=== PATIENT | female | born 1950 | race Caucasian/White ===

== ENCOUNTER → 2019-09-05 15:35 | Outpatient (CLI) | payer MEDICARE, OTHER, SELFPAY ==
--- NOTE | ~2019-09-05 | MM_ITS ---
EXAMINATION: MM screening [facility] BI w lo HISTORY: Screening mammogram, history of left breast cancer TECHNIQUE: Craniocaudal and mediolateral oblique 3-D tomosynthesis images were obtained and synthetic 2-D images were generated. CAD analysis was submitted and interpreted. COMPARISON: 07/04/2018, 01/03/2018, 06/12/2017 BREAST PARENCHYMAL COMPOSITION: There are scattered areas of fibroglandular density. FINDINGS: There are stable lumpectomy changes in the upper outer quadrant of the left breast. There i s no evidence of suspicious mass, calcification, or architectural distortion to suggest malignancy in either breast. There has been no suspicious interval change. IMPRESSION: 1. No mammographic evidence of malignancy. 2. Recommend routine screening mammography in one year. BI-RADS Category 2: Benign finding(s). Reviewed, dictated and finalized at location A. [employer]
== END ==
PROVIDERS: PCP Family Medicine Adolescent Medicine; Visit Provider Obstetrics & Gynecology
DX: Z12.31 Encounter for screening mammogram for malignant neoplasm of breast (principal)
CPT/HCPCS: 77063; 77067

== ENCOUNTER 2019-12-20 12:07 | Outpatient (CLI) | payer MEDICARE, OTHER, SELFPAY ==
--- NOTE | ~2019-12-20 | CT_ITS ---
EXAMINATION: CT abdomen pelvis w con DATE: 12/20/2019 13:16 INDICATION: Left lower quadrant abdominal pain. Nausea, constipation, diarrhea. History of diverticul itis. TECHNIQUE: Computed tomography (CT) of the abdomen and pelvis was performed with 100 cc Omnipaque 350 intravenous contrast. Automated exposure control and iterative reconstruction technique were employe d. Exam dose: 1158.92 mGy-cm total exam DLP. COMPARISON: 07/29/2018 CT abdomen pelvis FINDINGS: The lung bases are clear of infiltrate or consolidation. Normal heart size. No pericardial or pleural effusion. Status post cholecystectomy. No bile duct or pancreatic duct dilatation. No hepatic, splenic, pancreatic, adrenal space-occupying mass lesion. There are at least 4 left renal cysts, measuring up to 1.6 cm. There are approximately 3 right renal cysts measuring up to approximately 9 mm maximal dimension. No urinary tract calculus or hydronephrosis. There is atherosclerotic calcification of the thoracic and abdominal aorta; no evidence of abdominal aortic aneurysm. No intraperitoneal or retroperitoneal or pelvic mass lesion or adenopathy or ascites . The uterus, adnexal areas and urinary bladder are unremarkable. There is liquid stool throughout the colon and some enhancement of the colon wall, suggesting colitis . No bowel obstruction, pneumatosis or intraperitoneal free air is evident. Normal appendix. T11 vertebral body hemangioma. Diffuse idiopathic skeletal hyperostosis of the thoracolumbar spine. Prominent degenerative changes of the apophyseal joints in the lower lumbar and lumbosacral area with associated grade 1 anterolisthesis at L4-5. IMPRESSION: The colon is distended with liquid stool, with mild mucosal enhancement, suggesting diff use colitis Normal appendix Bilateral renal cysts Reviewed, dictated and finalized at Location A. Reviewed, dictated and finalized at location A. IMPRESSION: The colon is distended with liquid stool, with mild mucosal enhanc ement, suggesting diffuse colitis Normal appendix Bilateral renal cysts
[2019-12-20 13:00] LABS: Estimated Glomerular Filt Rate > 60
== END 2019-12-20 12:08 | disposition home or self-care (01) ==
PROVIDERS: PCP Family Medicine Adolescent Medicine; Visit Provider Family Medicine Adolescent Medicine
DX: R10.32 Left lower quadrant pain (principal); N28.1 Cyst of kidney, acquired
CPT/HCPCS: 36415; 74177; Q9967

== ENCOUNTER 2020-03-02 09:34 | Inpatient (IN) | payer MEDICARE, OTHER, SELFPAY ==
--- NOTE | ~2020-03-02 | XR_ITS ---
EXAMINATION: XR abdomen/kub 1V DATE: 03/04/2020 06:15 INDICATION: Bowel obstruction. TECHNIQUE: A supine view of the abdomen on 2 radiographs was obtained. COMPARISON: CT abdomen and pelvis 03/02/2020, abdomen radiograph 03/03/2020 FINDINGS: There is gaseous distention of the colon. The small bowel is normal in caliber. The nasogas tric tube tip is in the stomach. Surgical clips in the right upper quadrant are likely from cholecyst ectomy. IMPRESSION: 1. Distended colon, consistent with distal obstruction. Reviewed, dictated and finalized at location A.
--- NOTE | ~2020-03-02 | CT_ITS ---
EXAMINATION: CT abdomen pelvis w con EXAM DATE: 03/02/2020 11:10 INDICATION: Abdominal pain since Monday. History diverticulitis and bowel resection. TECHNIQUE: Spiral CT of the abdomen and pelvis was performed following intravenous injection of 100 m L Omnipaque 350. Axial, coronal and sagittal images were reviewed. The dose-length product (DLP) fo r this examination was 1248.03 mGy-cm. The exposure was tailored according to patient size (auto mA exposure control), and iterative reconstruction (ASIR) was used as additional dose reduction techniqu e. Comparison is made to prior examination from 12/20/2019. FINDINGS: The liver, spleen, adrenal glands and pancreas are unremarkable. There are cholecystectomy clips. Portal and splenic veins are patent. Kidneys enhance symmetrically. There is no hydronephr osis. The uterus is unremarkable. The bladder is unremarkable. There is mild scattered arteriosc lerotic disease. The appendix is normal. The stomach and small bowel are unremarkable. The colon is distended and fl uid-filled. There is a transition point in the sigmoid colon where there is probably wall thickening for about 6 cm segment. This could be adenocarcinoma of the colon. More cephalad to this there is a r ound lymph node measuring 1 cm in diameter, could be metastatic. Several other smaller but round lymp h nodes identified. There is mild colonic diverticulosis without acute diverticulitis suspected. No f ree intraperitoneal gas. The heart is normal in size. There are no pericardial or pleural effusion s. The lung bases are unremarkable. There are no osteoblastic or osteolytic lesions identified. Dias bacute right lower lateral rib fracture. IMPRESSION: 1. Findings suspicious for sigmoid colonic adenocarcinoma causing partial colonic obstruction. Signi ficantly distended and fluid-filled colon proximally. Consider consult. 2. Several adjacent round lymph nodes that could be metastatic. 3. Subacute right lower lateral rib fracture. Reviewed, dictated and finalized at location B. IMPRESSION: 1. Findings suspicious for sigmoid colonic adenocarcinoma causing partial colo jessica obstruction. Significantly distended and fluid-filled colon proximally. Con verifying machine operator consult. 2. Several adjacent round lymph nodes that could be metastatic. 3. Subacute right lower lateral rib fracture.
--- NOTE | ~2020-03-02 | XR_ITS ---
EXAMINATION: XR abdomen/kub 1V DATE: 03/03/2020 06:13 INDICATION: Colonic obstruction. TECHNIQUE: A supine view of the abdomen on 2 radiographs was obtained. COMPARISON: CT abdomen and pelvis 01/01/2020, enema 03/02/20 FINDINGS: There are no dilated loops of small bowel. The colon is distended. The nasogastric tube tip is in the stomach. Surgical clips in the right upper quadrant are likely from cholecystectomy. IMPRESSION: 1. Stable distended colon, consistent with distal obstruction. Reviewed, dictated and finalized at location A.
--- NOTE | ~2020-03-02 | XR_ITS ---
EXAMINATION: XR abdomen NG/feed tube insert INDICATION: Bowel obstruction, nasogastric tube insertion TECHNIQUE: Portable AP KUB-NG at 1252 hours COMPARISON: CT from today FINDINGS: A nasogastric tube is in the stomach. No definitely dilated loops of bowel are identified a lthough the dilated large bowel is fluid-filled on the comparison CT, lowering sensitivity of radiogr aphs. The visualized lung bases are clear. IMPRESSION: 1. Nasogastric tube in the stomach. Reviewed, dictated and finalized at location A.
--- NOTE | ~2020-03-02 | XR_ITS ---
EXAMINATION: XR abdomen NG/feed tube insert DATE: 03/02/2020 17:18 INDICATION: Nasogastric tube placement TECHNIQUE: A supine view of the abdomen and lower chest was obtained for evaluation of feeding tube placement. COMPARISON: 03/02/2020 FINDINGS: Nasogastric tube remains in place with both distal tip in proximal side port within the body of the s tomach. Gas-filled but not frankly dilated loops of bowel in the abdomen and a nonspecific bowel gas pattern. Calcified nodule in the right lower lobe consistent with old granulomatous disease. Heart si ze and mediastinal silhouette are normal. There are bridging osteophytes at multiple levels in the sp ine, consistent with diffuse idiopathic skeletal hyperostosis (DISH). IMPRESSION: 1. Nasogastric tube in the stomach. 2. Nonspecific bowel gas pattern. Reviewed, dictated and finalized at location A.
--- NOTE | ~2020-03-02 | XR_ITS ---
EXAMINATION: XR enema water soluble DATE: 03/02/2020 15:00 INDICATION: Bowel obstruction, possible mass on CT TECHNIQUE: A historic interpreter radiograph was obtained. A catheter was inserted into the patient's rectum. Contra st was infused by gravity. Fluoroscopic spot images and conventional radiographs were obtained. Fluor oscopy exposure time was 1.8 minutes. The DAP for this procedure was 63.4 Gycm2. 12 images were obtai sangeeta. COMPARISON: CT from today FINDINGS: Weaving Loom Operator image demonstrates partial opacification of the urinary tract by contrast from [facility] r CT examination. Patient voided prior to enema tube insertion. Contrast proceeded in a retrograde fa shion to the an area of stricturing in the sigmoid colon corresponding to the suspected sigmoid mass on CT. Contrast did not readily pass proximal to this area of stricturing with multiple attempts at c hanging patient position. Conventional radiographs were then performed which demonstrate some passage of contrast material proximal to the strictured segment into the upstream sigmoid colon which is dil ated. IMPRESSION: 1. Short area of stricturing in the mid sigmoid colon with dilated proximal sigmoid colon suspicious for sigmoid mass. Direct visualization is recommended. Reviewed, dictated and finalized at location A. IMPRESSION: 1. Short area of stricturing in the mid sigmoid colon with dilated proximal sig moid colon suspicious for sigmoid mass. Direct visualization is recommended.
[2020-03-02 09:37] VITALS: BP 176/73; PULSE 100; RESP 17; TEMP 36.6; O2SAT 100
[2020-03-02 10:11] LABS: Basophils Absolute Auto 0.1 K/mm3 (0.0-0.1); Basophils Percent Auto 0.3 % (0.2-1.2); Eosinophils Absolute Auto 0.1 K/mm3 (0-0.3); Eosinophils Percent Auto 0.4 % (0-4.4); Hematocrit 39.5 % (37.0-47.0); Hemoglobin 13.6 g/dL (12.0-15.0); Immature Granulocyte Absolute 0.14 K/mm3 (0.00-0.031); Immature Granulocyte Percent A 0.7 % (0-0.5); Lymphocytes Percent Auto 14.5 % (18.3-44.2); Mean Corpuscular HGB Conc 34.4 g/dl (32-36); Mean Corpuscular Hemoglobin 30.1 pg (26-34); Mean Corpuscular Volume 87.4 fl (80-100); Mean Platelet Volume 10.2 fl (7.4-10.4); Monocytes Absolute Auto 1.3 K/mm3 (0.1-0.6); Monocytes Percent Auto 6.2 % (2.6-8.5); Neutrophils Absolute Auto 16.2 K/mm3 (1.3-6.7); Neutrophils Percent Auto 77.9 % (45.5-73.1); Platelet Count Result 537 k/mm3 (150-375); Red Blood Count 4.52 M/mm3 (4.2-5.4); Red Cell Distribution Width 13.1 % (11.5-14.5); White Blood Count 20.7 K/mm3 (4.5-10.0)
--- NOTE | 2020-03-02 10:14 | ED.ABDPAIN ---
HPI - Abdominal Pain General Chief Complaint: Abdominal Pain Stated Complaint: abd pain Time Seen by Provider: 03/02/20 10:09 Source: patient Limitations: no limitations History of Present Illness HPI narrative: Patient presents to the ED with 3 days of severe abdominal pain. She is scheduled with Dr. Macedo to have a bowel resection due to her diverticulitis and recurrent obstructions. She has not had a bowel movement for 3 days. She has nausea and has chosen not to eat or drink. She feels a lot of pressure like she needs to throw up. She has not had any fever chills or sweats. She has not been sick otherwise. There is a surgical history of cholecystectomy. She does smoke cigarettes, she does drink a small amount of alcohol, she does not do marijuana. MD elicited complaint: abdominal pain Pertinent past history: diverticulitis Onset (ago): day(s) Pain Consistency: constant Location: diffuse Severity: severe Quality: fullness Radiation: none Migration to: no migration Exacerbating factors: nothing Relieving factors: nothing Context: confirms history of similar episodes Associated symptoms: nausea and constipation Related Data Home Medications Medication Instructions Recorded Confirmed cholestyramine (with sugar) 4 gram 9 gm PO BID gm 02/21/20 02/25/20 oral powder atorvastatin 40 mg tablet 40 mg PO DAILY 02/24/20 02/25/20 canagliflozin 100 mg tablet 100 mg PO DAILY 02/24/20 02/25/20 dextroamphetamine-amphetamine 30 30 mg PO DAILY 02/24/20 02/25/20 mg tablet diazepam 2 mg tablet 2 mg PO BID PRN 02/24/20 02/25/20 enalapril maleate 20 mg tablet 20 mg PO DAILY 02/24/20 02/25/20 insulin glargine 100 unit/mL 70 unit SUB-Q QPM ml 02/24/20 02/25/20 subcutaneous solution magnesium 250 mg tablet 250 mg PO DAILY 02/24/20 02/25/20 metformin 500 mg tablet 500 mg PO BID 02/24/20 02/25/20 ondansetron HCl 8 mg tablet 8 mg PO Q12H PRN 02/24/20 02/25/20 quetiapine 25 mg tablet 25 mg PO BID 02/24/20 02/25/20 riboflavin (vitamin B2) 25 mg 25 mg PO DAILY 02/24/20 02/25/20 tablet venlafaxine 150 mg tablet,extended 150 mg PO DAILY 02/24/20 02/25/20 release 24 hr cefuroxime axetil 250 mg PO BID 03/02/20 Allergies Allergy/AdvReac Type Severity Reaction Status Date / Time No Known Allergies Allergy Verified 02/24/20 13:17 Review of Systems Review of Systems: Narrative: CONSTITUTIONAL: Denies fever, chills, or sweats. EYES: Denies visual changes, redness, or discharge. ENT: Denies rhinorrhea, congestion, sore throat, or otalgia. CARDIOVASCULAR: Denies chest pain, palpitations, or edema. RESPIRATORY: Denies cough or dyspnea. GASTROINTESTINAL: She has severe abdominal pain, and nausea, but not vomiting, or diarrhea. GENITOURINARY: Denies dysuria or hematuria. SKIN: Denies rash or itching. MUSCULOSKELETAL: Denies back pain, joint pain, or myalgia. NEUROLOGIC: Denies headache, numbness, or weakness. All systems reviewed & are unremarkable except as noted in HPI and below PMFSH Past Medical History Medical History Diabetes High cholesterol History of breast cancer Surgical History Surgical History H/O dilation and curettage x3 H/O foot surgery Hx of cholecystectomy Hx of tonsillectomy Social History Social History (Updated 03/02/20 @ 10:17 by Nely Cano MD) Smoking status: Current every day smoker Alcohol intake: current Alcohol use details: rare Substance use: unknown Gender identity (if verbalized by the patient): Female Exam Narrative: Exam Narrative: GENERAL: Well-appearing, well-nourished, and in no acute distress. HEAD: Normocephalic, atraumatic. EYES: PERRLA and EOMI. ENT: Nares clear, no rhinorrhea or epistaxis. Mucous membranes moist. NECK: Supple. CHEST: Clear to auscultation. No respiratory distress. HEART: Regular rate and rhythm. No murmur heard. Normal peripheral pulse
[2020-03-02] MEDS: SODIUM CHLORIDE 0.9% IV 1,000 ML 500 ML IV CONT (10:23)
[2020-03-02] MEDS: MORPHINE SULFATE 4 MG/ML INJ IV PUSH ×2 (10:23→19:59)
[2020-03-02 10:28] LABS: Add Urine Microscopic? YES; Appearance Urine Cloudy (Clear); Bacteria Urine Trace /hpf; Bilirubin Urine Negative (Negative); Blood Urine 1+ (Negative); Color Urine Yellow (Yellow); Glucose Urine UA 3+ mg/dL (Negative); Ketones Urine 1+ mg/dL (Negative); Leukocyte Esterase Ur 3+ LEU/UL (Negative); Mucus Urine Few /lpf; Nitrate Urine Negative (Negative); Protein Urine 1+ mg/dL (Negative); Specific Grav Ur 1.029 (1.001-1.035); Squamous Epithelial Cell Urine Many /hpf (Few); Transitional Epi Cells Urine Rare /hpf (None Seen); Urobilinogen Urine Negative mg/dL (<2.0); WBC Clumps Urine Present /HPF; WBC Urine >75 /hpf
[2020-03-02 10:30] LABS: Alanine Aminotransferase 17 U/L (4-35); Alkaline Phosphatase 124 U/L (38-126); Anion Gap 13 mmol/L (8-16); Aspartate Amino Transferase 22 U/L (14-36); Bilirubin,Total 0.8 mg/dL (0.2-1.3); Blood Urea Nitrogen 15 mg/dL (7-17); Budding Yeast Urine Present /hpf; Calcium 8.5 mg/dL (8.4-10.2); Carbon Dioxide 21 mmol/L (22-30); Chloride 101 mmol/L (98-107); Estimated CRCL calculation 69 ml/min; Estimated Glomerular Filt Rate > 60; Glucose 224 mg/dL (65-105); Lipase 13 U/L (23-300); Potassium 2.8 mmol/L (3.4-5.0); Sodium 135 mmol/L (137-145)
[2020-03-02 10:48] LABS: Prothrombin Time 13.3 Seconds (11.1-14.7)
[2020-03-02] MEDS: KCL 20 MEQ/SW 100 ML 100 ML 50 MEQ IVPB (11:11)
[2020-03-02 11:27] VITALS: BP 150/71; PULSE 99; RESP 18; O2SAT 96
[2020-03-02] MEDS: BENZOCAINE/TETRACAINE SPRAY (*SP) 56 ML AEROSOL 1 SPRAY (12:37)
[2020-03-02 12:39] VITALS: BP 132/66; PULSE 95; RESP 18; O2SAT 100
[2020-03-02 13:13] VITALS: BP 165/67; PULSE 100; RESP 20; TEMP 36.6; O2SAT 98; BMI 33.0
--- NOTE | 2020-03-02 13:13 | ADMGEN ---
This patient, Aurea De La Rosa, was admitted to 2 Medical Room 241-01. Patient/family oriented to hospital policies and general routines including ID bracelet, bed and alarms, visiting hours, pain management, procedures, bathroom and other care routines, personal items, smoking policy, room service/diet, and visiting hours. Valuables list has been completed. Information on how to activate the Rapid Response Team has been discussed. Patient/Family are encouraged to report perceived risks to care and to ask questions if they do not understand what they are told or what they should do.
[2020-03-02 13:33] VITALS: BMI 33.0
[2020-03-02] MEDS: DEXTROSE 5%/0.9% SOD CHL 1,000 ML 100 ML IV CONT (13:56)
--- NOTE | 2020-03-02 13:59 | PC.NURSE ---
To radiology via wheelchair with transporters.
[2020-03-02] MEDS: ONDANSETRON INJ 4 MG/2 ML VIAL IV PUSH ×2 (15:14→20:01)
--- NOTE | 2020-03-02 19:58 | PM.IMHP ---
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 She has recently had a colonoscopy done at [facility] on February 21. A diverticular stricture was traversed with a gastroscope and the colonoscopy was able to be completed. No sign of malignancy was noted. I saw the patient in the office. On February 23. With her chronic stricture she had symptoms of partial colonic obstruction and was scheduled to have hand access laparoscopic sigmoidectomy. Unfortunately, she had more left lower quadrant pain last week and then on Monday started noticing more severe pain abdominal distension and nausea. She has not had a bowel movement in 3 days. She in 1 a bother anyone on the weekend so she came into the emergency room today. She was noted to be distended with a tender abdomen. [place] [id number] scan showed sigmoid stricture with partial colonic obstruction. The stricture is suspicious for malignancy although with her history and her recent colonoscopy, I feel this is much more likely a benign diverticular stricture. She had a high peak enema as well. This also showed the stricture and some contrast passed retrograde. She does feel somewhat better this evening after having NG suction for a few hours now. Her abdominal pain is not as severe. She is admitted now with sigmoid colon stricture and partial colonic obstruction. She is an insulin-dependent diabetic and has other medical problems as well. Review of Systems Review of Systems: All systems reviewed & are unremarkable except as noted in HPI and below Constitutional: Constitutional: Denies chills and Denies fever(s) Cardiovascular: Cardiovascular: Denies chest pain, Denies diaphoresis, Denies dyspnea and Denies paroxysmal nocturnal dyspnea Respiratory: Respiratory: Denies chest congestion, Denies cough and Denies dyspnea Gastrointestinal: Gastrointestinal: Reports abdominal pain, Reports bloating, Reports constipation, Reports GI cramping, Reports nausea and Reports vomiting Integumentary/Breasts: Skin/Breast: Denies lesions and Denies rash [facility] Past Medical History Medical History Diabetes High cholesterol History of breast cancer Surgical History Surgical History H/O dilation and curettage x3 H/O foot surgery Hx of cholecystectomy Hx of tonsillectomy Family History Family History Father Family history of malignant neoplasm Diabetes mellitus Sibling Family history of type 1 diabetes mellitus Mother Family history of Alzheimer's disease Hypertension Social History Social History Years smoked: 15 Smoking status: Former smoker Tobacco type: cigarettes Alcohol intake: current Alcohol use details: rare Substance use: never Substance use type: does not use Gender identity (if verbalized by the patient): Female Spiritual care concerns: No Meds Home Medications and Allergies Home Medications Medication Instructions Recorded Confirmed Type cholestyramine (with sugar) 4 gram 4 gm PO HS gm 02/21/20 03/02/20 History oral powder atorvastatin 40 mg tablet 40 mg PO HS 02/24/20 03/02/20 History canagliflozin 100 mg tablet 100 mg PO DAILY 02/24/20 03/02/20 History dextroamphetamine-amphetamine 30 60 mg PO DAILY 02/24/20 03/02/20 History mg tablet diazepam 2 mg tablet 2 mg PO PRN PRN 02/24/20 03/02/20 History enalapril maleate 20 mg tablet 20 mg PO DAILY 02/24/20 03/02/20 History insulin glargine 100 unit/mL 70 unit SUB-Q QPM ml 02/24/20 03/02/20 History subcutaneous solution magnesium 250 mg t
[2020-03-02] MEDS: FAMOTIDINE 20 MG/2 ML VIAL IV PUSH (21:21)
[2020-03-02] MEDS: KCL 40 MEQ/0.9% SOD CHL 1,000 ML 125 ML IV CONT (21:21)
[2020-03-02 22:00] VITALS: BP 161/58; PULSE 96; RESP 18; TEMP 36.7; O2SAT 96
[2020-03-03 00:01] LABS: Glucose Point of Care 73 (65-105)
[2020-03-03] MEDS: IBUPROFEN IV 800 MG/200 ML 800 MG/200 ML BAG 400 MG IVPB ×3 (01:40→21:43)
[2020-03-03] MEDS: ONDANSETRON INJ 4 MG/2 ML VIAL IV PUSH ×2 (01:57→22:26)
[2020-03-03] MEDS: DEXTROSE 50% 25 GM/50 ML SYRINGE IV PUSH (01:58)
[2020-03-03 02:00] VITALS: BP 116/42; PULSE 88; RESP 18; TEMP 36.2; O2SAT 96
[2020-03-03] MEDS: DEXTROSE 5%/0.9% SOD CHL 1,000 ML 100 ML IV CONT ×2 (02:16→14:25)
[2020-03-03 02:40] LABS: Anion Gap 4 mmol/L (8-16); Blood Urea Nitrogen 10 mg/dL (7-17); Calcium 7.8 mg/dL (8.4-10.2); Carbon Dioxide 22 mmol/L (22-30); Chloride 111 mmol/L (98-107); Estimated CRCL calculation 93 ml/min; Estimated Glomerular Filt Rate > 60; Glucose 139 mg/dL (65-105); Potassium 2.9 mmol/L (3.4-5.0); Sodium 137 mmol/L (137-145)
[2020-03-03 03:59] LABS: Glucose Point of Care 58 (65-105)
[2020-03-03 03:59] LABS: Glucose Point of Care 111 (65-105)
[2020-03-03 05:42] LABS: Glucose Point of Care 143 (65-105)
[2020-03-03 05:53] LABS: Basophils Percent Auto 0.3 % (0.2-1.2); Eosinophils Absolute Auto 0.2 K/mm3 (0-0.3); Eosinophils Percent Auto 1.3 % (0-4.4); Hematocrit 31.8 % (37.0-47.0); Immature Granulocyte Absolute 0.05 K/mm3 (0.00-0.031); Immature Granulocyte Percent A 0.4 % (0-0.5); Lymphocytes Absolute Auto 3.06 K/mm3 (0.9-3.2); Lymphocytes Percent Auto 22.5 % (18.3-44.2); Mean Corpuscular HGB Conc 34.6 g/dl (32-36); Mean Corpuscular Hemoglobin 30.3 pg (26-34); Mean Corpuscular Volume 87.6 fl (80-100); Mean Platelet Volume 10.3 fl (7.4-10.4); Monocytes Percent Auto 7.1 % (2.6-8.5); Neutrophils Absolute Auto 9.3 K/mm3 (1.3-6.7); Neutrophils Percent Auto 68.4 % (45.5-73.1); Platelet Count Result 402 k/mm3 (150-375); Red Blood Count 3.63 M/mm3 (4.2-5.4); Red Cell Distribution Width 13.2 % (11.5-14.5); White Blood Count 13.6 K/mm3 (4.5-10.0)
[2020-03-03 06:00] VITALS: BP 119/51; PULSE 85; RESP 18; TEMP 36.2; O2SAT 96
[2020-03-03 06:09] LABS: Anion Gap 4 mmol/L (8-16); Blood Urea Nitrogen 10 mg/dL (7-17); Calcium 7.8 mg/dL (8.4-10.2); Carbon Dioxide 21 mmol/L (22-30); Chloride 112 mmol/L (98-107); Estimated CRCL calculation 93 ml/min; Estimated Glomerular Filt Rate > 60; Glucose 135 mg/dL (65-105); Potassium 2.9 mmol/L (3.4-5.0); Sodium 137 mmol/L (137-145)
[2020-03-03] MEDS: VENLAFAXINE HCL XR 75 MG CAP.ER.24H 150 MG PO (08:42)
[2020-03-03] MEDS: FAMOTIDINE 20 MG/2 ML VIAL IV PUSH ×2 (08:42→21:44)
[2020-03-03 09:25] VITALS: BP 129/60; PULSE 84; RESP 20; TEMP 36.3; O2SAT 97
[2020-03-03 12:29] LABS: Glucose Point of Care 120 (65-105)
[2020-03-03 14:00] VITALS: BP 150/53; PULSE 90; RESP 20; TEMP 35.9; O2SAT 97
--- NOTE | 2020-03-03 15:48 | PM.IMCN ---
Assessment and Plan Assessment and plan (1) Partial obstruction of colon: Code(s): K56.600 - Partial intestinal obstruction, unspecified as to cause Status: Acute Assessment and Plan: Patient with partial obstruction of the colon related to sigmoid stricture. It is felt the stricture was related to scarring from previous infections. She was not felt to have diverticulitis or colitis at this time. NG tube secured. Continue to monitor for return of bowel function. Increase activity (2) Hypokalemia: Code(s): E87.6 - Hypokalemia Status: Acute Assessment and Plan: Potassium 2.8 on admission and remains low despite replacement. Will repeat potassium later today and will also check magnesium level. Continue to replace. (3) Leukocytosis: Code(s): D72.829 - Elevated white blood cell count, unspecified Status: Acute Assessment and Plan: White count 21,000 on admission. She is not on antibiotics. No evidence of diverticulitis. White count trending downward. Elevated white count probably stress response. Will continue to follow. (4) Sigmoid stricture: Code(s): K56.699 - Other intestinal obstruction unspecified as to partial versus complete obstruction Status: Acute Assessment and Plan: CT scan concerning for colon cancer although patient has had a recent colonoscopy a year ago and findings were more consistent with stricture related to frequent infections. Most likely will need surgical resection for definitive care. Will need to determine if the lupus anticoagulant will be an issue. (5) Anxiety: Code(s): F41.9 - Anxiety disorder, unspecified Status: Acute Assessment and Plan: Patient on venlafaxine and Seroquel for her anxiety. Venlafaxine has been resumed. Mood stable at this time. Resume other medications when able. (6) IBS (irritable bowel syndrome): Code(s): K58.9 - Irritable bowel syndrome without diarrhea Status: Acute Assessment and Plan: Patient with chronic diarrhea related IBS. This is been treated with cholestyramine With benefit. She follows with Dr. Mcmullen. Resume cholestyramine when able. (7) HTN (hypertension): Qualifiers: Hypertension type: essential hypertension Qualified Code(s): I10 - Essential (primary) hypertension Code(s): I10 - Essential (primary) hypertension Status: Acute Assessment and Plan: Patient's blood pressure was reviewed on 03/03/20 Blood pressure well controlled at times. Will have hydralazine available as needed. (8) Diabetes: Code(s): E11.9 - Type 2 diabetes mellitus without complications Status: Acute Assessment and Plan: The patient's blood glucose was reviewed on 03/03/20. Glucose remains well controlled. Continue AccuCheks covering with sliding scale. Hypoglycemia protocol available as needed. Hime medications on hold. (9) Lupus anticoagulant positive: Code(s): R76.0 - Raised antibody titer Status: Acute Assessment and Plan: PT and INR normal. no old records to review. Will check WILLIS, lupus anticoagulant and cardiolipin antibodies. Will add PTT. (10) DVT prophylaxis: Code(s): Z29.9 - Encounter for prophylactic measures, unspecified Status: Acute Assessment and Plan: SCDs for now as we determine the etiology of her potential bleeding disorder. thank you so much for allowing me to be part of this patient's care. HPI Data of Consult Consult date: 03/04/20 Requesting Physician: Daniel Macedo MD Primary Care Provider: Wilfredo Pinto MD Consult Narrative Narrative: Aurea De La Rosa is a 69 year old female with hx of diverticlulitis and known colon stricture here for abdominal pain and bloating. She had her last bout of diverticulitis in July 2018. She sees Dr Mcmullen but he had trouble performing colonoscopy
--- NOTE | 2020-03-03 16:07 | PM.PNGS ---
Progress Note: A&P Assessment and Plan (1) Partial obstruction of colon: Code(s): K56.600 - Partial intestinal obstruction, unspecified as to cause Status: Acute Assessment and Plan: Not complete obstruction. Patient having less crampy pain. Hopefully will resolve with NG suction and we can avoid a colostomy. Will try another 24-48 hours of NG suction and, unless patient worsens, if no improvement she will need to proceed with surgery that will likely entail a colostomy. 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 Colonoscopy earlier this month negative for malignancy. (3) Hypokalemia: Code(s): E87.6 - Hypokalemia Status: Acute Assessment and Plan: Being supplemented by hospitalist. (4) HTN (hypertension): Qualifiers: Hypertension type: essential hypertension Qualified Code(s): I10 - Essential (primary) hypertension Code(s): I10 - Essential (primary) hypertension Status: Acute (5) Meniere disease: Qualifiers: Laterality: bilateral Qualified Code(s): H81.03 - Meniere's disease, bilateral Code(s): H81.09 - Meniere's disease, unspecified ear Status: Acute Subjective Subjective Date/Time Seen: 03/03/20 07:07 Patient reports: feels better, pain is less, no flatus and no bowel movement Interval history: Patient took IV ibuprofen last night for crampy abdominal pain. Since that time, she has had no further abdominal pain. This morning she felt much better. She is still not had any bowel movements or passed any gas from her rectum. Review of Systems Review of Systems: All systems reviewed & are unremarkable except as noted in HPI and below Constitutional: Constitutional: Denies body ache(s), Denies chills, Denies fatigue, Denies fever(s) and Reports poor appetite Cardiovascular: Cardiovascular: Denies chest pain and Denies dyspnea Respiratory: Respiratory: Denies cough and Denies dyspnea Gastrointestinal: Gastrointestinal: Reports as per HPI, Denies abdominal pain, Reports constipation, Denies GI cramping and Denies nausea Neurologic: Denies confusion and Denies headache(s) Exam Const: General: comfortable and no acute distress; No confusion Orientation/consciousness: patient oriented x3 and No confusion GI: Inspection: distended GI Palp: Yes Soft to palpation, No Tenderness to palpation present (GI), No Guarding due to palpation present (GI) and No Rebound tenderness present Auscultation: Hypoactive bowel sounds present Neuro: General: patient oriented x3, no focal motor deficits and No confusion Extrem: General: no calf tenderness and no edema Psych: Affect: normal affect Insight: Good insight present (Psych) Judgement: Good judgement present (Psych) Objective Data Vital Signs Vital Signs: Vital Signs - 24 hr 03/02/20 22:00 03/03/20 02:00 03/03/20 06:00 Temperature 36.7 C 36.2 C L 36.2 C L Pulse Rate 96 88 85 Respiratory Rate 18 18 18 Blood Pressure 161/58 H 116/42 L 119/51 L Pulse Oximetry 96 96 96 03/03/20 09:25 03/03/20 14:00 Temperature 36.3 C L 35.9 C L Pulse Rate 84 90 Respiratory Rate 20 20 Blood Pressure 129/60 150/53 H Pulse Oximetry 97 97 Intake/Output Intake/Output: Intake & Output 02/29/20 03/01/20 03/02/20 03/03/20 23:59 23:59 23:59 23:59 Intake Total 1100 1900 Output Total 450 503 Balance 650 1397 Meds/Results Medications: Active Medications Generic Name Dose Route Start Last Admin Trade Name Freq PRN Reason Stop Do
[2020-03-03 17:16] LABS: Magnesium 1.5 mg/dL (1.6-2.3); Potassium 2.9 mmol/L (3.4-5.0)
[2020-03-03] MEDS: KCL 40 MEQ/D5/0.9% SOD CHL 1,000 ML 100 ML IV CONT (17:20)
[2020-03-03] MEDS: MAGNESIUM SULF 2 GM/WATER 50ML 2 GM/50 ML BAG IVPB (17:35)
[2020-03-03 17:55] VITALS: BP 141/68; PULSE 95; RESP 20; TEMP 36.1; O2SAT 99
[2020-03-03 18:27] LABS: Glucose Point of Care 99 (65-105)
[2020-03-03 22:00] VITALS: BP 123/53; PULSE 99; RESP 20; TEMP 36.3; O2SAT 98
--- NOTE | 2020-03-04 | ECHO_ITS ---
Patient Info Name: Aurea De La Rosa Age: 69 years : 1950 Gender: Female Ht: 64 in Wt: 192 lbs BSA: 2.02 m2 HR: 90 bpm BP: 134 / 60 mmHg Heart Rhythm: Sinus Rhythm Technical Quality: Good Exam Date: 03/04/2020 9:33 AM Exam Location: [facility] Patient Status: Inpatient Admit Date: 03/02/2020 Staff Ordering Physician: Bharath Mejia MD Head Of Biology: Charles Berg RDCS Attending Provider: Daniel Macedo MD Exam Type: CA echo doppler color flow Study Info Indications R01.1 - Cardiac murmur, unspecified Complete two-dimensional, color flow and Doppler transthoracic echocardiogram is performed. History/Risk Factors Murmur; HTN, DM2. Summary 1. Left ventricular systolic function is normal, estimated at 65-70%. 2. There is no increased left ventricular wall thickness. 3. The left ventricular diastolic function is grade I diastolic dysfunction. 4. There is mild aortic valve stenosis with a peak velocity of 256 cm/s, mean gradient of 14 mmHg, and aortic valve area of 1.6 cm2. 5. The mitral valve annulus is severely calcified. 6. There is trace mitral valve regurgitation. 7. Unable to estimate PA systolic pressure due to poor spectral resolution of tricuspid regurgitant jet velocity. Left Ventricle Left ventricular chamber dimension is normal. Left ventricular systolic function is normal, estimated at 65-70%. There is no increased left ventricular wall thickness. The left ventricular diastolic function is grade I diastolic dysfunction. Right Ventricle Right ventricular chamber dimension is normal. Right ventricular systolic function is normal. Left Atria Left atrial chamber dimension is normal. Right Atria Right atrial chamber dimension is normal. Aortic Valve The aortic valve is not well visualized. There is mild aortic valve stenosis with a peak velocity of 256 cm/s, mean gradient of 14 mmHg, and aortic valve area of 1.6 cm2. There is no aortic valve regurgitation. There is mild aortic valve calcification. Pulmonic Valve The pulmonic valve is not well visualized. Mitral Valve The mitral valve has thickened leaflets. There is trace mitral valve regurgitation. The mitral valve annulus is severely calcified. Tricuspid Valve The tricuspid valve leaflets are not well visualized. Unable to estimate PA systolic pressure due to poor spectral resolution of tricuspid regurgitant jet velocity. Pericardium/Pleural The pericardium appears not well visualized. Inferior Vena Cava Normal inferior vena cava with >50% collapse upon inspiration consistent with normal right atrial pressure, 5 mmHg. Aorta The aortic root size at the sinus of Valsalva is normal. Left Ventricular Outflow Tract Name Value Normal LVOT 2D LVOT Diameter 2.1 cm LVOT Doppler LVOT Peak Gradient 5 mmHg LVOT Mean Gradient 3 mmHg LVOT VTI 24 cm LVOT VTI/AV VTI Ratio 0.5 LVOT Stroke Volume 81 ml LVOT CO 7.1 l/min
[2020-03-04 00:13] LABS: Glucose Point of Care 127 (65-105)
[2020-03-04 01:51] VITALS: BP 134/50; PULSE 88; RESP 20; TEMP 37.2; O2SAT 98
[2020-03-04 06:00] VITALS: BP 146/65; PULSE 88; RESP 21; TEMP 36.6; O2SAT 100
[2020-03-04 06:28] LABS: Hematocrit 31.8 % (37.0-47.0); Hemoglobin 11.1 g/dL (12.0-15.0); Mean Corpuscular HGB Conc 34.9 g/dl (32-36); Mean Corpuscular Hemoglobin 30.2 pg (26-34); Mean Corpuscular Volume 86.6 fl (80-100); Platelet Count Result 430 k/mm3 (150-375); Red Blood Count 3.67 M/mm3 (4.2-5.4); Red Cell Distribution Width 13.2 % (11.5-14.5); White Blood Count 13.1 K/mm3 (4.5-10.0)
[2020-03-04 06:38] LABS: Glucose Point of Care 121 (65-105)
[2020-03-04 06:41] LABS: Partial Thromboplastin Time 40.9 SECONDS (22.3-36.8)
[2020-03-04 06:45] LABS: Anion Gap 5 mmol/L (8-16); Blood Urea Nitrogen 5 mg/dL (7-17); Calcium 7.9 mg/dL (8.4-10.2); Carbon Dioxide 22 mmol/L (22-30); Chloride 112 mmol/L (98-107); Estimated CRCL calculation 93 ml/min; Estimated Glomerular Filt Rate > 60; Glucose 130 mg/dL (65-105); Magnesium 1.9 mg/dL (1.6-2.3); Potassium 3.6 mmol/L (3.4-5.0); Sodium 139 mmol/L (137-145)
--- NOTE | 2020-03-04 08:00 | PM.PNGS ---
Progress Note: A&P Assessment and Plan (1) Partial obstruction of colon: Code(s): K56.600 - Partial intestinal obstruction, unspecified as to cause Status: Acute Assessment and Plan: Really not improving and in fact seems more distended today. She had colonoscopy by Dr. Joseph on 02/22/2020. Will call [facility] and see if patient can transfer therefore colonic stenting in hopes of avoiding colostomy. Discussed with patient who is agreeable. (2) Diverticulitis large intestine: Qualifiers: Diverticulitis bleeding: without bleeding Diverticulitis complication: without perforation or abscess Qualified Code(s): K57.32 - Diverticulitis of large intestine without perforation or abscess without bleeding Code(s): K57.32 - Diverticulitis of large intestine without perforation or abscess without bleeding Status: Acute (3) Diabetes: Code(s): E11.9 - Type 2 diabetes mellitus without complications Status: Acute Subjective Subjective Date/Time Seen: 03/04/20 08:00 Patient reports: still having pain (Still having abdominal pain, gave her trouble sleeping last night), bowel movement and afebrile Review of Systems Review of Systems: All systems reviewed & are unremarkable except as noted in HPI and below Constitutional: Constitutional: Denies chills, Denies fever(s) and Reports poor appetite Cardiovascular: Cardiovascular: Denies chest pain and Denies dyspnea Respiratory: Respiratory: Denies cough and Denies dyspnea Gastrointestinal: Gastrointestinal: Reports as per HPI and Reports abdominal pain Neurologic: Denies confusion and Denies headache(s) Exam Const: General: comfortable and no acute distress; No confusion Orientation/consciousness: patient oriented x3 and No confusion GI: Inspection: distended and other ( more distended this morning) GI Palp: Yes Firmness to palpation present (GI), No Tenderness to palpation present (GI), No Guarding due to palpation present (GI) and No Rebound tenderness present Auscultation: High-pitched bowel sounds present Neuro: General: patient oriented x3, no focal motor deficits and No confusion Extrem: General: no calf tenderness and no edema Psych: Affect: normal affect Insight: Good insight present (Psych) Judgement: Good judgement present (Psych) Objective Data Vital Signs Vital Signs: Vital Signs - 24 hr 03/03/20 09:25 03/03/20 14:00 03/03/20 17:55 Temperature 36.3 C L 35.9 C L 36.1 C L Pulse Rate 84 90 95 Respiratory Rate 20 20 20 Blood Pressure 129/60 150/53 H 141/68 H Pulse Oximetry 97 97 99 03/03/20 22:00 03/04/20 01:51 03/04/20 06:00 Temperature 36.3 C L 37.2 C 36.6 C Pulse Rate 99 88 88 Respiratory Rate 20 20 21 H Blood Pressure 123/53 L 134/50 L 146/65 H Pulse Oximetry 98 98 100 Intake/Output Intake/Output: Intake & Output 03/01/20 03/02/20 03/03/20 03/04/20 23:59 23:59 23:59 23:59 Intake Total 1100 2930 Output Total 450 1403 1000 Balance 650 1527 -1000 Meds/Results Medications: Active Medications Generic Name Dose Route Start Last Admin Trade Name Freq PRN Reason Stop Dose Admin Dextrose 12.5 gm 03/02/20 22:28 03/03/20 01:58 Dextrose 50% Syringe IV PUSH 12.5 gm PRN PRN Administration Hypoglycemia Protocol Enoxaparin Sodium 40 mg 03/03/20 09:00 03/03/20 12:18 Lovenox SUB-Q Not Given DAILY MAXI Famotidine 20 mg 03/02/20 21:00 03/03/20 21:44 Pepcid Iv IV PUSH 20 mg Q12HR MAXI Administration Glucagon 1 mg 03/02/20 22:28 Glucagon For Inj IM PRN PRN Hypoglycemia Protocol Glucose 15 gm 03/02/20 22:28 Glutose 15 PO PRN PRN Hypoglycemia Protocol Hydralazine HCl 10 mg 03/03/20 16:29 Apresoline Hcl Inj IV PUSH Q8H PRN Blood Pressure - High Ibuprofen 400 mg/ Sodium 104 mls @ 200 mls/hr 03/02/20 20:13 Chloride IVPB Q6H PRN Pain Rated 1-3 Ibuprofen 800 mg in 2
[2020-03-04] MEDS: VENLAFAXINE HCL XR 75 MG CAP.ER.24H 150 MG PO (08:30)
[2020-03-04] MEDS: FAMOTIDINE 20 MG/2 ML VIAL IV PUSH (08:30)
[2020-03-04] MEDS: KCL 40 MEQ/D5/0.9% SOD CHL 1,000 ML 100 ML IV CONT (08:32)
[2020-03-04 09:59] VITALS: BP 135/68; PULSE 93; RESP 14; TEMP 36.4; O2SAT 97
--- NOTE | 2020-03-04 10:09 | PM.IMPN ---
Progress Note: A&P Assessment and Plan (1) Partial obstruction of colon: Code(s): K56.600 - Partial intestinal obstruction, unspecified as to cause Status: Acute Assessment and Plan: Patient with partial obstruction of the colon related to sigmoid stricture. It is felt the stricture was related to scarring from previous infections. She was not felt to have diverticulitis or colitis at this time. (+)BMs yesterday. NG tube secured. Continue to monitor for return of bowel function. Possible transfer today. (2) Hypokalemia: Code(s): E87.6 - Hypokalemia Status: Acute Assessment and Plan: Potassium 2.8 on admission. Has received multiple replacement doses. Repeat potassium normal now. Continue to monitor. (3) Leukocytosis: Code(s): D72.829 - Elevated white blood cell count, unspecified Status: Acute Assessment and Plan: White count 21,000 on admission. She is not on antibiotics. No evidence of diverticulitis. White count continuing to trend downward. Elevated white count probably stress response. Will continue to follow. (4) Sigmoid stricture: Code(s): K56.699 - Other intestinal obstruction unspecified as to partial versus complete obstruction Status: Acute Assessment and Plan: CT scan concerning for colon cancer although patient has had a recent colonoscopy a year ago and findings were more consistent with stricture related to frequent infections. Plan for transfer for possible colonic stenting. Most likely will need surgical resection for definitive care at some point. Will need to determine if the lupus anticoagulant will be an issue. (5) Anxiety: Code(s): F41.9 - Anxiety disorder, unspecified Status: Acute Assessment and Plan: Patient on venlafaxine and Seroquel for her anxiety. Venlafaxine has been resumed. Mood stable at this time. Resume other medications when able. (6) IBS (irritable bowel syndrome): Code(s): K58.9 - Irritable bowel syndrome without diarrhea Status: Acute Assessment and Plan: Patient with chronic diarrhea related IBS. This is been treated with cholestyramine with benefit. She follows with Dr. Mcmullen. Resume cholestyramine when able. (7) HTN (hypertension): Qualifiers: Hypertension type: essential hypertension Qualified Code(s): I10 - Essential (primary) hypertension Code(s): I10 - Essential (primary) hypertension Status: Acute Assessment and Plan: Patient's blood pressure was reviewed on 03/04 Blood pressure well controlled at times. Hydralazine available as needed. (8) Diabetes: Code(s): E11.9 - Type 2 diabetes mellitus without complications Status: Acute Assessment and Plan: The patient's blood glucose was reviewed on 03/04/20. Glucose remains well controlled. Continue AccuCheks covering with sliding scale. Hypoglycemia protocol available as needed. (9) Lupus anticoagulant positive: Code(s): R76.0 - Raised antibody titer Status: Acute Assessment and Plan: PT and INR normal. no old records to review. PTT mildly elevated. WILLIS, lupus anticoagulant and cardiolipin antibodies levels pending. (10) DVT prophylaxis: Code(s): Z29.9 - Encounter for prophylactic measures, unspecified Status: Acute Assessment and Plan: SCDs for now as we determine the etiology of her potential bleeding disorder. Subjective Date/time seen: 03/04/20 10:09 Interval history: Date of service 03/04/20 69yo female with diabetes and hypertension here for colonic obstruction from sigmoid stricture. Two small bowel movements yesterday but not today. No flatus today. No chest pain or shortness of breath. Exam Narrative: Exam Narrative: AF 135/68 93 14 97% ra Gen - NARD HEENT - NCAT. NG tube secured Chest - CTA bilat, nml RR CV - RRR. S1-S2. 08/22 systo
[2020-03-04] MEDS: ONDANSETRON INJ 4 MG/2 ML VIAL IV PUSH (11:39)
[2020-03-04] MEDS: IBUPROFEN IV 800 MG/200 ML 800 MG/200 ML BAG 400 MG IVPB (11:39)
[2020-03-04 11:58] LABS: Glucose Point of Care 129 (65-105)
--- NOTE | 2020-03-04 13:26 | PC.NURSE ---
Report called for patient transfer to [facility] at [facility]. All questions and concerns answered at this time.
[2020-03-04 14:00] VITALS: BP 122/61; PULSE 94; RESP 15; TEMP 36.2; O2SAT 99
--- NOTE | 2020-03-04 15:14 | PC.NURSE ---
Patient transferred to [facility] per Dr. Macedo's orders via stretcher by [facility]. NG tube to left nare with continuous low suction and IV fluids [id number]@100ml's/hour infusing to right antecubital.
--- NOTE | 2020-03-05 15:10 | PM.DS ---
DS: Admitting Diagnosis Admitting Diagnosis Admitting Diagnosis: distal colonic obstruction DS: Discharge Diagnosis Discharge Diagnosis (1) Partial obstruction of colon: Code(s): K56.600 - Partial intestinal obstruction, unspecified as to cause Status: Acute Assessment and Plan: Patient transferred to [facility] under the care of Dr. Oscar Gunn, colorectal surgeon, with plans for GI to see her and hopefully place a sigmoid colon stent to relieve this obstruction. (2) Sigmoid stricture: Code(s): K56.699 - Other intestinal obstruction unspecified as to partial versus complete obstruction Status: Chronic Assessment and Plan: If stenting successful, patient will then have elective sigmoidectomy with anastomosis after bowel preparation. (3) Hypokalemia: Code(s): E87.6 - Hypokalemia Status: Acute Assessment and Plan: Replenished during this hospitalization. Potassium 3.6 on day of discharge (4) Diverticulitis large intestine: Qualifiers: Diverticulitis bleeding: without bleeding Diverticulitis complication: without perforation or abscess Qualified Code(s): K57.32 - Diverticulitis of large intestine without perforation or abscess without bleeding Code(s): K57.32 - Diverticulitis of large intestine without perforation or abscess without bleeding Status: Chronic Assessment and Plan: seen for many years by Dr. Socrates Mcmullen, trust manager assistant. She has had multiple cases of diverticulitis and developed a diverticular stricture although during this admission she did not have any infection from diverticulitis. (5) Diabetes: Code(s): E11.9 - Type 2 diabetes mellitus without complications Status: Chronic Assessment and Plan: Medical conditions managed by hospitalist during admission. (6) Meniere disease: Qualifiers: Laterality: bilateral Qualified Code(s): H81.03 - Meniere's disease, bilateral Code(s): H81.09 - Meniere's disease, unspecified ear Status: Chronic (7) JESUS on CPAP: Code(s): G47.33 - Obstructive sleep apnea (adult) (pediatric); Z99.89 - Dependence on other enabling machines and devices Status: Chronic (8) HTN (hypertension): Qualifiers: Hypertension type: essential hypertension Qualified Code(s): I10 - Essential (primary) hypertension Code(s): I10 - Essential (primary) hypertension Status: Chronic (9) Lupus anticoagulant positive: Code(s): R76.0 - Raised antibody titer Status: Chronic DS: Summary Time Spent with Patient Time attestation: Total time spent providing and/or coordinating discharge services: Patient is a 69-year-old woman with known history of sigmoid colon stricture an many episodes of chronic diverticulitis. She had a colonoscopy 1 year ago with the gastroscope which did not show any sign of malignancy. The stricture is felt to be due to diverticulitis. I had seen her in the office on February 23 and scheduled her for hand access laparoscopic sigmoidectomy. Unfortunately, the patient presented to the emergency room on March 02 with a 3 day history of increasing abdominal pain, abdominal distention and nausea. She had not had a bowel movement for 3 days. She was noted to be distended with a tender abdomen. [place] [address] scan showed the sigmoid stricture with partial colonic obstruction. She was admitted. The hospitalist was consulted to manage her medical problems including diabetes, lupus anticoagulant, obstructive sleep apnea, hypertension. The patient had a Hypaque enema the day of admission. This showed the stricture and very little contrast passed beyond the stricture. This did not alleviate the obstruction. She was admitted and a nasogastric tube was placed. She initially improved but on the day of transfer, she was still having crampy pain and seemed to be more distended. She is tr
[2020-03-06 20:37] LABS: Anti Cardio Antibody IgM <12 MPL (<=12); Anti Cardiolipin Antibody IgA <11 APL (<=11); Anti Cardiolipin Antibody IgG <14 GPL (<=14)
[2020-03-07 18:38] LABS: Hexagonal Phase Confirm Negative (Negative); Lupus dRVVT 1:1 Mix Interpreta Not Indicated; Lupus dRVVT Screen 29 sec (<=45); PTT-LA Screen 44 sec (<=40)
--- NOTE | 2020-03-11 07:35 | PC.NURSE ---
WILLIS results are positve. Josh Mejia aware. Results faxed to Dr. Pinto. Echo report showed to Dr. Mejia and faxed to Dr. Pinto.
== END 2020-03-04 15:14 | disposition short-term general hospital (02) | DRG 390 ==
LOC: ANHED 12:28 → ANH2MED 15:27
PROVIDERS: Family Medicine; Internal Medicine; Admitting Provider Surgery; Emergency Provider Emergency Medicine; PCP Family Medicine Adolescent Medicine; Visit Provider Surgery
DX: K56.690 Other partial intestinal obstruction (principal); E87.6 Hypokalemia; K57.30 Diverticulosis of large intestine without perforation or abscess without bleeding; E10.9 Type 1 diabetes mellitus without complications; G47.33 Obstructive sleep apnea (adult) (pediatric); I10 Essential (primary) hypertension; H81.03 Meniere's disease, bilateral; R76.0 Raised antibody titer; D47.3 Essential (hemorrhagic) thrombocythemia; K58.0 Irritable bowel syndrome with diarrhea; D72.829 Elevated white blood cell count, unspecified; Z90.49 Acquired absence of other specified parts of digestive tract; Z85.3 Personal history of malignant neoplasm of breast; Z87.891 Personal history of nicotine dependence
CPT/HCPCS: 36415; 74018; 74177; 74270; 80048; 80053; 81001; 83690; 83735; 84132; 85025; 85027; 85598; 85610; 85613; 85730; 86038; 86039; 86147; 87086; 87088; 93306; 96361; 96365; 96375; 99285; A9270; J1741; J2270; J2405; J3475; J3480; J7030; J7042; Q9967

== ENCOUNTER 2020-05-23 10:58 | Emergency (ER) | payer MEDICARE, OTHER, SELFPAY ==
--- NOTE | ~2020-05-23 | CT_ITS ---
EXAMINATION: CT facial & cervical spine wo DATE: 05/23/2020 11:50 INDICATION: Facial and neck pain after fall TECHNIQUE: Computed tomography (CT) of the maxillofacial region and cervical spine was performed with out intravenous contrast. The dose-length product (DLP) was 434.15 mGy-cm. Automated exposure control and iterative reconstruction technique were employed. COMPARISON: None FINDINGS: MAXILLOFACIAL CT: No facial bone fracture is identified. There is chronic right maxillary sinusitis. Mild right periorb ital soft tissue swelling is noted. Changes in the globes are likely from ocular lens surgery. CERVICAL SPINE CT: There is no fracture, dislocation, or subluxation. The vertebral body heights and alignment are armani l. There is moderate loss of intervertebral disc space height at C5-6 and C6-7. Mild loss of interver tebral disc space height is seen throughout the remainder of the cervical spine. The odontoid is inta ct. There is moderate to severe facet and uncovertebral joint osteoarthritis. Multinodular goiter is again noted. IMPRESSION: 1. No facial fracture identified. 2. Moderate cervical spondylosis without acute findings or significant interval change. Reviewed, dictated and finalized at location A. 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
--- NOTE | ~2020-05-23 | XR_ITS ---
EXAMINATION: XR lumbar spine 2-3V DATE: 05/23/2020 12:07 INDICATION: Low back pain TECHNIQUE: Anteroposterior and lateral views of the lumbar spine, and cone-down lateral view of the l umbosacral junction were obtained. COMPARISON: CT, 03/02/2020 FINDINGS: There are 3 mm of unchanged anterolisthesis of L4 on L5. The vertebral body heights are kamran ntained. There is mild loss of intervertebral disc space height throughout the lumbar spine. Severe f acet osteoarthritis is seen in the lower lumbar spine. Small degenerative osteophytes project from th e anterior endplates of multiple vertebral bodies. There is calcified atherosclerosis. IMPRESSION: 1. Mild lumbar spondylosis without acute findings or significant interval change. Reviewed, dictated and finalized at location A. WATER HEATER INSTALLER IMPRESSION: 1. Mild lumbar spondylosis without acute findings or significant interval hines joao
--- NOTE | ~2020-05-23 | CT_ITS ---
EXAMINATION: CT brain wo con INDICATION: Head injury COMPARISON: None TECHNIQUE: Standard unenhanced head CT. The dose-length product (DLP) was 605.33 mGy-cm. The mA was a djusted according to patient size. Iterative reconstruction technique was employed. FINDINGS: There is no acute intraparenchymal hemorrhage. No evidence of mass lesion. No evidence of a cute infarction. There is an old lacunar infarct of the right basal ganglia. There is mild periventri cular and subcortical hypodensity probably related to small vessel ischemic disease. There is mild pr ominence of the sulci and ventricles related to cerebral atrophy. Intracranial calcified cerebral ath erosclerosis is noted. There are no extra-axial collections. There is no mass effect or midline shift . Small anterior scalp hematomas are noted. Changes in the globes are likely from ocular lens surgery . Changes of chronic right sinusitis are noted. IMPRESSION: 1. No acute intracranial abnormality. 2. Age related findings. Reviewed, dictated and finalized at location A. O HANDLER
[2020-05-23 11:07] VITALS: BP 147/68; PULSE 55; RESP 17; TEMP 36.8; O2SAT 98
[2020-05-23] MEDS: HYDROcodone/acetaminophen (*CRX) 5-325 MG TABLET 1 TAB PO (12:05)
--- NOTE | 2020-05-23 12:35 | ED.FALL ---
HPI - Fall General Chief Complaint: Fall Stated Complaint: fell down stairs on Monday, Urgent Care on Time Seen by Provider: 05/23/20 11:25 History of Present Illness HPI Narrative: Patient is a 69-year-old female who presents ER status post fall down stairs. Fell on 05/19/2020. She fell down 13 stairs initially landing on her buttock and then rolling forwards. She did not lose consciousness. She is not on any blood thinners. Her buttock hurt pretty much immediately. She then developed pain to her neck over the last couple of days. She has limited range of motion due to pain and stiffness. She also has developed black eyes bilaterally. No change in vision. Related Data Home Medications Medication Instructions Recorded Confirmed cholestyramine (with sugar) 4 gram 4 gm PO HS gm 02/21/20 03/02/20 oral powder atorvastatin 40 mg tablet 40 mg PO HS 02/24/20 03/02/20 canagliflozin 100 mg tablet 100 mg PO DAILY 02/24/20 03/02/20 dextroamphetamine-amphetamine 30 60 mg PO DAILY 02/24/20 03/02/20 mg tablet diazepam 2 mg tablet 2 mg PO PRN PRN 02/24/20 03/02/20 enalapril maleate 20 mg tablet 20 mg PO DAILY 02/24/20 03/02/20 insulin glargine 100 unit/mL 70 unit SUB-Q QPM ml 02/24/20 03/02/20 subcutaneous solution magnesium 250 mg tablet 250 mg PO HS 02/24/20 03/02/20 metformin 500 mg tablet 500 mg PO BID 02/24/20 03/02/20 ondansetron HCl 8 mg tablet 8 mg PO Q12H PRN 02/24/20 03/02/20 quetiapine 25 mg tablet 25 mg PO HS 02/24/20 03/02/20 venlafaxine 150 mg tablet,extended 150 mg PO DAILY 02/24/20 03/02/20 release 24 hr cefuroxime axetil 250 mg PO BID 03/02/20 03/02/20 riboflavin (vitamin B2) 400 mg PO HS 03/02/20 03/02/20 Allergies Allergy/AdvReac Type Severity Reaction Status Date / Time morphine AdvReac Nausea and Verified 05/23/20 11:11 Vomiting Review of Systems Review of Systems: All systems reviewed & are unremarkable except as noted in HPI and below Constitutional: Constitutional: Denies chills and Denies fever(s) Eyes: Eyes: Denies change in vision and Denies photophobia Comments: Black eyes bilaterally ENT: Comments: Tenderness over the nasal bridge Cardiovascular: Cardiovascular: Denies chest pain and Denies radiating jaw, neck or arm pain Respiratory: Respiratory: Denies cough, Denies dyspnea and Denies wheezing Gastrointestinal: Gastrointestinal: Denies abdominal pain, Denies nausea and Denies vomiting Musculoskeletal: Comments: Neck pain, sacral pain. Neurologic: Denies headache(s), Denies focal weakness and Denies numbness PMFSH Past Medical History Medical History (Updated 05/23/20 @ 13:35 by Gurvinder John MD) ADH disorder Anxiety BPPV (benign paroxysmal positional vertigo) left hearing loos and chronic tinnitus Diabetes Ductal carcinoma in situ (DCIS) of left breast Surgery and XRT but no Chemo or Tamoxifen. High cholesterol HTN (hypertension) IBS (irritable bowel syndrome) Surgical History Surgical History H/O dilation and curettage x3 H/O foot surgery Hx of cataract extraction Hx of cholecystectomy Hx of partial mastectomy Jul 2016 Hx of tonsillectomy Family History Family History Father Family history of malignant neoplasm Diabetes mellitus Sibling Family history of type 1 diabetes mellitus Mother Family history of Alzheimer's disease Hypertension Social History Social History (Updated 03/03/20 @ 16:10 by Bharath Mejia MD) Social History: She lives at home with her . She quit tobacco 6 months ago after smoking a quarter of a pack a day for 15 years. She began when she was 54 years old. She drinks 1 alcoholic drink a month. No drug use. She is a full code. She nominates her to be the individual would make medical decisions for her if she is not able. Years smoked: 15 Smoking status: Former smoker
[2020-05-23 13:45] VITALS: BP 142/74; PULSE 82; RESP 16; O2SAT 98
== END 2020-05-23 13:45 | disposition home or self-care (01) ==
PROVIDERS: Emergency Provider Emergency Medicine; PCP Family Medicine Adolescent Medicine
DX: S00.12XA Contusion of left eyelid and periocular area, initial encounter (principal); S00.11XA Contusion of right eyelid and periocular area, initial encounter; E11.9 Type 2 diabetes mellitus without complications; I10 Essential (primary) hypertension; K58.9 Irritable bowel syndrome, unspecified; Z85.3 Personal history of malignant neoplasm of breast; Z90.12 Acquired absence of left breast and nipple; E78.00 Pure hypercholesterolemia, unspecified; Z87.891 Personal history of nicotine dependence; Z98.49 Cataract extraction status, unspecified eye; M47.812 Spondylosis without myelopathy or radiculopathy, cervical region; M47.816 Spondylosis without myelopathy or radiculopathy, lumbar region; W10.9XXA Fall (on) (from) unspecified stairs and steps, initial encounter
CPT/HCPCS: 70450; 70486; 72100; 72125; 99284; A9270

== ENCOUNTER 2020-07-03 13:51 | Outpatient (CLI) | payer MEDICARE, OTHER, SELFPAY ==
--- NOTE | ~2020-07-03 | CT_ITS ---
EXAMINATION: CT abdomen pelvis wo con DATE: 07/03/2020 14:22 INDICATION: Parastomal hernia TECHNIQUE: Computed tomography (CT) of the abdomen and pelvis was performed without intravenous contr ast. Automated exposure control and iterative reconstruction technique were employed. Exam dose: 905 .71 mGy-cm total exam DLP. COMPARISON: 03/02/2020 CT abdomen pelvis 07/29/2018 CT abdomen pelvis with IV contrast material FINDINGS: The lung bases are clear of infiltrate or consolidation. Normal heart size. No pericardial or pleural effusion. Status post cholecystectomy. No hepatic, splenic, pancreatic, adrenal or renal space occupying mass lesion is detected on this limited noncontrast examination, with the exception of probable renal cyst s including 1.5 cm and 1.3 cm lower pole left renal cysts. No bile duct or pancreatic duct dilatation. There is a transverse colostomy. There is a parastomal herniated loop of small bowel without strangu lation or obstruction. There is diverticulosis of the right and left colon; no CT evidence of diverticulitis. No bowel obstr uction, bowel wall thickening, pneumatosis or intraperitoneal free air. The urinary bladder, uterus and adnexal areas are unremarkable. There is soft tissue thickening along the mid and left anterior abdominal wall in a wide area around the colostomy and midline surgical incision site, suggesting cellulitis. No drainable abscess is identified. Diffuse idiopathic skeletal hyperostosis of the thoracolumbar spine. Left-sided T11 vertebral body hemangioma. Diffuse osteopenia. There is prominent degenerative change at the apophyseal joints of the lumbar and lumbosacral spine w ith associated grade 1 anterolisthesis at L4-5. IMPRESSION: Status post transverse colostomy Parastomal small bowel hernia without strangulate or obstruction Cellulitis around the colostomy and midline surgical incision site; no drainable abscess identified Status post cholecystectomy Diverticulosis of the colon Reviewed, dictated and finalized at Location A. Reviewed, dictated and finalized at location B. PLANNER IMPRESSION: Status post transverse colostomy Parastomal small bowel hernia without strangulate or obstruction Cellulitis around the colostomy and midline surgical incision site; no drainabl e abscess identified Status post cholecystectomy Diverticulosis of the colon
== END 2020-07-03 13:52 | disposition home or self-care (01) ==
PROVIDERS: PCP Family Medicine Adolescent Medicine; Visit Provider Surgery
DX: K43.5 Parastomal hernia without obstruction or gangrene (principal); K57.30 Diverticulosis of large intestine without perforation or abscess without bleeding; Z90.49 Acquired absence of other specified parts of digestive tract
CPT/HCPCS: 74176

== ENCOUNTER 2020-08-06 11:26 | Inpatient (IN) | payer MEDICARE, OTHER, SELFPAY ==
--- NOTE | ~2020-08-06 | XR_ITS ---
EXAMINATION: XR foot LT min 3V DATE: 08/06/2020 13:14 INDICATION: Left foot cellulitis with open wound. TECHNIQUE: Dorsoplantar, two oblique and lateral views of the left foot were obtained. COMPARISON: None. FINDINGS: Postoperative change of prior realignment osteotomy with screw fixation at the proximal aspect of the left first proximal phalanx. Second and third proximal interphalangeal arthrodeses with metal implan ts. There is increased lucency at the base of both the second and third proximal phalanges. There francesca ears to be cortical erosion along the lateral aspect of the proximal diaphysis of the second proximal phalanx and at the medial side of the proximal metaphysis of the third proximal phalanx, both region s suspicious for osteomyelitis. There is a linear lucency at the lateral base of the second proximal phalanx and could not exclude a secondary nondisplaced pathologic fracture. There is also mild dorsal subluxation of the second proximal phalanx relative to the head of the second metatarsal. Prominent soft tissue swelling about the base of the second and third toes. Mild osteoarthritis at the first me tatarsophalangeal joint and additional minimal to mild osteoarthritis at a few tarsal metatarsal and interphalangeal joints. Moderate-sized Achilles and plantar calcaneal spurs. IMPRESSION: 1. Increased lucency and suggestion of cortical osteolysis at the base of the second and third proxim al phalanges suspicious for osteomyelitis. 2. Subtle linear lucency at the lateral base of the second proximal phalanx also suspicious for assoc iated nondisplaced pathologic fracture. Reviewed, dictated and finalized at location A. NEERING DRAWINGS CHECKER IMPRESSION: 1. Increased lucency and suggestion of cortical osteolysis at the base of the s econd and third proximal phalanges suspicious for osteomyelitis. 2. Subtle linear lucency at the lateral base of the second proximal phalanx als o suspicious for associated nondisplaced pathologic fracture.
--- NOTE | ~2020-08-06 | XR_ITS ---
EXAMINATION: XR chest 2V DATE: 08/06/2020 13:13 INDICATION: Cough TECHNIQUE: frontal and lateral views of the chest were obtained. COMPARISON: Chest radiograph dated 12/29/2016 FINDINGS: Unchanged small calcified nodule in the lateral right midlung zone consistent with old granulomatous disease. The lungs remain otherwise clear with no focal airspace opacities, pulmonary edema, pleural effusion or pneumothorax. The cardiomediastinal silhouette is normal. There are bridging osteophytes at multiple levels in the spine, consistent with diffuse idiopathic skeletal hyperostosis (DISH). IMPRESSION: 1. No acute cardiopulmonary disease. Reviewed, dictated and finalized at location A. TOR SERVICE ASSISTANT
--- NOTE | ~2020-08-06 | XR_ITS ---
EXAMINATION: XR surgery orthopedic DATE: 08/12/2020 11:46 INDICATION: Left foot and fixation TECHNIQUE: 2 fluoroscopic images of the left forefoot were obtained during procedure performed by Dr. Hein. Radiologist was not present for the imaging or procedure. The amount of fluoroscopy time us ed during this procedure was 0.6 minutes. COMPARISON: Radiograph dated 08/06/2020 and MRI dated 08/07/2020 FINDINGS: Interval osteotomies involving the heads of the second and third metatarsals. There is also been rese ction of the majority of the previously fused second proximal and distal phalanges with small amount of residual bone at the head of the distal phalanx. The prior fixation implant for the arthroplasty h as also been removed. The implant such with the arthroplasty at the third proximal interphalangeal priyank int remains in place with resection of a portion of the base of the proximal phalanx. Actually direct ed percutaneous fixation pins extending from the tuft of the second and third distal phalanges into t he diaphyses of the second and third metatarsals respectively. There are a pair of screws at the base of the first proximal phalanx likely for fixation of a prior realignment osteotomy. IMPRESSION: 1. Resection of the heads of the left second and third metatarsals, the majority of the fused second proximal and middle phalanges and portions of the base of the third proximal phalanx. See procedure n ote for further detail. Reviewed, dictated and finalized at location B. UNTING CLERKS SUPERVISOR IMPRESSION: 1. Resection of the heads of the left second and third metatarsals, the majorit y of the fused second proximal and middle phalanges and portions of the base of the third proximal phalanx. See procedure note for further detail.
--- NOTE | ~2020-08-06 | MR_ITS ---
EXAMINATION: MR foot LT wo/w con DATE: 08/07/2020 14:08 INDICATION: Left foot second metatarsal osteomyelitis. TECHNIQUE: Magnetic resonance imaging (MRI) of the affected fore/mid foot was performed without and w ith 16 mL Multihance intravenous contrast. Sequences included axial, sagittal and coronal T1-weighted FSE and fluid sensitive FSE STIR, axial T2-weighted FS FSE and postcontrast axial and coronal T2-radha ghted FS FSE. COMPARISON: Radiograph dated 08/06/2020 FINDINGS: There is metal magnetic field artifact at the base of the first proximal phalanx corresponding to a c ouple fixation screws. Additional less severe field artifact associated with metallic fixation device s spanning the second and third proximal interphalangeal joints. There is marrow edema, enhancement a nd geographic loss of T1 fat signal at the base of the second and third proximal phalanges consistent with osteomyelitis. Unable to assess the marrow signal intensity in the more distal aspect of both b ones as well as the second and third middle phalanges due to the artifact from the fixation devices. There is diffuse soft tissue edema and nonmasslike enhancement throughout the forefoot centered in th e region of the base of the second and third toes. There is an approximately 1.8 x 1.7 x 1.8 cm nonen hancing region of the soft tissues at the webspace between the second and third proximal phalanges be ginning dorsally near the skin where there appears be a draining sinus tract and extending into the s oft tissues plantar to the proximal phalanges. This could represent either an abscess or less organiz ed phlegmonous change with tissue necrosis. There is an irregularity along the skin surface plantar t o this region which could represent either an additional draining sinus tract or site of a penetratin g wound. No evident foreign body identified. There is subcortical marrow edema and enhancement about the heads of the second and third metatarsals but without corresponding geographic loss of T1 fat sig nal to more specifically suggest osteomyelitis in this remains equivocal for early osteomyelitis vers us reactive change. As noted on the prior radiograph there is some dorsal subluxation of the second p roximal phalanx relative to the head of the second metatarsal. IMPRESSION: 1. Change of prior instrumented second and third proximal interphalangeal joint arthrodeses with oste omyelitis involving at least the bases of the segment third proximal phalanges and intervening absces s versus soft tissue necrosis in the tissues between the second and third proximal phalanges, both do rsal and plantar. 2. Limited subcortical marrow signal changes and enhancement without loss of T1 fat signal at the hea ds of the second and third metatarsals which could represent either reactive change versus early oste omyelitis. Reviewed, dictated and finalized at location A. RY COOK IMPRESSION: 1. Change of prior instrumented second and third proximal interphalangeal joint arthrodeses with osteomyelitis involving at least the bases of the segment thi rd proximal phalanges and intervening abscess versus soft tissue necrosis in th e tissues between the second and third proximal phalanges, both dorsal and plan tar. 2. Limited subcortical marrow signal changes and enhancement without loss of T1 fat signal at the heads of the second and third metatarsals which could repres ent either reactive change versus early osteomyelitis.
[2020-08-06 12:09] VITALS: BP 108/55; PULSE 109; RESP 18; TEMP 36.3; O2SAT 97
--- NOTE | 2020-08-06 13:03 | ED.GENADULT ---
HPI - General Adult General Chief complaint: Extremity Injury, Lower Stated complaint: Infection In Foot Time Seen by Provider: 08/06/20 12:21 History of Present Illness HPI narrative: Patient is 69-year-old female who presents the emergency department with chief complaint of the left foot redness and swelling. Patient has history of diabetes and also is followed by podiatry. The patient has noticed over the last several days she has had an ulceration that is opened up on her left foot and now has redness and has had drainage out of the foot. Patient went and saw her lasting machine operator hand method today who sent her to the emergency department for admission for IV antibiotics. The patient reports has had no fevers no chills. Related Data Home Medications Medication Instructions Recorded Confirmed cholestyramine (with sugar) 4 gram 4 gm PO HS gm 02/21/20 07/20/20 oral powder atorvastatin 40 mg tablet 40 mg PO HS 02/24/20 07/20/20 canagliflozin 100 mg tablet 100 mg PO DAILY 02/24/20 07/20/20 dextroamphetamine-amphetamine 30 60 mg PO DAILY 02/24/20 07/20/20 mg tablet diazepam 2 mg tablet 2 mg PO PRN PRN 02/24/20 07/20/20 enalapril maleate 20 mg tablet 20 mg PO DAILY 02/24/20 07/20/20 insulin glargine 100 unit/mL 70 unit SUB-Q QPM ml 02/24/20 07/20/20 subcutaneous solution magnesium 250 mg tablet 250 mg PO HS 02/24/20 07/20/20 metformin 500 mg tablet 500 mg PO BID 02/24/20 07/20/20 ondansetron HCl 8 mg tablet 8 mg PO Q12H PRN 02/24/20 07/20/20 quetiapine 25 mg tablet 25 mg PO HS 02/24/20 07/20/20 venlafaxine 150 mg tablet,extended 150 mg PO DAILY 02/24/20 07/20/20 release 24 hr riboflavin (vitamin B2) 400 mg PO HS 03/02/20 07/20/20 Allergies Allergy/AdvReac Type Severity Reaction Status Date / Time morphine AdvReac Nausea and Verified 08/06/20 13:04 Vomiting Review of Systems Review of Systems: Narrative: A 10 system review of systems was completed on the patient and is negative except for what is stated in the HPI. Nursing and ancillary documentation was reviewed. PMFSH Past Medical History Medical History ADH disorder Anxiety BPPV (benign paroxysmal positional vertigo) left hearing loos and chronic tinnitus Diabetes Ductal carcinoma in situ (DCIS) of left breast Surgery and XRT but no Chemo or Tamoxifen. High cholesterol History of adenomatous polyp of colon HTN (hypertension) IBS (irritable bowel syndrome) Surgical History Surgical History H/O dilation and curettage x3 H/O foot surgery Hx of cataract extraction Hx of cholecystectomy Hx of partial mastectomy Jul 2016 Hx of tonsillectomy Family History Family History Father Family history of malignant neoplasm Diabetes mellitus Sibling Family history of type 1 diabetes mellitus Mother Family history of Alzheimer's disease Hypertension Social History Social History Social History: She lives at home with her . She quit tobacco 6 months ago after smoking a quarter of a pack a day for 15 years. She began when she was 54 years old. She drinks 1 alcoholic drink a month. No drug use. She is a full code. She nominates her to be the individual would make medical decisions for her if she is not able. Years smoked: 15 Smoking status: Former smoker Tobacco type: cigarettes Alcohol intake: current Substance use: never Substance use type: does not use Gender identity (if verbalized by the patient): Female Spiritual care concerns: No Exam Narrative: Exam Narrative: GENERAL: Well-appearing, well-nourished, and in no acute distress. HEAD: Normocephalic, atraumatic. EYES: PERRLA and EOMI. ENT: Nares clear, no rhinorrhea or epistaxis. Mucous membranes moist. NECK: Supple
[2020-08-06 13:08] LABS: Basophils Absolute Auto 0.1 K/mm3 (0.0-0.1); Basophils Percent Auto 0.4 % (0.2-1.2); Eosinophils Absolute Auto 0.3 K/mm3 (0-0.3); Eosinophils Percent Auto 2.3 % (0-4.4); Hematocrit 34.5 % (37.0-47.0); Hemoglobin 11.7 g/dL (12.0-15.0); Immature Granulocyte Absolute 0.09 K/mm3 (0.00-0.031); Immature Granulocyte Percent A 0.6 % (0-0.5); Lymphocytes Absolute Auto 3.15 K/mm3 (0.9-3.2); Lymphocytes Percent Auto 22.7 % (18.3-44.2); Mean Corpuscular HGB Conc 33.9 g/dl (32-36); Mean Corpuscular Volume 85.6 fl (80-100); Mean Platelet Volume 9.1 fl (7.4-10.4); Monocytes Absolute Auto 0.8 K/mm3 (0.1-0.6); Neutrophils Absolute Auto 9.5 K/mm3 (1.3-6.7); Platelet Count Result 465 k/mm3 (150-375); Red Blood Count 4.03 M/mm3 (4.2-5.4); Red Cell Distribution Width 12.7 % (11.5-14.5); White Blood Count 13.9 K/mm3 (4.5-10.0)
[2020-08-06 13:17] LABS: Prothrombin Time 13.6 Seconds (11.1-14.7)
[2020-08-06 13:19] LABS: Partial Thromboplastin Time 42.4 SECONDS (22.3-36.8)
[2020-08-06 13:21] LABS: Lactic Acid Reflex 1.6 mmol/L (0.7-2.1)
[2020-08-06 13:28] LABS: Alanine Aminotransferase 21 U/L (4-35); Albumin Level 3.6 g/dL (3.5-5.1); Alkaline Phosphatase 133 U/L (38-126); Anion Gap 7 mmol/L (8-16); Aspartate Amino Transferase 28 U/L (14-36); Bilirubin,Total 0.4 mg/dL (0.2-1.3); Blood Urea Nitrogen 21 mg/dL (7-17); CRP 7.7 mg/dL (<1.0); Calcium 9.1 mg/dL (8.4-10.2); Carbon Dioxide 24 mmol/L (22-30); Chloride 108 mmol/L (98-107); Estimated CRCL calculation 67 ml/min; Estimated Glomerular Filt Rate > 60; Glucose 118 mg/dL (65-105); Potassium 4.3 mmol/L (3.4-5.0); Sodium 139 mmol/L (137-145)
[2020-08-06] MEDS: SODIUM CHLORIDE 0.9% IV 1,000 ML 999 ML IV CONT (13:32)
[2020-08-06 13:49] LABS: Erythrocyte Sedimentation Rate > 140 mm/hr (0-20)
[2020-08-06 16:01] VITALS: BP 146/73; PULSE 94; RESP 16; O2SAT 97
--- NOTE | 2020-08-06 16:45 | PM.IMHP ---
H&P: HPI History of Present Illness Date/Time: 08/06/20 16:45 Chief Complaint: Left diabetic foot infection. Narrative: This is a 69-year-old female with insulin-dependent diabetes, hypertension, hyperlipidemia, and sleep apnea who presented to the emergency department earlier today for evaluation of a worsening left diabetic foot infection. Over the last several days a small area of ulceration has opened and is now draining with surrounding erythema. She has a chronic callus on the plantar aspect of her left midfoot for which she sees a local windsurfing instructor. Unfortunately several weeks ago she used a foot exfoliating peel and within a week or so she noticed ?cracked skin? just above the callus which she peeled off. Perhaps a week ago she developed erythema and edema around the site with some drainage and was prescribed 2 antibiotics. She felt unwell over this past weekend with fever up to 101.8? but felt much better on Monday and she finished both antibiotics sometime yesterday. She saw her windsurfing instructor in follow-up today and was directed to the emergency department given no significant improvement, at least on exam. Imaging today showed findings of possible osteomyelitis however the patient tells me that she had an MRI of that left foot just last week which was unremarkable. She has been afebrile since the weekend. Her appetite has been a bit diminished but she denies nausea and vomiting. No history of MRSA or osteomyelitis. Review of Systems Review of Systems: Narrative: Twelve systems were reviewed with pertinent positives and negatives as per HPI. She gets dizzy quite frequently, which she attributes to Meniere's disease and BPPV. No exertional chest pain or shortness of breath. No cold or flu symptoms. She denies exposure to those positive for COVID-19. No chest pain or shortness of breath. She denies nausea, vomiting, and diarrhea. No dysuria. No blurry vision, polydipsia, or polyuria. She believes her diabetes is fairly well controlled with a recent hemoglobin A1c of about 7%. She has mild neuropathy symptoms in her feet. Except as documented, all other systems were reviewed and are negative. [facility] Past Medical History Medical History (Updated 08/06/20 @ 22:30 by Asuncion Graves PA-C) Anxiety Attention deficit hyperactivity disorder Diverticulosis 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 ER/AR and HER2 Mary Grace negative. History of adenomatous polyp of colon Hyperlipidemia Hypertension Insulin dependent type 2 diabetes mellitus Irritable bowel syndrome with diarrhea Menieres disease With chronic tinnitus and left-sided hearing loss. Obstructive sleep apnea Stricture of sigmoid colon (~02/2020) Secondary to diverticulitis, status post loop sigmoid colostomy. Thyroid nodule Bilateral benign follicular nodules on FNA in June 2018. Surgical History Surgical History (Updated 08/06/20 @ 16:01 by Asuncion Graves PA-C) History of cataract extraction History of cholecystectomy History of dilation and curettage x3. History of foot surgery Left foot surgery with hardware. History of left breast biopsy (~12/2017) With benign histology. History of partial mastectomy of left breast (~07/2016) For treatment of high-grade DCIS with sentinel lymph node sampling and bilateral reduction mammoplasty. History of tonsillectomy History of wisdom tooth extraction Family History Family History Father Family history of malignant neoplasm Diabetes mellitus Sibling Family history of type 1 diabetes mellitus Mother Family history of Alzheimer's disease Hypertension Social History Social History (Updated 08/06/20 @ 22:27 by Asuncion Graves PA-C) Social History: The patient lives in [place] with her . 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 Smoked 0.25 packs of cigarettes a day for about 15 years and quit about a year a
--- NOTE | 2020-08-06 17:00 | ADMGEN ---
This patient, Aurea De La Rosa, was admitted to 2 Medical Room 240-01. Patient/family oriented to hospital policies and general routines including ID bracelet, bed and alarms, visiting hours, pain management, procedures, bathroom and other care routines, personal items, smoking policy, room service/diet, and visiting hours. Information on how to activate the Rapid Response Team has been discussed. Patient/Family are encouraged to report perceived risks to care and to ask questions if they do not understand what they are told or what they should do.
[2020-08-06 17:10] VITALS: PULSE 92
[2020-08-06] MEDS: SODIUM CHLORIDE 0.9% IV 1,000 ML 125 ML IV CONT (17:10)
[2020-08-06 17:33] VITALS: BMI 31.8
[2020-08-06 17:59] LABS: Glucose Point of Care 99 (65-105)
[2020-08-06 18:47] VITALS: BP 123/56; PULSE 88; TEMP 36.1; O2SAT 98; BMI 31.8
--- NOTE | 2020-08-06 18:50 | PC.NURSE ---
DR PERES NOTIFIED OF NEW CONSULT. REFUSED TO TAKE CONSULT AND STATED THAT SHE NEEDED A VASCULAR SURGEON AND IT WAS OUT OF HIS SCOPE OF PRACTICE.
--- NOTE | 2020-08-06 19:45 | PHAR ---
Addendum entered by Kimberly Lindsey [facility] 08/06/20 19:49: LABELED BETAHISTINE 8MG CAPSULES Original Note: BETAHISTINE IS UNABLE TO BE IDENTIFIED NO MARKINGS ON CAPSULE RX #[id number] FROM [facility] CONTAINING UNMARKED WHITE POWDER IN CLEAR CAPSULES WITH DIRECTIONS TAKE ONE CAPSULE BE MOUTH THREE TIMES A DAY.
[2020-08-06 21:26] VITALS: BP 118/60; PULSE 87; RESP 16; TEMP 36.7; O2SAT 98
[2020-08-06 21:37] LABS: Glucose Point of Care 145 (65-105)
[2020-08-06] MEDS: QUEtiapine FUMARATE 25 MG TABLET PO (23:15)
[2020-08-06] MEDS: ATORVASTATIN 40 MG TABLET PO (23:20)
[2020-08-06] MEDS: MAGNESIUM OXIDE 200 MG TABLET PO (23:21)
[2020-08-07] VITALS (8 sets, daily range): BP systolic 120–147; BP diastolic 56–63; PULSE 80–91; RESP 15–20; TEMP 36.3–36.8; O2SAT 95–100
[2020-08-07] MEDS: SODIUM CHLORIDE 0.9% IV 1,000 ML 125 ML IV CONT ×3 (02:04→20:25)
[2020-08-07 03:45] LABS: Hemoglobin A1C 8.7 % (<5.7)
[2020-08-07] MEDS: VENLAFAXINE HCL XR 75 MG CAP.ER.24H 150 MG PO (09:08)
[2020-08-07] MEDS: ENALAPRIL MALEATE 10 MG TABLET 20 MG PO (09:08)
--- NOTE | 2020-08-07 09:53 | PM.IMPN ---
Progress Note: A&P Assessment and Plan (1) Acute osteomyelitis of left foot: Code(s): M86.172 - Other acute osteomyelitis, left ankle and foot Status: Acute Assessment and Plan: X-ray consistent with osteomyelitis -continue vancomycin and Zosyn -patient sees artistic associate Dr. Johansen which I was told may have privileges here so I will consult him -I have also talked to Ortho who will see the patient if there is a problem with the artistic associate seeing her -patient has a leukocytosis but no fevers at this time -would benefit from debridement, defer decision to surgery -will order Lovenox once this decision has been made (2) Cellulitis of foot, left: Code(s): L03.116 - Cellulitis of left lower limb Status: Acute Assessment and Plan: As above (3) Insulin dependent type 2 diabetes mellitus: Code(s): E11.9 - Type 2 diabetes mellitus without complications; Z79.4 - penitentiary (current) use of insulin Status: Inactive Assessment and Plan: Last glucose 145 -A1c 8.7 -Continue invokana and lantus -Continue SSI (4) Hypertension: Code(s): I10 - Essential (primary) hypertension Status: Inactive Assessment and Plan: Last bp 120/58 -Continue vasotec (5) Hyperlipidemia: Code(s): E78.5 - Hyperlipidemia, unspecified Status: Inactive Assessment and Plan: Chronic -Continue lipitor (6) Obstructive sleep apnea: Code(s): G47.33 - Obstructive sleep apnea (adult) (pediatric) Status: Inactive Assessment and Plan: Continue Cpap (7) Anxiety: Code(s): F41.9 - Anxiety disorder, unspecified Status: Acute Assessment and Plan: Chronic and stable -Continue effexor XR (8) Cardiac murmur: Code(s): R01.1 - Cardiac murmur, unspecified Status: Acute Assessment and Plan: Pt states this was first noticed last Feb 2020 and she underwent echo and w/u with Dr. Joy -No change in status/dizziness/leg swelling since this echo -No need for new echo at this time -Await records for echo Time Spent With Patient Time with patient: 25 - 35 minutes Subjective Date/time seen: 08/07/20 09:53 Interval history: Pt is a 69-year-old female here for osteomyelitis. Patient was seen today and thinks the erythema in her foot is much better. She really does not have much pain to the area. She said her oral antibiotic she had prior to admission made her nauseated so she has been eating as much but today she is feeling better and has ordered breakfast. She states that she 1st was told she had a murmur back in February and underwent an echo and everything was fine. She has not had any increase in dizziness or status change since her last echo according to her. She denies chest pain, fevers, chills, vomiting or fevers. Review of Systems Review of Systems: All systems reviewed & are unremarkable except as noted in HPI and below Exam Narrative: Exam Narrative: General: Well developed well nourished patient in NAD HEENT: normocephalic Neck: supple Neuro: Alert and oriented x4 CV:RRR with slight systolic murmur Resp:CTA Abd: Soft, non distended. No pain to palpation. Positive bowel sounds. Ostomy bag in place with formed stool Extremities: Left foot wound with erythema and purulent discharge to the 2nd toes and the ball of the foot Objective Data Vital Signs Vital Signs: Vital Signs - 24 hr 08/06/20 12:09 08/06/20 16:01 08/06/20 17:10 Temperature 97.4 F L Pulse Rate 109 H 94 92 Respiratory Rate 18 16 Blood Pressure 108/55 L 146/73 H Pulse Oximetry 97 97 08/06/20 18:47 08/06/20 21:26 08/07/20 01:52 Temperature 96.9 F L 98.1 F Pulse Rate 88 87 Respiratory Rate 16 Blood Pressure 123/56 L 118/60 Pulse Oximetry 98 98 95 08/07/20 01:53 08/07/20 03:41 08/07/20 05:18 Temperature 98.3 F Pulse Rate 84 80 84 Respiratory Rate 15 16 16 Blood Pressure
[2020-08-07 10:24] LABS: Glucose Point of Care 154 (65-105)
[2020-08-07] MEDS: CANAGLIFLOZIN 100 MG TABLET PO (11:05)
[2020-08-07 14:17] LABS: Glucose Point of Care 133 (65-105)
--- NOTE | 2020-08-07 15:20 | PM.CNOR ---
Assessment and Plan Assessment and plan (1) Diabetes: Qualifiers: Diabetes mellitus type: type 2 Diabetes mellitus alf insulin use: without alf use Diabetes mellitus complication status: with neurologic complications Diabetes mellitus complication detail: with autonomic neuropathy Qualified Code(s): E11.43 - Type 2 diabetes mellitus with diabetic autonomic (poly)neuropathy Code(s): E11.9 - Type 2 diabetes mellitus without complications Status: Chronic (2) Diabetic ulcer of left foot: Qualifiers: Diabetic foot ulcer location: other Diabetes mellitus type: type 2 Non-pressure ulcer stage: with necrosis of muscle Qualified Code(s): E11.621 - Type 2 diabetes mellitus with foot ulcer; L97.523 - Non-pressure chronic ulcer of other part of left foot with necrosis of muscle Code(s): E11.621 - Type 2 diabetes mellitus with foot ulcer; L97.529 - Non-pressure chronic ulcer of other part of left foot with unspecified severity Status: Acute (3) Peripheral neuropathy: Qualifiers: Peripheral neuropathy type: polyneuropathy associated with underlying disease Qualified Code(s): G63 - Polyneuropathy in diseases classified elsewhere Code(s): G62.9 - Polyneuropathy, unspecified Status: Acute (4) Abscess of left foot including toes: Code(s): L02.612 - Cutaneous abscess of left foot Status: Acute Assessment and Plan: New patient evaluation for chief Complaint left diabetic foot ulcer with infection. History, physical exam and radiographs reviewed with the patient. approximately 2 week history of worsening left foot pain and swelling with opening and drainage of the foot starting 2 days ago. Patient admitted and started on intravenous antibiotics. Discussed the condition, nature, etiology and course of natural history with the patient. Treatment options including surgical and nonoperative treatment were reviewed. Risks and benefits of each as well as alternatives reviewed. Awaiting MRI results of the left foot to determine definitive treatment but most likely will require debridement and possible amputation. Discussed with patient. The patient's questions were answered. Wound care at bedside for evaluation. Start local wound care per protocol. Left foot elevation. History of Present Illness HPI Consult date: 08/07/20 Requesting physician: Connie Asif PA-C Chief complaint: left foot cellulitis/ostemylitis Narrative: patient is 69-year-old woman with diabetes and peripheral neuropathy with intermittent foot problems including callus formation, previous skin problems. Left foot with a history of hammertoe deformity of the 2nd and 3rd toes and hallux valgus treated surgically 15 years ago at outside facility. More recently developed callus and ulcer on the plantar aspect of the left foot. She has been seen recently by Dr. Johansen, Podiatry. By her report she had an MRI of the foot which did not show osteomyelitis about 10 days ago. She was started on oral antibiotics. She tried in at home pedicure or remedy for debridement of the skin. Noted increased swelling redness and drainage of the left foot subsequent to that 3 days ago. She was seen by her finance specialist and referred to the emergency room here. Building Contractor stated that he was unable to treat her. Patient admitted and started on intravenous antibiotics. He I have been asked to see her for infection of the left foot. She has partial sensation but mainly insensate from the forefoot distal. Denies fever chills, nausea, vomiting or systemic complaints. Review of Systems Constitutional: Constitutional: Denies fever(s) Eyes: Eyes: Denies blurry vision ENT: Reports Normal hearing present Cardiovascular: Cardiovascular: Denies chest pain and Denies dyspnea Respiratory: Respiratory: Denies dyspnea and Denies wheezing Gastrointestinal: Gastrointestinal: Denies abdominal pain Genitourin
[2020-08-07 15:59] LABS: Glucose Point of Care 162 (65-105)
[2020-08-07] MEDS: INSULIN GLARGINE (*BKC) 100 UNITS/ML 30 UNITS SUB-Q (17:44)
--- NOTE | 2020-08-07 18:07 | PM.PNORT ---
Progress Note: A&P Assessment and Plan (1) Abscess of left foot including toes: Code(s): L02.612 - Cutaneous abscess of left foot Status: Acute Assessment and Plan: MRI reviewed with the patient which shows 2nd webspace abscess as well as changes consistent with osteomyelitis base of the 3rd toe. Possible changes involving the 2nd toe. Operative and non operative treatment options reviewed with the patient. Surgically we have discussed transmetatarsal amputation, amputation of the 2nd and 3rd toes versus just debridement and possible salvage of the toes. Risks, benefits and alternatives of each were discussed in detail. She has declined amputation at this time. She has consented to debridement with attempted salvage of the toes. Patient last had oral intake at approximately 1600 hours today. Will need to wait until tomorrow to proceed with surgical treatment. Plan for debridement of left foot and excision of osteomyelitis with salvage of the toes. Patient understands the need for future surgery and the possible failure of this treatment plan with need for possible amputation in the future. Discussed nonoperative and operative treatment options with the patient. Risks and benefits of each as well as alternatives were reviewed. All of the patient's questions were answered. The risks of surgery reviewed including but not limited to: Neurovascular damage, wound complication, infection, blood clot, pulmonary embolus, stroke, myocardial infarction, and anesthetic risks up to and including . Continued pain and possible dysfunction were explained. Specific risks of the procedure including later recurrence of deformity. No guarantees were offered. If complications occur, the patient understands the need for further treatment, possible further surgery. Patient verbalizes understanding and wishes to proceed. PLAN: Debridement left diabetic foot ulcer, excision osteomyelitis. Subjective Subjective Date/Time Seen: 08/07/20 18:07 Patient seen and examined. States that she feels about the same. MRI performed in the interim. Exam Const: General: No confusion Orientation/consciousness: No confusion HENMT: Head: normal to inspection, normocephalic and atraumatic Eyes: Conjunctivae: conjunctivae normal Sclera: sclerae normal Neck: Neck: supple and nontender Chest: Chest palpation & inspection: normal inspection of the chest Resp: Effort & Inspection: normal respiratory effort and no audible wheezes Cardio: Rate: regular rate Rhythm: regular rhythm : General: Yes deferred Skin: General skin exam: no rashes or lesions noted Neuro: General: No confusion Extrem: General: capillary refill normal Right upper extremity: normal to inspection Left upper extremity: normal to inspection Right lower extremity: normal to inspection, hip/thigh Details: normal to inspection and foot Details: vascular exam Details: dorsalis pedis pulse present and normal capillary refill and motor-sensory exam Details: two point discrimination abnormal Location: in all toes and light-touch abnormal Location: in all toes; no tenderness Left lower extremity: hip/thigh Details: normal to inspection, knee Details: abnormal ROM ( range of motion deferred secondary to fracture), ankle (no calf tenderness) Details: normal to inspection, normal ROM, ecchymosis, crepitus, achilles tendon exam abnormal and other ( good capillary refill in toes, 2+ DP pulse, light touch sensation intact); no tenderness ( lateral malleolus, anterior ankle and medial ankle) and no swelling ( moderate anterior ankle, moderate lateral ankle) and foot Details: normal capillary refill, tenderness Location: of the dorsal foot and of another digit Location: the 2nd digit, the 3rd digit, the 4th digit and other (metatarsals), abnormal ROM of toe (decreased movement 4th/ 5th toes) Details: pain with active ROM, ecchymosis ( Mild base of the small toe metatarsal), vascular exam Deta
[2020-08-07] MEDS: MAGNESIUM OXIDE 200 MG TABLET PO (20:20)
[2020-08-07] MEDS: ATORVASTATIN 40 MG TABLET PO (20:20)
[2020-08-07] MEDS: QUEtiapine FUMARATE 25 MG TABLET PO (20:21)
[2020-08-07 23:53] LABS: Glucose Point of Care 281 (65-105)
[2020-08-08] VITALS (14 sets, daily range): BP systolic 86–130; BP diastolic 39–58; PULSE 72–93; RESP 10–19; TEMP 36–37.2; O2SAT 94–99
[2020-08-08] MEDS: SODIUM CHLORIDE 0.9% IV 1,000 ML 125 ML IV CONT (02:19)
[2020-08-08 05:53] LABS: Glucose Point of Care 154 (65-105)
[2020-08-08 06:08] LABS: Basophils Absolute Auto 0.1 K/mm3 (0.0-0.1); Basophils Percent Auto 0.5 % (0.2-1.2); Eosinophils Absolute Auto 0.4 K/mm3 (0-0.3); Eosinophils Percent Auto 3.2 % (0-4.4); Hematocrit 31.5 % (37.0-47.0); Hemoglobin 10.7 g/dL (12.0-15.0); Immature Granulocyte Absolute 0.05 K/mm3 (0.00-0.031); Immature Granulocyte Percent A 0.5 % (0-0.5); Lymphocytes Absolute Auto 3.26 K/mm3 (0.9-3.2); Lymphocytes Percent Auto 29.3 % (18.3-44.2); Mean Corpuscular Hemoglobin 29.1 pg (26-34); Mean Corpuscular Volume 85.6 fl (80-100); Mean Platelet Volume 9.3 fl (7.4-10.4); Monocytes Absolute Auto 0.7 K/mm3 (0.1-0.6); Monocytes Percent Auto 6.7 % (2.6-8.5); Neutrophils Absolute Auto 6.7 K/mm3 (1.3-6.7); Neutrophils Percent Auto 59.8 % (45.5-73.1); Platelet Count Result 409 k/mm3 (150-375); Red Blood Count 3.68 M/mm3 (4.2-5.4); Red Cell Distribution Width 12.7 % (11.5-14.5); White Blood Count 11.1 K/mm3 (4.5-10.0)
[2020-08-08 06:28] LABS: Anion Gap 4 mmol/L (8-16); Blood Urea Nitrogen 13 mg/dL (7-17); CRP 3.9 mg/dL (<1.0); Calcium 8.6 mg/dL (8.4-10.2); Carbon Dioxide 26 mmol/L (22-30); Chloride 110 mmol/L (98-107); Estimated CRCL calculation 78 ml/min; Estimated Glomerular Filt Rate > 60; Glucose 164 mg/dL (65-105); Potassium 4.3 mmol/L (3.4-5.0); Sodium 140 mmol/L (137-145)
--- NOTE | 2020-08-08 07:33 | PC.NURSE ---
pt to surgery via bed
--- NOTE | 2020-08-08 07:36 | WPDANESEPPF ---
Anes - Initial Pre Proc Eval Procedure: Operation Date: 08/08/20 07:30 Proposed Procedures p I&D Debride Lower Extremity Foot(Left) - Cassius Hein MD Date/Time: 08/08/20 07:36 Surgeon: Yudi Chavez MD Pre Op Diagnosis: left foot cellulitis/ostemylitis Patient Data Age: 69 Gender: F Height: 5 ft 4 in Weight: 84.3 kg Last Vital Signs Temp 36.4 C L 08/08/20 06:00 Pulse 80 08/08/20 06:00 Resp 16 08/08/20 06:00 BP 130/57 L 08/08/20 06:00 Pulse Ox 97 08/08/20 06:00 Allergies Allergy/AdvReac Type Severity Reaction Status Date / Time morphine AdvReac Nausea and Verified 08/06/20 17:33 Vomiting Home Medications Medication Instructions Recorded Confirmed Type atorvastatin 40 mg tablet 40 mg PO HS 02/24/20 08/06/20 History canagliflozin 100 mg tablet 100 mg PO DAILY 02/24/20 08/06/20 History dextroamphetamine-amphetamine 30 60 mg PO DAILY 02/24/20 08/06/20 History mg tablet diazepam 2 mg tablet 2 mg PO PRN PRN 02/24/20 08/06/20 History enalapril maleate 20 mg tablet 20 mg PO DAILY 02/24/20 08/06/20 History insulin glargine 100 unit/mL 40 unit SUB-Q QPM ml 02/24/20 08/06/20 History subcutaneous solution magnesium 250 mg tablet 250 mg PO HS 02/24/20 08/06/20 History ondansetron HCl 8 mg tablet 8 mg PO Q12H PRN 02/24/20 08/06/20 History quetiapine 25 mg tablet 25 mg PO HS 02/24/20 08/06/20 History venlafaxine 150 mg tablet,extended 150 mg PO DAILY 02/24/20 08/06/20 History release 24 hr riboflavin (vitamin B2) 400 mg PO HS 03/02/20 08/06/20 History Antihistimine 8 mg PO TID 08/06/20 08/06/20 History metformin 500 mg PO QAM AND QHS 08/06/20 08/06/20 History Laboratory Tests 08/06/20 08/07/20 08/07/20 13:34 10:21 14:15 WBC RBC Hgb Hct MCV MCH MCHC RDW Plt Count MPV Immature Gran % (Auto) Neut % (Auto) Lymph % (Auto) [place] % (Auto) Eos % (Auto) Baso % (Auto) Lymph # (Auto) [place] # (Auto) Eos # (Auto) Baso # (Auto) Abs Immat Gran (auto) Absolute Neuts (auto) Absolute Nucleated RBC Nucleated RBC % Sodium Potassium Chloride Carbon Dioxide Anion Gap BUN Creatinine Estim Creat Clear Calc Estimated GFR Glucose POC Capillary Glucose 154 mg/dl H mg/dl 133 mg/dl H mg/dl (65-105) (65-105) Calcium C-Reactive Protein Urine Color Cancelled Urine Appearance Cancelled Urine pH Cancelled Ur Specific [place] Cancelled Urine Protein Cancelled Urine Glucose (UA) Cancelled Urine Ketones Cancelled Ur Blood (Man) Cancelled Urine Nitrate Cancelled Urine Bilirubin Cancelled Urine Urobilinogen Cancelled Leukocyte Esterase Rfl Cancelled Urine RBC Cancelled Urine WBC Cancelled Urine WBC Clumps Cancelled Ur Squamous Epith Cells Cancelled Ur Transition Epith Cell Cancelled Ur Renal Epithelial Cell Cancelled [place] Biurate Crystals Cancelled Calcium Carbonate Cryst Cancelled Calcium Phosphate Cryst Cancelled Calcium Oxalate Crystal Cancelled Leucine Crystals Cancelled Cystine Crystals Cancelled Uric Acid Crystals Cancelled Triple Phos Crystals Cancelled Sulfonamide Crystals Cancelled Cholesterol Crystals Cancelled [place] Crystals Cancelled Tyrosine Crystals Cancelled Hippuric Acid Crystals Cancel
--- NOTE | 2020-08-08 07:40 | WPDHPUPDATE1 ---
History and Physical Update Update Date/Time: 08/08/20 07:40 History and Physical has been reviewed, including an updated exam of the patient. There are NO changes in the patient's condition. Risks, benefits, and alternatives have been discussed and questions answered. Patient agrees to proceed with procedure.
[2020-08-08] MEDS: BUPIVACAINE HCL 0.5% PF 30 ML VIAL INFILTRATE (08:08)
[2020-08-08] MEDS: LACTATED RINGERS 1,000 ML 30 ML IV CONT (08:52)
[2020-08-08 08:57] LABS: Glucose Point of Care 161 (65-105)
--- NOTE | 2020-08-08 09:22 | PM.PROC ---
Procedure Note - Detailed Date of procedure: 08/08/20 Pre-op diagnosis: left foot cellulitis/ostemylitis Post-op diagnosis: same Procedure performed: Left foot debridement diabetic ulcer, excision osteomyelitis Description of procedure: Indications: Patient is a 69-year-old woman with diabetes and peripheral neuropathy. Chronic ulceration left plantar foot, now with abscess and evidence of osteomyelitis. Presents for debridement. Patient has declined amputation at this time. What was done: Patient identified in the preoperative holding. Informed consent given. Operative extremity marked. Patient received intravenous antibiotics. Patient brought to the operating room where underwent general anesthetic by anesthesia team. Positioned supine on operating room table. Time-out performed confirming the patient, site of the surgery and the plan. Left foot prepped draped usual sterile surgical fashion using a Betadine prep solution. Foot was elevated and the thigh tourniquet was inflated to 250 mmHg. Infection with purulent drainage noted in the 2nd webspace. Plantar diabetic foot ulcer under the 2nd metatarsal head. Ulcer was addressed 1st. Fifteen blade knife used to excise the skin, subcutaneous tissue, muscle from the plantar left foot diabetic ulcer. All infected, devitalized, nonviable tissue sharply excised and passed off. Wound thoroughly irrigated antibiotic solution. Skin closed with 2 0 Prolene interrupted suture. The 2nd web space abscess with ulceration was extended proximally along the 2nd metatarsal with a 15 blade knife. Hemostasis controlled electrocautery. Abscess was debrided with the 15 blade knife and rongeur. Dissection carried down to the 2nd metatarsophalangeal joint. Evidence of infection involving the base of the proximal phalanx. Rongeur used to remove the infected bone. Bone cutter used to transect the 2nd metatarsal just proximal to the head and the metatarsal head removed. Remaining bone smoothed with rongeur. Dissection then carried to the 3rd metatarsophalangeal joint and rongeur used to remove the infected material from the base of the proximal phalanx. Bone cutter used to transect the 3rd metatarsal neck. Metatarsal head removed and the remaining bone smoothed with rongeur. Wound thoroughly irrigated antibiotic solution. Tourniquet released and hemostasis controlled with electrocautery. Incision and closed with 0 Prolene interrupted suture. The ulceration in the web space packed open with sterile gauze. Sterile dressing applied. The patient was then woken from anesthesia, extubated and taken to the recovery room in stable condition. All sponge, needle, instrument counts were correct at the end of the case. Implants: None Anesthesia: GLMA Surgeon: Cassius Hein MD Product Merchandiser: 1st clinical project assistant Estimated blood loss (mL): 10 Tourniquet time (min): 20 Drains: No Packing: Yes Pathology: none sent Complications: None Condition: stable Disposition: PACU Findings: Osteomyelitis involving base of the 2nd and 3rd proximal phalanx, abscess 2nd webspace. No extension proximal to the metatarsal heads. Debridement of foot with excision of 2nd and 3rd metatarsal head and base of 2nd and 3rd proximal phalanx
--- NOTE | 2020-08-08 09:48 | PM.IMPN ---
Progress Note: A&P Assessment and Plan (1) Acute osteomyelitis of left foot: Code(s): M86.172 - Other acute osteomyelitis, left ankle and foot Status: Acute Assessment and Plan: MRI and wound consistent with osteomyelitis -Pt underwent left foot debridement with osteomyelitis excision 08/08/20 -continue vancomycin and Zosyn -Continue Ortho recommendations. Will ask when we are able to start prophylaxis lovenox -patient sees sausage smoker Dr. Johansen outpt -patient has a leukocytosis but no fevers at this time -Blood cultures no growth to date (2) Cellulitis of foot, left: Code(s): L03.116 - Cellulitis of left lower limb Status: Acute Assessment and Plan: As above (3) Insulin dependent type 2 diabetes mellitus: Code(s): E11.9 - Type 2 diabetes mellitus without complications; Z79.4 - [facility]P (current) use of insulin Status: Inactive Assessment and Plan: Last glucose 161 -A1c 8.7 -Continue invokana and lantus -Continue SSI (4) Hypertension: Code(s): I10 - Essential (primary) hypertension Status: Inactive Assessment and Plan: Last bp 97/52 post op -hold vasotec for now (5) Hyperlipidemia: Code(s): E78.5 - Hyperlipidemia, unspecified Status: Inactive Assessment and Plan: Chronic -Continue lipitor (6) Obstructive sleep apnea: Code(s): G47.33 - Obstructive sleep apnea (adult) (pediatric) Status: Inactive Assessment and Plan: Continue Cpap (7) Anxiety: Code(s): F41.9 - Anxiety disorder, unspecified Status: Acute Assessment and Plan: Chronic and stable -Continue effexor XR (8) Cardiac murmur: Code(s): R01.1 - Cardiac murmur, unspecified Status: Acute Assessment and Plan: Pt states this was first noticed last Feb 2020 and she underwent echo and w/u with Dr. Joy -No change in status/dizziness/leg swelling since this echo -No need for new echo at this time -Echo from 2019 shows EF 65-70%, grade 1 diastolic dysfunction, mild aortic stenosis and trace mitral valve regurg Subjective Date/time seen: 08/08/20 09:48 Interval history: Pt is a 69-year-old female here for osteomyelitis. Patient was seen today after surgery and is in good spirits. She is not any pain and has no complaints today. She specifically denies chest pain, shortness of breath, fevers, chills, nausea, vomiting, constipation and diarrhea. She has no significant pain in her right foot at this time. Exam Narrative: Exam Narrative: General: Well developed well nourished patient in NAD HEENT: normocephalic Neck: supple Neuro: Alert and oriented x4 CV:RRR with slight systolic murmur Resp:CTA Abd: Soft, non distended. No pain to palpation. Positive bowel sounds. Ostomy bag in place with formed stool Extremities: Left foot wound just wrapped from sx. I did not undress this due to hemostatis concerns. Objective Data Vital Signs Vital Signs: Vital Signs - 24 hr 08/07/20 10:48 08/07/20 14:00 08/07/20 22:00 Temperature 97.5 F L 97.4 F L Pulse Rate 81 86 Respiratory Rate 20 16 Blood Pressure 143/63 H 147/56 H Pulse Oximetry 98 100 100 08/07/20 22:25 08/08/20 03:03 08/08/20 06:00 Temperature 97.5 F L Pulse Rate 91 72 80 Respiratory Rate 13 16 Blood Pressure 130/57 L Pulse Oximetry 97 94 97 08/08/20 08:42 08/08/20 08:57 08/08/20 09:11 Temperature 97.1 F L Pulse Rate 76 82 76 Respiratory Rate 10 L 13 12 Blood Pressure 86/44 L 99/39 L 105/49 L Pulse Oximetry 95 99 96 08/08/20 09:25 08/08/20 09:40 Temperature Pulse Rate 76 74 Respiratory Rate 12 12 Blood Pressure 109/56 L 97/52 L Pulse Oximetry 97 95 Intake/Output Intake/Output: Intake & Output 08/05/20 08/06/20 08/07/20 08/08/20 23:59 23:59 23:59 23:59 Intake Total 1450 5070 1400 Output Total 900 Balance 1450 4170 1400 Meds/Results Medicati
--- NOTE | 2020-08-08 10:05 | PC.NURSE ---
pt returned from surgery, doing well, no c/o at this time
[2020-08-08] MEDS: CANAGLIFLOZIN 100 MG TABLET PO (11:56)
[2020-08-08] MEDS: VENLAFAXINE HCL XR 75 MG CAP.ER.24H 150 MG PO (11:56)
[2020-08-08 16:32] LABS: Glucose Point of Care 119 (65-105)
[2020-08-08] MEDS: ACETAMINOPHEN 325 MG TABLET 650 MG PO (18:42)
[2020-08-08] MEDS: INSULIN GLARGINE (*BKC) 100 UNITS/ML 30 UNITS SUB-Q (18:43)
[2020-08-08] MEDS: HYDROcodone/acetaminophen (*CRX) 5-325 MG TABLET 1 TAB PO (19:44)
[2020-08-08] MEDS: ATORVASTATIN 40 MG TABLET PO (19:45)
[2020-08-08] MEDS: MAGNESIUM OXIDE 200 MG TABLET PO (19:46)
[2020-08-08] MEDS: QUEtiapine FUMARATE 25 MG TABLET PO (19:46)
[2020-08-08 20:23] LABS: Vancomycin Trough 8.4 ug/mL (10.0-20.0)
[2020-08-08 20:44] LABS: Glucose Point of Care 148 (65-105)
[2020-08-09 02:56] VITALS: PULSE 79; RESP 14; O2SAT 96
[2020-08-09 05:57] VITALS: BP 123/47; PULSE 85; RESP 16; TEMP 36.1; O2SAT 95
[2020-08-09 05:57] LABS: Basophils Percent Auto 0.4 % (0.2-1.2); Eosinophils Absolute Auto 0.2 K/mm3 (0-0.3); Eosinophils Percent Auto 2.2 % (0-4.4); Hematocrit 30.9 % (37.0-47.0); Hemoglobin 10.2 g/dL (12.0-15.0); Immature Granulocyte Absolute 0.07 K/mm3 (0.00-0.031); Immature Granulocyte Percent A 0.6 % (0-0.5); Lymphocytes Absolute Auto 2.41 K/mm3 (0.9-3.2); Lymphocytes Percent Auto 21.9 % (18.3-44.2); Mean Corpuscular Hemoglobin 28.7 pg (26-34); Mean Corpuscular Volume 86.8 fl (80-100); Mean Platelet Volume 10.4 fl (7.4-10.4); Monocytes Absolute Auto 0.8 K/mm3 (0.1-0.6); Monocytes Percent Auto 7.1 % (2.6-8.5); Neutrophils Absolute Auto 7.5 K/mm3 (1.3-6.7); Neutrophils Percent Auto 67.8 % (45.5-73.1); Platelet Count Result 375 k/mm3 (150-375); Red Blood Count 3.56 M/mm3 (4.2-5.4); Red Cell Distribution Width 12.8 % (11.5-14.5)
[2020-08-09 06:09] LABS: Anion Gap 5 mmol/L (8-16); Blood Urea Nitrogen 11 mg/dL (7-17); Calcium 8.2 mg/dL (8.4-10.2); Carbon Dioxide 26 mmol/L (22-30); Chloride 107 mmol/L (98-107); Estimated CRCL calculation 78 ml/min; Estimated Glomerular Filt Rate > 60; Glucose 106 mg/dL (65-105); Potassium 4.2 mmol/L (3.4-5.0); Sodium 138 mmol/L (137-145)
[2020-08-09 07:33] VITALS: BP 134/51; PULSE 87; RESP 18; TEMP 36.8; O2SAT 96
[2020-08-09 07:35] LABS: Glucose Point of Care 119 (65-105)
[2020-08-09] MEDS: VENLAFAXINE HCL XR 75 MG CAP.ER.24H 150 MG PO (08:27)
[2020-08-09] MEDS: CANAGLIFLOZIN 100 MG TABLET PO (08:27)
--- NOTE | 2020-08-09 08:54 | PM.IMPN ---
Progress Note: A&P Assessment and Plan (1) Acute osteomyelitis of left foot: Code(s): M86.172 - Other acute osteomyelitis, left ankle and foot Status: Acute Assessment and Plan: MRI and wound consistent with osteomyelitis -Pt underwent left foot debridement with osteomyelitis excision 08/08/20 -continue vancomycin and imipenem -Continue Ortho recommendations. Will ask when we are able to start prophylaxis lovenox -patient sees count team member Dr. Johansen outpt -patient has a leukocytosis but no fevers at this time -Blood cultures no growth to date (2) Cellulitis of foot, left: Code(s): L03.116 - Cellulitis of left lower limb Status: Acute Assessment and Plan: As above (3) Insulin dependent type 2 diabetes mellitus: Code(s): E11.9 - Type 2 diabetes mellitus without complications; Z79.4 - nursing home (current) use of insulin Status: Inactive Assessment and Plan: Last glucose 119 -A1c 8.7 -Continue invokana and lantus -Continue SSI (4) Hypertension: Code(s): I10 - Essential (primary) hypertension Status: Inactive Assessment and Plan: Last bp 134/51 -will continue enalapril (5) Hyperlipidemia: Code(s): E78.5 - Hyperlipidemia, unspecified Status: Inactive Assessment and Plan: Chronic -Continue lipitor (6) Obstructive sleep apnea: Code(s): G47.33 - Obstructive sleep apnea (adult) (pediatric) Status: Inactive Assessment and Plan: Continue Cpap (7) Anxiety: Code(s): F41.9 - Anxiety disorder, unspecified Status: Acute Assessment and Plan: Chronic and stable -Continue effexor XR (8) Cardiac murmur: Code(s): R01.1 - Cardiac murmur, unspecified Status: Acute Assessment and Plan: Pt states this was first noticed last Feb 2020 and she underwent echo and w/u with Dr. Joy -No change in status/dizziness/leg swelling since this echo -No need for new echo at this time -Echo from 2019 shows EF 65-70%, grade 1 diastolic dysfunction, mild aortic stenosis and trace mitral valve regurg Subjective Date/time seen: 08/09/20 08:54 Interval history: Pt is a 69-year-old female here for osteomyelitis. Patient was seen today and is in good spirits. She had no complaints whatsoever and is in no pain. She has ostomy bag which is producing stool without issue. She is eating and drinking okay and denies chest pain, shortness of breath, fevers, chills, nausea, and vomiting. Exam Narrative: Exam Narrative: General: Well developed well nourished patient in NAD HEENT: normocephalic Neck: supple Neuro: Alert and oriented x4 CV:RRR with slight systolic murmur Resp:CTA Abd: Soft, non distended. No pain to palpation. Positive bowel sounds. Ostomy bag in place with formed stool Extremities: Left foot wound just wrapped and will defer to surgery since they plan to evaluated today. I did not undress this due to hemostatis concerns. Objective Data Vital Signs Vital Signs: Vital Signs - 24 hr 08/08/20 08:57 08/08/20 09:11 08/08/20 09:25 Temperature Pulse Rate 82 76 76 Respiratory Rate 13 12 12 Blood Pressure 99/39 L 105/49 L 109/56 L Pulse Oximetry 99 96 97 08/08/20 09:40 08/08/20 10:03 08/08/20 10:33 Temperature 96.8 F L 97.3 F L Pulse Rate 74 78 78 Respiratory Rate 12 18 18 Blood Pressure 97/52 L 117/47 L 110/45 L Pulse Oximetry 95 98 98 08/08/20 11:33 08/08/20 15:29 08/08/20 19:33 Temperature 98.7 F 98.9 F Pulse Rate 77 93 Respiratory Rate 16 16 Blood Pressure 107/51 L 130/51 L Pulse Oximetry 98 95 99 08/08/20 20:21 08/08/20 23:33 08/09/20 02:56 Temperature 96.8 F L Pulse Rate 91 82 79 Respiratory Rate 19 16 14 Blood Pressure 130/58 L Pulse Oximetry 95 97 96 08/09/20 05:57 08/09/20 07:33 Temperature 97.0 F L 98.3 F Pulse Rate 85 87 Respiratory Rate 16 18 Blood Pressure 123/47 L 134/51 L Puls
--- NOTE | 2020-08-09 09:37 | PM.PNORT ---
Progress Note: A&P Assessment and Plan (1) Osteomyelitis of ankle or foot, right, acute: Code(s): M86.171 - Other acute osteomyelitis, right ankle and foot Status: Acute Assessment and Plan: Postoperative day 1. Excision of osteomyelitis left foot. Dressing changes morning. Toes viable at this time but concern for decreased vascularity status post debridement. Intravenous antibiotics. Dressing change in a.m.. Will need wound culture at that time. Long-term plan based on viability of toes. Will at some point need further debridement and possible closure versus amputation. Pain control. May be up with negative pressure shoe weight-bearing as tolerated or postop shoe with heel weight-bearing. May shower with shower covering to keep dressing dry. Subjective Subjective Date/Time Seen: 08/09/20 09:37 Patient awake and alert. Minimal left foot pain. Exam Const: General: No confusion Orientation/consciousness: No confusion HENMT: Head: normal to inspection, normocephalic and atraumatic Eyes: Conjunctivae: conjunctivae normal Sclera: sclerae normal Neck: Neck: supple and nontender Chest: Chest palpation & inspection: normal inspection of the chest Resp: Effort & Inspection: normal respiratory effort and no audible wheezes Cardio: Rate: regular rate Rhythm: regular rhythm : General: Yes deferred Skin: General skin exam: no rashes or lesions noted Neuro: General: No confusion Extrem: General: capillary refill normal Right upper extremity: normal to inspection Left upper extremity: normal to inspection Right lower extremity: normal to inspection, hip/thigh Details: normal to inspection and foot Details: vascular exam Details: dorsalis pedis pulse present and normal capillary refill and motor-sensory exam Details: two point discrimination abnormal Location: in all toes and light-touch abnormal Location: in all toes; no tenderness Left lower extremity: hip/thigh Details: normal to inspection, knee Details: abnormal ROM ( range of motion deferred secondary to fracture), ankle (no calf tenderness) Details: normal to inspection, normal ROM, ecchymosis, crepitus, achilles tendon exam abnormal and other ( good capillary refill in toes, 2+ DP pulse, light touch sensation intact); no tenderness ( lateral malleolus, anterior ankle and medial ankle) and no swelling ( moderate anterior ankle, moderate lateral ankle) and foot Details: normal capillary refill, tenderness Location: of the dorsal foot and of another digit Location: the 2nd digit, the 3rd digit, the 4th digit and other (metatarsals), abnormal ROM of toe (decreased movement 4th/ 5th toes) Details: pain with active ROM, ecchymosis ( Mild base of the small toe metatarsal), vascular exam Details: dorsalis pedis pulse present and normal capillary refill, tendon exam active flexion normal and active extension normal and motor-sensory exam two point discrimination abnormal in all toes and light-touch abnormal in all toes Other: Left foot dressing changed. Incision clean and dry. Webspace wound clean and dry. Good capillary refill in the 2nd and 3rd toes. Patient able to move toes. Decreased sensation with neuropathy. Psych: Affect: normal affect Objective Data Vital Signs Vital Signs: Vital Signs - 24 hr 08/08/20 09:40 08/08/20 10:03 08/08/20 10:33 Temperature 96.8 F L 97.3 F L Pulse Rate 74 78 78 Respiratory Rate 12 18 18 Blood Pressure 97/52 L 117/47 L 110/45 L Pulse Oximetry 95 98 98 08/08/20 11:33 08/08/20 15:29 08/08/20 19:33 Temperature 98.7 F 98.9 F Pulse Rate 77 93 Respiratory Rate 16 16 Blood Pressure 107/51 L 130/51 L Pulse Oximetry 98 95 99 08/08/20 20:21 08/08/20 23:33 08/09/20 02:56 Temperature 96.8 F L Pulse Rate 91 82 79 Respiratory Rate 19 16 14 Blood Pressure 130/58 L Pulse Oximetry 95 97 96 08/09/20 05:57 08/09/20 07:33 Temperature 97.0 F L 98.3 F Pulse Rate 85 87 Respiratory Rate 16 18 Blood Pres
[2020-08-09 11:24] LABS: Glucose Point of Care 127 (65-105)
[2020-08-09 11:33] VITALS: BP 121/53; PULSE 75; RESP 18; TEMP 36.4; O2SAT 96
[2020-08-09 16:42] LABS: Glucose Point of Care 149 (65-105)
[2020-08-09] MEDS: INSULIN GLARGINE (*BKC) 100 UNITS/ML 30 UNITS SUB-Q (18:03)
[2020-08-09] MEDS: QUEtiapine FUMARATE 25 MG TABLET PO (20:04)
[2020-08-09] MEDS: ATORVASTATIN 40 MG TABLET PO (20:04)
[2020-08-09] MEDS: MAGNESIUM OXIDE 200 MG TABLET PO (21:02)
[2020-08-09 21:18] VITALS: BP 162/66; PULSE 92; RESP 16; TEMP 36.3; O2SAT 97
[2020-08-09 21:46] LABS: Glucose Point of Care 269 (65-105)
[2020-08-09 23:08] VITALS: PULSE 77; RESP 24; O2SAT 96
[2020-08-10 02:00] VITALS: BP 122/51; PULSE 84; RESP 16; TEMP 36.4; O2SAT 97
[2020-08-10 02:02] VITALS: PULSE 71; RESP 15; O2SAT 95
[2020-08-10 05:48] VITALS: BP 148/61; PULSE 84; RESP 16; TEMP 36.7; O2SAT 96
[2020-08-10 07:11] LABS: Hematocrit 28.5 % (37.0-47.0); Mean Corpuscular HGB Conc 35.1 g/dl (32-36); Mean Corpuscular Hemoglobin 29.5 pg (26-34); Mean Corpuscular Volume 84.1 fl (80-100); Mean Platelet Volume 9.1 fl (7.4-10.4); Platelet Count Result 450 k/mm3 (150-375); Red Blood Count 3.39 M/mm3 (4.2-5.4); Red Cell Distribution Width 12.6 % (11.5-14.5); White Blood Count 11.5 K/mm3 (4.5-10.0)
[2020-08-10 07:17] LABS: Sodium 140 mmol/L (137-145)
[2020-08-10 07:24] LABS: Anion Gap 4 mmol/L (8-16); Blood Urea Nitrogen 12 mg/dL (7-17); CRP 7.5 mg/dL (<1.0); Calcium 8.7 mg/dL (8.4-10.2); Carbon Dioxide 28 mmol/L (22-30); Chloride 108 mmol/L (98-107); Estimated CRCL calculation 92 ml/min; Estimated Glomerular Filt Rate > 60; Glucose 132 mg/dL (65-105); Potassium 3.5 mmol/L (3.4-5.0)
[2020-08-10 07:50] LABS: Vancomycin Trough 12.8 ug/mL (10.0-20.0)
[2020-08-10 08:32] LABS: Glucose Point of Care 124 (65-105)
[2020-08-10] MEDS: VENLAFAXINE HCL XR 75 MG CAP.ER.24H 150 MG PO (08:51)
[2020-08-10] MEDS: ENALAPRIL MALEATE 10 MG TABLET 20 MG PO (08:52)
[2020-08-10] MEDS: CANAGLIFLOZIN 100 MG TABLET PO (08:52)
--- NOTE | 2020-08-10 10:32 | PM.IMPN ---
Progress Note: A&P Assessment and Plan (1) Acute osteomyelitis of left foot: Code(s): M86.172 - Other acute osteomyelitis, left ankle and foot Status: Acute Assessment and Plan: MRI and wound consistent with osteomyelitis -Pt underwent left foot debridement with osteomyelitis excision 08/08/20 -continue vancomycin and imipenem -Continue Ortho recommendations. -Ortho states no indication for medical prophylaxis from ortho standpoint. Pt is low risk since she is up and moving but would still recommend a small dose of 40mg daily if ortho sees no concerns. I have reached out to Dr Bonds to see his thoughts. -patient sees lead software engineer Dr. Johansen outpt -patient has a leukocytosis but no fevers at this time -Blood cultures no growth to date (2) Cellulitis of foot, left: Code(s): L03.116 - Cellulitis of left lower limb Status: Acute Assessment and Plan: As above (3) Insulin dependent type 2 diabetes mellitus: Code(s): E11.9 - Type 2 diabetes mellitus without complications; Z79.4 - [facility]ite treat[facility] (current) use of insulin Status: Inactive Assessment and Plan: Last glucose 124 -A1c 8.7 -Continue invokana and lantus -Continue SSI (4) Hypertension: Code(s): I10 - Essential (primary) hypertension Status: Inactive Assessment and Plan: Last bp 148/61 before her home meds this morning -will continue enalapril (5) Hyperlipidemia: Code(s): E78.5 - Hyperlipidemia, unspecified Status: Inactive Assessment and Plan: Chronic -Continue lipitor (6) Obstructive sleep apnea: Code(s): G47.33 - Obstructive sleep apnea (adult) (pediatric) Status: Inactive Assessment and Plan: Continue Cpap -She has been wearing it and it is at bedside (7) Anxiety: Code(s): F41.9 - Anxiety disorder, unspecified Status: Acute Assessment and Plan: Chronic and stable -Continue effexor XR (8) Cardiac murmur: Code(s): R01.1 - Cardiac murmur, unspecified Status: Acute Assessment and Plan: Pt states this was first noticed last Feb 2020 and she underwent echo and w/u with Dr. Joy -No change in status/dizziness/leg swelling since this echo -No need for new echo at this time -Echo from 2019 shows EF 65-70%, grade 1 diastolic dysfunction, mild aortic stenosis and trace mitral valve regurg Subjective Date/time seen: 08/10/20 10:32 Interval history: Pt is a 69-year-old female here for osteomyelitis. Patient was seen today and has no complaints and no pain. She has been up and walking without trouble. She has ostomy bag which is producing stool without issue. She is eating and drinking okay and denies chest pain, shortness of breath, fevers, chills, nausea, and vomiting. Exam Narrative: Exam Narrative: General: Well developed well nourished patient in NAD HEENT: normocephalic Neck: supple Neuro: Alert and oriented x4 CV:RRR with slight systolic murmur Resp:CTA Abd: Soft, non distended. No pain to palpation. Positive bowel sounds. Ostomy bag in place with formed stool Extremities: Left foot wound just wrapped and will defer to surgery just saw the pt. Please see their note for description Objective Data Vital Signs Vital Signs: Vital Signs - 24 hr 08/09/20 11:33 08/09/20 21:18 08/09/20 23:08 Temperature 97.5 F L 97.4 F L Pulse Rate 75 92 77 Respiratory Rate 18 16 24 H Blood Pressure 121/53 L 162/66 H Pulse Oximetry 96 97 96 08/10/20 02:00 08/10/20 02:02 08/10/20 05:48 Temperature 97.6 F 98.1 F Pulse Rate 84 71 84 Respiratory Rate 16 15 16 Blood Pressure 122/51 L 148/61 H Pulse Oximetry 97 95 96 Intake/Output Intake/Output: Intake & Output 08/07/20 08/08/20 08/09/20 08/10/20 23:59 23:59 23:59 23:59 Intake Total 5070 3850 3960 640 Output Total 900 Balance 4170 3850 3960 640 Meds/Results Medications: Active Medications
--- NOTE | 2020-08-10 10:58 | PM.PNORT ---
Progress Note: A&P Assessment and Plan (1) Osteomyelitis of ankle or foot, right, acute: Code(s): M86.171 - Other acute osteomyelitis, right ankle and foot Status: Acute Assessment and Plan: Postoperative day 2. Excision of osteomyelitis left foot. Dressing changed this morning. Toes viable at this time but concern for decreased vascularity status post debridement. Continue Intravenous antibiotics. Wound culture and G stain done this am. Long-term plan based on viability of toes. Will at some point need further debridement and possible closure versus amputation. Pain control. May be up with negative pressure shoe weight-bearing as tolerated or postop shoe with heel weight-bearing. May shower with shower covering to keep dressing dry. Subjective Subjective Date/Time Seen: 08/10/20 10:58 Patient reports no new complaints. Awake and alert. She would like to shower. Exam Const: General: No confusion Orientation/consciousness: No confusion HENMT: Head: normal to inspection, normocephalic and atraumatic Eyes: Conjunctivae: conjunctivae normal Sclera: sclerae normal Neck: Neck: supple and nontender Chest: Chest palpation & inspection: normal inspection of the chest Resp: Effort & Inspection: normal respiratory effort and no audible wheezes Cardio: Rate: regular rate Rhythm: regular rhythm : General: Yes deferred Skin: General skin exam: no rashes or lesions noted Neuro: General: No confusion Extrem: General: capillary refill normal Right upper extremity: normal to inspection Left upper extremity: normal to inspection Right lower extremity: normal to inspection, hip/thigh Details: normal to inspection and foot Details: vascular exam Details: dorsalis pedis pulse present and normal capillary refill and motor-sensory exam Details: two point discrimination abnormal Location: in all toes and light-touch abnormal Location: in all toes; no tenderness Left lower extremity: hip/thigh Details: normal to inspection, knee Details: abnormal ROM ( range of motion deferred secondary to fracture), ankle (no calf tenderness) Details: normal to inspection, normal ROM, ecchymosis, crepitus, achilles tendon exam abnormal and other ( good capillary refill in toes, 2+ DP pulse, light touch sensation intact); no tenderness ( lateral malleolus, anterior ankle and medial ankle) and no swelling ( moderate anterior ankle, moderate lateral ankle) and foot Details: normal capillary refill, tenderness Location: of the dorsal foot and of another digit Location: the 2nd digit, the 3rd digit, the 4th digit and other (metatarsals), abnormal ROM of toe (decreased movement 4th/ 5th toes) Details: pain with active ROM, ecchymosis ( Mild base of the small toe metatarsal), vascular exam Details: dorsalis pedis pulse present and normal capillary refill, tendon exam active flexion normal and active extension normal and motor-sensory exam two point discrimination abnormal in all toes and light-touch abnormal in all toes Other: Left foot dressing changed. Incision clean and dry. Webspace wound Mild purulence. Good capillary refill in the 2nd and 3rd toes. viability of the 2nd toe mildly improved. Patient able to move toes. Decreased sensation with neuropathy. Psych: Affect: normal affect Objective Data Vital Signs Vital Signs: Vital Signs - 24 hr 08/09/20 11:33 08/09/20 21:18 08/09/20 23:08 Temperature 97.5 F L 97.4 F L Pulse Rate 75 92 77 Respiratory Rate 18 16 24 H Blood Pressure 121/53 L 162/66 H Pulse Oximetry 96 97 96 08/10/20 02:00 08/10/20 02:02 08/10/20 05:48 Temperature 97.6 F 98.1 F Pulse Rate 84 71 84 Respiratory Rate 16 15 16 Blood Pressure 122/51 L 148/61 H Pulse Oximetry 97 95 96 Intake/Output Intake/Output: Intake & Output 08/07/20 08/08/20 08/09/20 08/10/20 23:59 23:59 23:59 23:59 Intake Total 5070 3850 3960 640 Output Total 900 Balance 4170 3850 3960 640 Meds/Results Medication
[2020-08-10 11:27] LABS: Glucose Point of Care 212 (65-105)
[2020-08-10] MEDS: INSULIN ASPART (*BKC) 100 UNITS/ML SUB-Q (12:16)
[2020-08-10 14:00] VITALS: BP 136/68; PULSE 87; RESP 20; TEMP 36.1; O2SAT 99
[2020-08-10 16:24] LABS: Glucose Point of Care 166 (65-105)
[2020-08-10] MEDS: INSULIN GLARGINE (*BKC) 100 UNITS/ML 30 UNITS SUB-Q (18:31)
[2020-08-10 20:00] VITALS: BP 132/60; PULSE 90; RESP 20; TEMP 36.8; O2SAT 98
[2020-08-10] MEDS: MAGNESIUM OXIDE 200 MG TABLET PO (20:56)
[2020-08-10] MEDS: ATORVASTATIN 40 MG TABLET PO (20:56)
[2020-08-10] MEDS: QUEtiapine FUMARATE 25 MG TABLET PO (20:56)
[2020-08-10 21:35] LABS: Glucose Point of Care 288 (65-105)
[2020-08-10 23:14] VITALS: PULSE 87; RESP 19; O2SAT 97
[2020-08-11 04:00] VITALS: BP 131/52; PULSE 82; RESP 18; TEMP 36.6; O2SAT 97
[2020-08-11 05:30] LABS: Basophils Percent Auto 0.4 % (0.2-1.2); Eosinophils Absolute Auto 0.3 K/mm3 (0-0.3); Eosinophils Percent Auto 2.7 % (0-4.4); Hematocrit 28.2 % (37.0-47.0); Hemoglobin 9.6 g/dL (12.0-15.0); Immature Granulocyte Absolute 0.07 K/mm3 (0.00-0.031); Immature Granulocyte Percent A 0.7 % (0-0.5); Lymphocytes Absolute Auto 2.97 K/mm3 (0.9-3.2); Lymphocytes Percent Auto 27.8 % (18.3-44.2); Mean Corpuscular Hemoglobin 29.4 pg (26-34); Mean Corpuscular Volume 86.2 fl (80-100); Mean Platelet Volume 9.2 fl (7.4-10.4); Monocytes Absolute Auto 0.7 K/mm3 (0.1-0.6); Monocytes Percent Auto 6.6 % (2.6-8.5); Neutrophils Absolute Auto 6.6 K/mm3 (1.3-6.7); Neutrophils Percent Auto 61.8 % (45.5-73.1); Platelet Count Result 456 k/mm3 (150-375); Red Blood Count 3.27 M/mm3 (4.2-5.4); Red Cell Distribution Width 12.8 % (11.5-14.5); White Blood Count 10.7 K/mm3 (4.5-10.0)
[2020-08-11 05:44] LABS: Alanine Aminotransferase 11 U/L (4-35); Albumin Level 3.2 g/dL (3.5-5.1); Alkaline Phosphatase 93 U/L (38-126); Anion Gap 7 mmol/L (8-16); Aspartate Amino Transferase 22 U/L (14-36); Bilirubin,Total 0.3 mg/dL (0.2-1.3); Blood Urea Nitrogen 13 mg/dL (7-17); CRP 4.9 mg/dL (<1.0); Calcium 8.6 mg/dL (8.4-10.2); Carbon Dioxide 27 mmol/L (22-30); Chloride 108 mmol/L (98-107); Estimated CRCL calculation 78 ml/min; Estimated Glomerular Filt Rate > 60; Glucose 132 mg/dL (65-105); Potassium 3.7 mmol/L (3.4-5.0); Sodium 142 mmol/L (137-145)
[2020-08-11 07:37] LABS: Glucose Point of Care 120 (65-105)
[2020-08-11] MEDS: ENALAPRIL MALEATE 10 MG TABLET 20 MG PO (07:58)
[2020-08-11] MEDS: VENLAFAXINE HCL XR 75 MG CAP.ER.24H 150 MG PO (07:58)
[2020-08-11] MEDS: CANAGLIFLOZIN 100 MG TABLET PO (07:58)
--- NOTE | 2020-08-11 08:39 | PM.PNORT ---
Progress Note: A&P Assessment and Plan (1) Acute osteomyelitis of left foot: Code(s): M86.172 - Other acute osteomyelitis, left ankle and foot Status: Acute Assessment and Plan: POD #2: Excision of osteomyelitis left foot. Dressing change performed. Toes remain viable at this time but concern for decreased vascularity status post debridement, 2nd ray with mild erythema. Continue IV antibiotics. Continue pain control. WBAT with reverse post op shoe. May shower with foot dressing covered. Elevate LLE on pillows. Long-term plan based on viability of toes. Plan for possible further debridement tomorrow with possible closure of wound vs. amputation and graft application. Discussed nonoperative and operative treatment options with the patient. The patients questions were answered. The patient desires operative treatment. Discussed debridement left foot ulcer with possible closure of the wound, graft application, pin fixation vs. amputation Risks of surgery including but not limited to neurovascular damage, wound complications, blood clot, pulmonary embolus, stroke, myocardial infarction, anesthetic risks up to and including were reviewed. Continued pain and possible dysfunction were explained. No guarantees were offered. The patient understands and wishes to proceed. NPO at midnight. (2) Cellulitis of foot, left: Code(s): L03.116 - Cellulitis of left lower limb Status: Acute Assessment and Plan: Continue IV antibiotics. (3) Diabetic ulcer of left foot: Qualifiers: Diabetes mellitus type: type 2 Diabetic foot ulcer location: other Non-pressure ulcer stage: with necrosis of muscle Qualified Code(s): E11.621 - Type 2 diabetes mellitus with foot ulcer; L97.523 - Non-pressure chronic ulcer of other part of left foot with necrosis of muscle Code(s): E11.621 - Type 2 diabetes mellitus with foot ulcer; L97.529 - Non-pressure chronic ulcer of other part of left foot with unspecified severity Status: Acute Assessment and Plan: Continue local wound care pending surgical intervention. (4) Peripheral neuropathy: Qualifiers: Peripheral neuropathy type: polyneuropathy associated with underlying disease Qualified Code(s): G63 - Polyneuropathy in diseases classified elsewhere Code(s): G62.9 - Polyneuropathy, unspecified Status: Acute (5) Meniere disease: Qualifiers: Laterality: bilateral Qualified Code(s): H81.03 - Meniere's disease, bilateral Code(s): H81.09 - Meniere's disease, unspecified ear Status: Chronic Assessment and Plan: Defer treatment to medicine service. Subjective Subjective Date/Time Seen: 08/11/20 08:39 Patient complains of dizziness today. History of vertigo. Review of Systems Constitutional: Constitutional: Denies fever(s) Comments: dizziness Eyes: Eyes: Denies blurry vision ENT: Reports Normal hearing present Cardiovascular: Cardiovascular: Denies chest pain and Denies dyspnea Respiratory: Respiratory: Denies dyspnea and Denies wheezing Gastrointestinal: Gastrointestinal: Denies abdominal pain Genitourinary: Genitourinary: Denies urinary urgency Musculoskeletal: Musculoskeletal: Reports as per HPI and Reports numbness ( Both feet) Integumentary/Breasts: Skin/Breast: Reports skin ulcer ( left plantar foot) and Reports sores Neurologic: Reports Normal hearing present, Denies behavioral changes, Denies confusion, Reports numbness (feet) and Denies convulsions Psychiatric: Psychiatric: Denies behavioral changes, Denies confusion and Denies hallucinations Endocrine: Endocrine: Denies heat intolerance Hematologic/Lymphatic: Hematologic/Lymphatic: Denies easy bleeding Allergic/Immunologic: Allergic/Immunologic: Denies wheezing Exam Const: General: No confusion Orientation/consciousness: No confusion HENMT: Head: normal to inspection, normocephalic and at
[2020-08-11] MEDS: ENOXAPARIN 40 MG/0.4 ML SYRINGE SUB-Q (09:19)
--- NOTE | 2020-08-11 11:19 | PM.IMPN ---
Progress Note: A&P Assessment and Plan (1) Acute osteomyelitis of left foot: Code(s): M86.172 - Other acute osteomyelitis, left ankle and foot Status: Acute Assessment and Plan: MRI consistent with acute osteomyelitis left foot. She is POD#3 s/p excisional debridement by Dr Hein 08/08/20. She remains on IV vancomycin and imipenem (day 6). Mild leukocytosis is improving. Blood cultures no growth to date. Management per orthopedic surgery - appreciate recommendations. Noted plan to possibly go back to OR tomorrow for possible further debridement with possible closure vs. amputation, for which she will be NPO at midnight. Will hold Lovenox AM dose. (2) Cellulitis of foot, left: Code(s): L03.116 - Cellulitis of left lower limb Status: Acute Assessment and Plan: As above. (3) Insulin dependent type 2 diabetes mellitus: Code(s): E11.9 - Type 2 diabetes mellitus without complications; Z79.4 - [facility] (current) use of insulin Status: Chronic Assessment and Plan: Hgb A1c is 8.7%. Glucose last 151 this afternoon. Continue her home Invokana and Lantus. Monitor with accu-cheks and cover with SSI. Tight glycemic control to optimize wound healing. (4) Hypertension: Qualifiers: Hypertension type: essential hypertension Qualified Code(s): I10 - Essential (primary) hypertension Code(s): I10 - Essential (primary) hypertension Status: Chronic Assessment and Plan: BP stable maintained on her home enalapril. Monitor BP and adjust treatment as needed. (5) Hyperlipidemia: Qualifiers: Hyperlipidemia type: unspecified Qualified Code(s): E78.5 - Hyperlipidemia, unspecified Code(s): E78.5 - Hyperlipidemia, unspecified Status: Chronic Assessment and Plan: Maintained on home statin therapy. (6) Obstructive sleep apnea: Code(s): G47.33 - Obstructive sleep apnea (adult) (pediatric) Status: Inactive Assessment and Plan: CPAP. (7) Anxiety: Code(s): F41.9 - Anxiety disorder, unspecified Status: Acute Assessment and Plan: Stable, maintained on home Effexor XR (8) Cardiac murmur: Code(s): R01.1 - Cardiac murmur, unspecified Status: Acute Assessment and Plan: Patient states this was first noticed last Feb 2020 and she underwent echo and w/u with Dr. Joy Echo from 2019 shows EF 65-70%, grade 1 diastolic dysfunction, mild aortic stenosis and trace mitral valve regurg Additional Plan Will resume her home betahistine she takes for Meniere's disease. Subjective Date/time seen: 08/11/20 1000 Interval history: Ms. De La Rosa is a 69yo F admitted for osteomyelitis left foot. Patient notes she is irritable this morning due to lack of sleep last night and IV pump beeping but she is pleasant and otherwise has no complaints. Denies pain to left foot. Denies chest pain, shortness of breath. Had some mild nausea with vertigo this morning which she sometimes gets due to her Meniere's disease, but this has improved now and is resolved at this time. No vomiting. Ate breakfast this morning. Review of Systems Review of Systems: All systems reviewed & are unremarkable except as noted in HPI and below Exam Narrative: Exam Narrative: General: Female resting comfortably supine in bed in no acute distress. HEENT: Normocephalic, EOMI, oral mucosa moist. Cardiovascular: Rate and rhythm are regular. Soft systolic murmur over left sternal border. Respiratory: Lungs clear to auscultation bilaterally. Respirations even and non-labored. Tolerating room
[2020-08-11 11:27] VITALS: BP 139/59; PULSE 82; RESP 15; TEMP 36; O2SAT 100
[2020-08-11 11:56] LABS: Glucose Point of Care 151 (65-105)
[2020-08-11 14:30] VITALS: BP 159/62; PULSE 90; RESP 18; TEMP 36.8; O2SAT 99
--- NOTE | 2020-08-11 15:29 | PC.NURSE ---
On 08/11/20, the student, [Chely Crawford ], provided care and completed [facility] documentation on this patient. I have reviewed the student's documentation and agree with the findings.
[2020-08-11] MEDS: INSULIN GLARGINE (*BKC) 100 UNITS/ML 30 UNITS SUB-Q (17:29)
[2020-08-11 17:55] LABS: Glucose Point of Care 172 (65-105)
[2020-08-11] MEDS: ATORVASTATIN 40 MG TABLET PO (21:11)
[2020-08-11] MEDS: QUEtiapine FUMARATE 25 MG TABLET PO (21:11)
[2020-08-11] MEDS: MAGNESIUM OXIDE 200 MG TABLET PO (21:11)
[2020-08-11 22:18] VITALS: BP 145/63; PULSE 90; RESP 16; TEMP 36.7; O2SAT 99
[2020-08-11 23:42] LABS: Glucose Point of Care 302 (65-105)
[2020-08-12] VITALS (16 sets, daily range): BP systolic 121–154; BP diastolic 50–75; PULSE 72–98; RESP 12–20; TEMP 36.2–37.7; O2SAT 94–100
[2020-08-12 05:43] LABS: Basophils Absolute Auto 0.1 K/mm3 (0.0-0.1); Basophils Percent Auto 0.5 % (0.2-1.2); Eosinophils Absolute Auto 0.3 K/mm3 (0-0.3); Eosinophils Percent Auto 3.2 % (0-4.4); Hematocrit 29.7 % (37.0-47.0); Hemoglobin 9.8 g/dL (12.0-15.0); Immature Granulocyte Percent A 0.9 % (0-0.5); Lymphocytes Absolute Auto 3.04 K/mm3 (0.9-3.2); Lymphocytes Percent Auto 28.9 % (18.3-44.2); Mean Corpuscular Hemoglobin 28.3 pg (26-34); Mean Corpuscular Volume 85.8 fl (80-100); Mean Platelet Volume 10.6 fl (7.4-10.4); Monocytes Absolute Auto 0.6 K/mm3 (0.1-0.6); Neutrophils Absolute Auto 6.4 K/mm3 (1.3-6.7); Neutrophils Percent Auto 60.5 % (45.5-73.1); Platelet Count Result 462 k/mm3 (150-375); Red Blood Count 3.46 M/mm3 (4.2-5.4); White Blood Count 10.5 K/mm3 (4.5-10.0)
[2020-08-12 06:08] LABS: Anion Gap 6 mmol/L (8-16); Blood Urea Nitrogen 14 mg/dL (7-17); Calcium 8.3 mg/dL (8.4-10.2); Carbon Dioxide 24 mmol/L (22-30); Chloride 110 mmol/L (98-107); Estimated CRCL calculation 92 ml/min; Estimated Glomerular Filt Rate > 60; Glucose 121 mg/dL (65-105); Magnesium 1.8 mg/dL (1.6-2.3); Potassium 4.2 mmol/L (3.4-5.0); Sodium 140 mmol/L (137-145)
[2020-08-12 07:59] LABS: Glucose Point of Care 134 (65-105)
--- NOTE | 2020-08-12 09:15 | WPDANESEPPF ---
Anes - Initial Pre Proc Eval Procedure: Operation Date: 08/08/20 07:30 Proposed Procedures p I&D Debride Lower Extremity Foot(Left) - Cassius Hein MD Operation Date: 08/12/20 10:30 Proposed Procedures p Left Foot Debridement,Possible Closure,Possible Wound Graft, Possible Pin Fixation - Cassius Hein MD Date/Time: 08/12/20 09:15 Surgeon: KELLY Hylton Pre Op Diagnosis: left foot cellulitis/ostemylitis Patient Data Age: 69 Gender: F Height: 1.63 m Weight: 84.3 kg Last Vital Signs Temp 36.3 C L 08/12/20 06:15 Pulse 81 08/12/20 06:15 Resp 16 08/12/20 06:15 BP 140/61 08/12/20 06:15 Pulse Ox 98 08/12/20 06:15 Allergies Allergy/AdvReac Type Severity Reaction Status Date / Time morphine AdvReac Nausea and Verified 08/06/20 17:33 Vomiting Home Medications Medication Instructions Recorded Confirmed Type atorvastatin 40 mg tablet 40 mg PO HS 02/24/20 08/06/20 History canagliflozin 100 mg tablet 100 mg PO DAILY 02/24/20 08/06/20 History dextroamphetamine-amphetamine 30 60 mg PO DAILY 02/24/20 08/06/20 History mg tablet diazepam 2 mg tablet 2 mg PO PRN PRN 02/24/20 08/06/20 History enalapril maleate 20 mg tablet 20 mg PO DAILY 02/24/20 08/06/20 History insulin glargine 100 unit/mL 40 unit SUB-Q QPM ml 02/24/20 08/06/20 History subcutaneous solution magnesium 250 mg tablet 250 mg PO HS 02/24/20 08/06/20 History ondansetron HCl 8 mg tablet 8 mg PO Q12H PRN 02/24/20 08/06/20 History quetiapine 25 mg tablet 25 mg PO HS 02/24/20 08/06/20 History venlafaxine 150 mg tablet,extended 150 mg PO DAILY 02/24/20 08/06/20 History release 24 hr riboflavin (vitamin B2) 400 mg PO HS 03/02/20 08/06/20 History Antihistimine 8 mg PO TID 08/06/20 08/06/20 History metformin 500 mg PO QAM AND QHS 08/06/20 08/06/20 History Laboratory Tests 08/11/20 08/11/20 08/11/20 11:52 17:23 21:21 WBC RBC Hgb Hct MCV MCH MCHC RDW Plt Count MPV Immature Gran % (Auto) Neut % (Auto) Lymph % (Auto) [place] % (Auto) Eos % (Auto) Baso % (Auto) Lymph # (Auto) [place] # (Auto) Eos # (Auto) Baso # (Auto) Abs Immat Gran (auto) Absolute Neuts (auto) Absolute Nucleated RBC Nucleated RBC % Sodium Potassium Chloride Carbon Dioxide Anion Gap BUN Creatinine Estim Creat Clear Calc Estimated GFR Glucose POC Capillary Glucose 151 mg/dl H mg/dl 172 mg/dl H mg/dl 302 mg/dl H mg/dl (65-105) (65-105) (65-105) Calcium Magnesium 08/12/20 08/12/20 08/12/20 04:52 04:52 07:56 WBC 10.5 K/mm3 H K/mm3 (4.5-10.0) RBC 3.46 M/mm3 L M/mm3 (4.2-5.4) Hgb 9.8 g/dL L g/dL (12.0-15.0) Hct 29.7 % L % (37.0-47.0) MCV 85.8 fl fl (80-100) MCH 28.3 pg pg (26-34) MCHC 33.0 g/dl g/dl (32-36) RDW 13.0 % % (11.5-14.5) Plt Count 462 k/mm3 H k/mm3 (150-375) MPV 10.6 fl H fl (7.4-10.4) Immature Gran % (Auto) 0.9 % H % (0-0.5) Neut % (Auto) 60.5 % % (45.5-73.1) Lymph % (Auto) 28.9 % % (18.3-44.2) [place] % (Auto) 6.0 % % (2.6-8.5) Eos % (Auto) 3.2 % % (0-4.4) Baso % (Auto) 0.5 % % (0.2-1.2) Lymph # (Auto) 3.04 K/mm3 K/mm3 (0.9-3.2) [place] # (Auto) 0.6 K/mm3 K/mm3 (0.1-0.6) Eos # (Auto) 0.3 K/mm3 K/mm3 (0-0.3) Baso # (Auto) 0.1 K/mm3 K/mm3 (0.0-0.1) Abs Immat Gran (auto) 0.10 K/mm3 H K/mm3 (0.00-0.031) Absolute Neuts (auto) 6.4 K/mm3 K/mm3 (
--- NOTE | 2020-08-12 09:34 | PM.IMPN ---
Progress Note: A&P Assessment and Plan (1) Acute osteomyelitis of left foot: Code(s): M86.172 - Other acute osteomyelitis, left ankle and foot Status: Acute Assessment and Plan: MRI consistent with acute osteomyelitis left foot. She is POD#4 s/p excisional debridement by Dr Hein 08/08/20 and is headed to OR this morning for further debridement with possible closure of wound vs. amputation. She remains on IV vancomycin and imipenem (day 7). Mild leukocytosis is improving. Blood cultures no growth to date. Management per orthopedic surgery - appreciate recommendations. (2) Cellulitis of foot, left: Code(s): L03.116 - Cellulitis of left lower limb Status: Acute Assessment and Plan: As above. (3) Insulin dependent type 2 diabetes mellitus: Code(s): E11.9 - Type 2 diabetes mellitus without complications; Z79.4 - M[facility] (current) use of insulin Status: Chronic Assessment and Plan: Hgb A1c is 8.7%. Glucose last 134 this afternoon. Continue her home Invokana and Lantus. Monitor with accu-cheks and cover with SSI. Tight glycemic control to optimize wound healing. (4) Hypertension: Qualifiers: Hypertension type: essential hypertension Qualified Code(s): I10 - Essential (primary) hypertension Code(s): I10 - Essential (primary) hypertension Status: Chronic Assessment and Plan: BP stable, on lower end maintained on her home enalapril. Monitor BP and adjust treatment as needed. (5) Hyperlipidemia: Qualifiers: Hyperlipidemia type: unspecified Qualified Code(s): E78.5 - Hyperlipidemia, unspecified Code(s): E78.5 - Hyperlipidemia, unspecified Status: Chronic Assessment and Plan: Maintained on home statin therapy. (6) Obstructive sleep apnea: Code(s): G47.33 - Obstructive sleep apnea (adult) (pediatric) Status: Inactive Assessment and Plan: CPAP. (7) Anxiety: Code(s): F41.9 - Anxiety disorder, unspecified Status: Acute Assessment and Plan: Stable, maintained on home Effexor XR, Seroquel. (8) Cardiac murmur: Code(s): R01.1 - Cardiac murmur, unspecified Status: Acute Assessment and Plan: Patient states this was first noticed last Feb 2020 and she underwent echo and w/u with Dr. Joy Echo from 2019 shows EF 65-70%, grade 1 diastolic dysfunction, mild aortic stenosis and trace mitral valve regurg. Subjective Date/time seen: 08/12/20 0850 Interval history: Ms. De La Rosa is a 69yo F admitted for osteomyelitis left foot. She again didn't sleep very well last night, says she normally sleeps with a fan so we can try to get her one for her room. She reports she is not really having any pain to left foot at this time, ready to get surgery over with and eat some lunch after. No nausea or vertigo this morning. Denies chest pain, shortness of breath, or cough. Review of Systems Review of Systems: All systems reviewed & are unremarkable except as noted in HPI and below Exam Narrative: Exam Narrative: General: Female resting comfortably supine in bed in no acute distress. HEENT: Normocephalic, EOMI, oral mucosa moist. Cardiovascular: Rate and rhythm are regular. Soft systolic murmur over left sternal border. Respiratory: Lungs clear to auscultation bilaterally. Respirations even and non-labored. Tolerating room air. Abdomen: Soft, non-tender, non-distended, bowel sounds present. Ostomy bag intact left abdomen with moderate soft brown stool. Extremities: Dressing to left foot is clean/dry/intact just before heading
[2020-08-12] MEDS: LACTATED RINGERS 1,000 ML 30 ML IV CONT (10:00)
--- NOTE | 2020-08-12 10:28 | WPDHPUPDATE1 ---
History and Physical Update Update Date/Time: 08/12/20 10:28 History and Physical has been reviewed, including an updated exam of the patient. There are NO changes in the patient's condition. Risks, benefits, and alternatives have been discussed and questions answered. Patient agrees to proceed with procedure.
[2020-08-12] MEDS: BUPIVACAINE HCL 0.5% PF 30 ML VIAL INFILTRATE (11:24)
[2020-08-12 11:53] LABS: Glucose Point of Care 104 (65-105)
--- NOTE | 2020-08-12 12:08 | PM.PROC ---
Procedure Note - Detailed Date of procedure: 08/12/20 Pre-op diagnosis: left foot cellulitis/ostemylitis Post-op diagnosis: same Procedure performed: Left foot excisional debridement, closure, application wound graft Description of procedure: Indications: Patient is a 6-year-old woman with diabetes and peripheral neuropathy who had left foot osteomyelitis. She is status post excision of osteomyelitis and debridement of for diabetic foot ulcer. She was left with an open wound. She presents now for planned return to the operating room for debridement of left foot and closure with stabilization of the 2nd and 3rd toe. What was done: Patient identified in the preoperative holding. Informed consent given. Operative extremity marked. Patient received intravenous antibiotics. Patient brought to the operating room where underwent general anesthetic by anesthesia team. Positioned supine on operating room table. Time-out performed confirming the patient, site of the surgery and the plan. Left foot prepped draped usual sterile surgical fashion using a Betadine prep solution. Calf tourniquet inflated to 225 mmHg. The previous retention sutures from the left forefoot were removed allowing visualization of the 2nd web space. There was mild purulent material noted at the distal aspect where the original ulcer was present. Fifteen blade knife used to sharply debride skin, subcutaneous tissue and muscle which was excised and passed off. Any purulent material was debrided. Any nonviable tissue was removed. Rongeur used to remove devitalized bone from the proximal phalanx of the 2nd toe and the ends of the metatarsals. No other areas of infection noted. There was tunneling noted beneath the 4th toe on the plantar aspect but no purulent material. Thorough irrigation with antibiotic solution. The 2nd and 3rd toes were then fixed into position with retrograde pinning using 0.062 in K-wire. Image intensification confirmed placement and alignment. The dorsal wound was then closed with 0 Prolene interrupted suture. The original webspace ulcer was closed with the 2.5 cm by 2.5 cm allograft which was sutured into place with 3 0 Monocryl suture. Sterile dressing applied. The patient was then woken from anesthesia, extubated and taken to the recovery room in stable condition. All sponge, needle, instrument counts were correct at the end of the case. 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
[2020-08-12] MEDS: ENALAPRIL MALEATE 10 MG TABLET 20 MG PO (13:26)
[2020-08-12] MEDS: CANAGLIFLOZIN 100 MG TABLET PO (13:27)
[2020-08-12] MEDS: VENLAFAXINE HCL XR 75 MG CAP.ER.24H 150 MG PO (13:27)
[2020-08-12 13:37] LABS: Glucose Point of Care 112 (65-105)
--- NOTE | 2020-08-12 14:28 | PC.NURSE ---
On 08/12/20, the student, [ Krissy Bird], provided care and completed [facility] documentation on this patient. I have reviewed the student's documentation and agree with the findings.
[2020-08-12] MEDS: ACETAMINOPHEN 325 MG TABLET 650 MG PO ×2 (15:01→23:44)
[2020-08-12] MEDS: MAGNESIUM OXIDE 400 MG TABLET PO (16:46)
[2020-08-12 18:02] LABS: Glucose Point of Care 201 (65-105)
[2020-08-12] MEDS: INSULIN ASPART (*BKC) 100 UNITS/ML SUB-Q (18:14)
[2020-08-12] MEDS: INSULIN GLARGINE (*BKC) 100 UNITS/ML 30 UNITS SUB-Q (18:20)
[2020-08-12] MEDS: ATORVASTATIN 40 MG TABLET PO (21:12)
[2020-08-12] MEDS: QUEtiapine FUMARATE 25 MG TABLET PO (21:12)
[2020-08-12] MEDS: MAGNESIUM OXIDE 200 MG TABLET PO (21:12)
[2020-08-12 22:01] LABS: Glucose Point of Care 169 (65-105)
[2020-08-13] VITALS (7 sets, daily range): BP systolic 131–176; BP diastolic 54–68; PULSE 77–91; RESP 15–18; TEMP 36–36.6; O2SAT 96–100
[2020-08-13 05:46] LABS: Basophils Absolute Auto 0.1 K/mm3 (0.0-0.1); Basophils Percent Auto 0.6 % (0.2-1.2); Eosinophils Absolute Auto 0.3 K/mm3 (0-0.3); Hemoglobin 10.8 g/dL (12.0-15.0); Immature Granulocyte Absolute 0.06 K/mm3 (0.00-0.031); Immature Granulocyte Percent A 0.5 % (0-0.5); Lymphocytes Absolute Auto 3.06 K/mm3 (0.9-3.2); Lymphocytes Percent Auto 27.4 % (18.3-44.2); Mean Corpuscular HGB Conc 33.8 g/dl (32-36); Monocytes Absolute Auto 0.7 K/mm3 (0.1-0.6); Monocytes Percent Auto 5.8 % (2.6-8.5); Neutrophils Percent Auto 62.7 % (45.5-73.1); Platelet Count Result 464 k/mm3 (150-375); Red Blood Count 3.72 M/mm3 (4.2-5.4); Red Cell Distribution Width 13.2 % (11.5-14.5); White Blood Count 11.2 K/mm3 (4.5-10.0)
[2020-08-13 05:51] LABS: Anion Gap 6 mmol/L (8-16); Blood Urea Nitrogen 13 mg/dL (7-17); Calcium 8.6 mg/dL (8.4-10.2); Carbon Dioxide 24 mmol/L (22-30); Chloride 111 mmol/L (98-107); Estimated CRCL calculation 78 ml/min; Estimated Glomerular Filt Rate > 60; Glucose 131 mg/dL (65-105); Magnesium 1.8 mg/dL (1.6-2.3); Potassium 3.7 mmol/L (3.4-5.0); Sodium 141 mmol/L (137-145)
[2020-08-13 07:25] LABS: Glucose Point of Care 129 (65-105)
--- NOTE | 2020-08-13 07:57 | WPDANESPN ---
Anes - Prog Note Post-Op Date/Time: 08/13/20 07:57 Cardiovascular status: normal Respiratory status: normal Airway patency: baseline Mental status: baseline Post-Op hydration status: normal Vital Signs: Last Vital Signs Temp 36.6 C 08/13/20 06:00 Pulse 77 08/13/20 06:00 Resp 16 08/13/20 06:00 BP 132/62 08/13/20 06:00 Pulse Ox 99 08/13/20 06:00 Pain Score (VAS): 0 I/O: Intake & Output 08/12/20 08/12/20 08/13/20 15:59 23:59 07:59 Intake Total 450 1690 400 Output Total 3000 Balance 450 -1310 400 Laboratory Tests 08/13/20 04:55 08/13/20 04:55 08/12/20 08/12/20 08/12/20 07:56 11:52 13:32 WBC RBC Hgb Hct MCV MCH MCHC RDW Plt Count MPV Immature Gran % (Auto) Neut % (Auto) Lymph % (Auto) [place] % (Auto) Eos % (Auto) Baso % (Auto) Lymph # (Auto) [place] # (Auto) Eos # (Auto) Baso # (Auto) Abs Immat Gran (auto) Absolute Neuts (auto) Absolute Nucleated RBC Nucleated RBC % Sodium Potassium Chloride Carbon Dioxide Anion Gap BUN Creatinine Estim Creat Clear Calc Estimated GFR Glucose POC Capillary Glucose 134 H 104 112 H Calcium Magnesium 08/12/20 08/12/20 08/13/20 17:59 21:17 04:55 WBC 11.2 H RBC 3.72 L Hgb 10.8 L Hct 32.0 L MCV 86.0 MCH 29.0 MCHC 33.8 RDW 13.2 Plt Count 464 H MPV 10.0 Immature Gran % (Auto) 0.5 Neut % (Auto) 62.7 Lymph % (Auto) 27.4 [place] % (Auto) 5.8 Eos % (Auto) 3.0 Baso % (Auto) 0.6 Lymph # (Auto) 3.06 [place] # (Auto) 0.7 H Eos # (Auto) 0.3 Baso # (Auto) 0.1 Abs Immat Gran (auto) 0.06 H Absolute Neuts (auto) 7.0 H Absolute Nucleated RBC 0.0 Nucleated RBC % 0.0 Sodium Potassium Chloride Carbon Dioxide Anion Gap BUN Creatinine Estim Creat Clear Calc Estimated GFR Glucose POC Capillary Glucose 201 H 169 H Calcium Magnesium 08/13/20 08/13/20 04:55 07:11 WBC RBC Hgb Hct MCV MCH MCHC RDW Plt Count MPV Immature Gran % (Auto) Neut % (Auto) Lymph % (Auto) [place] % (Auto) Eos % (Auto) Baso % (Auto) Lymph # (Auto) [place] # (Auto) Eos # (Auto) Baso # (Auto) Abs Immat Gran (auto) Absolute Neuts (auto) Absolute Nucleated RBC Nucleated RBC % Sodium 141 Potassium 3.7 Chloride 111 H Carbon Dioxide 24 Anion Gap 6 L BUN 13 Creatinine 0.60 L Estim Creat Clear Calc 78 Estimated GFR > 60 Glucose 131 H POC Capillary Glucose 129 H Calcium 8.6 Magnesium 1.8 Microbiology 08/06/20 13:23 Blood Blood Culture - Final 08/06/20 13:47 Blood Blood Culture - Final 08/10/20 09:08 Foot Left Anaerobic Culture - Preliminary 08/10/20 09:08 Foot Left Aerobic Culture - Preliminary Post-procedural complaints: none Patient Feedback: Patient satisfied with anesthetic care.
[2020-08-13] MEDS: ENALAPRIL MALEATE 10 MG TABLET 20 MG PO (08:28)
[2020-08-13] MEDS: CANAGLIFLOZIN 100 MG TABLET PO (08:29)
[2020-08-13] MEDS: VENLAFAXINE HCL XR 75 MG CAP.ER.24H 150 MG PO (08:29)
[2020-08-13] MEDS: MAGNESIUM OXIDE 400 MG TABLET PO (08:31)
--- NOTE | 2020-08-13 10:38 | PM.IMPN ---
Progress Note: A&P Assessment and Plan (1) Acute osteomyelitis of left foot: Code(s): M86.172 - Other acute osteomyelitis, left ankle and foot Status: Acute Assessment and Plan: MRI consistent with acute osteomyelitis left foot. She is POD#5 s/p first excisional debridement by Dr Hein 08/08/20 and POD#1 another debridement, wound closure and wound graft yesterday 08/12/20. She remains on IV vancomycin and imipenem (day 8). Mild leukocytosis is improving. Blood cultures no growth. Management per orthopedic surgery - appreciate recommendations. Appreciate ID recommendations regarding antibiotic therapy. (2) Cellulitis of foot, left: Code(s): L03.116 - Cellulitis of left lower limb Status: Acute Assessment and Plan: As above. (3) Insulin dependent type 2 diabetes mellitus: Code(s): E11.9 - Type 2 diabetes mellitus without complications; Z79.4 - terminal carman (current) use of insulin Status: Chronic Assessment and Plan: Hgb A1c is 8.7%. Glucose last 146 this afternoon. Continue her home Invokana and Lantus. Monitor with accu-cheks and cover with SSI. Tight glycemic control to optimize wound healing. (4) Hypertension: Qualifiers: Hypertension type: essential hypertension Qualified Code(s): I10 - Essential (primary) hypertension Code(s): I10 - Essential (primary) hypertension Status: Chronic Assessment and Plan: BP stable maintained on her home enalapril. Monitor BP and adjust treatment as needed. (5) Hyperlipidemia: Qualifiers: Hyperlipidemia type: unspecified Qualified Code(s): E78.5 - Hyperlipidemia, unspecified Code(s): E78.5 - Hyperlipidemia, unspecified Status: Chronic Assessment and Plan: Maintained on home statin therapy. (6) Obstructive sleep apnea: Code(s): G47.33 - Obstructive sleep apnea (adult) (pediatric) Status: Inactive Assessment and Plan: CPAP. (7) Anxiety: Code(s): F41.9 - Anxiety disorder, unspecified Status: Acute Assessment and Plan: Stable, maintained on home Effexor XR, Seroquel. (8) Cardiac murmur: Code(s): R01.1 - Cardiac murmur, unspecified Status: Acute Assessment and Plan: Patient states this was first noticed last Feb 2020 and she underwent echo and w/u with Dr. Joy Echo from 2019 shows EF 65-70%, grade 1 diastolic dysfunction, mild aortic stenosis and trace mitral valve regurg. Subjective Date/time seen: 08/13/20 0945 Interval history: Ms. De La Rosa is a 69yo F admitted for osteomyelitis left foot. She slept a little better last night since having the fan. She denies any pain. Denies nausea or vertigo this morning. Ate some breakfast. Denies chest pain, shortness of breath or cough. Review of Systems Review of Systems: All systems reviewed & are unremarkable except as noted in HPI and below Exam Narrative: Exam Narrative: General: Female resting comfortably supine in bed in no acute distress. HEENT: Normocephalic, EOMI, oral mucosa moist. Cardiovascular: Rate and rhythm are regular. Soft systolic murmur over left sternal border. Respiratory: Lungs clear to auscultation bilaterally. Respirations even and non-labored. Tolerating room air. Abdomen: Soft, non-tender, non-distended, bowel sounds present. Ostomy bag intact left abdomen with moderate soft brown stool. Extremities: Dressing to left foot is clean/dry/intact. Peripheral pulses intact. Able to move toes SUDHIR. No pain to palpation. Neuro: No focal neurological deficits. Speech is clear. Objective Data Vi
--- NOTE | 2020-08-13 10:51 | PM.PNORT ---
Progress Note: A&P Assessment and Plan (1) Acute osteomyelitis of left foot: Code(s): M86.172 - Other acute osteomyelitis, left ankle and foot Status: Acute Assessment and Plan: POD #1: Left foot excisional debridement, closure, application wound graft Dressing change performed. Graft in place. Continue IV antibiotics. Awaiting ID recommendations, anticipate home with IV antibiotics. Continue pain control. WBAT with reverse post op shoe. May shower with foot dressing covered. Elevate LLE on pillows. Dispo: Home with Home Health pending arrangement of outpatient antibiotics [facility] wound clinic follow up to be arrnaged. (2) Cellulitis of foot, left: Code(s): L03.116 - Cellulitis of left lower limb Status: Acute Assessment and Plan: Continue IV antibiotics. (3) Diabetic ulcer of left foot: Qualifiers: Diabetic foot ulcer location: other Diabetes mellitus type: type 2 Non-pressure ulcer stage: with necrosis of muscle Qualified Code(s): E11.621 - Type 2 diabetes mellitus with foot ulcer; L97.523 - Non-pressure chronic ulcer of other part of left foot with necrosis of muscle Code(s): E11.621 - Type 2 diabetes mellitus with foot ulcer; L97.529 - Non-pressure chronic ulcer of other part of left foot with unspecified severity Status: Acute Assessment and Plan: Continue local wound care. Daily dressing changes with adaptic covering graft, 4x4 and cover dry. (4) Peripheral neuropathy: Qualifiers: Peripheral neuropathy type: polyneuropathy associated with underlying disease Qualified Code(s): G63 - Polyneuropathy in diseases classified elsewhere Code(s): G62.9 - Polyneuropathy, unspecified Status: Acute (5) Meniere disease: Qualifiers: Laterality: bilateral Qualified Code(s): H81.03 - Meniere's disease, bilateral Code(s): H81.09 - Meniere's disease, unspecified ear Status: Chronic Assessment and Plan: Defer treatment to medicine service. Subjective Subjective Date/Time Seen: 08/13/20 10:51 Interval history: No new complaints. Feeling well. Dizziness resolved. Anxious to get home. Review of Systems Constitutional: Constitutional: Denies fever(s) Comments: dizziness Eyes: Eyes: Denies blurry vision ENT: Reports Normal hearing present Cardiovascular: Cardiovascular: Denies chest pain and Denies dyspnea Respiratory: Respiratory: Denies dyspnea and Denies wheezing Gastrointestinal: Gastrointestinal: Denies abdominal pain Genitourinary: Genitourinary: Denies urinary urgency Musculoskeletal: Musculoskeletal: Reports as per HPI and Reports numbness ( Both feet) Integumentary/Breasts: Skin/Breast: Reports skin ulcer ( left plantar foot) and Reports sores Neurologic: Reports Normal hearing present, Denies behavioral changes, Denies confusion, Reports numbness (feet) and Denies convulsions Psychiatric: Psychiatric: Denies behavioral changes, Denies confusion and Denies hallucinations Endocrine: Endocrine: Denies heat intolerance Hematologic/Lymphatic: Hematologic/Lymphatic: Denies easy bleeding Allergic/Immunologic: Allergic/Immunologic: Denies wheezing Exam Const: General: No confusion Orientation/consciousness: No confusion HENMT: Head: normal to inspection, normocephalic and atraumatic Eyes: Conjunctivae: conjunctivae normal Sclera: sclerae normal Neck: Neck: supple and nontender Chest: Chest palpation & inspection: normal inspection of the chest Resp: Effort & Inspection: normal respiratory effort and no audible wheezes Cardio: Rate: regular rate Rhythm: regular rhythm : General: Yes deferred Skin: General skin exam: no rashes or lesions noted Neuro: General: No confusion Extrem: General: capillary refill normal Right upper extremity: normal to inspection Left upper extremity: normal to inspection Right lower extremity: normal to inspection, hip/thig
[2020-08-13 11:26] LABS: Glucose Point of Care 146 (65-105)
--- NOTE | 2020-08-13 13:09 | WPDINFPN2 ---
Progress Note: A&P Assessment and Plan (1) Acute osteomyelitis of left foot: Code(s): M86.172 - Other acute osteomyelitis, left ankle and foot Status: Acute Assessment and Plan: Acute OM L 2nd MT - toe, excised POD # 5 REC Amp Sulbactam through 09/05 Subjective Date/time seen: 08/13/20 13:09 Objective Data Vital Signs Vital Signs: Vital Signs - 24 hr 08/12/20 13:10 08/12/20 13:25 08/12/20 15:02 Temperature 36.7 C 36.6 C 36.3 C L Pulse Rate 77 80 98 Respiratory Rate 20 16 20 Blood Pressure 136/56 L 144/58 H 133/50 L Pulse Oximetry 99 100 100 08/12/20 22:07 08/12/20 22:22 08/13/20 01:43 Temperature 36.2 C L 36.2 C L Pulse Rate 86 84 79 Respiratory Rate 16 20 16 Blood Pressure 143/58 H 131/54 L Pulse Oximetry 98 97 96 08/13/20 06:00 08/13/20 10:00 Temperature 36.6 C 36.3 C L Pulse Rate 77 84 Respiratory Rate 16 17 Blood Pressure 132/62 163/68 H Pulse Oximetry 99 98 Intake/Output Intake/Output: Intake & Output 08/10/20 08/11/20 08/12/20 08/13/20 23:59 23:59 23:59 23:59 Intake Total 2810 2920 2490 1370 Output Total 3000 Balance 2810 2920 -510 1370 Meds/Results Medications: Active Medications Generic Name Dose Route Start Last Admin Trade Name Tenzinq PRN Reason Stop Dose Admin Acetaminophen 650 mg 08/08/20 14:54 08/12/20 23:44 Acetaminophen 325 Mg Tablet PO 650 mg Q4H PRN Administration Mild Pain (1-3) or Fever Hydrocodone Bitart/Acetaminophen 1 tab 08/08/20 14:55 08/08/20 19:44 Hydrocodone/Acetaminophen (*Crx) 5-325 Mg Tablet PO 1 tab Q4H PRN Administration Pain Rated 4-6 Atorvastatin Calcium 40 mg 08/06/20 22:45 08/12/20 21:12 Atorvastatin 40 Mg Tablet PO 40 mg HS MAXI Administration Canagliflozin 100 mg 08/07/20 08:00 08/13/20 08:29 Canagliflozin 100 Mg Tablet PO 100 mg DAILY@0800 MAXI Administration Dextrose 12.5 gm 08/06/20 22:32 Dextrose 50% 25 Gm/50 Ml Syringe IV PUSH PRN PRN Hypoglycemia Protocol Diazepam 2 mg 08/08/20 09:48 Diazepam (*Crx) 2 Mg Tablet PO PRN PRN Dizziness Docusate Sodium 100 mg 08/09/20 14:44 Docusate Sodium 100 Mg Capsule PO BID PRN Constipation Enalapril Maleate 20 mg 08/07/20 09:00 08/13/20 08:28 Enalapril Maleate 10 Mg Tablet PO 20 mg DAILY MAXI Administration Glucagon 1 mg 08/06/20 22:32 Glucagon For Inj 1 Mg Vial IM PRN PRN Hypoglycemia Protocol Glucose 15 gm 08/06/20 22:32 Glucose Oral Gel 15 Gm Of Glucse In 37.5 Gm Tube PO PRN PRN Hypoglycemia Protocol Imipenem/Cilastatin Sodium 500 mg in 100 mls @ 300 mls/hr 08/06/20 23:00 08/13/20 12:18 Primaxin 500 Mg/D5w 100 Ml IVPB 100 mls/hr Q6HR MAXI Administration Dextrose 1,000 mls @ 100 mls/hr 08/06/20 22:32 Dextrose 5% 1,000 Ml IVPB PRN PRN Hypoglycemia Protocol Vancomycin HCl 1,250 mg in 250 mls @ 200 mls/hr 08/09/20 08:00 08/13/20 10:24 Vancomycin 1,250 Mg/D5w 250 Ml IVPB Infused Q12H MAXI Infusion Insulin Aspart 2 - 5 units 08/07/20 08:00 08/13/20 11:56 Insulin Aspart (*Bkc) 100 Units/Ml SUB-Q Not Given [facility] Protocol Insulin Glargine 30 units 08/07/20 18:00 08/12/20 18:20 Insulin Glargine (*Bkc) 100 Units/Ml SUB-Q 30 units QPM MAXI Administration Magnesium Hydroxide 30 ml 08/08/20 09:48 Magnesium Hydroxide Susp 30 Ml Udc PO BID PRN Constipation Magnesium Oxide 200 mg 08/06/20 22:45 08/12/20 21:12 Magnesium Oxide 200 Mg Tablet PO 09/06/20 22:46 200 mg HS MAXI Administration Magnesium Oxide 400 mg 08/12/20 15:05 08/13/20 08:31 Magnesium Oxide 400 Mg Tablet PO 400 mg QAM MAXI Administration Ondansetron HCl 8 mg 08/08/20 09:48 Ondansetron Hcl Odt 4 Mg Tablet PO Q12H PRN nausea and vomiting Quetiapine Fumarate 25 mg 08/06/20 22:45 08/12/20 21:12 Quetiapine Fumarate 25 Mg Tablet PO 25 mg
[2020-08-13] MEDS: LIDOCAINE HCL 1% PF INJ 5 ML VIAL INFILTRATE (14:40)
--- NOTE | 2020-08-13 14:53 | CONS_ITS ---
DATE OF CONSULTATION: 08/13/2020 REASON FOR CONSULTATION: Osteomyelitis. HISTORY OF PRESENT ILLNESS: A 69-year-old female with longstanding diabetes mellitus. She reports her A1c readings in the past have been in the 7% range, but here is higher. She has had no previous osteomyelitis. She was admitted to the hospital on August 06 with callus and surrounding ulcer. The patient then developed redness and swelling of the left foot after office procedure, and she was sent to the emergency room. She had a temperature at home up to 38.8. She received antibiotics of unknown identity. Here, she was taken to the operating room on August 08. At that time, she underwent drainage of an abscess in the space between the 2nd and 3rd toes. She also had excision of infected-appearing bone at the 2nd proximal phalanx and also had resection of infected bone at the 2nd metatarsal head. Incision was closed. She was taken back to the operating room as planned on August 12 and again had drainage of some purulence. There was some tunneling noted, but no pus. K-wires were placed. Incision was closed with allograft. Postop, she has been on imipenem and vancomycin since the day of admission after receiving a single dose of piperacillin initially. She has had no further fever. Her hospital course has otherwise been uncomplicated. ALLERGIES: MORPHINE - NAUSEA AND VOMITING. HABITS: No tobacco. No alcohol to excess. Quit smoking many years ago. PRESENT MEDICATIONS: As above, no immunosuppressants. 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 REVIEW OF SYSTEMS: 14-point review otherwise negative. FAMILY HISTORY: Not pertinent to her present illness. SOCIAL HISTORY: She is . Her is in good health. 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 Lives locally. PHYSICAL EXAMINATION: GENERAL: This is an elderly female, who appears younger than her actual age. No acute distress. VITAL SIGNS: Since arrival, she has been afebrile, 163/68, 84, 17, 99%. SKIN: Warm and dry. No generalized rashes. NODES: No cervical adenopathy. EENT: The conjunctivae are clear. The oropharynx, oral mucosa normal. Teeth in good repair. Pupils equal, round, reactive. NECK: No thyromegaly, meningismus, or tenderness. CHEST: Equal expansion. Normal AP diameter. No indwelling vascular devices. CARDIAC: Regular rate and rhythm without murmur, gallop, or rub. Pulses are 1+. LUNGS: Clear to auscultation and percussion. ABDOMEN: Mildly obese. No tenderness. No organomegaly. No masses. Soft. EXTREMITIES: Complex dressing over the left foot, which I did not remove. She has a 2 cm area of mild erythema over the mid roldan, otherwise no erythema, streaking, tenderness, or warmth. She does have edema of the foot evident. LABORATORY DATA: Blood cultures final, no growth. Urine culture not done. A superficial swab from August 10 in between her 2 operations showed few white cells, no organisms. Cultures no growth, final. White blood cell count on admission 13.9, has been in the low teens since then, 11.2 today; hemoglobin 10.8; platelets are 464. Chloride is 111, glucose 131, otherwise chemistry panel is normal. CRP 4.9, albumin 3.2. RADIOLOGY: MRI of the foot preop showed previous arthrodesis with osteomyelitis at the 3rd proximal phalanx, abscess between 2nd and 3rd proximal phalanges and limited cortical and subcortical marrow changes at the heads of the 2nd and 3rd metatarsals. ASSESSM
[2020-08-13 16:37] LABS: Glucose Point of Care 189 (65-105)
[2020-08-13] MEDS: AMPICILLIN SULB 3 GM/NS 100 ML 3 GM/100 ML VIAL IVPB ×2 (17:45→23:39)
[2020-08-13] MEDS: INSULIN GLARGINE (*BKC) 100 UNITS/ML 30 UNITS SUB-Q (17:59)
[2020-08-13] MEDS: QUEtiapine FUMARATE 25 MG TABLET PO (20:19)
[2020-08-13] MEDS: MAGNESIUM OXIDE 200 MG TABLET PO (20:20)
[2020-08-13] MEDS: ATORVASTATIN 40 MG TABLET PO (20:20)
[2020-08-13 20:32] LABS: Glucose Point of Care 177 (65-105)
[2020-08-13] MEDS: CENTRAL LINE FLUSH 10 ML IV PUSH (22:00)
[2020-08-14 01:09] VITALS: PULSE 83; RESP 17; O2SAT 93
[2020-08-14 03:52] VITALS: PULSE 78; RESP 12; O2SAT 96
[2020-08-14 05:11] VITALS: BP 145/56; PULSE 81; RESP 16; TEMP 36; O2SAT 96
[2020-08-14 05:19] LABS: Basophils Percent Auto 0.3 % (0.2-1.2); Eosinophils Absolute Auto 0.3 K/mm3 (0-0.3); Eosinophils Percent Auto 2.9 % (0-4.4); Hematocrit 29.2 % (37.0-47.0); Hemoglobin 9.9 g/dL (12.0-15.0); Immature Granulocyte Absolute 0.06 K/mm3 (0.00-0.031); Immature Granulocyte Percent A 0.5 % (0-0.5); Lymphocytes Absolute Auto 2.92 K/mm3 (0.9-3.2); Lymphocytes Percent Auto 26.4 % (18.3-44.2); Mean Corpuscular HGB Conc 33.9 g/dl (32-36); Mean Corpuscular Volume 85.6 fl (80-100); Mean Platelet Volume 9.1 fl (7.4-10.4); Monocytes Absolute Auto 0.7 K/mm3 (0.1-0.6); Monocytes Percent Auto 6.3 % (2.6-8.5); Neutrophils Absolute Auto 7.1 K/mm3 (1.3-6.7); Neutrophils Percent Auto 63.6 % (45.5-73.1); Platelet Count Result 521 k/mm3 (150-375); Red Blood Count 3.41 M/mm3 (4.2-5.4); Red Cell Distribution Width 13.1 % (11.5-14.5); White Blood Count 11.1 K/mm3 (4.5-10.0)
[2020-08-14 05:34] LABS: Anion Gap 3 mmol/L (8-16); Blood Urea Nitrogen 12 mg/dL (7-17); Calcium 8.4 mg/dL (8.4-10.2); Carbon Dioxide 28 mmol/L (22-30); Chloride 110 mmol/L (98-107); Estimated CRCL calculation 78 ml/min; Estimated Glomerular Filt Rate > 60; Glucose 143 mg/dL (65-105); Magnesium 1.7 mg/dL (1.6-2.3); Potassium 3.8 mmol/L (3.4-5.0); Sodium 141 mmol/L (137-145)
[2020-08-14] MEDS: AMPICILLIN SULB 3 GM/NS 100 ML 3 GM/100 ML VIAL IVPB ×3 (05:56→17:02)
[2020-08-14] MEDS: CENTRAL LINE FLUSH 10 ML IV PUSH ×2 (05:58→14:05)
[2020-08-14 07:43] LABS: Glucose Point of Care 138 (65-105)
[2020-08-14] MEDS: ENALAPRIL MALEATE 10 MG TABLET 20 MG PO (08:46)
[2020-08-14] MEDS: CANAGLIFLOZIN 100 MG TABLET PO (08:46)
[2020-08-14] MEDS: VENLAFAXINE HCL XR 75 MG CAP.ER.24H 150 MG PO (08:46)
[2020-08-14] MEDS: MAGNESIUM OXIDE 400 MG TABLET PO (08:46)
--- NOTE | 2020-08-14 10:37 | PM.PNORT ---
Progress Note: A&P Assessment and Plan (1) Acute osteomyelitis of left foot: Code(s): M86.172 - Other acute osteomyelitis, left ankle and foot Status: Acute Assessment and Plan: Postop day 6 status post excision left foot osteomyelitis, postop 2 status post debridement and closure of left foot. Dressing changed today. Incision clean dry and intact. Good capillary refill in the toes. Pin sites clean and dry. New non adhering dressing applied. Recommend total contact casting to protect toes and wound. May discharge home if home health and IV antibiotics in place. Plan for follow-up in outpatient wound clinic for cast change 4 days. Subjective Subjective Date/Time Seen: 08/14/20 10:37 Patient awake alert. No new complaints. Minimal pain left foot. Exam Const: General: No confusion Orientation/consciousness: No confusion HENMT: Head: normal to inspection, normocephalic and atraumatic Eyes: Conjunctivae: conjunctivae normal Sclera: sclerae normal Neck: Neck: supple and nontender Chest: Chest palpation & inspection: normal inspection of the chest Resp: Effort & Inspection: normal respiratory effort and no audible wheezes Cardio: Rate: regular rate Rhythm: regular rhythm : General: Yes deferred Skin: General skin exam: no rashes or lesions noted Neuro: General: No confusion Extrem: General: capillary refill normal Right upper extremity: normal to inspection Left upper extremity: normal to inspection Right lower extremity: normal to inspection, hip/thigh Details: normal to inspection and foot Details: vascular exam Details: dorsalis pedis pulse present and normal capillary refill and motor-sensory exam Details: two point discrimination abnormal Location: in all toes and light-touch abnormal Location: in all toes; no tenderness Left lower extremity: hip/thigh Details: normal to inspection, knee Details: abnormal ROM ( range of motion deferred secondary to fracture), ankle (no calf tenderness) Details: normal to inspection, normal ROM, ecchymosis, crepitus, achilles tendon exam abnormal and other ( good capillary refill in toes, 2+ DP pulse, light touch sensation intact); no tenderness ( lateral malleolus, anterior ankle and medial ankle) and no swelling ( moderate anterior ankle, moderate lateral ankle) and foot Details: normal capillary refill, tenderness Location: of the dorsal foot and of another digit Location: the 2nd digit, the 3rd digit, the 4th digit and other (metatarsals), abnormal ROM of toe (decreased movement 4th/ 5th toes) Details: pain with active ROM, ecchymosis ( Mild base of the small toe metatarsal), vascular exam Details: dorsalis pedis pulse present and normal capillary refill, tendon exam active flexion normal and active extension normal and motor-sensory exam two point discrimination abnormal in all toes and light-touch abnormal in all toes Other: Left foot dressing changed. Graft in place in the webspace between the 2nd/3rd ray. Incision well approximated on the dorsal aspect of the forefoot. 2nd toe with continued improvement in erythema. Patient able to move toes. Decreased sensation to left foot consistent with neuropathy. Psych: Affect: normal affect Objective Data Vital Signs Vital Signs: Vital Signs - 24 hr 08/13/20 14:00 08/13/20 20:00 08/13/20 21:01 Temperature 96.8 F L 97.9 F Pulse Rate 89 89 91 Respiratory Rate 15 15 16 Blood Pressure 164/67 H 176/66 H Pulse Oximetry 98 98 100 08/14/20 01:09 08/14/20 03:52 08/14/20 05:11 Temperature 96.8 F L Pulse Rate 83 78 81 Respiratory Rate 17 12 16 Blood Pressure 145/56 H Pulse Oximetry 93 96 96 Intake/Output Intake/Output: Intake & Output 08/11/20 08/12/20 08/13/20 08/14/20 23:59 23:59 23:59 23:59 Intake Total 2920 2490 2850 500 Output Total 3000 Balance 2920 -510 2850 500 Meds/Results Medications: Active Medications Generic Name Dose Route Start Last Admin Trade Name Jillian Bain
[2020-08-14 12:45] LABS: Glucose Point of Care 193 (65-105)
--- NOTE | 2020-08-14 13:28 | PCNWS ---
Weekly nutritional screen. Patient is tolerating current diet with adequate intake. No weight loss reported. No nutritional needs at this time.
[2020-08-14 14:00] VITALS: BP 186/68; PULSE 88; RESP 20; TEMP 36.1; O2SAT 98
--- NOTE | 2020-08-14 14:43 | PM.DS ---
DS: Admitting Diagnosis Admitting Diagnosis Admitting Diagnosis: Left foot DS: Discharge Diagnosis Discharge Diagnosis (1) Acute osteomyelitis of left foot: Code(s): M86.172 - Other acute osteomyelitis, left ankle and foot Status: Acute Assessment and Plan: Date of Admission 08/06/20 Date of Discharge/DOS 08/14/20 Ms. De La Rosa is a pleasant 69yo F with history of insulin-dependent type 2 diabetes mellitus, hypertension, hyperlipidemia, anxiety, and obstructive sleep apnea who presented to the ED for evaluation of infection to left foot. She described over the last several days prior to arrival there is a small area of ulceration that it opened was now draining with surrounding redness. 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 On 08/07/2019 demonstrated changes consistent with early osteomyelitis. She was started on IV antibiotics with vancomycin and imipenem. She was seen by orthopedic surgery and underwent excisional debridement by Dr. Hein on 08/08/2020. She underwent daily dressing changes to left foot. She in fact the OR for planned 2nd excisional debridement, wound closure and wound graft application on 08/12/[address] Hein. She was seen by infectious disease, Dr. Barth, who recommended monotherapy with IV Unasyn through September 05, 2020. PICC line placed right upper arm 08/13/20. She was clinically improved, ambulating independently and hemodynamically stable for discharge on 08/14/2020 with instructions orthopedic and wound care follow-up, to complete 4 weeks IV antibiotic therapy as mentioned above. She was educated on the importance of tight glycemic control to promote wound healing. MRI consistent with acute osteomyelitis left foot. Discharged POD#6 s/p first excisional debridement by Dr Hein 08/08/20 and POD#2 2nd planned debridement, wound closure and wound graft 08/12/20. She was treated with 8 days of IV vancomycin and imipenem, which was switched to monotherapy with Unasyn to continue through 09/05/2020 by Infectious Disease recommendations. (2) Cellulitis of foot, left: Code(s): L03.116 - Cellulitis of left lower limb Status: Acute Assessment and Plan: As above. (3) Insulin dependent type 2 diabetes mellitus: Code(s): E11.9 - Type 2 diabetes mellitus without complications; Z79.4 - halfway (current) use of insulin Status: Chronic Assessment and Plan: Hgb A1c is 8.7%. Blood glucose levels are appropriate today. Continue her home Invokana and Lantus. Tight glycemic control to optimize wound healing. (4) Hypertension: Qualifiers: Hypertension type: essential hypertension Qualified Code(s): I10 - Essential (primary) hypertension Code(s): I10 - Essential (primary) hypertension Status: Chronic Assessment and Plan: BP stable maintained on her home enalapril. (5) Hyperlipidemia: Qualifiers: Hyperlipidemia type: unspecified Qualified Code(s): E78.5 - Hyperlipidemia, unspecified Code(s): E78.5 - Hyperlipidemia, unspecified Status: Chronic Assessment and Plan: Maintained on home statin therapy. (6) Obstructive sleep apnea: Code(s): G47.33 - Obstructive sleep apnea (adult) (pediatric) Status: Inactive Assessment and Plan: CPAP. (7) Anxiety: Code(s): F41.9 - Anxiety disorder, unspecified Status: Acute Assessment and Plan: Stable, maintained on home Effexor XR, Seroquel. (8) C
--- NOTE | 2020-08-14 15:21 | WPDINFPN2 ---
Progress Note: A&P Assessment and Plan (1) Acute osteomyelitis of left foot: Code(s): M86.172 - Other acute osteomyelitis, left ankle and foot Status: Acute Assessment and Plan: 1. Acute OM L 2nd MT - toe, excised POD # 6. 2. DM 3. Sigmoid colon stricture REC Amp Sulbactam through 09/05, continue. Paper orders completed for the same. See me in office. Ok discharge. Subjective Date/time seen: 08/14/20 15:21 Interval history: colostomy, but no diarrhea. No foot pain Exam Narrative: Exam Narrative: afebrile Const: General: no acute distress Resp: Effort & Inspection: normal respiratory effort Auscultation: clear to auscultation bilaterally Cardio: Rate: regular rate Rhythm: regular rhythm Heart sounds: no murmurs GI: Inspection: non-distended GI Palp: Yes Soft to palpation and No Tenderness to palpation present (GI) Skin: General skin exam: normal color and no rashes or lesions noted Other: foot dressed Objective Data Vital Signs Vital Signs: Vital Signs - 24 hr 08/13/20 20:00 08/13/20 21:01 08/14/20 01:09 Temperature 36.6 C Pulse Rate 89 91 83 Respiratory Rate 15 16 17 Blood Pressure 176/66 H Pulse Oximetry 98 100 93 08/14/20 03:52 08/14/20 05:11 Temperature 36.0 C L Pulse Rate 78 81 Respiratory Rate 12 16 Blood Pressure 145/56 H Pulse Oximetry 96 96 Intake/Output Intake/Output: Intake & Output 08/11/20 08/12/20 08/13/20 08/14/20 23:59 23:59 23:59 23:59 Intake Total 2920 2490 2850 600 Output Total 3000 Balance 2920 -510 2850 600 Meds/Results Medications: Active Medications Generic Name Dose Route Start Last Admin Trade Name Freq PRN Reason Stop Dose Admin Acetaminophen 650 mg 08/08/20 14:54 08/12/20 23:44 Acetaminophen 325 Mg Tablet PO 650 mg Q4H PRN Administration Mild Pain (1-3) or Fever Hydrocodone Bitart/Acetaminophen 1 tab 08/08/20 14:55 08/08/20 19:44 Hydrocodone/Acetaminophen (*Crx) 5-325 Mg Tablet PO 1 tab Q4H PRN Administration Pain Rated 4-6 Atorvastatin Calcium 40 mg 08/06/20 22:45 08/13/20 20:20 Atorvastatin 40 Mg Tablet PO 40 mg HS MAXI Administration Canagliflozin 100 mg 08/07/20 08:00 08/14/20 08:46 Canagliflozin 100 Mg Tablet PO 100 mg DAILY@0800 MAXI Administration Dextrose 12.5 gm 08/06/20 22:32 Dextrose 50% 25 Gm/50 Ml Syringe IV PUSH PRN PRN Hypoglycemia Protocol Diazepam 2 mg 08/08/20 09:48 Diazepam (*Crx) 2 Mg Tablet PO PRN PRN Dizziness Docusate Sodium 100 mg 08/09/20 14:44 Docusate Sodium 100 Mg Capsule PO BID PRN Constipation Enalapril Maleate 20 mg 08/07/20 09:00 08/14/20 08:46 Enalapril Maleate 10 Mg Tablet PO 20 mg DAILY MAXI Administration Glucagon 1 mg 08/06/20 22:32 Glucagon For Inj 1 Mg Vial IM PRN PRN Hypoglycemia Protocol Glucose 15 gm 08/06/20 22:32 Glucose Oral Gel 15 Gm Of Glucse In 37.5 Gm Tube PO PRN PRN Hypoglycemia Protocol Dextrose 1,000 mls @ 100 mls/hr 08/06/20 22:32 Dextrose 5% 1,000 Ml IVPB PRN PRN Hypoglycemia Protocol Ampicillin Sodium/Sulbactam Sodium 3 gm in 100 mls @ 200 mls/hr 08/13/20 18:00 08/14/20 13:07 Unasyn 3 Gm/Ns 100 Ml IVPB 09/05/20 18:01 Infused Q6H MAXI Infusion Insulin Aspart 2 - 5 units 08/07/20 08:00 08/14/20 12:39 Insulin Aspart (*Bkc) 100 Units/Ml SUB-Q Not Given TIDWM [facility] Protocol Insulin Glargine 30 units 08/07/20 18:00 08/13/20 17:59 Insulin Glargine (*Bkc) 100 Units/Ml SUB-Q 30 units QPM MAXI Administration Magnesium Hydroxide 30 ml 08/08/20 09:48 Magnesium Hydroxide Susp 30 Ml Udc PO BID PRN Constipation Magnesium Oxide 200 mg 08/06/20 22:45 08/13/20 20:20 Magnesium Oxide 200 Mg Tablet PO 09/06/20 22:46 200 mg HS MAXI Administration Magnesium Oxide 400 mg 08/12/20 15:05 08/14/20 08:46 Magnesium Oxide 400 Mg Tablet PO 4
[2020-08-14 17:03] LABS: Glucose Point of Care 158 (65-105)
== END 2020-08-14 18:05 | disposition home health service (06) | DRG 623 ==
LOC: ANHED 13:07 → ANH2MED 20:57
PROVIDERS: Orthopaedic Surgery; Physician Assistant; Admitting Provider Family Medicine; Emergency Provider Emergency Medicine; PCP Family Medicine Adolescent Medicine; Visit Provider Physician Assistant
PROC: 0KBW0ZZ Excision of Left Foot Muscle, Open Approach (ICD-10-PCS; principal; 2020-08-08 07:30)
DX: E11.69 Type 2 diabetes mellitus with other specified complication (principal); L03.116 Cellulitis of left lower limb; L02.612 Cutaneous abscess of left foot; M86.172 Other acute osteomyelitis, left ankle and foot; E11.621 Type 2 diabetes mellitus with foot ulcer; L97.523 Non-pressure chronic ulcer of other part of left foot with necrosis of muscle; E11.43 Type 2 diabetes mellitus with diabetic autonomic (poly)neuropathy; G47.33 Obstructive sleep apnea (adult) (pediatric); I10 Essential (primary) hypertension; E78.5 Hyperlipidemia, unspecified; F41.9 Anxiety disorder, unspecified; H81.03 Meniere's disease, bilateral; R01.1 Cardiac murmur, unspecified; Z79.4 Long term (current) use of insulin; Z79.899 Other long term (current) drug therapy; Z85.3 Personal history of malignant neoplasm of breast; Z86.010 Personal history of colon polyps; Z87.891 Personal history of nicotine dependence; Z98.49 Cataract extraction status, unspecified eye; Z93.3 Colostomy status
CPT/HCPCS: 29445; 36415; 36569; 71046; 73630; 73720; 80048; 80053; 80202; 82948; 83036; 83605; 83735; 85025; 85027; 85610; 85652; 85730; 86140; 87040; 87070; 87075; 87205; 96365; 96368; 97110; 97116; 97161; 97165; 99285; Q4105; A9270; A9577; C1751; J0295; J0743; J1650; J1815; J2250; J2405; J2543; J2704; J3010; J3370; J7030; J7120

== ENCOUNTER → 2020-09-29 09:08 | Outpatient (CLI) | payer MEDICARE, OTHER, SELFPAY ==
--- NOTE | ~2020-09-29 | MMUS_ITS ---
EXAMINATION: MM diagnostic eduardo BI w lo, US breast LT limited HISTORY: Palpable left breast abnormality in the area of previous left breast surgery. TECHNIQUE: Additional 3-D tomosynthesis images of the breasts were performed and synthetic 2-D images were generated. CAD analysis was submitted and interpreted. High resolution Limited left breast ultr asound was performed. COMPARISON: Comparison to multiple prior studies sequentially, with oldest reviewed study dated 12/26. BREAST PARENCHYMAL COMPOSITION: Breast composed of scattered areas of fibroglandular density. FINDINGS: MAMMOGRAPHIC FINDINGS: The breast are stable without evidence for new mass, calcification or architectural distortion to sug gest malignancy. There is architectural distortion in the left breast at the previous surgical site w ith associated developing coarse calcifications, consistent with fat necrosis. ULTRASOUND: Limited left breast ultrasound: At 2:00 in the area of palpable concern there is an irregular hyperec hoic area measuring up to 6 mm without internal vascularity. Mixed posterior attenuation. This likely corresponds to area of fat necrosis at previous biopsy site. IMPRESSION: 1. Probable benign left breast findings. 2. Recommend 6 month follow-up diagnostic left mammogram and ultrasound BI-RADS category 3, probably benign findings. Reviewed, dictated and finalized at location A. IMPRESSION: 1. Probable benign left breast findings. 2. Recommend 6 month follow-up diagnostic left mammogram and ultrasound BI-RADS category 3, probably benign findings.
== END ==
PROVIDERS: PCP Family Medicine Adolescent Medicine; Visit Provider Family Medicine Adolescent Medicine
DX: N63.20 Unspecified lump in the left breast, unspecified quadrant (principal); R92.8 Other abnormal and inconclusive findings on diagnostic imaging of breast
CPT/HCPCS: 76642; 77062; 77066; G0279

== ENCOUNTER 2020-10-05 14:01 | Outpatient (CLI) | payer MEDICARE, OTHER, SELFPAY ==
--- NOTE | 2020-10-05 15:34 | ECG_ITS ---
Measurements Intervals [place] Rate: 92 P: 48 OR: 162 QRS: -1 QRSD: 106 T: 124 QT: 356 QTc: 442 Interpretive Statements SINUS RHYTHM FREQUENT VENTRICULAR PREMATURE COMPLEXES LEFT VENTRICULAR HYPERTROPHY WITH ST-T CHANGE CANNOT RULE OUT SEPTAL INFARCT, AGE INDETERMINATE ABNORMAL ECG Electronically Signed On 10-05-2020 16:18:06 CDT by Kevin Black D.O.
[2020-10-05 16:12] LABS: Anion Gap 6 mmol/L (8-16); Blood Urea Nitrogen 18 mg/dL (7-17); Calcium 9.1 mg/dL (8.4-10.2); Carbon Dioxide 28 mmol/L (22-30); Chloride 107 mmol/L (98-107); Estimated Glomerular Filt Rate > 60; Glucose 169 mg/dL (65-105); Potassium 3.8 mmol/L (3.4-5.0); Sodium 141 mmol/L (137-145)
== END 2020-10-05 14:02 | disposition home or self-care (01) ==
LOC: ANHSURGERY 14:03
PROVIDERS: Anesthesiology; PCP Family Medicine Adolescent Medicine; Visit Provider Surgery
DX: I10 Essential (primary) hypertension (principal); E11.9 Type 2 diabetes mellitus without complications; Z79.4 Long term (current) use of insulin; Z01.818 Encounter for other preprocedural examination; R94.31 Abnormal electrocardiogram [ECG] [EKG]
CPT/HCPCS: 36415; 80048; 93005

== ENCOUNTER → 2020-10-17 01:27 | Outpatient (CLI) | payer MEDICARE, OTHER, SELFPAY ==
[2020-10-17 19:33] LABS: SARS-CoV-2 RNA PCR Negative
== END ==
PROVIDERS: PCP Family Medicine Adolescent Medicine; Visit Provider Surgery
DX: Z01.812 Encounter for preprocedural laboratory examination (principal); Z20.822 Contact with and (suspected) exposure to COVID-19
CPT/HCPCS: C9803; U0003; U0005

== ENCOUNTER 2020-10-21 14:28 | Inpatient (IN) | payer MEDICARE, OTHER, SELFPAY ==
[2020-10-05 14:27] VITALS: BP 155/70; PULSE 89; RESP 18; TEMP 36.7; O2SAT 97; BMI 33.2
--- NOTE | 2020-10-20 12:40 | PM.IMHP ---
H&P: HPI History of Present Illness Date/Time: 10/20/20 12:40 Chief Complaint: Colostomy leaks, colostomy closure Narrative: The patient is a 69-year-old woman who has a history of diverticular disease. Particularly, she developed a stenosis from chronic diverticular disease which resulted in distal colonic obstruction. She was admitted here initially but was then transferred to [facility] where hopefully a colonic stent could be placed and elective resection performed. Stenting was unsuccessful and instead the patient had a diverting loop descending colostomy placed in the left lower quadrant on 03/04/2020. Her last previous colonoscopy had been done the year before that. A few benign polyps were noted but a pediatric gastroscope had to be used to traverse the sigmoid stricture. This colonoscopy was done at [facility] in February of 2019. No malignancy was noted. Since her colostomy was placed last February, the patient had been planned to have sigmoid resection and colostomy closure but due to COVID, this had to be delayed. She has a sizable parastomal hernia and frequent leaking from the colostomy site. She is taken to surgery now during this admission for colostomy closure and repair of the peristomal hernia. Review of Systems Review of Systems: All systems reviewed & are unremarkable except as noted in HPI and below Constitutional: Constitutional: Denies headache(s) ENT: Denies headache(s) Cardiovascular: Cardiovascular: Denies chest pain and Denies dyspnea Respiratory: Respiratory: Denies cough and Denies dyspnea Gastrointestinal: Gastrointestinal: Denies bloating, Denies constipation and Denies nausea Neurologic: Denies confusion and Denies headache(s) Psychiatric: Psychiatric: Denies confusion [facility] Past Medical History Medical History Abscess of left foot including toes Anxiety Attention deficit hyperactivity disorder Callus of foot CVA (cerebral vascular accident) seen on CT Diabetic ulcer of left foot Diverticulosis 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 ER/AZ and HER2 Mary Grace negative. History of adenomatous polyp of colon Hyperlipidemia Hypertension Insulin dependent type 2 diabetes mellitus Irritable bowel syndrome with diarrhea Menieres disease With chronic tinnitus and left-sided hearing loss. 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 Thyroid nodule Bilateral benign follicular nodules on FNA in June 2018. Surgical History Surgical History History of cataract extraction History of cholecystectomy History of dilation and curettage x3. History of foot surgery Left foot surgery with hardware. History of left breast biopsy (~12/2017) With benign histology. History of partial mastectomy of left breast (~07/2016) For treatment of high-grade DCIS with sentinel lymph node sampling and bilateral reduction mammoplasty. History of tonsillectomy History of wisdom tooth extraction Family History Family History Father Family history of malignant neoplasm Diabetes mellitus Sibling Family history of type 1 diabetes mellitus Mother Family history of Alzheimer's disease Hypertension Social History Social History Social History: The patient lives in [place] with her . 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 Smoked 0.25 packs of cigarettes a day for about 15 years and quit about a year ago. Drinks perhaps 1 alcoholic beverage a month. No illicit substance use. She designates her , Josh, as her surrogate decision maker and she wishes to be a full code. Smoking packs per day: 0.25 Smoking cigarettes per day: 5.0 Years
[2020-10-21] VITALS (12 sets, daily range): BP systolic 88–165; BP diastolic 41–94; PULSE 46–95; RESP 10–20; TEMP 35.8–36.5; O2SAT 91–100
[2020-10-21 06:47] LABS: Glucose Point of Care 238 (65-105)
[2020-10-21 06:49] LABS: Hematocrit 36.7 % (37.0-47.0); Hemoglobin 12.7 g/dL (12.0-15.0)
[2020-10-21] MEDS: ACETAMINOPHEN 500 MG TABLET 1000 MG PO (06:54)
--- NOTE | 2020-10-21 06:55 | WPDHPUPDATE1 ---
History and Physical Update Update Date/Time: 10/21/20 06:55 History and Physical has been reviewed, including an updated exam of the patient. There are NO changes in the patient's condition. Risks, benefits, and alternatives have been discussed and questions answered. Patient agrees to proceed with procedure.
[2020-10-21] MEDS: LACTATED RINGERS 1,000 ML 30 ML IV CONT ×2 (06:56→13:23)
[2020-10-21] MEDS: KETOROLAC 15 MG/ML VIAL (*BKC) IV PUSH (06:57)
[2020-10-21] MEDS: ALVIMOPAN 12 MG CAPSULE PO (07:00)
--- NOTE | 2020-10-21 07:02 | WPDANESEPPF ---
Anes - Initial Pre Proc Eval Procedure: Operation Date: 10/21/20 07:30 Proposed Procedures p Sigmoidectomy With Colostomy Closure - Daniel Macedo MD s Repair Parastomal Hernia - Daniel Macedo MD Date/Time: 10/21/20 07:02 Surgeon: Daniel Macedo MD Pre Op Diagnosis: Diverticulosis W/Stricture, Colostomy Status, Para Patient Data Age: 69 Gender: F Height: 5 ft 4 in Weight: 85.8 kg Last Vital Signs Temp 36.2 C L 10/21/20 05:58 Pulse 46 L 10/21/20 05:58 Resp 16 10/21/20 05:58 BP 165/48 H 10/21/20 05:58 Pulse Ox 98 10/21/20 05:58 Allergies Allergy/AdvReac Type Severity Reaction Status Date / Time morphine AdvReac Nausea and Verified 10/21/20 06:27 Vomiting Home Medications Medication Instructions Recorded Confirmed Type atorvastatin 40 mg tablet 40 mg PO HS 02/24/20 10/21/20 History canagliflozin 100 mg tablet 100 mg PO DAILY 02/24/20 10/21/20 History dextroamphetamine-amphetamine 30 60 mg PO QAM 02/24/20 10/21/20 History mg tablet diazepam 2 mg tablet 2 mg PO PRN PRN 02/24/20 10/21/20 History enalapril maleate 20 mg tablet 20 mg PO QAM 02/24/20 10/21/20 History insulin glargine 100 unit/mL 70 unit SUB-Q QPM ml 02/24/20 10/21/20 History subcutaneous solution magnesium 250 mg tablet 250 mg PO HS 02/24/20 10/21/20 History ondansetron HCl 8 mg tablet 8 mg PO Q12H PRN 02/24/20 10/21/20 History quetiapine 25 mg tablet 25 mg PO HS 02/24/20 10/21/20 History venlafaxine 150 mg tablet,extended 300 mg PO DAILY 02/24/20 10/05/20 History release 24 hr riboflavin (vitamin B2) 400 mg PO HS 03/02/20 10/21/20 History metformin 1,000 mg PO QAM AND QHS 08/06/20 10/21/20 History erythromycin 500 mg tablet 1 g PO .COMPLEX #6 tablet 09/14/20 10/21/20 Rx neomycin 500 mg tablet 1 g PO .COMPLEX #6 tablet 09/14/20 10/21/20 Rx Betahistine 8 mg PO TID 10/05/20 10/21/20 History cholecalciferol (vitamin D3) 25 mcg PO DAILY 10/05/20 10/21/20 History [Vitamin D3] Laboratory Tests 10/21/20 10/21/20 06:25 06:44 Hgb 12.7 g/dL g/dL (12.0-15.0) Hct 36.7 % L % (37.0-47.0) POC Capillary Glucose 238 mg/dl H mg/dl (65-105) Patient hx anesthesia problems: none Family hx anesthesia problems: none PMFSH Past Medical History Medical History Abscess of left foot including toes Anxiety Attention deficit hyperactivity disorder Callus of foot CVA (cerebral vascular accident) seen on CT Diabetic ulcer of left foot Diverticulosis 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 ER/[place] and HER2 Mary Grace negative. History of adenomatous polyp of colon Hyperlipidemia Hypertension Insulin dependent type 2 diabetes mellitus Irritable bowel syndrome with diarrhea Menieres disease With chronic tinnitus and left-sided hearing loss. 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 Thyroid nodule Bilateral benign follicular nodules on FNA in June 2018. Surgical History Surgical History History of cataract extraction History of cholecystectomy History of dilation and curettage x3. History of foot surgery Left foot surgery with hardware. History of left breast biopsy (~12/2017) With benign histology. History of partial mastectomy of left breast (~07/2016) For treatment of high-grade DCIS with sentinel lymph node sampling and bilateral reduction mammoplasty. History of tonsillectomy History of wisdom tooth extraction Family History Family History Father Family history of malignant neoplasm Diabetes mellitus Sibling Family history of type 1 diabetes mellitus Mother Family history of Alzheimer's disease Hypertension Social History Social History (Re
[2020-10-21] MEDS: ceFAZolin 2 GM/D5W 50 ML 2 GM/50 ML BAG IVPB (07:30)
[2020-10-21] MEDS: BUPIVACAINE/EPINEPHRINE 0.5% 30 ML VIAL INFILTRATE (08:22)
[2020-10-21] MEDS: HEMOSTATIC MATRIX (SURGIFLO with THROMBIN) KIT 1 KIT XX (11:41)
[2020-10-21] MEDS: ceFAZolin SODIUM 1 GM VIAL 2 GM IV PUSH (12:01)
[2020-10-21 13:47] LABS: Glucose Point of Care 195 (65-105)
--- NOTE | 2020-10-21 13:52 | PM.PROC ---
Procedure Note - Detailed Date of procedure: 10/21/20 Pre-op diagnosis: sigmoid colon stricture,colostomy status Chronic diverticulitis with sigmoid colon obstruction, diverting colostomy status Post-op diagnosis: other (Chronic diverticulitis with sigmoid colon obstruction, diverting end colostomy, soft tissue mesenteric mass) Procedure performed: Sigmoidectomy with hand-sewn colorectal anastomosis, closure end descending (Gema) colostomy, mobilization splenic flexure, left salpingo oophorectomy, excision soft tissue mesenteric mass Description of procedure: The patient was taken to surgery and induced into general anesthesia. The entire abdomen was prepped and draped. Rectal irrigation was performed and a rectal tube was placed. A Calabrese catheter had been placed. We started the operation by closing the descending colon double-barrel colostomy. The mucocutaneous junction was divided with the cautery around the colostomy. We dissected down through the subcutaneous and encountered the peristomal hernia. The hernia sac was partially removed. We were able to continue our dissection and gain access to the peritoneal cavity. We mobilized the subcutaneous and the hernia sac from the descending colon and colostomy. We freed the colostomy from any attachments to the abdominal wall so that it was able to be pulled up out of the wound freely. I then the dissected the distal descending colon mucous fistula from the rest of the descending colon. I used the TLC 75 stapler to divide the 2 as well as staple the 2 ends of the bowel closed. I finished dividing the descending colon that was proximal and the descending colon that was more distal. I then dropped these 2 ends back in the abdomen. I went around to the patient's right side and then proceeded with the laparotomy portion of the surgery. The previous midline incision scar was excised completely and discarded. There were obvious hernias the in the area of the umbilicus as well as above and below the umbilicus. These were hernias in addition to the peristomal hernia discussed before. I dissected down to the hernia sac and to the fascia above and below the different hernias. We opened the fascia and gained access to the peritoneal cavity. There were a few anterior abdominal wall adhesions which were taken down. Much of the hernia sac was dissected from the subcutaneous and then excised. This was discarded as well. Eventually we opened the fascia the length of the incision. The incision extended from above the umbilicus to about 6 cm cephalad to the pubic tubercle. The 2 ends of the colostomy were easily found. The both appeared quite viable and healthy. Initially I explored the abdomen. I ran the small intestine from the ligament Treitz to the ileocecal valve. In the mesentery to the proximal and even mid jejunum, there were some soft tissue masses suggestive of lipomas. One in the very proximal jejunal mesentery was easily excised. I went ahead with the cautery and removed this and sent it to pathology labeled mesenteric mass. Other fatty mesenteric masses were located deeper in the mesentery and resection would jeopardize the mesenteric blood supply so they were left as his. I completed the abdominal exploration and found no other significant findings other than those described in the following portions of the operation. Looking at the distal descending colon leading down to the sigmoid, it was a little misleading at 1st in that I thought that the distal descending colon would be acceptable for anastomosis. However as it turned out, the sigmoid was much more diseased with chronic scarring in diverticulitis. It was socked in the pelvis with the right tube and ovary densely adherent to the sigmoid colon. The entire retroperitoneum and right colic gutter in this area was also severely chronically inflamed. Since it appeared we would need to have an anastomosis in the pelvis, I went ahead and performed splenic flexur
--- NOTE | 2020-10-21 14:37 | ADMGEN ---
This patient, Aurea De La Rosa, was admitted to 2 Medical Room 244-. Patient/family oriented to hospital policies and general routines including ID bracelet, bed and alarms, visiting hours, pain management, procedures, bathroom and other care routines, personal items, smoking policy, room service/diet, and visiting hours. Information on how to activate the Rapid Response Team has been discussed. Patient/Family are encouraged to report perceived risks to care and to ask questions if they do not understand what they are told or what they should do.
[2020-10-21] MEDS: LACTATED RINGERS 1,000 ML 125 ML IV CONT ×2 (15:40→23:51)
[2020-10-21 17:43] LABS: Glucose Point of Care 255 (65-105)
[2020-10-21] MEDS: IBUPROFEN IV 800 MG/200 ML 800 MG/200 ML BAG 400 MG IVPB ×2 (17:46→23:48)
[2020-10-21] MEDS: metFORMIN HCL XR 500 MG TAB.SR.24H 1000 MG PO ×2 (17:46→20:39)
[2020-10-21] MEDS: INSULIN ASPART (*BKC) 100 UNITS/ML SUB-Q (17:56)
--- NOTE | 2020-10-21 20:30 | WPDCN ---
Assessment and Plan Assessment and plan (1) Diverticular stricture: Code(s): K56.699 - Other intestinal obstruction unspecified as to partial versus complete obstruction Status: Chronic Assessment and Plan: Postoperative day 0, status post sigmoidectomy with hand-sewn colorectal anastomosis. Right tube and ovary as well as soft tissue mesenteric mass sent for pathology. Wound care and pain control will be deferred to Dr. Macedo. Patient tolerated a liquid diet this evening. (2) Colostomy status: Code(s): Z93.3 - Colostomy status Status: Chronic Assessment and Plan: Postoperative day 0, status post closure end descending colostomy. (3) Insulin dependent type 2 diabetes mellitus: Code(s): E11.9 - Type 2 diabetes mellitus without complications; Z79.4 - MCFP (current) use of insulin Status: Chronic Assessment and Plan: Hemoglobin A1c was 8.1% in July 2020. Continue canagliflozin and resume basal insulin when tolerating full diet. Initiate sliding scale insulin, Accu-Cheks, and hypoglycemic protocol. Repeat hemoglobin A1c in a.m. (4) JESUS on CPAP: Code(s): G47.33 - Obstructive sleep apnea (adult) (pediatric); Z99.89 - Dependence on other enabling machines and devices Status: Chronic Assessment and Plan: CPAP will be provided for the patient to use while hospitalized. (5) Hypertension: Qualifiers: Hypertension type: essential hypertension Qualified Code(s): I10 - Essential (primary) hypertension Code(s): I10 - Essential (primary) hypertension Status: Chronic Assessment and Plan: Blood pressures were a bit soft postoperatively but have improved. Resume antihypertensives in a.m. and monitor blood pressures closely. (6) Anxiety: Code(s): F41.9 - Anxiety disorder, unspecified Status: Acute Assessment and Plan: Continue venlafaxine and quetiapine. Additional Plan Thank you for allowing us to participate in this patient's care. Please do not hesitate to contact us with any questions. Supervising physician for this history and physical is Dr. Sonia Pruitt. HPI Data of Consult Date/Time: 10/21/20 20:30 Requesting Physician: Daniel Macedo MD Primary Care Provider: Wilfredo Pinto MD Consult Narrative Narrative: This is a pleasant 69-year-old female with insulin-dependent diabetes, hypertension, hyperlipidemia, and sleep apnea whom the hospitalist service has been consulted for management of her medical conditions postoperatively. She has a longstanding history of diverticulitis and sigmoid colon stricture felt to be related to the same for which she underwent exploratory laparotomy and colostomy creation in February 2020 at [facility]. She presented today for elective surgery and is status post sigmoidectomy with hand-sewn colorectal anastomosis, closure of descending colostomy, mobilization of the splenic flexure, salpingo-oophorectomy, and excision of soft tissue mesenteric mass per Dr. Macedo (see operative note for details). Her surgery was performed under general anesthesia with no immediate complications documented an estimated blood loss of 200 milliliters. At the time my evaluation she has minimal discomfort and is feeling pretty good. In fact she has been able to tolerate Jell-O, popsicle, and insure without issue. She is not really passing much gas as of yet. No postoperative fever, chills, sweats, chest pain, shortness of breath, nausea, or vomiting. Review of Systems Review of Systems: Narrative: Twelve systems were reviewed with pertinent positives and negatives as per HPI. No recent cold or flu symptoms. She denies exposure to those positive for COVID-19. She continues to have issues with highs and lows with regards to her glucose and is followed closely by Dr. Brown. No blurry vision, polydipsia, or polyuria. She is compliant with her CPAP at home. More re
[2020-10-21] MEDS: ENOXAPARIN 30 MG/0.3 ML SYRINGE SUB-Q (20:38)
[2020-10-21] MEDS: ATORVASTATIN 40 MG TABLET PO (20:38)
[2020-10-21] MEDS: FAMOTIDINE 20 MG/2 ML VIAL IV PUSH (20:39)
[2020-10-21] MEDS: QUEtiapine FUMARATE 25 MG TABLET PO (20:39)
[2020-10-21 20:45] LABS: Glucose Point of Care 334 (65-105)
[2020-10-22 05:31] LABS: Mean Corpuscular HGB Conc 33.3 g/dl (32-36); Mean Corpuscular Hemoglobin 28.3 pg (26-34); Mean Platelet Volume 10.8 fl (7.4-10.4); Platelet Count Result 264 k/mm3 (150-375); Red Blood Count 3.53 M/mm3 (4.2-5.4); Red Cell Distribution Width 13.5 % (11.5-14.5); White Blood Count 17.2 K/mm3 (4.5-10.0)
[2020-10-22 05:53] LABS: Anion Gap 7 mmol/L (8-16); Blood Urea Nitrogen 21 mg/dL (7-17); Calcium 8.1 mg/dL (8.4-10.2); Carbon Dioxide 23 mmol/L (22-30); Chloride 108 mmol/L (98-107); Estimated CRCL calculation 60 ml/min; Estimated Glomerular Filt Rate > 60; Glucose 199 mg/dL (65-105); Potassium 4.4 mmol/L (3.4-5.0); Sodium 138 mmol/L (137-145)
[2020-10-22 06:00] VITALS: BP 113/43; PULSE 95; RESP 20; TEMP 36.4; O2SAT 98
[2020-10-22] MEDS: IBUPROFEN IV 800 MG/200 ML 800 MG/200 ML BAG 400 MG IVPB (06:15)
--- NOTE | 2020-10-22 07:33 | WPDANESPN ---
Anes - Prog Note Post-Op Date/Time: 10/22/20 07:33 Cardiovascular status: normal Respiratory status: normal Airway patency: baseline Mental status: baseline Post-Op hydration status: normal Vital Signs: Last Vital Signs Temp 36.2 C L 10/21/20 22:00 Pulse 75 10/21/20 22:00 Resp 20 10/21/20 22:00 BP 131/57 L 10/21/20 22:00 Pulse Ox 98 10/21/20 22:00 Pain Score (VAS): 0 I/O: Intake & Output 10/21/20 10/21/20 10/22/20 15:59 23:59 07:59 Intake Total 250 1810 200 Output Total 200 Balance 50 1810 200 Laboratory Tests 10/22/20 05:18 10/22/20 05:18 10/21/20 10/21/20 10/21/20 06:25 13:36 17:40 WBC RBC Hgb Hct MCV MCH MCHC RDW Plt Count MPV Sodium Potassium Chloride Carbon Dioxide Anion Gap BUN Creatinine Estim Creat Clear Calc Estimated GFR Glucose POC Capillary Glucose 195 H 255 H Calcium Blood Type A Positive Antibody Screen Negative 10/21/20 10/22/20 10/22/20 20:33 05:18 05:18 WBC 17.2 H RBC 3.53 L Hgb 10.0 L Hct 30.0 L MCV 85.0 MCH 28.3 MCHC 33.3 RDW 13.5 Plt Count 264 MPV 10.8 H Sodium 138 Potassium 4.4 Chloride 108 H Carbon Dioxide 23 Anion Gap 7 L BUN 21 H Creatinine 0.80 Estim Creat Clear Calc 60 Estimated GFR > 60 Glucose 199 H POC Capillary Glucose 334 H Calcium 8.1 L Blood Type Antibody Screen Post-procedural complaints: none Patient Feedback: Patient satisfied with anesthetic care.
[2020-10-22 07:45] LABS: Glucose Point of Care 168 (65-105)
[2020-10-22] MEDS: PHARMACIST COMMUNICATION ORDER 1 EACH XX (09:00)
[2020-10-22] MEDS: ENOXAPARIN 30 MG/0.3 ML SYRINGE SUB-Q ×2 (09:01→21:24)
[2020-10-22] MEDS: CANAGLIFLOZIN 100 MG TABLET PO (09:01)
[2020-10-22] MEDS: ENALAPRIL MALEATE 10 MG TABLET 20 MG PO (09:01)
[2020-10-22] MEDS: LACTATED RINGERS 1,000 ML 125 ML IV CONT (09:01)
[2020-10-22] MEDS: CHOLECALCIFEROL 1,000 UNITS TABLET 1000 UNITS PO (09:01)
[2020-10-22] MEDS: metFORMIN HCL XR 500 MG TAB.SR.24H 1000 MG PO ×2 (09:02→21:25)
[2020-10-22] MEDS: FAMOTIDINE 20 MG/2 ML VIAL IV PUSH (09:02)
[2020-10-22] MEDS: VENLAFAXINE HCL XR 75 MG CAP.ER.24H 300 MG PO (09:02)
--- NOTE | 2020-10-22 10:21 | PM.PNGS ---
Progress Note: A&P Assessment and Plan (1) Diverticular stricture: Code(s): K56.699 - Other intestinal obstruction unspecified as to partial versus complete obstruction Status: Chronic Assessment and Plan: Post-op day 1 and doing well. Pain well controlled. Advance to full liquids. Stop IV fluids. Switch to oral analgesics. Encouraged increased activity/OOB/IS use. Pathology pending. (2) Insulin dependent type 2 diabetes mellitus: Code(s): E11.9 - Type 2 diabetes mellitus without complications; Z79.4 - long term care social worker (current) use of insulin Status: Chronic Assessment and Plan: Blood glucose this morning was 199. On home medications and sliding scale. Appreciate Hospitalist help. (3) Hypertension: Qualifiers: Hypertension type: essential hypertension Qualified Code(s): I10 - Essential (primary) hypertension Code(s): I10 - Essential (primary) hypertension Status: Chronic Assessment and Plan: BP stable this morning. On home medications. Additional Plan Discussed plan of care with Dr. Macedo. Subjective Subjective Date/Time Seen: 10/22/20 10:21 Post Op day: 1 (Sigmoidectomy with hand-sewn colorectal anastomosis, closure end descending colostomy, mobilization splenic flexure, left salpingo oophorectomy, excision soft tissue mesenteric mass) Patient reports: flatus, no bowel movement and afebrile Interval history: Patient in the bathroom this morning. Reports flatus and has a small amount of blood per rectum on toilet paper, which is not unexpected. No jill, profuse bleeding. No nausea or vomiting. Tolerating a clear liquid diet. Pain well controlled. No other complaints. Review of Systems Review of Systems: All systems reviewed & are unremarkable except as noted in HPI and below Constitutional: Constitutional: Reports as per HPI, Reports no additional constitutional complaints, Denies chills and Denies fever(s) Cardiovascular: Cardiovascular: Reports no additional cardiovascular complaints, Denies chest pain, Denies leg edema and Denies dyspnea Respiratory: Respiratory: Reports no additional respiratory complaints, Denies cough and Denies dyspnea Gastrointestinal: Gastrointestinal: Reports as per HPI and Reports no additional gastrointestinal complaints Neurologic: Reports system reviewed and no additional complaints, except as documented and Denies focal weakness Exam Const: General: comfortable, no acute distress, alert and awake Orientation/consciousness: patient oriented x3 Resp: Effort & Inspection: normal respiratory effort Auscultation: clear to auscultation bilaterally Cardio: Rate: regular rate Rhythm: regular rhythm GI: Inspection: incision (Abdominal dressing clean and dry), obesity and other (mildly distended) GI Palp: Yes Soft to palpation and Yes Tenderness to palpation present (GI) (incisional) Auscultation: Hypoactive bowel sounds present Skin: General skin exam: normal color Neuro: General: moves all extremities and no focal motor deficits Extrem: General: no clubbing, cyanosis or edema and no calf tenderness Psych: Mental Status: mental status grossly normal Insight: Good insight present (Psych) Judgement: Good judgement present (Psych) Objective Data Vital Signs Vital Signs: Vital Signs - 24 hr 10/21/20 13:23 10/21/20 13:40 10/21/20 13:55 Temperature 97.6 F Pulse Rate 84 93 94 Respiratory Rate 10 L 12 14 Blood Pressure 88/41 L 121/48 L 118/94 H Pulse Oximetry 98 100 97 10/21/20 14:10 10/21/20 14:25 10/21/20 14:30 Temperature 97.4 F L Pulse Rate 93 92 93 Respiratory Rate 14 12 16 Blood Pressure 129/47 L 121/46 L 136/47 L Pulse Oximetry 91 93 91 10/21/20 14:45 10/21/20 15:15 10/21/20 16:15 Temperature 97.6 F 97.7 F 96.4 F L Pulse Rate 93 91 95 Respiratory Rate 18 18 16 Blood Pressure 135/45 L 120/46 L 117/52 L Pulse Oximetry 94 99 99 10/21/20 20:59 10/21/20 22:00 10/22/20 06:00 Temperature 97.1
[2020-10-22 11:02] VITALS: O2SAT 93
[2020-10-22 11:21] LABS: Glucose Point of Care 292 (65-105)
[2020-10-22] MEDS: INSULIN ASPART (*BKC) 100 UNITS/ML SUB-Q (11:23)
[2020-10-22] MEDS: ALVIMOPAN 12 MG CAPSULE PO ×2 (11:24→21:24)
--- NOTE | 2020-10-22 12:26 | PM.IMPN ---
Progress Note: A&P Assessment and Plan (1) Diverticular stricture: Code(s): K56.699 - Other intestinal obstruction unspecified as to partial versus complete obstruction Status: Chronic Assessment and Plan: POD#1 s/p sigmoidectomy with colorectal anastomosis; right fallopian tube, right ovary and soft tissue mesenteric mass sent for pathology. Management per the primary service. (2) Colostomy status: Code(s): Z93.3 - Colostomy status Status: Chronic Assessment and Plan: POD#1, status post closure of colostomy. (3) Insulin dependent type 2 diabetes mellitus: Code(s): E11.9 - Type 2 diabetes mellitus without complications; Z79.4 - [facility] (current) use of insulin Status: Chronic Assessment and Plan: A1c 8.1% in Jul 2020. Continue Invokana and metformin. Will monitor accu-cheks and cover with SSI. Will add back evening Lantus at a lower dose than her home dose since her blood sugars are coming up this afternoon. (4) JESUS on CPAP: Code(s): G47.33 - Obstructive sleep apnea (adult) (pediatric); Z99.89 - Dependence on other enabling machines and devices Status: Chronic Assessment and Plan: CPAP provided, she did not tolerate our mask well last night and family is bringing her CPAP from home. (5) Hypertension: Qualifiers: Hypertension type: essential hypertension Qualified Code(s): I10 - Essential (primary) hypertension Code(s): I10 - Essential (primary) hypertension Status: Chronic Assessment and Plan: BPs reviewed; a bit soft postoperatively but have improved. Continue her home enalapril and monitor BP, adjust treatment as appropriate. (6) Anxiety: Code(s): F41.9 - Anxiety disorder, unspecified Status: Chronic Assessment and Plan: Stable. Continue venlafaxine and quetiapine. Additional Plan Thank you for allowing me to participate in this patient's care. Please do not hesitate to call for any questions or concerns. Subjective Date/time seen: 10/22/20 1130 Interval history: Ms. De La Rosa is a 69yo F seen in follow up this morning POD#1 s/p sigmoidectomy with anastomosis. She reports feeling well thus far, slept a bit last night. Has some mild abdominal discomfort where her surgery was but otherwise offers no complaints. Had some ensure and jello for breakfast - denies nausea or vomiting. No BM or flatus yet. Review of Systems Review of Systems: Narrative: Twelve systems were reviewed with pertinent positives and negatives as per HPI. Except as documented, all other systems were reviewed and are negative. Exam Narrative: Exam Narrative: General: Female resting supine in bed in no acute distress. HEENT: Normocephalic, EOMI, oral mucosa moist. Neck: Supple. Respiratory: Lungs are clear to auscultation bilaterally. Cardiovascular: Rate and rhythm are regular. 2/6 systolic murmur heard over left sternal border. Gastrointestinal: Abdomen is soft and nontender, one bowel sound auscultated. Midline abdominal dressing is clean, dry, and intact. Skin: Warm and dry. No rash or lesions on limited exam. Extremities: No cyanosis, clubbing, or edema. Radial and pedal pulses intact. Neurological: Awake and alert. No focal neurologic deficits to casual conversation. Speech is clear. Psychiatric: Pleasant and cooperative with normal mood and affect. Judgment and insight intact. Objective Data Vital Signs Vital Signs: Last Vital Signs Temp 97.6 F 10/22/20 06:00 Pulse 95 10/22/20 06:00 Resp 20 10/22/20 06:00 BP 113/43 L 10/22/20 06:00 Pulse Ox 93 10/22/20 11:02 Intake/Output Intake/O
[2020-10-22 14:00] VITALS: BP 116/52; PULSE 79; RESP 16; TEMP 36.4; O2SAT 99
[2020-10-22] MEDS: ACETAMINOPHEN 500 MG TABLET PO (15:39)
[2020-10-22 16:39] LABS: Glucose Point of Care 197 (65-105)
[2020-10-22 21:18] VITALS: BP 116/53; PULSE 94; RESP 18; TEMP 36.4; O2SAT 99
[2020-10-22] MEDS: FAMOTIDINE 20 MG TABLET PO (21:24)
[2020-10-22] MEDS: QUEtiapine FUMARATE 25 MG TABLET PO (21:25)
[2020-10-22] MEDS: ATORVASTATIN 40 MG TABLET PO (21:26)
[2020-10-22] MEDS: INSULIN GLARGINE (*BKC) 100 UNITS/ML 20 UNITS SUB-Q (21:31)
[2020-10-22 21:35] VITALS: PULSE 95; RESP 17; O2SAT 98
[2020-10-22 23:07] LABS: Glucose Point of Care 189 (65-105)
[2020-10-23] MEDS: ACETAMINOPHEN 500 MG TABLET PO ×3 (01:08→21:01)
[2020-10-23] MEDS: HYDROcodone/acetaminophen (*CRX) 5-325 MG TABLET 1 TAB PO ×2 (02:13→22:43)
[2020-10-23 05:08] VITALS: BP 120/56; PULSE 92; RESP 16; TEMP 36.2; O2SAT 94
[2020-10-23 05:30] VITALS: PULSE 92; RESP 16; O2SAT 94
[2020-10-23 05:40] LABS: Hematocrit 26.2 % (37.0-47.0); Hemoglobin 8.9 g/dL (12.0-15.0); Mean Corpuscular Hemoglobin 28.1 pg (26-34); Mean Corpuscular Volume 82.6 fl (80-100); Mean Platelet Volume 11.1 fl (7.4-10.4); Platelet Count Result 256 k/mm3 (150-375); Red Blood Count 3.17 M/mm3 (4.2-5.4); Red Cell Distribution Width 13.3 % (11.5-14.5); White Blood Count 13.8 K/mm3 (4.5-10.0)
[2020-10-23 05:58] LABS: Anion Gap 4 mmol/L (8-16); Blood Urea Nitrogen 16 mg/dL (7-17); Calcium 8.6 mg/dL (8.4-10.2); Carbon Dioxide 26 mmol/L (22-30); Chloride 107 mmol/L (98-107); Estimated CRCL calculation 68 ml/min; Estimated Glomerular Filt Rate > 60; Glucose 146 mg/dL (65-105); Potassium 3.8 mmol/L (3.4-5.0); Sodium 137 mmol/L (137-145)
[2020-10-23 07:37] LABS: Glucose Point of Care 151 (65-105)
[2020-10-23] MEDS: CHOLECALCIFEROL 1,000 UNITS TABLET 1000 UNITS PO (08:31)
[2020-10-23] MEDS: CANAGLIFLOZIN 100 MG TABLET PO (08:31)
[2020-10-23] MEDS: ENALAPRIL MALEATE 10 MG TABLET 20 MG PO (08:31)
[2020-10-23] MEDS: metFORMIN HCL XR 500 MG TAB.SR.24H 1000 MG PO ×2 (08:31→21:01)
[2020-10-23] MEDS: VENLAFAXINE HCL XR 75 MG CAP.ER.24H 300 MG PO (08:31)
[2020-10-23] MEDS: FAMOTIDINE 20 MG TABLET PO ×2 (08:31→21:01)
[2020-10-23] MEDS: ENOXAPARIN 30 MG/0.3 ML SYRINGE SUB-Q ×2 (08:32→21:02)
[2020-10-23] MEDS: ALVIMOPAN 12 MG CAPSULE PO (08:32)
[2020-10-23 11:10] LABS: Glucose Point of Care 163 (65-105)
[2020-10-23] MEDS: CHOLESTYRAMINE (W/ SUGAR) 4 GM POWD.PACK PO (12:12)
--- NOTE | 2020-10-23 12:50 | PM.PNGS ---
Progress Note: A&P Assessment and Plan (1) Diverticular stricture: Code(s): K56.699 - Other intestinal obstruction unspecified as to partial versus complete obstruction Status: Chronic Assessment and Plan: Having diarrhea now postop day 2. Patient describes that she had this for many years and was taking Questran for it with good success. She was taking Questran once or twice a day, she can't remember. Otherwise she has some right lower quadrant discomfort but is tolerating liquids and ambulating without much difficulty. Will DC Calabrese catheter and start Questran. Advanced to diabetic diet today. Wound is healing well. Anemia likely due to blood loss as well as dilutional factors. Overall she is doing well. (2) Colostomy status: Code(s): Z93.3 - Colostomy status Status: Chronic Assessment and Plan: Closed with surgery 2 days ago. (3) Insulin dependent type 2 diabetes mellitus: Code(s): E11.9 - Type 2 diabetes mellitus without complications; Z79.4 - correction (current) use of insulin Status: Chronic Assessment and Plan: Monitoring. Hospitalist seeing the patient and managing. Subjective Subjective Date/Time Seen: 10/23/20 12:50 Post Op day: 2 Patient reports: tolerating liquids well and diarrhea (Long history diarrhea, takes Questran for it. Having more now.) Review of Systems Review of Systems: All systems reviewed & are unremarkable except as noted in HPI and below Constitutional: Constitutional: Denies headache(s) Cardiovascular: Cardiovascular: Denies chest pain and Denies dyspnea Respiratory: Respiratory: Denies cough and Denies dyspnea Gastrointestinal: Gastrointestinal: Reports as per HPI, Reports abdominal pain (Right lower quadrant), Reports change in bowel habits, Denies heartburn, Reports diarrhea (Was taking cholestyramine once or twice a day for diarrhea for many years), Denies nausea and Denies vomiting Neurologic: Denies confusion and Denies headache(s) Exam Const: General: comfortable and no acute distress; No confusion Orientation/consciousness: patient oriented x3 and No confusion GI: Inspection: non-distended, incision (Incision dry and healing well) and obesity GI Palp: Yes Soft to palpation, Yes Tenderness to palpation present (GI) (Mild appropriate tenderness), No Guarding due to palpation present (GI) and No Rebound tenderness present Auscultation: Hypoactive bowel sounds present Neuro: General: patient oriented x3, no focal motor deficits and No confusion Extrem: General: no calf tenderness and no edema Psych: Affect: normal affect Insight: Good insight present (Psych) Judgement: Good judgement present (Psych) Objective Data Vital Signs Vital Signs: Vital Signs - 24 hr 10/22/20 14:00 10/22/20 21:18 10/22/20 21:35 Temperature 36.4 C 36.4 C Pulse Rate 79 94 95 Respiratory Rate 16 18 17 Blood Pressure 116/52 L 116/53 L Pulse Oximetry 99 99 98 10/23/20 05:08 10/23/20 05:30 Temperature 36.2 C L Pulse Rate 92 92 Respiratory Rate 16 16 Blood Pressure 120/56 L Pulse Oximetry 94 94 Intake/Output Intake/Output: Intake & Output 10/20/20 10/21/20 10/22/20 10/23/20 23:59 23:59 23:59 23:59 Intake Total 2110 3820 490 Output Total 200 2500 1800 Balance 1910 1320 -1310 Meds/Results Medications: Active Medications Generic Name Dose Route Start Last Admin Trade Name Freq PRN Reason Stop Dose Admin Acetaminophen 500 mg 10/21/20 14:28 10/23/20 08:30 Acetaminophen 500 Mg Tablet PO 500 mg Q6H PRN Administration Mild Pain (1-3) or Fever Hydrocodone Bitart/Acetaminophen 1 tab 10/21/20 14:28 10/23/20 02:13 Hydrocodone/Acetaminophen (*Crx) 5-325 Mg Tablet PO 1 tab Q4H PRN Administration Pain Rated 4-6 Atorvastatin Calcium 40 mg 10/21/20 21:00 10/22/20 21:26 Atorvastatin 40 Mg Tablet PO 40 mg HS MAXI Administration Canagliflozin 100 mg 10/22/20 09:00 10/23/20
--- NOTE | 2020-10-23 13:29 | PM.IMPN ---
Progress Note: A&P Assessment and Plan (1) Diverticular stricture: Code(s): K56.699 - Other intestinal obstruction unspecified as to partial versus complete obstruction Status: Chronic Assessment and Plan: POD#2 s/p sigmoidectomy with colorectal anastomosis; right fallopian tube, right ovary and soft tissue mesenteric mass sent for pathology. Management per the primary service. (2) Colostomy status: Code(s): Z93.3 - Colostomy status Status: Chronic Assessment and Plan: POD#2, status post closure of colostomy. (3) Insulin dependent type 2 diabetes mellitus: Code(s): E11.9 - Type 2 diabetes mellitus without complications; Z79.4 - [facility] (current) use of insulin Status: Chronic Assessment and Plan: A1c 8.1% in Jul 2020. Continue Invokana and metformin. Will monitor accu-cheks and cover with SSI. Will continue her evening Lantus at a lower than home dose which is working well today. Will add back more insulin if needed as her diet advances. (4) JESUS on CPAP: Code(s): G47.33 - Obstructive sleep apnea (adult) (pediatric); Z99.89 - Dependence on other enabling machines and devices Status: Chronic Assessment and Plan: Brought her CPAP from home. (5) Hypertension: Qualifiers: Hypertension type: essential hypertension Qualified Code(s): I10 - Essential (primary) hypertension Code(s): I10 - Essential (primary) hypertension Status: Chronic Assessment and Plan: BPs reviewed; a bit soft postoperatively but have improved. Continue her home enalapril and monitor BP, adjust treatment as appropriate. (6) Anxiety: Code(s): F41.9 - Anxiety disorder, unspecified Status: Chronic Assessment and Plan: Stable. Continue venlafaxine and quetiapine. Additional Plan Thank you for allowing me to participate in this patient's care. Please do not hesitate to call for any questions or concerns. Subjective Date/time seen: 10/23/20 13:15 Interval history: Ms. De La Rosa is a 69yo F seen in follow up now POD#2 s/p sigmoidectomy with anastomosis. Overall doing well. Had some diarrhea today without nausea or vomiting. No abdominal pain at present. Denies chest pain or shortness of breath. In good spirits with her visiting at the bedside, looking forward to advancing her diet for next meal. Review of Systems Review of Systems: All systems reviewed & are unremarkable except as noted in HPI and below Exam Narrative: Exam Narrative: General: Female resting comfortably sitting up in bed in no acute distress. HEENT: Normocephalic, EOMI, oral mucosa moist. Neck: Supple. Respiratory: Lungs are clear to auscultation bilaterally. Cardiovascular: Rate and rhythm are regular. 2/6 systolic murmur heard over left sternal border. Gastrointestinal: Abdomen is soft and nontender, with active bowel sounds. Midline abdominal dressing is clean, dry, and intact just changed by surgery team. Skin: Warm and dry. No rash or lesions on limited exam. Extremities: No cyanosis, clubbing, or edema. Radial and pedal pulses intact. Neurological: Awake and alert. No focal neurologic deficits to casual conversation. Speech is clear. Psychiatric: Pleasant and cooperative with normal mood and affect. Judgment and insight intact. Objective Data Vital Signs Vital Signs: Vital Signs - 24 hr 10/22/20 14:00 10/22/20 21:18 10/22/20 21:35 Temperature 97.6 F 97.6 F Pulse Rate 79 94 95 Respiratory Rate 16 18 17 Blood Pressure 116/52 L 116/53 L Pulse Oximetry 99 99 98 10/23/20 05:08 10/23/20 05:30 Temperature 97.2 F L Pulse Rate 92 92
[2020-10-23 14:00] VITALS: BP 122/53; PULSE 92; RESP 16; TEMP 36.3; O2SAT 96
[2020-10-23 16:37] LABS: Glucose Point of Care 136 (65-105)
[2020-10-23] MEDS: ATORVASTATIN 40 MG TABLET PO (21:01)
[2020-10-23] MEDS: QUEtiapine FUMARATE 25 MG TABLET PO (21:01)
[2020-10-23] MEDS: INSULIN GLARGINE (*BKC) 100 UNITS/ML 20 UNITS SUB-Q (21:06)
[2020-10-23 21:14] LABS: Glucose Point of Care 143 (65-105)
[2020-10-23 21:34] VITALS: BP 150/76; PULSE 100; RESP 18; TEMP 36.2; O2SAT 98
[2020-10-23 22:25] VITALS: PULSE 91; RESP 13; O2SAT 96
[2020-10-24 03:19] VITALS: PULSE 90; RESP 14; O2SAT 96
[2020-10-24 05:31] LABS: Hematocrit 27.7 % (37.0-47.0); Hemoglobin 9.2 g/dL (12.0-15.0); Mean Corpuscular HGB Conc 33.2 g/dl (32-36); Mean Corpuscular Volume 84.5 fl (80-100); Mean Platelet Volume 10.7 fl (7.4-10.4); Platelet Count Result 272 k/mm3 (150-375); Red Blood Count 3.28 M/mm3 (4.2-5.4); Red Cell Distribution Width 13.3 % (11.5-14.5); White Blood Count 14.3 K/mm3 (4.5-10.0)
[2020-10-24 05:45] LABS: Anion Gap 3 mmol/L (8-16); Blood Urea Nitrogen 12 mg/dL (7-17); Calcium 8.5 mg/dL (8.4-10.2); Carbon Dioxide 28 mmol/L (22-30); Chloride 106 mmol/L (98-107); Estimated CRCL calculation 79 ml/min; Estimated Glomerular Filt Rate > 60; Glucose 119 mg/dL (65-105); Potassium 3.7 mmol/L (3.4-5.0); Sodium 137 mmol/L (137-145)
[2020-10-24 06:00] VITALS: BP 133/67; PULSE 58; RESP 18; TEMP 36.2; O2SAT 96
[2020-10-24 08:26] LABS: Glucose Point of Care 115 (65-105)
[2020-10-24] MEDS: ENOXAPARIN 30 MG/0.3 ML SYRINGE SUB-Q ×2 (09:06→21:06)
[2020-10-24] MEDS: VENLAFAXINE HCL XR 75 MG CAP.ER.24H 300 MG PO (09:06)
[2020-10-24] MEDS: ENALAPRIL MALEATE 10 MG TABLET 20 MG PO (09:07)
[2020-10-24] MEDS: CANAGLIFLOZIN 100 MG TABLET PO (09:07)
[2020-10-24] MEDS: FAMOTIDINE 20 MG TABLET PO ×2 (09:07→21:06)
[2020-10-24] MEDS: CHOLECALCIFEROL 1,000 UNITS TABLET 1000 UNITS PO (09:07)
[2020-10-24] MEDS: metFORMIN HCL XR 500 MG TAB.SR.24H 1000 MG PO ×2 (09:07→21:06)
--- NOTE | 2020-10-24 10:54 | PM.PNGS ---
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 Tolerating regular diet and pain well controlled. Exam GI: Inspection: non-distended and incision (Both incisions intact, no bleeding or drainage) GI Palp: Yes Tenderness to palpation present (GI) (Incisional) and No Guarding due to palpation present (GI) Auscultation: normal bowel sounds Objective Data Vital Signs Vital Signs: Vital Signs - 24 hr 10/23/20 14:00 10/23/20 21:34 10/23/20 22:25 Temperature 36.3 C L 36.2 C L Pulse Rate 92 100 91 Respiratory Rate 16 18 13 Blood Pressure 122/53 L 150/76 H Pulse Oximetry 96 98 96 10/24/20 03:19 10/24/20 06:00 Temperature 36.2 C L Pulse Rate 90 58 L Respiratory Rate 14 18 Blood Pressure 133/67 Pulse Oximetry 96 96 Intake/Output Intake/Output: Intake & Output 10/21/20 10/22/20 10/23/20 10/24/20 23:59 23:59 23:59 23:59 Intake Total 2110 3820 730 400 Output Total 200 2500 2150 Balance 1910 1320 -1420 400 Meds/Results Medications: Active Medications Generic Name Dose Route Start Last Admin Trade Name Freq PRN Reason Stop Dose Admin Acetaminophen 500 mg 10/21/20 14:28 10/23/20 21:01 Acetaminophen 500 Mg Tablet PO 500 mg Q6H PRN Administration Mild Pain (1-3) or Fever Hydrocodone Bitart/Acetaminophen 1 tab 10/21/20 14:28 10/23/20 22:43 Hydrocodone/Acetaminophen (*Crx) 5-325 Mg Tablet PO 1 tab Q4H PRN Administration Pain Rated 4-6 Atorvastatin Calcium 40 mg 10/21/20 21:00 10/23/20 21:01 Atorvastatin 40 Mg Tablet PO 40 mg HS MAXI Administration Canagliflozin 100 mg 10/22/20 09:00 10/24/20 09:07 Canagliflozin 100 Mg Tablet PO 100 mg DAILY MAXI Administration Cholestyramine Resin 4 gm 10/24/20 11:00 Cholestyramine (W/ Sugar) 4 Gm Powd.Pack PO QAM@1100 MAXI Dextrose 12.5 gm 10/21/20 14:28 Dextrose 50% 25 Gm/50 Ml Syringe IV PUSH PRN PRN Hypoglycemia Protocol Diazepam 2 mg 10/21/20 14:28 Diazepam (*Crx) 2 Mg Tablet PO PRN PRN Dizziness Enalapril Maleate 20 mg 10/22/20 09:00 10/24/20 09:07 Enalapril Maleate 10 Mg Tablet PO 20 mg QAM MAXI Administration Enoxaparin Sodium 30 mg 10/21/20 21:00 10/24/20 09:06 Enoxaparin 30 Mg/0.3 Ml Syringe SUB-Q 30 mg Q12HR MAXI Administration Famotidine 20 mg 10/22/20 21:00 10/24/20 09:07 Famotidine 20 Mg Tablet PO 20 mg Q12HR MAXI Administration Glucagon 1 mg 10/21/20 14:28 Glucagon For Inj 1 Mg Vial IM PRN PRN Hypoglycemia Protocol Glucose 15 gm 10/21/20 14:28 Glucose Oral Gel 15 Gm Of Glucse In 37.5 Gm Tube PO PRN PRN Hypoglycemia Protocol Hydromorphone HCl 1 mg 10/21/20 14:28 Hydromorphone Hcl Inj (*Crx) 1 Mg/Ml Syr IV PUSH Q2H PRN Pain Rated 7-10 Hydromorphone HCl 0.5 mg 10/21/20 14:28 Hydromorphone Hcl Inj (*Crx) 1 Mg/Ml Syr IV PUSH Q2H PRN Pain Rated 4-6 Dextrose 1,000 mls @ 100 mls/hr 10/21/20 14:28 Dextrose 5% 1,000 Ml IVPB PRN PRN Hypoglycemia Protocol Insulin As
[2020-10-24] MEDS: CHOLESTYRAMINE (W/ SUGAR) 4 GM POWD.PACK PO ×2 (11:11→18:41)
[2020-10-24 12:47] LABS: Glucose Point of Care 153 (65-105)
--- NOTE | 2020-10-24 13:51 | PM.IMPN ---
Progress Note: A&P Assessment and Plan (1) Diverticular stricture: Code(s): K56.699 - Other intestinal obstruction unspecified as to partial versus complete obstruction Status: Chronic Assessment and Plan: POD#3 s/p sigmoidectomy with colorectal anastomosis; right fallopian tube, right ovary and soft tissue mesenteric mass sent for pathology. Management per the primary service. (2) Colostomy status: Code(s): Z93.3 - Colostomy status Status: Chronic Assessment and Plan: POD#3, status post closure of colostomy. 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 Continue Invokana and metformin. Will monitor accu-cheks and cover with SSI. Will continue her evening Lantus at a lower than home dose which is working well today. Will add back more insulin if needed as her diet advances. (4) JESUS on CPAP: Code(s): G47.33 - Obstructive sleep apnea (adult) (pediatric); Z99.89 - Dependence on other enabling machines and devices Status: Chronic Assessment and Plan: Brought her CPAP from home. (5) Hypertension: Qualifiers: Hypertension type: essential hypertension Qualified Code(s): I10 - Essential (primary) hypertension Code(s): I10 - Essential (primary) hypertension Status: Chronic Assessment and Plan: BPs reviewed; a bit soft postoperatively but have improved. Continue her home enalapril and monitor BP, adjust treatment as appropriate. (6) Anxiety: Code(s): F41.9 - Anxiety disorder, unspecified Status: Chronic Assessment and Plan: Stable. Continue venlafaxine and quetiapine. Subjective Date/time seen: 10/24/20 13:45 Interval history: Ms. De La Rosa is a 69yo F seen in follow-up POD#3 s/p sigmoidectomy with anastomosis. Overall doing well. Had diarrhea this morning after breakfast. Reports no abdominal pain initially but then does tell me she has some right lower quadrant burning that has been going on for months. No nausea or vomiting. No chest pain or shortness of breath. Review of Systems Review of Systems: All systems reviewed & are unremarkable except as noted in HPI and below Exam Narrative: Exam Narrative: General: Female resting comfortably sitting up in bed in no acute distress. HEENT: Normocephalic, EOMI, oral mucosa moist. Neck: Supple. Respiratory: Lungs are clear to auscultation bilaterally. Cardiovascular: Rate and rhythm are regular. 2/6 systolic murmur heard over left sternal border. Gastrointestinal: Abdomen is soft with hypoactive bowel sounds. Midline abdominal dressing is clean, dry, and intact. Mild tenderness to palpation right lower quadrant without guarding. Skin: Warm and dry. No rash or lesions on limited exam. Extremities: No cyanosis, clubbing, or edema. Radial and pedal pulses intact. Neurological: Awake and alert. No focal neurologic deficits to casual conversation. Speech is clear. Psychiatric: Pleasant and cooperative with normal mood and affect. Judgment and insight intact. Objective Data Vital Signs Vital Signs: Last Vital Signs Temp 97.2 F L 10/24/20 06:00 Pulse 58 L 10/24/20 06:00 Resp 18 10/24/20 06:00 BP 133/67 10/24/20 06:00 Pulse Ox 96 10/24/20 06:00 Intake/Output Intake/Output: Intake & Output 10/21/20 10/22/20 10/23/20 10/24/20 23:59 23:59 23:59 23:59 Intake Total 2110 3820 730 640 Output Total 200 2500 2150 Balance 1910 1320 -1420 640 Meds/Results Medications: Active Medications Generic Name Dose
--- NOTE | 2020-10-24 13:55 | PM.IMPN ---
Subjective Date/time seen: 10/24/20 13:45 Objective Data Vital Signs Vital Signs: Vital Signs - 24 hr 10/23/20 14:00 10/23/20 21:34 10/23/20 22:25 Temperature 97.4 F L 97.1 F L Pulse Rate 92 100 91 Respiratory Rate 16 18 13 Blood Pressure 122/53 L 150/76 H Pulse Oximetry 96 98 96 10/24/20 03:19 10/24/20 06:00 Temperature 97.2 F L Pulse Rate 90 58 L Respiratory Rate 14 18 Blood Pressure 133/67 Pulse Oximetry 96 96 Intake/Output Intake/Output: Intake & Output 10/21/20 10/22/20 10/23/20 10/24/20 23:59 23:59 23:59 23:59 Intake Total 2110 3820 730 640 Output Total 200 2500 2150 Balance 1910 1320 -1420 640 Meds/Results Medications: Active Medications Generic Name Dose Route Start Last Admin Trade Name Freq PRN Reason Stop Dose Admin Acetaminophen 500 mg 10/21/20 14:28 10/23/20 21:01 Acetaminophen 500 Mg Tablet PO 500 mg Q6H PRN Administration Mild Pain (1-3) or Fever Hydrocodone Bitart/Acetaminophen 1 tab 10/21/20 14:28 10/23/20 22:43 Hydrocodone/Acetaminophen (*Crx) 5-325 Mg Tablet PO 1 tab Q4H PRN Administration Pain Rated 4-6 Atorvastatin Calcium 40 mg 10/21/20 21:00 10/23/20 21:01 Atorvastatin 40 Mg Tablet PO 40 mg HS MAXI Administration Canagliflozin 100 mg 10/22/20 09:00 10/24/20 09:07 Canagliflozin 100 Mg Tablet PO 100 mg DAILY MAXI Administration Cholestyramine Resin 4 gm 10/24/20 10:55 10/24/20 11:11 Cholestyramine (W/ Sugar) 4 Gm Powd.Pack PO 4 gm BID@1000,1800 MAXI Administration Dextrose 12.5 gm 10/21/20 14:28 Dextrose 50% 25 Gm/50 Ml Syringe IV PUSH PRN PRN Hypoglycemia Protocol Diazepam 2 mg 10/21/20 14:28 Diazepam (*Crx) 2 Mg Tablet PO PRN PRN Dizziness Enalapril Maleate 20 mg 10/22/20 09:00 10/24/20 09:07 Enalapril Maleate 10 Mg Tablet PO 20 mg QAM MAXI Administration Enoxaparin Sodium 30 mg 10/21/20 21:00 10/24/20 09:06 Enoxaparin 30 Mg/0.3 Ml Syringe SUB-Q 30 mg Q12HR MAXI Administration Famotidine 20 mg 10/22/20 21:00 10/24/20 09:07 Famotidine 20 Mg Tablet PO 20 mg Q12HR MAXI Administration Glucagon 1 mg 10/21/20 14:28 Glucagon For Inj 1 Mg Vial IM PRN PRN Hypoglycemia Protocol Glucose 15 gm 10/21/20 14:28 Glucose Oral Gel 15 Gm Of Glucse In 37.5 Gm Tube PO PRN PRN Hypoglycemia Protocol Hydromorphone HCl 1 mg 10/21/20 14:28 Hydromorphone Hcl Inj (*Crx) 1 Mg/Ml Syr IV PUSH Q2H PRN Pain Rated 7-10 Hydromorphone HCl 0.5 mg 10/21/20 14:28 Hydromorphone Hcl Inj (*Crx) 1 Mg/Ml Syr IV PUSH Q2H PRN Pain Rated 4-6 Dextrose 1,000 mls @ 100 mls/hr 10/21/20 14:28 Dextrose 5% 1,000 Ml IVPB PRN PRN Hypoglycemia Protocol Insulin Aspart 4 - 8 units 10/21/20 17:00 10/24/20 12:54 Insulin Aspart (*Bkc) 100 Units/Ml SUB-Q Not Given TIDWM MAXI Protocol Insulin Glargine 20 units 10/22/20 21:00 10/23/20 21:06 Insulin Glargine (*Bkc) 100 Units/Ml SUB-Q 20 units HS MAXI Administration Metformin HCl 1,000 mg 10/21/20 14:28 10/24/20 09:07 Metformin Hcl Xr 500 Mg Tab.Sr.24h PO 1,000 mg Q12HR MAXI Administration Naloxone HCl 0.1 mg 10/21/20 14:28 Naloxone Hcl 0.4 Mg/Ml Vial IV PUSH Q2M PRN Opiate Reversal Ondansetron HCl 4 mg 10/21/20 14:28 Ondansetron Inj 4 Mg/2 Ml Vial IV PUSH Q4H PRN Nausea And Vomiting Quetiapine Fumarate 25 mg 10/21/20 21:00 10/23/20 21:01 Quetiapine Fumarate 25 Mg Tablet PO 25 mg HS MAXI Administration Venlafaxine HCl 300 mg 10/22/20 09:00 10/24/20 09:06 Venlafaxine Hcl Xr 75 Mg Cap.Er.24h PO 300 mg DAILY MAXI Administration Vitamin D 1,000 units 10/22/20 09:00 10/24/20 09:07 Cholecalciferol 1,000 Units Tablet PO 1,000 units DAILY MAXI Administration Labs Labs: Laboratory Results - last 24 hr 10/23/20 10/23/20 10/24/20 16:34 20:55 0
[2020-10-24 14:00] VITALS: BP 149/67; PULSE 96; RESP 20; TEMP 36.3; O2SAT 96
[2020-10-24 16:25] LABS: Glucose Point of Care 123 (65-105)
[2020-10-24] MEDS: QUEtiapine FUMARATE 25 MG TABLET PO (21:06)
[2020-10-24] MEDS: INSULIN GLARGINE (*BKC) 100 UNITS/ML 20 UNITS SUB-Q (21:06)
[2020-10-24] MEDS: ATORVASTATIN 40 MG TABLET PO (21:06)
[2020-10-24 21:13] LABS: Glucose Point of Care 148 (65-105)
[2020-10-24 21:48] VITALS: BP 160/60; PULSE 100; RESP 16; TEMP 36.6; O2SAT 97
[2020-10-24 22:48] VITALS: PULSE 96; RESP 18; O2SAT 97
[2020-10-25 05:27] LABS: Hematocrit 30.1 % (37.0-47.0); Hemoglobin 10.1 g/dL (12.0-15.0); Mean Corpuscular HGB Conc 33.6 g/dl (32-36); Mean Corpuscular Hemoglobin 27.9 pg (26-34); Mean Corpuscular Volume 83.1 fl (80-100); Mean Platelet Volume 10.4 fl (7.4-10.4); Platelet Count Result 328 k/mm3 (150-375); Red Blood Count 3.62 M/mm3 (4.2-5.4); Red Cell Distribution Width 13.2 % (11.5-14.5); White Blood Count 14.3 K/mm3 (4.5-10.0)
[2020-10-25 05:41] LABS: Anion Gap 6 mmol/L (8-16); Blood Urea Nitrogen 12 mg/dL (7-17); Calcium 8.4 mg/dL (8.4-10.2); Carbon Dioxide 27 mmol/L (22-30); Chloride 105 mmol/L (98-107); Estimated CRCL calculation 79 ml/min; Estimated Glomerular Filt Rate > 60; Glucose 118 mg/dL (65-105); Potassium 3.6 mmol/L (3.4-5.0); Sodium 138 mmol/L (137-145)
[2020-10-25 06:00] VITALS: BP 149/64; PULSE 95; RESP 16; TEMP 36.2; O2SAT 94
[2020-10-25] MEDS: ENOXAPARIN 30 MG/0.3 ML SYRINGE SUB-Q (08:08)
[2020-10-25] MEDS: CANAGLIFLOZIN 100 MG TABLET PO (08:09)
[2020-10-25] MEDS: ENALAPRIL MALEATE 10 MG TABLET 20 MG PO (08:09)
[2020-10-25] MEDS: VENLAFAXINE HCL XR 75 MG CAP.ER.24H 300 MG PO (08:09)
[2020-10-25] MEDS: FAMOTIDINE 20 MG TABLET PO (08:09)
[2020-10-25] MEDS: metFORMIN HCL XR 500 MG TAB.SR.24H 1000 MG PO (08:09)
[2020-10-25] MEDS: CHOLECALCIFEROL 1,000 UNITS TABLET 1000 UNITS PO (08:09)
[2020-10-25] MEDS: CHOLESTYRAMINE (W/ SUGAR) 4 GM POWD.PACK PO (09:39)
[2020-10-25 09:57] LABS: Glucose Point of Care 141 (65-105)
--- NOTE | 2020-10-25 11:19 | PM.DS ---
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 Status: Chronic (4) Hypertension: Qualifiers: Hypertension type: essential hypertension Qualified Code(s): I10 - Essential (primary) hypertension Code(s): I10 - Essential (primary) hypertension Status: Chronic (5) Colostomy status: Code(s): Z93.3 - Colostomy status Status: Chronic (6) JESUS on CPAP: Code(s): G47.33 - Obstructive sleep apnea (adult) (pediatric); Z99.89 - Dependence on other enabling machines and devices Status: Chronic DS: Summary Hospital Course Reason for hospitalization: Diverticular stricture Hospital Course: This is a 69-year-old woman who presented to the hospital 10/21/2020 for elective takedown colostomy with sigmoid colectomy and hand-sewn colorectal anastomosis by Dr. Macedo. She has a prior history complete bowel obstruction caused by a diverticular stricture and underwent diverting colostomy an outside facility. She was admitted to the hospital for recovery after the surgery. The hospitalist was consulted to patient having diabetes, sleep apnea, hypertension, other comorbidities. She was started on a clear liquid diet and was slowly advanced postoperatively. As her bowels began moving, she was having significant diarrhea and has a prior history of chronic diarrhea for which she was taking cholestyramine. This was restarted postoperatively. Her bowel movements did appear to be somewhat more controlled and her diet was able to be advanced over the next couple days to a solid diet. On postop day 4 she was remaining hemodynamically stable and her bowels were moving. She was tolerating a regular diet. She was discharged on postop day 4. Status at Discharge Functional status at discharge: independent ambulation Overall status at discharge: patient is progressing back to baseline Time Spent with Patient Time attestation: Total time spent providing and/or coordinating discharge services: Time spent: Less than 30 minutes Exam Const: General: comfortable and no acute distress Orientation/consciousness: patient oriented x3 Resp: Effort & Inspection: normal respiratory effort Auscultation: clear to auscultation bilaterally Cardio: Rate: regular rate Rhythm: regular rhythm Heart sounds: S1 normal heart sound present and S2 normal heart sound present GI: Inspection: normal to inspection and incision (Clean, dry, intact) GI Palp: Yes Soft to palpation, Yes Tenderness to palpation present (GI) (Incisional) and No Guarding due to palpation present (GI) Auscultation: normal bowel sounds DS: Data Data Completed and Pending Completed studies during hospitalization: Pending at discharge 10/21/20 09:01 Surgical [PTH] Routine Final Diagnosis A. MESENTERIC MASS, EXCISION: - BENIGN MESENTERIC LYMPH NODE WITH VASCULAR TRANSFORMATION OF SINUSES (SEE COMMENT). B. LEFT FALLOPIAN TUBE AND OVARY, SALPINGO-OOPHORECTOMY: - TUBAL SEROSAL ADHESIONS. - OVARIAN SEROSAL ADHESIONS. C. SIGMOID AND DESCENDING COLON, SEGMENTAL RESECTION: - LONGER SEGMENT WITH DIVERTICULOSIS, ACUTE AND CHRONIC DIVERTICULITIS, PERICOLONIC ABSCESS FORMATION, AND SEROSAL ADHESIONS. - SHORTER SEGMENT WITH SEROSAL ADHESIONS. - FOUR BENIGN PERICOLONIC LYMPH NODES (WITHOUT VASCULAR TRANSFORMATION OF SINUSES). - NO EVIDENCE OF NEOPLASM. Labs on day of discharge: Labs from last 24 hours 10/25/20 0
[2020-10-25 12:52] LABS: Glucose Point of Care 113 (65-105)
[2020-10-25 14:00] VITALS: BP 138/68; PULSE 97; RESP 16; TEMP 36.4; O2SAT 99
--- NOTE | 2020-10-25 15:08 | PM.IMPN ---
Progress Note: A&P Assessment and Plan (1) Diverticular stricture: Code(s): K56.699 - Other intestinal obstruction unspecified as to partial versus complete obstruction Status: Chronic Assessment and Plan: POD#4 s/p sigmoidectomy with colorectal anastomosis; right fallopian tube, right ovary and soft tissue mesenteric mass sent for pathology. Management per the primary service. (2) Colostomy status: Code(s): Z93.3 - Colostomy status Status: Chronic Assessment and Plan: POD#4, status post closure of colostomy. 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 Continue Invokana and metformin. Will monitor accu-cheks and cover with SSI. She has been continued on a lower dose of her home Lantus since her diet has been gradually advanced and she is not eating as much. Recommended she cut back her Lantus to 40units at bedtime, monitor her blood sugars closely and follow up with PCP about her blood sugars. (4) JESUS on CPAP: Code(s): G47.33 - Obstructive sleep apnea (adult) (pediatric); Z99.89 - Dependence on other enabling machines and devices Status: Chronic Assessment and Plan: Brought her CPAP from home. (5) Hypertension: Qualifiers: Hypertension type: essential hypertension Qualified Code(s): I10 - Essential (primary) hypertension Code(s): I10 - Essential (primary) hypertension Status: Chronic Assessment and Plan: BPs stable. Continue her home enalapril and monitor BP, adjust treatment as appropriate. (6) Anxiety: Code(s): F41.9 - Anxiety disorder, unspecified Status: Chronic Assessment and Plan: Stable. Continue venlafaxine and quetiapine. Additional Plan Thank you for allowing me to participate in this patient's care. She is medically stable for discharge from hospitalist standpoint today. Added discharge instructions regarding her insulin and blood sugars. Subjective Date/time seen: 10/25/20 1300 Interval history: Ms. De La Rosa is a 69yo F seen in follow-up POD#4 s/p sigmoidectomy with anastomosis. She is feeling well, in good spirits. No diarrhea today. Reports some right lower quadrant burning that has been going on for months. No nausea or vomiting. No chest pain or shortness of breath. Review of Systems Review of Systems: All systems reviewed & are unremarkable except as noted in HPI and below Exam Narrative: Exam Narrative: General: Female resting comfortably sitting up in bed in no acute distress. HEENT: Normocephalic, EOMI, oral mucosa moist. Neck: Supple. Respiratory: Lungs are clear to auscultation bilaterally. Cardiovascular: Rate and rhythm are regular. 2/6 systolic murmur heard over left sternal border. Gastrointestinal: Abdomen is soft with hypoactive bowel sounds. Midline abdominal dressing is clean, dry, and intact. Mild tenderness to palpation right lower quadrant without guarding. Skin: Warm and dry. No rash or lesions on limited exam. Extremities: No cyanosis, clubbing, or edema. Radial and pedal pulses intact. Neurological: Awake and alert. No focal neurologic deficits to casual conversation. Speech is clear. Psychiatric: Pleasant and cooperative with normal mood and affect. Judgment and insight intact. Objective Data Vital Signs Vital Signs: Last Vital Signs Temp 97.5 F L 10/25/20 14:00 Pulse 97 10/25/20 14:00 Resp 16 10/25/20 14:00 BP 138/68 10/25/20 14:00 Pulse Ox 99 10/25/20 14:00 Intake/Output Intake/Output: Intake & O
== END 2020-10-25 15:20 | disposition home or self-care (01) | DRG 331 ==
LOC: ANH2MED 10-22 07:12
PROVIDERS: Anesthesiology; Admitting Provider Surgery; PCP Family Medicine Adolescent Medicine; Visit Provider Surgery
PROC: 0DTN0ZZ Resection of Sigmoid Colon, Open Approach (ICD-10-PCS; CPT 44620; principal; 2020-10-21 07:30)
PROC: 0DTN0ZZ Resection of Sigmoid Colon, Open Approach (ICD-10-PCS; CPT 44346; 2020-10-21 07:30)
DX: K57.32 Diverticulitis of large intestine without perforation or abscess without bleeding (principal); E11.42 Type 2 diabetes mellitus with diabetic polyneuropathy; F90.9 Attention-deficit hyperactivity disorder, unspecified type; E78.5 Hyperlipidemia, unspecified; K58.0 Irritable bowel syndrome with diarrhea; G47.33 Obstructive sleep apnea (adult) (pediatric); I10 Essential (primary) hypertension; F41.9 Anxiety disorder, unspecified; E66.9 Obesity, unspecified; Z68.32 Body mass index [BMI] 32.0-32.9, adult; Z85.3 Personal history of malignant neoplasm of breast; Z86.73 Personal history of transient ischemic attack (TIA), and cerebral infarction without residual deficits; Z98.42 Cataract extraction status, left eye; Z98.41 Cataract extraction status, right eye; Z90.49 Acquired absence of other specified parts of digestive tract; Z87.891 Personal history of nicotine dependence; Z79.4 Long term (current) use of insulin
CPT/HCPCS: 36415; 80048; 82948; 85014; 85018; 85027; 86850; 86900; 86901; 88304; 88305; 88307; 88309; A9270; C1729; J0690; J1100; J1170; J1650; J1741; J1815; J1885; J2250; J2405; J2704; J3010; J7030; J7120

== ENCOUNTER 2020-11-03 07:24 | Outpatient (RCR) | payer MEDICARE, OTHER, SELFPAY ==
--- NOTE | 2020-08-18 08:57 | PM.PNORT ---
Progress Note: A&P Assessment and Plan (1) Acute osteomyelitis of left foot: Code(s): M86.172 - Other acute osteomyelitis, left ankle and foot Status: Acute Assessment and Plan: One week, 3 days status post excision left foot osteomyelitis and 6 days status post I and D with wound closure and graft application to the left foot. Total contact cast removed today. Incision remains well approximated on both the dorsal and plantar aspects of the left foot. Pin fixation in place. Graft remains in position as well. Good capillary refill in the toes. Recommended re-application of total contact cast today. This will allow for protection of the toes and the wound. Patient to go home today and continue home health with IV antibiotics. Patient follow-up in 1 week for total contact cast change. We will attempt to keep graft in place for a 3 weeks total and pin fixation in place for 6 weeks. Sutures to be removed 3 weeks from date of 2nd surgery on August 12, 2020. Reviewed signs and symptoms of infection to report to the office immediately. Recommended protected weight-bearing on the left lower extremity in the total contact cast. We also discussed the importance of elevation on pillows above the level of the heart, patient verbalized understanding agrees with plan of care. Follow up in 1 week. 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 Patient verbalized understanding and agrees plan of care. Subjective Subjective Date/Time Seen: 08/18/20 08:57 69-year-old female presents to the [facility] for follow-up of her left foot wound. She was discharged from the hospital on Monday of last week and is on IV antibiotics through September 05 2020. She reports no difficulties with the IV infusion in her PICC line is in place. She has had a total contact cast on the left lower extremity without complications. She denies fever, chills, night sweats, nausea, vomiting or diarrhea. No complaints of pain today. Total contact cast removed today. Review of Systems Constitutional: Constitutional: Denies fever(s) Eyes: Eyes: Denies blurry vision ENT: Reports Normal hearing present Cardiovascular: Cardiovascular: Denies chest pain and Denies dyspnea Respiratory: Respiratory: Denies dyspnea and Denies wheezing Gastrointestinal: Gastrointestinal: Denies abdominal pain Genitourinary: Genitourinary: Denies urinary urgency Musculoskeletal: Musculoskeletal: Reports as per HPI and Reports numbness ( Both feet) Integumentary/Breasts: Skin/Breast: Reports as per HPI and Reports skin ulcer ( left plantar foot) Neurologic: Reports Normal hearing present, Denies behavioral changes, Denies confusion, Reports numbness (feet) and Denies convulsions Psychiatric: Psychiatric: Denies behavioral changes, Denies confusion and Denies hallucinations Endocrine: Endocrine: Denies heat intolerance Hematologic/Lymphatic: Hematologic/Lymphatic: Denies easy bleeding Allergic/Immunologic: Allergic/Immunologic: Denies wheezing Exam Const: General: No confusion Orientation/consciousness: No confusion HENMT: Head: normal to inspection, normocephalic and atraumatic Eyes: Conjunctivae: conjunctivae normal Sclera: sclerae normal Neck: Neck: supple and nontender Chest: Chest palpation & inspection: normal inspection of the chest Resp: Effort & Inspection: normal respiratory effort and no audible wheezes Cardio: Rate: regular rate Rhythm: regular rhythm : General: Yes deferred Skin: General skin exam: no rashes or lesions noted Neuro: General: No confusion Extrem: General: capillary refill normal Right upper extremity: normal to inspection L
[2020-08-18 14:22] VITALS: BMI 31.8
--- NOTE | 2020-08-25 09:14 | PM.PNORT ---
Progress Note: A&P Assessment and Plan (1) Acute osteomyelitis of left foot: Code(s): M86.172 - Other acute osteomyelitis, left ankle and foot Status: Acute Assessment and Plan: 2.5 weeks status post excision osteo, 12 days status post graft application. Pin from the 3rd toe removed. Second toe pin in place. No signs of infection. Continue IV antibiotics. New short-leg cast applied. Follow up in 1 week for cast change, graft silicone and suture removal. Second toe pin to remain in place for optimal 3 more weeks. (2) Callus of foot: Code(s): L84 - Corns and callosities Status: Acute Assessment and Plan: Right foot plantar callus. Shoe and insert evaluated. Needs new diabetic insert with offloading. We will plan to arrange with left foot at that. No skin opening or signs of infection at this point. Continue daily skin care. Subjective Subjective Date/Time Seen: 08/25/20 09:14 Post Op day: 12 Principal diagnosis: left foot osteomyelitis Interval history: patient returns for follow-up left foot osteomyelitis. 2.5 weeks status post excision of osteomyelitis and 12 days status post debridement with application graft and pin fixation. Patient has been in a total contact cast. No interim complaints Exam Const: General: No confusion Orientation/consciousness: No confusion HENMT: Head: normal to inspection, normocephalic and atraumatic Eyes: Conjunctivae: conjunctivae normal Sclera: sclerae normal Neck: Neck: supple and nontender Chest: Chest palpation & inspection: normal inspection of the chest Resp: Effort & Inspection: normal respiratory effort and no audible wheezes Cardio: Rate: regular rate Rhythm: regular rhythm : General: Yes deferred Skin: General skin exam: no rashes or lesions noted Neuro: General: No confusion Extrem: General: capillary refill normal Right upper extremity: normal to inspection Left upper extremity: normal to inspection Right lower extremity: normal to inspection, hip/thigh Details: normal to inspection and foot Details: vascular exam Details: dorsalis pedis pulse present and normal capillary refill and motor-sensory exam Details: two point discrimination abnormal Location: in all toes and light-touch abnormal Location: in all toes; no tenderness Left lower extremity: hip/thigh Details: normal to inspection, knee Details: abnormal ROM ( range of motion deferred secondary to fracture), ankle (no calf tenderness) Details: normal to inspection, normal ROM, ecchymosis, crepitus, achilles tendon exam abnormal and other ( good capillary refill in toes, 2+ DP pulse, light touch sensation intact); no tenderness ( lateral malleolus, anterior ankle and medial ankle) and no swelling ( moderate anterior ankle, moderate lateral ankle) and foot Details: normal capillary refill, tenderness Location: of the dorsal foot and of another digit Location: the 2nd digit, the 3rd digit, the 4th digit and other (metatarsals), abnormal ROM of toe (decreased movement 4th/ 5th toes) Details: pain with active ROM, ecchymosis ( Mild base of the small toe metatarsal), vascular exam Details: dorsalis pedis pulse present and normal capillary refill, tendon exam active flexion normal and active extension normal and motor-sensory exam two point discrimination abnormal in all toes and light-touch abnormal in all toes Other: Total contact cast removed today. Pin fixation in the 2nd and 3rd ray. Pin sites cleaned. pin 3rd ray noted to be loose and removed today without difficulty. Good bleeding noted from pin sites. Second pin well fixed. Incision on the dorsal aspect of the forefoot in the interspace between the 2nd and 3rd ray remains well approximated, sutures intact. Graft in the webspace between the 2nd and 3rd ray remained stable in place. Plantar incision with skin well-approximated. No purulence. No malodor. Both the 2nd and 3rd ray with improvement in the erythema noted. Reina
--- NOTE | 2020-09-01 08:03 | PCWOUND ---
WOCN NOTE appointment cancelled today due to Dr Hein's office being closed. Rescheduled for Monday09/02/20 at 0800.
--- NOTE | 2020-09-02 08:46 | PM.PNORT ---
Progress Note: A&P Assessment and Plan (1) Acute osteomyelitis of left foot: Code(s): M86.172 - Other acute osteomyelitis, left ankle and foot Status: Acute Assessment and Plan: 3.5 weeks status post excision of osteo and 2.5 weeks status post graft application and pin fixation. Pin removed from the 2nd rate today as it was loose. Now patient has both 2nd and 3rd ray pins removed. She is continuing IV antibiotics under the direction of Dr. godinez. There was some maceration noted on the plantar aspect of the foot in between the 2nd and 3rd ray. Recommended transferring to daily dressing changes as opposed to total contact cast. Today we applied silver gel to all open wound areas and covered with 4 x 4 Gauze. Patient Education daily dressing changes. Patient to continue daily dressing changes and postop shoe with protected weight-bearing on the heel left foot. Patient will follow up in approximately 1 week at which point she will have repeat radiographs and we will re-evaluate the wounds. Patient understands potential need for further surgical intervention however will continue conservative treatment at this time. No further questions. IV antibiotic management deferred to infectious disease. (2) Callus of foot: Code(s): L84 - Corns and callosities Status: Acute Assessment and Plan: Right foot plantar callus. Shoe and insert evaluated. Needs new diabetic insert with offloading. We will plan to arrange with left foot at that. No skin opening or signs of infection at this point. Continue daily skin care. Subjective Subjective Date/Time Seen: 09/02/20 08:46 Patient returns today for follow-up of left foot osteomyelitis. Patient is now 3.5 weeks status post excision of osteomyelitis and 2.5 weeks status post debridement with application of graft and pin fixation. Patient is in a total contact cast. No complaints of fever, chills, night sweats, nausea, vomiting or diarrhea. No complaints of pain. No new concerns. Review of Systems Constitutional: Constitutional: Denies fever(s) Eyes: Eyes: Denies blurry vision ENT: Reports Normal hearing present Cardiovascular: Cardiovascular: Denies chest pain and Denies dyspnea Respiratory: Respiratory: Denies dyspnea and Denies wheezing Gastrointestinal: Gastrointestinal: Denies abdominal pain Genitourinary: Genitourinary: Denies urinary urgency Musculoskeletal: Musculoskeletal: Reports as per HPI and Reports numbness ( Both feet) Integumentary/Breasts: Skin/Breast: Reports as per HPI and Reports skin ulcer ( left plantar foot) Neurologic: Reports Normal hearing present, Denies behavioral changes, Denies confusion, Reports numbness (feet) and Denies convulsions Psychiatric: Psychiatric: Denies behavioral changes, Denies confusion and Denies hallucinations Endocrine: Endocrine: Denies heat intolerance Hematologic/Lymphatic: Hematologic/Lymphatic: Denies easy bleeding Allergic/Immunologic: Allergic/Immunologic: Denies wheezing Exam Const: General: No confusion Orientation/consciousness: No confusion HENMT: Head: normal to inspection, normocephalic and atraumatic Eyes: Conjunctivae: conjunctivae normal Sclera: sclerae normal Neck: Neck: supple and nontender Chest: Chest palpation & inspection: normal inspection of the chest Resp: Effort & Inspection: normal respiratory effort and no audible wheezes Cardio: Rate: regular rate Rhythm: regular rhythm : General: Yes deferred Skin: General skin exam: no rashes or lesions noted Neuro: General: No confusion Extrem: General: capillary refill normal Right upper extremity: normal to inspection Left upper extremity: normal to inspection Right lower extremity: normal to inspection, hip/thigh Details: normal to inspection and foot Details: vascular exam Details: dorsalis pedis pulse present and normal capillary refill and motor-sensory exam Details: two point discrimination
--- NOTE | 2020-09-08 08:43 | PM.PNORT ---
Progress Note: A&P Assessment and Plan (1) Acute osteomyelitis of left foot: Code(s): M86.172 - Other acute osteomyelitis, left ankle and foot Status: Acute Assessment and Plan: Patient is 3 weeks, 6 days status post excision of osteomyelitis in 4 weeks, 3 days status post graft application and pin fixation. Patient had both pins from the 2nd 3rd rays removed last week. She does continue to have pin site wounds. See assessment for full details. The patient has an elevated white blood cell count and CRP 16.9 Yesterday as ordered by Dr. barth. patient was post to have her IV antibiotics completed on September 05 however per the patient the patient is continuing on IV antibiotics at this time under the direction of Dr. barth. Will obtain records from Dr. barth in regards to his plan. Left foot shows no worsening signs of infection at this time. No purulence, no malodor. No redness, warmth, swelling or signs of active infection. Radiographs obtained in the outpatient orthopedic clinic today reviewed. The patient understands potential risks for definitive care of the 2nd ray with amputation however we will continue conservative treatment at this time and monitor lab results. Patient will continue to utilize silver gel, gauze and Kerlix with daily dressing changes. Patient educated on daily dressing changes and has no questions. Patient to continue postop shoe with protective weight-bearing through the heel. The patient will follow up in approximately 1 week for re-evaluation. We will await declaration 2nd ray to determine further need for surgical intervention. We reviewed signs and symptoms of worsening infection to report to the emergency room immediately, patient verbalized understanding agrees plan of care. (2) Callus of foot: Code(s): L84 - Corns and callosities Status: Acute Assessment and Plan: We will plan to arrange for new diabetic inserts and depth shoes pending healing of wounds. Subjective Subjective Date/Time Seen: 09/08/20 08:43 Patient returns and [facility] wound clinic today for re-evaluation of left foot osteomyelitis. The patient is 4 weeks, 3 days status post excision of osteomyelitis and 3 weeks, 6 days status post debridement of graft application and pin fixation. The patient had both pins removed 1 week ago from the 2nd and 3rd rays. She continues on IV antibiotics. Per the patient she was supposed to have her IV antibiotics completed on September 05 however her white blood cell count and CRP have increased causing her to continue IV antibiotics and direction of Dr. barth. No indication as to when IV antibiotics will be completed. Awaiting records and lab results from Dr. Barth at this time. Patient denies fever, chills, night sweats, nausea, vomiting or diarrhea. She denies difficulty with urination. No signs of urinary tract infection. No issues with daily dressing changes. No increased redness, warmth, swelling or signs of active infection of the left foot at this time. Review of Systems Constitutional: Constitutional: Denies fever(s) Eyes: Eyes: Denies blurry vision ENT: Reports Normal hearing present Cardiovascular: Cardiovascular: Denies chest pain and Denies dyspnea Respiratory: Respiratory: Denies dyspnea and Denies wheezing Gastrointestinal: Gastrointestinal: Denies abdominal pain Genitourinary: Genitourinary: Denies urinary urgency Musculoskeletal: Musculoskeletal: Reports as per HPI and Reports numbness ( Both feet) Integumentary/Breasts: Skin/Breast: Reports as per HPI and Reports skin ulcer ( left plantar foot) Neurologic: Reports Normal hearing present, Denies behavioral changes, Denies confusion, Reports numbness (feet) and Denies convulsions Psychiatric: Psychiatric: Denies behavioral changes, Denies confusion and Denies hallucinations Endocrine: Endocrine: Denies heat intolerance Hematologic/Lymphatic: Hematologic/Lymph
--- NOTE | 2020-09-15 15:10 | PM.PNORT ---
Progress Note: A&P Assessment and Plan (1) Acute osteomyelitis of left foot: Code(s): M86.172 - Other acute osteomyelitis, left ankle and foot Status: Acute Assessment and Plan: Patient is now 5 weeks, 3 days status post excision of osteomyelitis 4 weeks, 6 days status post graft application and pin fixation. She has been performing daily dressing changes with silver gel, gauze pads, wrapped with Kerlix and ABD. Wounds with continued improvement in dimensions in appearance. No signs of acute infection. Patient is to have her PICC line removed on Monday and has a follow-up appointment scheduled Dr. Barth today. Recommended continued use of daily dressing changes at this time. reviewed signs and symptoms of infection to report to the office immediately. Antibiotic treatment deferred to infectious disease. Patient to continue postop shoe with protective weight-bearing through the heel. Patient follow-up in 1 week for re-evaluation. Patient would benefit from custom orthotics and depth shoes to transition to pending healing of wound. We will fax prescription to [facility] in [place], [place]. (2) Callus of foot: Code(s): L84 - Corns and callosities Status: Acute Assessment and Plan: We will plan to arrange for new diabetic inserts and depth shoes pending healing of wounds. Additional Plan Patient requires custom fabricated orthosis. The patient is unable to be fit with a pre fabricated orthosis. Patient's condition is expected duration of greater than 1 year. Due to the patients orthopedic status with bone and soft tissue deformity, weakness, neurologic involvement custom fabricating is necessary to prevent tissue injury. The patient requires a custom orthosis for the above condition. Subjective Subjective Date/Time Seen: 09/15/20 15:10 Patient returns to [facility] wound clinic today for re-evaluation of left foot osteomyelitis. The patient is 5 weeks, 3 days status post excision of osteomyelitis and 4 weeks, 6 days status post debridement of graft application and pin fixation. She has had both pins removed from the / rays and continues daily dressing changes in the interim. She has completed her course of IV antibiotics and is planned to have PICC line removed this Monday. She is scheduled to see Dr. Barth this afternoon. Review of Systems Constitutional: Constitutional: Denies fever(s) Eyes: Eyes: Denies blurry vision ENT: Reports Normal hearing present Cardiovascular: Cardiovascular: Denies chest pain and Denies dyspnea Respiratory: Respiratory: Denies dyspnea and Denies wheezing Gastrointestinal: Gastrointestinal: Denies abdominal pain Genitourinary: Genitourinary: Denies urinary urgency Musculoskeletal: Musculoskeletal: Reports as per HPI and Reports numbness ( Both feet) Integumentary/Breasts: Skin/Breast: Reports as per HPI and Reports skin ulcer ( left plantar foot) Neurologic: Reports Normal hearing present, Denies behavioral changes, Denies confusion, Reports numbness (feet) and Denies convulsions Psychiatric: Psychiatric: Denies behavioral changes, Denies confusion and Denies hallucinations Endocrine: Endocrine: Denies heat intolerance Hematologic/Lymphatic: Hematologic/Lymphatic: Denies easy bleeding Allergic/Immunologic: Allergic/Immunologic: Denies wheezing Exam Const: General: No confusion Orientation/consciousness: No confusion HENMT: Head: normal to inspection, normocephalic and atraumatic Eyes: Conjunctivae: conjunctivae normal Sclera: sclerae normal Neck: Neck: supple and nontender Chest: Chest palpation & inspection: normal inspection of the chest Resp: Effort & Inspection: normal respiratory effort and no audible wheezes Cardio: Rate: regular rate Rhythm: regular rhythm : General: Yes deferred Skin: General skin exam: no rashes or lesions noted Neuro: General: No confusion Extrem: General: capillary refill normal Right upper
--- NOTE | 2020-09-22 09:28 | PM.PNORT ---
Progress Note: A&P Assessment and Plan (1) Acute osteomyelitis of left foot: Code(s): M86.172 - Other acute osteomyelitis, left ankle and foot Status: Acute Assessment and Plan: Patient is now 6 weeks, 3 days status post excision of osteomyelitis 5 weeks, 6 days status post graft application and pin fixation. She has been performing daily dressing changes with silver gel, gauze pads, wrapped with Kerlix and ABD. Wounds with continued improvement in dimensions and appearance, see physical exam. No signs of acute infection. Patient no longer has PICC line in place. Completed course of antibiotics. Recommended continuation of daily dressing changes at this time. Reviewed signs and symptoms of infection to report to the office immediately. Patient to continue postop shoe with protective weight-bearing through the heel. Patient follow-up in 2 weeks for re-evaluation. Patient would benefit from custom orthotics and depth shoes to transition to pending healing of wound. Will refax information to [employer] and patient instructed to contact office for fittings. (2) Callus of foot: Code(s): L84 - Corns and callosities Status: Acute Assessment and Plan: Additional Plan Patient requires custom fabricated orthosis. The patient is unable to be fit with a pre fabricated orthosis. Patient's condition is expected duration of greater than 1 year. Due to the patients orthopedic status with bone and soft tissue deformity, weakness, neurologic involvement custom fabricating is necessary to prevent tissue injury. The patient requires a custom orthosis for the above condition. Subjective Subjective Date/Time Seen: 09/22/20 09:28 Patient returns to [facility] wound clinic today for re-evaluation of left foot osteomyelitis. The patient is 6 weeks, 3 days status post excision of osteomyelitis and 5 weeks, 6 days status post debridement of graft application and pin fixation. She has completed her course of IV antibiotics has had her PICC line removed last Monday. She is no longer on antibiotics. She has no new concerns. Tolerating dressing changes well. Has not heard from orthotic company to begin process for custom orthotics/depth shoes. Review of Systems Constitutional: Constitutional: Denies fever(s) Eyes: Eyes: Denies blurry vision ENT: Reports Normal hearing present Cardiovascular: Cardiovascular: Denies chest pain and Denies dyspnea Respiratory: Respiratory: Denies dyspnea and Denies wheezing Gastrointestinal: Gastrointestinal: Denies abdominal pain Genitourinary: Genitourinary: Denies urinary urgency Musculoskeletal: Musculoskeletal: Reports as per HPI and Reports numbness ( Both feet) Integumentary/Breasts: Skin/Breast: Reports as per HPI and Reports skin ulcer ( left plantar foot) Neurologic: Reports Normal hearing present, Denies behavioral changes, Denies confusion, Reports numbness (feet) and Denies convulsions Psychiatric: Psychiatric: Denies behavioral changes, Denies confusion and Denies hallucinations Endocrine: Endocrine: Denies heat intolerance Hematologic/Lymphatic: Hematologic/Lymphatic: Denies easy bleeding Allergic/Immunologic: Allergic/Immunologic: Denies wheezing Exam Const: General: No confusion Orientation/consciousness: No confusion HENMT: Head: normal to inspection, normocephalic and atraumatic Eyes: Conjunctivae: conjunctivae normal Sclera: sclerae normal Neck: Neck: supple and nontender Chest: Chest palpation & inspection: normal inspection of the chest Resp: Effort & Inspection: normal respiratory effort and no audible wheezes Cardio: Rate: regular rate Rhythm: regular rhythm : General: Yes deferred Skin: General skin exam: no rashes or lesions noted Neuro: General: No confusion Extrem: General: capillary refill normal Right upper extremity: normal to inspection Left upper extremity: normal to inspection Right lower extremity: normal to inspection, hip/th
--- NOTE | 2020-10-06 08:34 | PM.PNORT ---
Progress Note: A&P Assessment and Plan (1) Acute osteomyelitis of left foot: Code(s): M86.172 - Other acute osteomyelitis, left ankle and foot Status: Acute Assessment and Plan: Patient is now 8 weeks, 3 days status post excision of osteomyelitis 7 weeks, 6 days status post graft application and pin fixation. She has been performing daily dressing changes with silver gel, gauze pads, wrapped with Kerlix and ABD. All wounds now completely healed/closed with good tissue, see physical exam. No signs of acute infection. Patient has transitioned back to her tennis shoes/previous custom orthotics. We did discuss potential for recurrent ulceration given the fact that her current orthotics are not optimal. She is awaiting custom orthotic fabrication appt at this time. We discussed need for daily foot checks. Patient verbalized understanding. She is awaiting DF exam by PCP for orthotic approval. Patient follow-up in 4 weeks for foot check. (2) Callus of foot: Code(s): L84 - Corns and callosities Status: Acute Assessment and Plan: Additional Plan Patient requires custom fabricated orthosis. The patient is unable to be fit with a pre fabricated orthosis. Patient's condition is expected duration of greater than 1 year. Due to the patients orthopedic status with bone and soft tissue deformity, weakness, neurologic involvement custom fabricating is necessary to prevent tissue injury. The patient requires a custom orthosis for the above condition. Subjective Subjective Date/Time Seen: 10/06/20 08:34 Review of Systems Constitutional: Constitutional: Denies fever(s) Eyes: Eyes: Denies blurry vision ENT: Reports Normal hearing present Cardiovascular: Cardiovascular: Denies chest pain and Denies dyspnea Respiratory: Respiratory: Denies dyspnea and Denies wheezing Gastrointestinal: Gastrointestinal: Denies abdominal pain Genitourinary: Genitourinary: Denies urinary urgency Musculoskeletal: Musculoskeletal: Reports as per HPI and Reports numbness ( Both feet) Integumentary/Breasts: Skin/Breast: Reports as per HPI and Reports skin ulcer ( left plantar foot) Neurologic: Reports Normal hearing present, Denies behavioral changes, Denies confusion, Reports numbness (feet) and Denies convulsions Psychiatric: Psychiatric: Denies behavioral changes, Denies confusion and Denies hallucinations Endocrine: Endocrine: Denies heat intolerance Hematologic/Lymphatic: Hematologic/Lymphatic: Denies easy bleeding Allergic/Immunologic: Allergic/Immunologic: Denies wheezing Exam Const: General: No confusion Orientation/consciousness: No confusion HENMT: Head: normal to inspection, normocephalic and atraumatic Eyes: Conjunctivae: conjunctivae normal Sclera: sclerae normal Neck: Neck: supple and nontender Chest: Chest palpation & inspection: normal inspection of the chest Resp: Effort & Inspection: normal respiratory effort and no audible wheezes Cardio: Rate: regular rate Rhythm: regular rhythm : General: Yes deferred Skin: General skin exam: no rashes or lesions noted Neuro: General: No confusion Extrem: General: capillary refill normal Right upper extremity: normal to inspection Left upper extremity: normal to inspection Right lower extremity: normal to inspection, hip/thigh Details: normal to inspection and foot Details: vascular exam Details: dorsalis pedis pulse present and normal capillary refill and motor-sensory exam Details: two point discrimination abnormal Location: in all toes and light-touch abnormal Location: in all toes; no tenderness Left lower extremity: hip/thigh Details: normal to inspection, knee Details: abnormal ROM ( range of motion deferred secondary to fracture), ankle (no calf tenderness) Details: normal to inspection, normal ROM, ecchymosis, crepitus, achilles tendon exam abnormal and other ( good capillary refill in toes, 2+ DP pulse, light touch sensation intact); n
--- NOTE | 2020-10-09 08:59 | PM.PNORT ---
Progress Note: A&P Assessment and Plan (1) Acute osteomyelitis of left foot: Code(s): M86.172 - Other acute osteomyelitis, left ankle and foot Status: Acute Assessment and Plan: Patient is now 9 weeks, 3 days status post excision of osteomyelitis 8 weeks, 6 days status post graft application and pin fixation. No signs of acute infection. Patient was concerned about burning pain which is worse at night. Also some associated swelling. Possible this could some changes in her diabetic neuropathy. We discussed this with her. She is already on medication for her diabetes. She has also been scheduled for abdominal surgery. Were going to hold off from adding anything to her medication regimen. Patient has transitioned back to her tennis shoes/previous custom orthotics. We did discuss potential for recurrent ulceration given the fact that her current orthotics are not optimal. She is awaiting custom orthotic fabrication appt at this time. We discussed need for daily foot checks. Patient verbalized understanding. She is awaiting DF exam by PCP for orthotic approval. Patient follow-up in 3 weeks for foot check. (2) Callus of foot: Code(s): L84 - Corns and callosities Status: Acute Assessment and Plan: Additional Plan Patient requires custom fabricated orthosis. The patient is unable to be fit with a pre fabricated orthosis. Patient's condition is expected duration of greater than 1 year. Due to the patients orthopedic status with bone and soft tissue deformity, weakness, neurologic involvement custom fabricating is necessary to prevent tissue injury. The patient requires a custom orthosis for the above condition. Subjective Subjective Date/Time Seen: 10/09/20 08:59 Post Op day: 9 weeks Principal diagnosis: left diabetic foot infection Interval history: 9 weeks status post debridement of left foot diabetic infection. Patient presents today complaining of increased burning and swelling left foot over the past 2 days. No fever or chills. No change in the appearance of the incision. Review of Systems Constitutional: Constitutional: Denies fever(s) Eyes: Eyes: Denies blurry vision ENT: Reports Normal hearing present Cardiovascular: Cardiovascular: Denies chest pain and Denies dyspnea Respiratory: Respiratory: Denies dyspnea and Denies wheezing Gastrointestinal: Gastrointestinal: Denies abdominal pain Genitourinary: Genitourinary: Denies urinary urgency Musculoskeletal: Musculoskeletal: Reports as per HPI and Reports numbness ( Both feet) Integumentary/Breasts: Skin/Breast: Reports as per HPI and Reports skin ulcer ( left plantar foot) Neurologic: Reports Normal hearing present, Denies behavioral changes, Denies confusion, Reports numbness (feet) and Denies convulsions Psychiatric: Psychiatric: Denies behavioral changes, Denies confusion and Denies hallucinations Endocrine: Endocrine: Denies heat intolerance Hematologic/Lymphatic: Hematologic/Lymphatic: Denies easy bleeding Allergic/Immunologic: Allergic/Immunologic: Denies wheezing Exam Const: General: No confusion Orientation/consciousness: No confusion HENMT: Head: normal to inspection, normocephalic and atraumatic Eyes: Conjunctivae: conjunctivae normal Sclera: sclerae normal Neck: Neck: supple and nontender Chest: Chest palpation & inspection: normal inspection of the chest Resp: Effort & Inspection: normal respiratory effort and no audible wheezes Cardio: Rate: regular rate Rhythm: regular rhythm : General: Yes deferred Skin: General skin exam: no rashes or lesions noted Neuro: General: No confusion Extrem: General: capillary refill normal Right upper extremity: normal to inspection Left upper extremity: normal to inspection Right lower extremity: normal to inspection, hip/thigh Details: normal to inspection and foot Details: vascular exam Details: dorsalis pedis pulse present and normal capillary refi
--- NOTE | 2020-11-03 08:28 | PM.PNORT ---
Progress Note: A&P Assessment and Plan (1) Acute osteomyelitis of left foot: Code(s): M86.172 - Other acute osteomyelitis, left ankle and foot Status: Acute Assessment and Plan: Patient is now 12 weeks, 3 days status post excision of osteomyelitis. Eleven weeks, 6 days status post graft application and pin fixation. Wounds remain well healed. She is currently awaiting custom orthotics in depth shoes by the [facility]. We did discuss potential for recurrent ulceration given the fact that her current orthotics are not optimal. She is aware of the need to check her feet daily. Reviewed signs and symptoms of a wound infection to report to the emergency room or our office immediately. Patient verbalized understanding agrees with plan of care. Patient to follow up as needed. (2) Callus of foot: Code(s): L84 - Corns and callosities Status: Acute Assessment and Plan: Additional Plan Patient requires custom fabricated orthosis. The patient is unable to be fit with a pre fabricated orthosis. Patient's condition is expected duration of greater than 1 year. Due to the patients orthopedic status with bone and soft tissue deformity, weakness, neurologic involvement custom fabricating is necessary to prevent tissue injury. The patient requires a custom orthosis for the above condition. Subjective Subjective Date/Time Seen: 11/03/20 08:28 Patient presents to [facility] today 12 weeks, 3 days status post debridement of left diabetic foot ulcer. No new complaints today in regards to her foot. Her wound is still closed. She is awaiting her orthotic fitting appointment on November 24 the [facility]. She denies fever or chills. Review of Systems Constitutional: Constitutional: Denies fever(s) Eyes: Eyes: Denies blurry vision ENT: Reports Normal hearing present Cardiovascular: Cardiovascular: Denies chest pain and Denies dyspnea Respiratory: Respiratory: Denies dyspnea and Denies wheezing Gastrointestinal: Gastrointestinal: Denies abdominal pain Genitourinary: Genitourinary: Denies urinary urgency Musculoskeletal: Musculoskeletal: Reports as per HPI and Reports numbness ( Both feet) Integumentary/Breasts: Skin/Breast: Reports as per HPI and Reports skin ulcer ( left plantar foot) Neurologic: Reports Normal hearing present, Denies behavioral changes, Denies confusion, Reports numbness (feet) and Denies convulsions Psychiatric: Psychiatric: Denies behavioral changes, Denies confusion and Denies hallucinations Endocrine: Endocrine: Denies heat intolerance Hematologic/Lymphatic: Hematologic/Lymphatic: Denies easy bleeding Allergic/Immunologic: Allergic/Immunologic: Denies wheezing Exam Const: General: No confusion Orientation/consciousness: No confusion HENMT: Head: normal to inspection, normocephalic and atraumatic Eyes: Conjunctivae: conjunctivae normal Sclera: sclerae normal Neck: Neck: supple and nontender Chest: Chest palpation & inspection: normal inspection of the chest Resp: Effort & Inspection: normal respiratory effort and no audible wheezes Cardio: Rate: regular rate Rhythm: regular rhythm : General: Yes deferred Skin: General skin exam: no rashes or lesions noted Neuro: General: No confusion Extrem: General: capillary refill normal Right upper extremity: normal to inspection Left upper extremity: normal to inspection Right lower extremity: normal to inspection, hip/thigh Details: normal to inspection and foot Details: vascular exam Details: dorsalis pedis pulse present and normal capillary refill and motor-sensory exam Details: two point discrimination abnormal Location: in all toes and light-touch abnormal Location: in all toes; no tenderness Left lower extremity: hip/thigh Details: normal to inspection, knee Details: abnormal ROM ( range of motion deferred secondary to fracture), ankle (no calf tenderness) Details: normal to inspect
== END 2020-11-05 07:48 | disposition home or self-care (01) ==
LOC: ANHWOC 07:24
PROVIDERS: PCP Family Medicine Adolescent Medicine; Referring Provider Orthopaedic Surgery; Visit Provider Orthopaedic Surgery
DX: E11.621 Type 2 diabetes mellitus with foot ulcer (principal); L97.529 Non-pressure chronic ulcer of other part of left foot with unspecified severity
CPT/HCPCS: 29445; 99211; 99212; 99213; G0463

== ENCOUNTER → 2021-04-05 07:58 | Outpatient (CLI) | payer MEDICARE, OTHER, SELFPAY ==
--- NOTE | ~2021-04-05 | MMUS_ITS ---
EXAMINATION: MM diagnostic eduardo LT w lo, US breast LT limited HISTORY: Six-month follow-up. Patient states left lung has resolved. TECHNIQUE: ML, MLO and craniocaudal 3-D tomosynthesis images of the left breast were performed and sy nthetic 2-D images were generated. CAD analysis was submitted and interpreted. High resolution target ed to o'clock left breast ultrasound breast ultrasound was performed. COMPARISON: 09/29/2020 bilateral diagnostic digital mammogram and limited left breast ultrasound 09/05/2019 bilateral digital screening mammogram BREAST PARENCHYMAL COMPOSITION: There are scattered areas of fibroglandular density. FINDINGS: MAMMOGRAPHIC FINDINGS: There is postoperative surgical change and retraction as well as calcified fat necrosis of the left b reast. There are scattered additional benign calcifications. No interval suspicious mass or new architectural distortion or new thickening or retraction or other significant change is detected. ULTRASOUND: The previously reported left breast 2:00 hyperechoic area currently measures 5.1 x 4.3 x 6.6 mm, mild ly diminished in size compared to the 6.5 x 5.5 x 6.7 mm dimension on 09/30/2019 is no suspicious inte rval vascularity or shadowing. IMPRESSION: 1. Stable benign postsurgical change including calcified fat necrosis 2. Bilateral screening mammogram is recommended in 6 months BI-RADS Category 2: Benign finding(s). Reviewed, dictated and finalized at location A. IMPRESSION: 1. Stable benign postsurgical change including calcified fat necrosis 2. Bilateral screening mammogram is recommended in 6 months BI-RADS Category 2: Benign finding(s).
== END ==
PROVIDERS: PCP Family Medicine Adolescent Medicine; Visit Provider Family Medicine Adolescent Medicine
DX: R92.8 Other abnormal and inconclusive findings on diagnostic imaging of breast (principal)
CPT/HCPCS: 76642; 77061; 77065; G0279

== ENCOUNTER 2021-04-27 10:12 | Outpatient (CLI) | payer MEDICARE, OTHER, SELFPAY ==
--- NOTE | ~2021-04-27 | US_ITS ---
EXAMINATION: US carotid duplex BI EXAM DATE: 04/27/2021 10:52 INDICATION: History of stroke. TECHNIQUE: Grayscale, color and pulsed Doppler images of the cervical carotid arteries were obtained . The degree of vessel stenosis is placed in one of the following categories: normal, <50% stenosis, 50-69% stenosis, >=70% stenosis but less than near-occlusion, near-occlusion, or occlusion. Note that percent stenosis relative to normal distal artery lumen diameter is indirectly measured from velocit y measurements as described by Dave, et al. Radiology 2003; 229:340-346. There is no prior study fo r comparison. FINDINGS: Cardiac arrhythmia suspected with a stronger systolic waveform closely followed by a weaker systolic waveform which is followed by a longer diastolic period. This then repeats and has consiste nt appearance throughout the exam. Bigeminy? Correlate with EKG. RIGHT SIDE: Right common carotid artery peak systolic velocity (PSV in cm/s): 81 Right bulb/internal carotid artery peak systolic velocity (PSV in cm/s): 121 Right internal carotid artery end diastolic velocity (EDV in cm/s): 32 Right ICA/CCA peak systolic ratio: 1.5 Right external carotid artery peak systolic velocity (PSV in cm/s): 162 Right vertebral artery antegrade flow: yes There is mild carotid bulb plaque. Velocity and Doppler waveforms in the common and internal carotid arteries is normal. LEFT SIDE: Left common carotid artery peak systolic velocity (PSV in cm/s): 126 Left bulb/internal carotid artery peak systolic velocity (PSV in cm/s): 126 Left internal carotid artery end diastolic velocity (EDV in cm/s): 43 Left ICA/CCA peak systolic ratio: 1.0 Left external carotid artery peak systolic velocity (PSV in cm/s): 83 Left vertebral artery antegrade flow: yes There is minimal carotid bulb plaque. Velocity and Doppler waveforms in the common and internal carotid arteries is normal. IMPRESSION: 1. Less than 50 percent stenosis in the right internal carotid artery. 2. Less than 50 percent stenosis in the left internal carotid artery. 3. Arrhythmia. Possibly bigeminy. Correlate with EKG. Reviewed, dictated and finalized at location A.
== END 2021-04-27 10:13 | disposition home or self-care (01) ==
LOC: ANHIMG 10:17
PROVIDERS: PCP Family Medicine Adolescent Medicine; Visit Provider Nurse Practitioner Adult Health
DX: I65.23 Occlusion and stenosis of bilateral carotid arteries (principal); Z86.73 Personal history of transient ischemic attack (TIA), and cerebral infarction without residual deficits
CPT/HCPCS: 93880

== ENCOUNTER → 2021-06-17 04:36 | Outpatient (CLI) | payer MEDICARE, OTHER, SELFPAY ==
[2021-06-17 17:37] LABS: SARS-CoV-2 RNA PCR Negative
== END ==
PROVIDERS: PCP Family Medicine Adolescent Medicine; Visit Provider Physician Assistant
DX: R68.89 Other general symptoms and signs (principal); Z20.822 Contact with and (suspected) exposure to COVID-19
CPT/HCPCS: C9803; U0003; U0005

== ENCOUNTER 2022-08-11 01:46 | Day surgery (SDC) | payer MEDICARE, OTHER, SELFPAY ==
[2022-07-26 12:19] VITALS: BMI 32.3
--- NOTE | 2022-08-10 11:21 | PM.HPGS ---
History of Present Illness History of Present Illness Consent: Risks, benefits, and alternatives have been discussed and questions answered. Patient agrees to proceed with procedure. Chief complaint: colitis, diarrhea Narrative: Aurea De La Rosa is a 71 year old female Who is undergoing colon cancer screening. She had had a previous sigmoid colon resection for severe and obstructing diverticular disease. In fact attempts to advance beyond the sigmoid colon were unsuccessful here and at [facility]. She now has had diarrhea. For the last couple years she has had frequent episodes of diarrhea.? She may have almost normal stools for few days and then suddenly will have watery stools.? I time she will have a seemingly normal bowel movement or 2 and immediately afterwards has watery stool.? She does not have cramping with this.? There is a great deal of urgency with that.? She does not see blood her stools. Review of Systems Review of Systems: All systems reviewed & are unremarkable except as noted in HPI and below PMFSH Past Medical History Medical History Abscess of left foot including toes (~07/2020) Requiring excisional debridement including bone due to osteomyelitis. Acute osteomyelitis of left foot ADH disorder Anemia Anxiety Attention deficit hyperactivity disorder Cerebrovascular accident Noted on brain CT, unknown to the patient. 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 Diverticulitis large intestine Ductal carcinoma in situ of left breast 2016 Status post partial mastectomy and radiation. ER/[place] and HER2 [place] negative. History of adenomatous polyp of colon Hypertension Irritable bowel syndrome with diarrhea Left knee DJD Menieres disease With chronic tinnitus and left-sided hearing loss. Obstructive sleep apnea Compliant with CPAP. Right knee DJD Right knee pain Stricture of sigmoid colon (~02/2020) Secondary to diverticulitis, status post loop sigmoid colostomy. Thyroid nodule Bilateral benign follicular nodules on FNA in June 2018. Ulcer of right foot due to type 2 diabetes mellitus Surgical History Surgical History History of cataract extraction History of cholecystectomy History of dilation and curettage x3. History of foot surgery Left foot surgery with hardware. History of left breast biopsy (~12/2017) With benign histology. History of open sigmoidectomy sigmoidectomy w/ closotomy closer 4/7 History of partial mastectomy of left breast (~07/2016) For treatment of high-grade DCIS with sentinel lymph node sampling and bilateral reduction mammoplasty. History of tonsillectomy Family History Family History Father Diabetes mellitus Cancer of pancreas Sibling Family history of type 1 diabetes mellitus Mother Hypertension Heart disease Alzheimer's dementia Social History Social History Social History: The patient lives in [place] with her . 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 Smoked 0.25 packs of cigarettes a day for about 15 years and quit about a year ago. Drinks perhaps 1 alcoholic beverage a month. No illicit substance use. She designates her , Josh, as her surrogate decision maker and she wishes to be a full code. Smoking packs per day: 0.25 Smoking cigarettes per day: 5.0 Years smoked: 20 Smoking pack-years: 5.00 Smoking status: Former smoker Tobacco type: cigarettes Second hand tobacco smoke exposure: No Smoking end date: 02/14/21 Additional smoking assessment comments: Summer social smoking Alcohol intake: current Alcohol use details: Socially Substance use: never Substance use type: does not use Living arrangements: alone Additional living arrangements comments: Occupatio
[2022-08-11 07:55] VITALS: BP 142/79; PULSE 85; RESP 18; TEMP 36.5; O2SAT 96; BMI 32.9
[2022-08-11 08:15] LABS: Glucose Point of Care 131 mg/dl (65-105)
[2022-08-11] MEDS: LACTATED RINGERS 1,000 ML 150 ML IV CONT (08:21)
--- NOTE | 2022-08-11 08:55 | WPDANESEPPF ---
Anes - Initial Pre Proc Eval Procedure: Operation Date: 08/11/22 09:00 Proposed Procedures p Colonoscopy - Julio C Mcmullen MD Date/Time: 08/11/22 08:55 Surgeon: Julio C Mcmullen MD Pre Op Diagnosis: colitis, diarrhea Patient Data Age: 71 Gender: F Height: 1.63 m Weight: 87 kg Last Vital Signs Temp 97.7 F 08/11/22 07:55 Pulse 85 08/11/22 07:55 Resp 18 08/11/22 07:55 BP 142/79 H 08/11/22 07:55 Pulse Ox 96 08/11/22 07:55 O2 Del Method Room Air 08/11/22 07:55 Allergies Allergy/AdvReac Type Severity Reaction Status Date / Time morphine AdvReac Nausea and Verified 08/11/22 08:06 Vomiting Home Medications Medication Instructions Recorded Confirmed Type diazepam 2 mg tablet 2 mg PO PRN PRN Dizziness 02/24/20 08/11/22 History magnesium 250 mg tablet 500 mg PO TID 02/24/20 08/11/22 History ondansetron HCl 8 mg tablet 8 mg PO Q12H PRN nausea and 02/24/20 08/11/22 History vomiting venlafaxine 150 mg tablet,extended 300 mg PO DAILY 02/24/20 08/11/22 History release 24 hr riboflavin (vitamin B2) 400 mg 400 mg PO HS 03/02/20 08/11/22 History tablet Betahistine 8 mg PO TID 10/05/20 08/11/22 History cholecalciferol (vitamin D3) 25 25 mcg PO DAILY 10/05/20 08/11/22 History mcg (1,000 unit) capsule (Vitamin D3) fluticasone propionate 50 2 spray intranasal DAILY PRN 11/10/21 08/11/22 History mcg/actuation nasal Allergic Symptoms spray,suspension (Flonase Allergy Relief) metoprolol succinate 50 mg 50 mg PO DAILY 11/10/21 08/11/22 History tablet,extended release 24 hr quetiapine 25 mg tablet 50 mg PO HS 11/10/21 08/11/22 History levothyroxine 75 mcg tablet 75 mcg PO DAILY #90 tabs 11/17/21 08/11/22 Rx canagliflozin 100 mg tablet 100 mg PO DAILY #90 tabs 01/19/22 08/11/22 Rx (Invokana) atorvastatin 40 mg tablet 80 mg PO HS #180 tabs 01/28/22 08/11/22 Rx enalapril maleate 20 mg tablet 20 mg PO QAM #90 tabs 03/17/22 08/11/22 Rx insulin glargine 100 unit/mL 100 unit subcut QPM #30 mL 06/06/22 08/11/22 Rx subcutaneous solution (Lantus U-100 Insulin) blood sugar diagnostic 06/20/22 08/11/22 History blood sugar diagnostic (OneTouch #100 ea 06/21/22 08/11/22 Rx Ultra Test strips) lancets 33 gauge #100 ea 06/21/22 08/11/22 Rx metformin 500 mg tablet,extended 1,000 mg PO BID #120 tabs 07/19/22 08/11/22 Rx release 24 hr aspirin 81 mg tablet 81 mg PO DAILY 07/26/22 08/11/22 History Laboratory Tests 08/11/22 08:13 POC Capillary Glucose 131 mg/dl H mg/dl (65-105) Patient hx anesthesia problems: none Family hx anesthesia problems: none Results Review: All pre-operative results and documents have been reviewed as part of the pre-operative evaluation. [facility] Past Medical History Medical History Abscess of left foot including toes (~07/2020) Requiring excisional debridement including bone due to osteomyelitis. Acute osteomyelitis of left foot ADH disorder Anemia Anxiety Attention deficit hyperactivity disorder Cerebrovascular accident Noted on brain CT, unknown to the patient. 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 Diverticulitis large intestine Ductal carcinoma in situ of left breast 2016 Status post partial mastectomy and radiation. ER/MT and HER2 Mary Grace negative. History of adenomatous polyp of colon Hypertension Irritable bowel syndrome with diarrhea Left knee DJD Menieres disease With chronic tinnitus and left-sided hearing loss. Obstructive sleep apnea Compliant with CPAP. Right knee DJD Right knee pain Stricture of sigmoid colon (~02/2020) Secondary to diverticulitis, status post loop sigmoid colostomy. Thyroid nodule Bilateral benign follicular nodules on FNA in June 2018. Ulcer of right foot due to type 2 diabetes mellitus Surgical History Surgical History
[2022-08-11 09:25] VITALS: BP 105/54; PULSE 80; RESP 30; O2SAT 100
[2022-08-11 09:35] VITALS: BP 130/58; PULSE 79; RESP 17; O2SAT 98
[2022-08-11 09:40] LABS: Glucose Point of Care 118 mg/dl (65-105)
[2022-08-11 09:45] VITALS: BP 167/60; PULSE 78; RESP 15; O2SAT 100
== END 2022-08-11 10:00 | disposition home or self-care (01) ==
PROVIDERS: PCP Family Medicine Adolescent Medicine; Visit Provider Internal Medicine Gastroenterology
PROC: 0DJD8ZZ Inspection of Lower Intestinal Tract, Via Natural or Artificial Opening Endoscopic (ICD-10-PCS; CPT 45378; principal; 2022-08-11 09:00)
DX: Z12.11 Encounter for screening for malignant neoplasm of colon (principal); D12.4 Benign neoplasm of descending colon; K63.5 Polyp of colon; K52.9 Noninfective gastroenteritis and colitis, unspecified; K57.30 Diverticulosis of large intestine without perforation or abscess without bleeding; I10 Essential (primary) hypertension; E11.9 Type 2 diabetes mellitus without complications; D64.9 Anemia, unspecified; H81.09 Meniere's disease, unspecified ear; F41.9 Anxiety disorder, unspecified; Z79.4 Long term (current) use of insulin; Z79.84 Long term (current) use of oral hypoglycemic drugs; Z85.3 Personal history of malignant neoplasm of breast; Z92.3 Personal history of irradiation; Z90.49 Acquired absence of other specified parts of digestive tract; Z87.891 Personal history of nicotine dependence; E66.9 Obesity, unspecified; Z68.32 Body mass index [BMI] 32.0-32.9, adult; Z87.19 Personal history of other diseases of the digestive system
CPT/HCPCS: 45385; 45380; 82948; 88305; J2704; J7120

== ENCOUNTER → 2022-09-02 13:57 | Outpatient (CLI) | payer MEDICARE, OTHER, SELFPAY ==
--- NOTE | ~2022-09-02 | MM_ITS ---
EXAMINATION: MM screening eduardo BI w lo HISTORY: Screening mammogram TECHNIQUE: Craniocaudal and mediolateral oblique 3-D tomosynthesis images were obtained and synthetic 2-D images were generated. CAD analysis was submitted and interpreted. COMPARISON: 04/05/2021 diagnostic left mammogram and limited left breast ultrasound 3. Sites diagnostic bilateral mammogram and limited left breast ultrasound 09/05/2019, 07/04/2018 bilateral screening mammogram examinations BREAST PARENCHYMAL COMPOSITION: There are scattered areas of fibroglandular density. FINDINGS: There is volume loss of the left breast, with surgical clips in the posterior mid to upper outer left breast, prominent calcified fat necrosis, architectural distortion and overlying retractio n. There are 2 biopsy markers in the right breast; history of prior benign right breast biopsy. Scattered bilateral benign calcifications. There is no evidence of suspicious mass, calcification, or new architectural distortion to suggest in terval malignancy in either breast. There has been no suspicious interval change. IMPRESSION: 1. Status post left partial mastectomy for breast cancer No mammographic evidence of malignancy. 2. Recommend routine screening mammography in one year. BI-RADS Category 2: Benign finding(s). Reviewed, dictated and finalized at location A. L HAULER IMPRESSION: 1. Status post left partial mastectomy for breast cancer No mammographic eviden ce of malignancy. 2. Recommend routine screening mammography in one year. BI-RADS Category 2: Benign finding(s).
== END ==
PROVIDERS: PCP Family Medicine Adolescent Medicine; Visit Provider Family Medicine Adolescent Medicine
DX: Z12.31 Encounter for screening mammogram for malignant neoplasm of breast (principal)
CPT/HCPCS: 77063; 77067

== ENCOUNTER 2022-12-02 13:40 | Outpatient (CLI) | payer MEDICARE, OTHER, SELFPAY ==
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
== END 2022-12-02 13:41 | disposition home or self-care (01) ==
PROVIDERS: PCP Family Medicine Adolescent Medicine; Visit Provider Otolaryngology
DX: B49 Unspecified mycosis (principal); J30.89 Other allergic rhinitis; J32.9 Chronic sinusitis, unspecified
CPT/HCPCS: 70486

== ENCOUNTER 2022-12-13 15:33 | Emergency (ER) | payer MEDICARE, OTHER, SELFPAY ==
[2022-12-13 17:27] VITALS: BP 155/72; PULSE 77; RESP 16; TEMP 36.6; O2SAT 99
--- NOTE | 2022-12-13 20:27 | ECG_ITS ---
Measurements Intervals [place] Rate: 75 P: 69 WY: 222 QRS: 5 QRSD: 106 T: 122 QT: 380 QTc: 426 Interpretive Statements SINUS RHYTHM WITH FIRST DEGREE AV BLOCK LEFT VENTRICULAR HYPERTROPHY WITH ST-T CHANGE CANNOT RULE OUT SEPTAL INFARCT, AGE INDETERMINATE BASELINE ARTIFACT- I, II, AVR, V1 ABNORMAL ECG COMPARED TO ECG 10/05/2020 16:11:16 FIRST DEGREE AV BLOCK NOW PRESENT Electronically Signed On 12-14-2022 8:12:05 CDT by Kevin Black D.O.
[2022-12-13 20:49] LABS: Glucose Point of Care 52 mg/dl (65-105)
[2022-12-13 20:49] LABS: Basophils Absolute Auto 0.1 K/mm3 (0.0-0.1); Basophils Percent Auto 0.8 % (0.2-1.2); Eosinophils Absolute Auto 2.6 K/mm3 (0-0.3); Eosinophils Percent Auto 14.8 % (0-4.4); Hematocrit 39.2 % (37.0-47.0); Hemoglobin 13.5 g/dL (12.0-15.0); Immature Granulocyte Percent A 0.6 % (0-0.5); Lymphocytes Absolute Auto 5.04 K/mm3 (0.9-3.2); Lymphocytes Percent Auto 29.3 % (18.3-44.2); Mean Corpuscular HGB Conc 34.4 g/dl (32-36); Mean Corpuscular Hemoglobin 31.1 pg (26-34); Mean Corpuscular Volume 90.3 fl (80-100); Mean Platelet Volume 9.9 fl (7.4-10.4); Monocytes Absolute Auto 1.2 K/mm3 (0.1-0.6); Monocytes Percent Auto 6.7 % (2.6-8.5); Neutrophils Absolute Auto 8.3 K/mm3 (1.3-6.7); Neutrophils Percent Auto 47.8 % (45.5-73.1); Platelet Count Result 322 k/mm3 (150-375); Red Blood Count 4.34 M/mm3 (4.2-5.4); Red Cell Distribution Width 13.2 % (11.5-14.5); White Blood Count 17.2 K/mm3 (4.5-10.0)
--- NOTE | 2022-12-13 21:02 | PC.NURSE ---
Doctor Alvaro notified of blood glucose of 52. Per Doctor Alvaro pt given 300 ML of [place] juice. Blood glucose recheck is 74 at this time.
[2022-12-13 21:07] LABS: NT Pro B Type Natriuretic Pept 981 pg/mL (19.9-100)
[2022-12-13 21:08] LABS: Glucose Point of Care 74 mg/dl (65-105)
[2022-12-13 21:12] LABS: Alanine Aminotransferase 22 U/L (6-35); Albumin Level 3.9 g/dL (3.5-5.1); Alkaline Phosphatase 144 U/L (38-126); Anion Gap 10 mmol/L (8-16); Aspartate Amino Transferase 28 U/L (14-36); Bilirubin,Total 0.4 mg/dL (0.2-1.3); Blood Urea Nitrogen 9 mg/dL (7-17); Calcium 8.8 mg/dL (8.4-10.2); Carbon Dioxide 27 mmol/L (22-30); Chloride 104 mmol/L (98-107); Estimated CRCL calculation 91 ml/min; Estimated Glomerular Filt Rate > 60; Glucose 55 mg/dL (65-110); Magnesium 1.7 mg/dL (1.6-2.3); Potassium 3.6 mmol/L (3.4-5.0); Sodium 141 mmol/L (137-145)
[2022-12-13] MEDS: MECLIZINE HCL 25 MG TABLET PO (21:15)
[2022-12-13] MEDS: DEXTROSE 50% 25 GM/50 ML SYRINGE IV PUSH (21:16)
[2022-12-13 21:19] VITALS: BP 176/82; PULSE 72; RESP 17; O2SAT 100
[2022-12-13 22:01] LABS: Glucose Point of Care 106 mg/dl (65-105)
--- NOTE | 2022-12-13 22:11 | ED.GENADULT ---
HPI - General Adult General Chief complaint: Dizziness Stated complaint: DIZZY, BILAT ARM AND LEG TINGLING Time Seen by Provider: 12/13/22 20:19 History of Present Illness HPI narrative: Patient is a 72-year-old female who presents ER with multiple issues. Main complaint is dizziness. Began at when waking up this morning. Patient has history of M?ni?re's disease. No new sinus congestion or sore throat or cough but does have chronic sinus issues. Dizziness worse with any type of movement. She reports she is also had some intermittent tingling in her arms and legs but cannot attribute a cause to it. No fevers or chills. Began sweating upon getting a bed. Patient is diabetic. Additionally patient reports that she has some new swelling to her legs over the last day. She reports poor diet over the holiday weekend and ate more salt. No dyspnea or orthopnea. Related Data Home Medications Medication Instructions Recorded Confirmed diazepam 2 mg tablet 2 mg PO PRN PRN Dizziness 02/24/20 11/28/22 magnesium 250 mg tablet 500 mg PO TID 02/24/20 11/28/22 ondansetron HCl 8 mg tablet 8 mg PO Q12H PRN nausea and 02/24/20 11/28/22 vomiting venlafaxine 150 mg tablet,extended 300 mg PO DAILY 02/24/20 11/28/22 release 24 hr riboflavin (vitamin B2) 400 mg 400 mg PO HS 03/02/20 11/28/22 tablet Betahistine 8 mg PO TID 10/05/20 11/28/22 cholecalciferol (vitamin D3) 25 25 mcg PO DAILY 10/05/20 11/28/22 mcg (1,000 unit) capsule (Vitamin D3) fluticasone propionate 50 2 spray intranasal DAILY PRN 11/10/21 11/28/22 mcg/actuation nasal Allergic Symptoms spray,suspension (Flonase Allergy Relief) metoprolol succinate 50 mg 50 mg PO DAILY 11/10/21 11/28/22 tablet,extended release 24 hr quetiapine 25 mg tablet 50 mg PO HS 11/10/21 11/28/22 blood sugar diagnostic 06/20/22 11/28/22 aspirin 81 mg tablet 81 mg PO DAILY 07/26/22 11/28/22 empagliflozin 25 mg tablet 25 mg PO DAILY 10/04/22 11/28/22 (Jardiance) glimepiride 2 mg tablet 2 mg PO BID PRN 10/04/22 11/28/22 liraglutide 0.6 mg/0.1 mL (18 mg/3 1.2 mg subcut DAILY 10/04/22 11/28/22 mL) subcutaneous pen injector (Victoza 2-Dawson) liraglutide 0.6 mg/0.1 mL (18 mg/3 See Rx Instructions subcut .COMPLEX 11/21/22 11/28/22 mL) subcutaneous pen injector (Victoza 2-Dawson) Allergies Allergy/AdvReac Type Severity Reaction Status Date / Time morphine AdvReac Nausea and Verified 12/13/22 17:30 Vomiting Review of Systems Review of Systems: All systems reviewed & are unremarkable except as noted in HPI and below Constitutional: Constitutional: Denies chills, Denies fatigue and Denies fever(s) Comments: Sweats ENT: Reports dizziness, Denies nasal congestion and Denies sore throat Cardiovascular: Cardiovascular: Denies chest pain, Denies rapid heart rate and Denies radiating jaw, neck or arm pain Respiratory: Respiratory: Denies cough and Denies dyspnea Gastrointestinal: Gastrointestinal: Denies abdominal pain, Reports nausea and Denies vomiting Musculoskeletal: Musculoskeletal: Denies back pain and Denies myalgias Comments: leg edema Integumentary/Breasts: Skin/Breast: Denies erythema and Denies rash Neurologic: Denies headache(s) and Denies focal weakness Comments: paresthesia of arms PMFSH Past Medical History Medical History Abscess of left foot including toes (~07/2020) Requiring excisional debridement including bone due to osteomyelitis. Acute osteomyelitis of left foot ADH disorder Anemia Anxiety Attention deficit hyperactivity disorder Cerebrovascular accident Noted on brain CT, unknown to the patient. 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 Diverticulitis large intestine Ductal carcinoma in situ of left breast 2016 Status post partial mastectomy and radiation. ER/[place] and HER2 Mary Grace negative. History of adenomatous polyp of col
[2022-12-13 22:59] VITALS: BP 143/63; PULSE 75; RESP 13; O2SAT 100
== END 2022-12-13 23:36 | disposition home or self-care (01) ==
PROVIDERS: Emergency Provider Emergency Medicine; PCP Family Medicine Adolescent Medicine
DX: E11.649 Type 2 diabetes mellitus with hypoglycemia without coma (principal); H81.02 Meniere's disease, left ear; I10 Essential (primary) hypertension; M17.0 Bilateral primary osteoarthritis of knee; Z85.3 Personal history of malignant neoplasm of breast; Z86.010 Personal history of colon polyps; Z86.2 Personal history of diseases of the blood and blood-forming organs and certain disorders involving the immune mechanism; Z92.3 Personal history of irradiation; Z87.891 Personal history of nicotine dependence; Z79.82 Long term (current) use of aspirin; Z79.85 Long-term (current) use of injectable non-insulin antidiabetic drugs; Z90.12 Acquired absence of left breast and nipple; Z90.49 Acquired absence of other specified parts of digestive tract; Z98.49 Cataract extraction status, unspecified eye; I44.0 Atrioventricular block, first degree; I51.7 Cardiomegaly; R94.31 Abnormal electrocardiogram [ECG] [EKG]
CPT/HCPCS: 36415; 80053; 82948; 83735; 83880; 85025; 93005; 96374; 99284; A9270

== ENCOUNTER 2023-04-25 01:27 | Day surgery (SDC) | payer MEDICARE, OTHER, SELFPAY ==
[2023-03-09 08:59] VITALS: BMI 32.3
--- NOTE | 2023-03-09 09:12 | PC.NURSE ---
PRE-OP INSTRUCTIONS, PLEASE READ CAREFULLY Report to the Outpatient Waiting Room, entrance under the green pavilion located off [facility], at time _0730_ on date _03/14/23_. Planned Procedure Time: _0930_. Time changes happen often and if your time is changed the preop area will call you the afternoon before. - You and your visitor will be asked to self-screen and do not enter if you have any COVID symptoms. - A mask is optional within the hospital at this time. Patients may have clear liquids (water, carbonated beverages, clear teas, apple juice) until 3 hours prior to surgery (0630 AM) with a maximum of 20 ounces. - No food from midnight until time of surgery Take the following medications with a SIP of water the morning of surgery: _GABAPENTIN, LEVOTHYROXINE, METOPROLOL, VENLAFAXINE & NASAL SPRAY IF NEEDED - *NO DIABETIC MEDICATIONS AM OF SURGERY*_ DO NOT STOP ANY OF YOUR OTHER PRESCRIPTION MEDICATIONS PRIOR TO SURGERY ?EXCEPT THE FOLLOWING Medications to discontinue _ASPIRIN - CALL DR. DANIEL'S OFFICE FOR INSTRUCTIONS_ Please no make-up, nail congolese, hairspray, perfume, deodorant, or body powder the day of surgery. No jewelry (including any body piercings) or valuables the day of surgery, leave them at home. Please take a shower or bath the night before, or the morning of, surgery with an antibacterial soap. Wear comfortable, loose fitting clothing. - Jewelry must be removed prior to entering the operating room. Rings and piercings that are not removed may be cut off. - The hospital will not accept responsibility for valuables. - Please leave all valuables, including medications, at home the day of surgery. If you are going home after surgery, a licensed driver supervisor must drive you home. - NO public transportation without another adult if you receive anesthesia. - We recommend that an adult stay with you for 24 hours following discharge. - We also recommend that you do not drive, make important decision, drink alcoholic beverages, or take any drugs that were not prescribed by your health care provider for at least 24 hours after your discharge time. Follow any additional instructions given to you from your surgeon. If you or anyone in your household have experienced Covid symptoms in the past week, please notify your surgeon or the nurse liaison at the phone number below for possible testing. Telephone instructions given to _PATIENT_and asked if any additional questions and then verbalized understanding. Patient advised to call surgeon office or pre surgery nurse liaison [phone] if any additional questions.
[2023-04-17 15:39] VITALS: BMI 32.5
--- NOTE | 2023-04-17 15:58 | PC.NURSE ---
Report to the Outpatient Waiting Room, entrance under the green pavilion located off [facility], at time _11:30AM on date __04/25/23 . Planned Procedure Time: __1:30PM . Time changes happen often and if your time is changed the preop area will call you the afternoon before. - You and your visitor will be asked to self-screen and do not enter if you have any COVID symptoms. - A mask is optional within the hospital at this time. Patients may have clear liquids (water, carbonated beverages, clear teas, apple juice) until 3 hours prior to surgery with a maximum of 20 ounces. - No food from midnight until time of surgery. Take the following medications with a SIP of water the morning of surgery: _LEVOTHYROXINE, METOPROLOL, VENLAFAXINE AND 1/2 DOSE AM INSULIN. GABAPENTIN NEEDED. DO NOT STOP ANY OF YOUR OTHER PRESCRIPTION MEDICATIONS PRIOR TO SURGERY ?EXCEPT THE FOLLOWING Medications to discontinue per physician ___HOLD ASPIRIN PER DR DANIEL-PATIENT CALLING TO CONFIRM. HOLD ALL VITAMINS/SUPPLEMENTS 3 DAYS PRE-OP PER ANESTHESIA- LAST DOSE 04/21/23 Please no make-up, nail khmer, hairspray, perfume, deodorant, or body powder the day of surgery. No jewelry (including any body piercings) or valuables the day of surgery, leave them at home. Please take a shower or bath the night before, or the morning of, surgery with an antibacterial soap. Wear comfortable, loose fitting clothing. Children are encouraged to wear pajamas. - Jewelry must be removed prior to entering the operating room. Rings and piercings that are not removed may be cut off. - The hospital will not accept responsibility for valuables. - Please leave all valuables, including medications, at home the day of surgery. If you are going home after surgery, a licensed driver/guide must drive you home. - NO public transportation without another adult if you receive anesthesia. - We recommend that an adult stay with you for 24 hours following discharge. - We also recommend that you do not drive, make important decision, drink alcoholic beverages, or take any drugs that were not prescribed by your health care provider for at least 24 hours after your discharge time. Follow any additional instructions given to you from your surgeon. If you or anyone in your household have experienced Covid symptoms in the past week, please notify your surgeon or the nurse liaison at the phone number below for possible testing. Telephone instructions given to __PATIENT and asked if any additional questions and then verbalized understanding. Patient advised to call surgeon office or pre surgery nurse liaison [phone] if any additional questions.
--- NOTE | 2023-04-24 17:12 | PM.IMHP ---
H&P: HPI History of Present Illness Date/Time: 04/24/23 17:12 Chief Complaint: chronic sinusitis septal deviation Narrative: planned procedure Review of Systems Review of Systems: All systems reviewed & are unremarkable except as noted in HPI and below PMFSH Past Medical History Medical History (Updated 04/24/23 @ 17:13 by Braulio Leo MD) Abscess of left foot including toes (~07/2020) Requiring excisional debridement including bone due to osteomyelitis. Acute osteomyelitis of left foot ADH disorder Anemia Anxiety Attention deficit hyperactivity disorder Cerebrovascular accident Noted on brain CT, unknown to the patient. 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 Diverticulitis large intestine Ductal carcinoma in situ of left breast 2016 Status post partial mastectomy and radiation. ER/IA and HER2 Mary Grace negative. Foot swelling History of adenomatous polyp of colon Hypertension Irritable bowel syndrome with diarrhea Left knee DJD Menieres disease With chronic tinnitus and left-sided hearing loss. Metatarsalgia of both feet Neuropathy of both feet Obstructive sleep apnea Compliant with CPAP. Poor balance Right knee DJD Stricture of sigmoid colon (~02/2020) Secondary to diverticulitis, status post loop sigmoid colostomy. Thyroid nodule Bilateral benign follicular nodules on FNA in June 2018. Ulcer of right foot due to type 2 diabetes mellitus Surgical History Surgical History History of cataract extraction History of cholecystectomy History of dilation and curettage x3. History of foot surgery Left foot surgery with hardware. History of left breast biopsy (~12/2017) With benign histology. History of open sigmoidectomy sigmoidectomy w/ closotomy closer 10/21 History of partial mastectomy of left breast (~07/2016) For treatment of high-grade DCIS with sentinel lymph node sampling and bilateral reduction mammoplasty. History of tonsillectomy Family History Family History Father Diabetes mellitus Cancer of pancreas Sibling Family history of type 1 diabetes mellitus Mother Hypertension Heart disease Alzheimer's dementia Depression Grandparent Diabetes mellitus Hypertension Heart disease Grandparent Diabetes mellitus Hypertension Social History Social History Social History: The patient lives in [place] with her . 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 Smoked 0.25 packs of cigarettes a day for about 15 years and quit about a year ago. Drinks perhaps 1 alcoholic beverage a month. No illicit substance use. She designates her , Josh, as her surrogate decision maker and she wishes to be a full code. Smoking packs per day: 0.20 Smoking cigarettes per day: 4.0 Years smoked: 3 Smoking pack-years: 0.60 Smoking status: Former smoker Tobacco type: cigarettes Second hand tobacco smoke exposure: No Smoking end date: 03/17/23 Additional smoking assessment comments: Summer social smoking Alcohol intake: current Alcohol use details: SOCIALLY, 6-7 DRINKS/MONTH Substance use: never Substance use type: does not use Lack of Transportation: No Lack of Food: Never True Current Housing: I Have Housing Concerned About Future Housing: No Difficulty Paying Gas/Electric Bills: No Difficulty Paying for Meds: No Currently Unemployed: No Education: Master's Degree or Higher Difficulty w/ Childcare or Family Care: No Living arrangements: with family Additional living arrangements comments: ANA MARIA Occupation/Education: retired Gender identity (if verbalized by the patient): Female Sexual Orientation (if Verbalized by the Patient): Straight or Heterosexual Spiritual care concerns: No Agree to blood products: Yes Meds Home Me
[2023-04-25] VITALS (10 sets, daily range): BP systolic 111–144; BP diastolic 45–86; PULSE 76–85; RESP 8–20; TEMP 36.1–36.7; O2SAT 92–96; BMI 33.9
--- NOTE | 2023-04-25 07:21 | WPDHPUPDATE1 ---
History and Physical Update Update Date/Time: 04/25/23 07:21 History and Physical has been reviewed, including an updated exam of the patient. There are NO changes in the patient's condition. Risks, benefits, and alternatives have been discussed and questions answered. Patient agrees to proceed with procedure.
[2023-04-25 09:32] LABS: Glucose Point of Care 139 mg/dl (65-105)
[2023-04-25] MEDS: ACETAMINOPHEN 500 MG TABLET 1000 MG PO (09:45)
[2023-04-25] MEDS: LACTATED RINGERS 1,000 ML 30 ML IV CONT ×2 (09:45→12:30)
[2023-04-25 10:03] LABS: Partial Thromboplastin Time 35.3 SECONDS (22.3-36.8)
--- NOTE | 2023-04-25 10:13 | WPDANESEPPF ---
Anes - Initial Pre Proc Eval Procedure: Operation Date: 04/25/23 11:00 Proposed Procedures p Image Guided Right Frontal Sinusotomy without Tissue Removal, Right Anterior Ethmoidectomy, Right Maxillary Antrostomy with Tissue Removal, Left Maxillary Antrostomy without Tissue Removal, - Braulio Leo MD s Septoplasty - Braulio Leo MD Date/Time: 04/25/23 10:13 Surgeon: Braulio Leo MD Pre Op Diagnosis: chronic sinusitis Patient Data Age: 72 Gender: F Height: 1.63 m Weight: 89.7 kg Last Vital Signs Temp 36.7 C 04/25/23 09:20 Pulse 76 04/25/23 09:20 Resp 20 04/25/23 09:20 BP 111/55 L 04/25/23 09:20 Pulse Ox 96 04/25/23 09:20 O2 Del Method Room Air 04/25/23 09:20 Allergies Allergy/AdvReac Type Severity Reaction Status Date / Time morphine AdvReac Nausea and Verified 04/25/23 09:21 Vomiting Home Medications Medication Instructions Recorded Confirmed Type diazepam 2 mg tablet 2 mg PO PRN PRN Dizziness 02/24/20 04/25/23 History magnesium 250 mg tablet 500 mg PO TID 02/24/20 04/25/23 History ondansetron HCl 8 mg tablet 8 mg PO Q12H PRN nausea and 02/24/20 04/17/23 History vomiting venlafaxine 150 mg tablet,extended 300 mg PO QAM 02/24/20 04/25/23 History release 24 hr riboflavin (vitamin B2) 400 mg 400 mg PO TID 03/02/20 04/25/23 History tablet Betahistine 8 mg PO TID 10/05/20 04/25/23 History cholecalciferol (vitamin D3) 25 25 mcg PO DAILY 10/05/20 04/25/23 History mcg (1,000 unit) capsule (Vitamin D3) fluticasone propionate 50 2 spray intranasal DAILY PRN 11/10/21 04/25/23 History mcg/actuation nasal Allergic Symptoms spray,suspension (Flonase Allergy Relief) metoprolol succinate 50 mg 50 mg PO QAM 11/10/21 04/25/23 History tablet,extended release 24 hr quetiapine 25 mg tablet 50 mg PO HS 11/10/21 04/25/23 History blood sugar diagnostic 06/20/22 04/17/23 History aspirin 81 mg tablet 81 mg PO DAILY 07/26/22 04/25/23 History empagliflozin 25 mg tablet 25 mg PO QAM 10/04/22 04/25/23 History (Jardiance) glimepiride 2 mg tablet 6 mg PO QAM 10/04/22 04/25/23 History insulin syringe-needle U-100 1 mL #100 ea 12/23/22 04/17/23 Rx 31 gauge x 5/16 (BD Insulin Syringe Ultra-Fine) atorvastatin 80 mg tablet 80 mg PO DAILY #90 tabs 12/26/22 04/25/23 Rx enalapril maleate 20 mg tablet 20 mg PO QAM #90 tabs 02/09/23 04/25/23 Rx liraglutide 0.6 mg/0.1 mL (18 mg/3 1.2 mg subcut HS 02/09/23 04/25/23 History mL) subcutaneous pen injector ([employer]ics 2-Dawson) gabapentin 100 mg capsule 100 mg PO BID #180 caps 03/03/23 04/25/23 Rx insulin glargine 100 unit/mL See Rx Instructions .Route .COMPLEX 03/09/23 04/25/23 History subcutaneous solution (Lantus U-100 Insulin) clobetasol 0.05 % topical ointment 1 applic topical QHS 12 weeks #60 03/29/23 04/25/23 Rx grams finerenone 10 mg tablet (Kerendia) 10 mg PO QAM 04/17/23 04/25/23 History levothyroxine 75 mcg tablet 75 mcg PO QAM 04/17/23 04/25/23 History metformin 500 mg tablet,extended 2,000 mg PO QAM 04/17/23 04/25/23 History release 24 hr Laboratory Tests 04/25/23 04/25/23 09:29 09:43 PT 13.0 Seconds (11.1-14.7) INR 1.0 APTT 35.3 SECONDS (22.3-36.8) POC Capillary Glucose 139 H mg/dl (65-105) Patient hx anesthesia problems: none Family hx anesthesia problems: none Results Review: All pre-operative results and documents have been reviewed as part of the pre-operative evaluation. [facility] Past Medical History Medical History Abscess of left foot including toes (~07/2020) Requiring excisional debridement including bone due to osteomyelitis. Acute osteomyelitis of left foot ADH disorder Anemia Anxiety Attention deficit hyperactivity disorder Cerebrovascular accident Noted on brain CT, unknown to the patient. 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 Div
[2023-04-25] MEDS: ceFAZolin 2 GM/D5W 50 ML 2 GM/50 ML BAG IVPB (10:33)
[2023-04-25] MEDS: LIDO 1%/EPINEPHRINE 1:100,000 20 ML VIAL 5 ML INFILTRATE (11:06)
[2023-04-25] MEDS: OXYMETAZOLINE HCL 0.05% NAS 15 ML BTL (*BKC) 1 SPRAY NASAL (11:07)
[2023-04-25 12:48] LABS: Glucose Point of Care 131 mg/dl (65-105)
--- NOTE | 2023-04-25 13:13 | P.OP_ITS ---
Procedure Note - Detailed Date of Procedure 04/25/23 Pre-op Diagnosis chronic sinusitis, allergic fungal sinusitis Post-op Diagnosis Same Procedure Performed Left maxillary antrostomy endoscopic image guided, right maxillary antrostomy en doscopic image guided with tissue, right image guided endoscopic anterior ethmoidectomy, right image guided endoscopic frontal sinusotomy with propel placement Surgeon Braulio Leo MD Anesthesia General Indications See above Findings Polypoid tissue scant purulence left max right max lots of fungal debris removed edematous tissue anterior ethmoids and frontal. Description of Procedure Patient identified consent verified preop. Patient brought to the operating. Time-out performed. General anesthesia induced endotracheal tube secured. Patient prepped draped positioned endotracheal tube secured. Tape the left lower lip. Image guidance initiated confirmed. States this procedure confirmed 2nd time-out performed. Afrin-soaked pledgets placed for 5 minutes then remov ed. Left maxillary antrostomy performed with double ball tip probe image guidance backbiter straight through cut microdebrider image guided microdebrider. No damage to orbit her septum widely opened edematous tissue within the max. Right-sided performed with the same instruments fungal debris in it this was rinsed out with sterile normal saline all the fungal debris removed this was checked with 70 degree scope. Anterior ethmoidectomy performed with the Kerrison and microdebrider. Frontal sinusotomy performed with image guidance frontal sinus instruments including Hosemann draft instruments and Cobra. Outflow track widely open. Edematous tissue. This was then copiously irrigated. Propel stent placed on the right side. No pack placed on the left side. Blood loss 25 cc. Care the patient given back to Anesthesiology complications I performed all dictated portions patient taken to PACU. Estimated Blood Loss 25 Drains No Packing Yes (Nova pack left) Pathology None sent Complications No immediate complications Condition Stable Disposition PACU [facility] Billing Surgery - Charge Forward: Surgery Billing
== END 2023-04-25 14:32 | disposition home or self-care (01) ==
PROVIDERS: PCP Family Medicine Adolescent Medicine; Visit Provider Otolaryngology
PROC: (CPT 31256; principal; 2023-04-25 11:00)
DX: J32.8 Other chronic sinusitis (principal); B48.8 Other specified mycoses; J34.2 Deviated nasal septum; F90.9 Attention-deficit hyperactivity disorder, unspecified type; D64.9 Anemia, unspecified; F41.9 Anxiety disorder, unspecified; I10 Essential (primary) hypertension; K58.0 Irritable bowel syndrome with diarrhea; E11.42 Type 2 diabetes mellitus with diabetic polyneuropathy; G47.33 Obstructive sleep apnea (adult) (pediatric); Z99.89 Dependence on other enabling machines and devices; Z86.73 Personal history of transient ischemic attack (TIA), and cerebral infarction without residual deficits; Z87.891 Personal history of nicotine dependence; Z79.82 Long term (current) use of aspirin; Z79.4 Long term (current) use of insulin; Z79.85 Long-term (current) use of injectable non-insulin antidiabetic drugs; Z79.84 Long term (current) use of oral hypoglycemic drugs; Z85.3 Personal history of malignant neoplasm of breast; Z92.3 Personal history of irradiation; Z90.49 Acquired absence of other specified parts of digestive tract; E66.9 Obesity, unspecified; Z68.33 Body mass index [BMI] 33.0-33.9, adult
CPT/HCPCS: 31256; 31254; 31276; 31267; 61782; 36415; 82948; 85610; 85730; A9270; C2625; J0690; J1100; J1170; J2405; J2704; J7120

== ENCOUNTER 2023-11-21 09:27 | Outpatient (CLI) | payer MEDICARE, OTHER, SELFPAY ==
--- NOTE | ~2023-11-21 | MM_ITS ---
EXAMINATION: MM diagnostic eduardo BI w lo HISTORY: Left nipple inversion, dense in this breast in the 3:00 periareolar area TECHNIQUE: ML, MLO and CC 3-D tomosynthesis images of both breasts were performed and synthetic 2-D i mages were generated. CAD analysis was submitted and interpreted. COMPARISON: September 02, 2022 bilateral screening mammogram 04/05/2021 diagnostic left mammogram and Limited left breast ultrasound 09/05/2019 bilateral screening mammogram BREAST PARENCHYMAL COMPOSITION: There are scattered areas of fibroglandular density. FINDINGS: There are 2 biopsy markers on the right 7 history of prior right benign breast biopsy and r ight breast reduction mammoplasty. Status post left partial mastectomy for breast cancer, with stable calcified fat necrosis and retract ion. No interval suspicious mass or new architectural distortion or malignant calcification or new skin th ickening or retraction is evident. Scattered bilateral benign calcifications. IMPRESSION: 1. Status post left partial mastectomy for breast cancer. No mammographic evidence of malignancy in e ither breast is detected. No significant change since September 05, 2019 2. Routine annual mammographic screening is recommended BI-RADS Category 2: Benign finding(s). Reviewed, dictated and finalized at location B. IMPRESSION: 1. Status post left partial mastectomy for breast cancer. No mammographic evide nce of malignancy in either breast is detected. No significant change since Aug 2. Routine annual mammographic screening is recommended BI-RADS Category 2: Benign finding(s).
== END 2023-11-21 09:28 ==
LOC: MICIMG 09:29
PROVIDERS: PCP Family Medicine Adolescent Medicine; Visit Provider Family Medicine Adolescent Medicine
DX: R92.2 Inconclusive mammogram (principal)
CPT/HCPCS: 77062; 77066; G0279

== ENCOUNTER 2024-01-16 11:53 | Outpatient (CLI) | payer MEDICARE, OTHER, SELFPAY ==
[2024-01-16 12:44] LABS: Basophils Absolute Auto 0.1 K/mm3 (0.0-0.1); Basophils Percent Auto 0.5 % (0.2-1.2); Eosinophils Absolute Auto 0.8 K/mm3 (0-0.3); Eosinophils Percent Auto 7.2 % (0-4.4); Hematocrit 34.9 % (37.0-47.0); Hemoglobin 11.5 g/dL (12.0-15.0); Immature Granulocyte Absolute 0.04 K/mm3 (0.00-0.031); Immature Granulocyte Percent A 0.4 % (0-0.5); Lymphocytes Absolute Auto 2.63 K/mm3 (0.9-3.2); Lymphocytes Percent Auto 23.7 % (18.3-44.2); Mean Corpuscular Hemoglobin 30.5 pg (26-34); Mean Corpuscular Volume 92.6 fl (80-100); Mean Platelet Volume 10.1 fl (7.4-10.4); Monocytes Absolute Auto 0.6 K/mm3 (0.1-0.6); Monocytes Percent Auto 5.7 % (2.6-8.5); Neutrophils Percent Auto 62.5 % (45.5-73.1); Platelet Count Result 454 k/mm3 (150-375); Red Blood Count 3.77 M/mm3 (4.2-5.4); Red Cell Distribution Width 13.5 % (11.5-14.5); White Blood Count 11.1 K/mm3 (4.5-10.0)
[2024-01-16 12:54] LABS: Alanine Aminotransferase 15 U/L (6-35); Alkaline Phosphatase 102 U/L (38-126); Anion Gap 7 mmol/L (4-12); Aspartate Amino Transferase 24 U/L (14-36); Bilirubin,Total 0.6 mg/dL (0.2-1.3); Blood Urea Nitrogen 21 mg/dL (7-17); CRP 2.5 mg/dL (<1.0); Calcium 8.8 mg/dL (8.4-10.2); Carbon Dioxide 28 mmol/L (22-30); Chloride 107 mmol/L (98-107); Estimated Glomerular Filt Rate > 60; Glucose 93 mg/dL (65-110); Potassium 4.4 mmol/L (3.4-5.0); Sodium 142 mmol/L (137-145)
[2024-01-19 14:28] LABS: Immunoglobulin A 532 mg/dL (70-320); TTG IGA AB <1.0 U/mL
== END 2024-01-16 11:54 | disposition home or self-care (01) ==
PROVIDERS: PCP Family Medicine Adolescent Medicine; Visit Provider Nurse Practitioner Family
DX: R19.7 Diarrhea, unspecified (principal); B49 Unspecified mycosis; J30.89 Other allergic rhinitis
CPT/HCPCS: 36415; 80048; 80076; 82784; 85025; 86140; 86364

== ENCOUNTER 2024-01-22 09:57 | Outpatient (CLI) | payer MEDICARE, OTHER, SELFPAY | END 2024-01-22 09:58 | disposition home or self-care (01) | LOC: ANHAUDIO 09:57 | PROVIDERS: PCP Family Medicine Adolescent Medicine; Visit Provider Otolaryngology | DX: H81.09 Meniere's disease, unspecified ear (principal); H90.42 Sensorineural hearing loss, unilateral, left ear, with unrestricted hearing on the contralateral side | CPT/HCPCS: 92557; 92567 ==

== ENCOUNTER 2024-01-23 08:11 | Outpatient (CLI) | payer MEDICARE, OTHER, SELFPAY ==
[2024-01-29 21:09] LABS: Calprotectin, Stool 68 mcg/g
[2024-01-31 21:38] LABS: Pancreatic Elastase, Stool 445 mcg/g
== END 2024-01-23 08:12 | disposition home or self-care (01) ==
LOC: ANHLAB 08:12
PROVIDERS: PCP Family Medicine Adolescent Medicine; Visit Provider Nurse Practitioner Family
DX: R19.7 Diarrhea, unspecified (principal)
CPT/HCPCS: 82653; 83993; 92557; 92567

== ENCOUNTER 2024-06-25 08:33 | Outpatient (CLI) | payer MEDICARE, OTHER, SELFPAY ==
--- NOTE | 2024-06-25 10:05 | ECG_ITS ---
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
== END 2024-06-25 08:34 | disposition home or self-care (01) ==
LOC: ANHSURGERY 08:37
PROVIDERS: PCP Family Medicine Adolescent Medicine; Visit Provider Orthopaedic Surgery
DX: Z01.818 Encounter for other preprocedural examination (principal); R94.31 Abnormal electrocardiogram [ECG] [EKG]
CPT/HCPCS: 93005

== ENCOUNTER 2024-06-27 01:59 | Day surgery (SDC) | payer MEDICARE, OTHER, SELFPAY ==
[2024-06-21 09:15] VITALS: BMI 28.8
--- NOTE | 2024-06-21 09:47 | PC.NURSE ---
Report to the Outpatient Waiting Room, entrance under the green pavilion located off [facility], at time ___6:30AM____ on date ___06/27/24____. Planned Procedure Time: ___8:30AM .? Time changes happen often and if your time is changed the preop area will call you the afternoon before. - You and your visitor will be asked to self-screen and do not enter if you have any COVID symptoms. Please call surgeon if you need to reschedule. - A mask is optional within the hospital at this time. Patients may have clear liquids (water, carbonated beverages, clear teas, apple juice) until 3 hours prior to surgery with a maximum of 20 ounces. - No food from midnight until time of surgery and no smoking. This includes no chewing gum, candy or mints. Take only the following medications with a SIP of water on the morning of surgery: ___LEVOTHYROXINE, METOPROLOL, VENLAFAXINE, RIFAXIMIN. MAY TAKE DIAZEPAM & ONDANSETRON NEEDED. DO NOT STOP ANY OF YOUR OTHER PRESCRIPTION MEDICATIONS PRIOR TO SURGERY EXCEPT THE FOLLOWING Medications to discontinue per physician __HOLD ASPIRIN PER DR ARGUELLES/DR GARIBAY-INSTRUCTED BY DR GARIBAY TO CONFIRM TIMEFRAME W/ DR RAGUELLES. PT HAS CALLED OFFICE. HOLD ALL VITAMINS/SUPPLEMENTS 3 DAYS PRE-OP PER ANESTHESIA- LAST DOSE 06/23/24. Please no make-up, nail arabic, hairspray, perfume, deodorant, or body powder the day of surgery.? No jewelry (including any body piercings) or valuables the day of surgery, leave them at home.? Please take a shower or bath the night before, or the morning of, surgery with an antibacterial soap.? Wear comfortable, loose fitting clothing.? - Jewelry must be removed prior to entering the operating room.? Rings and piercings that are not removed may be cut off. - The hospital will not accept responsibility for valuables.? - Please leave all valuables, including medications, at home the day of surgery. If you are going home after surgery, a licensed fuel oil truck driver must drive you home.? - NO public transportation without another adult if you receive anesthesia. - We recommend that an adult stay with you for 24 hours following discharge. - We also recommend that you do not drive, make important decision, drink alcoholic beverages, or take any drugs that were not prescribed by your health care provider for at least 24 hours after your discharge time. Follow any additional instructions given to you from your surgeon. Telephone instructions given to ____PATIENT and asked if any additional questions and then verbalized understanding. Patient advised to call surgeon office or pre surgery nurse liaison [phone] if any additional questions.
[2024-06-27] VITALS (9 sets, daily range): BP systolic 107–131; BP diastolic 50–55; PULSE 77–86; RESP 12–20; TEMP 36.2; O2SAT 93–100
--- NOTE | ~2024-06-27 | XR_ITS ---
EXAMINATION: XR surgery orthopedic DATE: 06/27/2024 12:10 INDICATION: Orthopedic procedure to the right second-fourth toes. TECHNIQUE: 2 fluoroscopic images of the right forefoot were obtained of the dorsal plantar and latera l projections during procedure performed by Dr. Hein. Radiologist was not present for the imaging or procedure. The amount of fluoroscopy time used during this procedure was 0.4 minutes. COMPARISON: None. FINDINGS: Alignment is normal. No fracture. Mild polyarticular osteoarthritis at the first metatarsophalangeal and multiple interphalangeal joints with distal predominance. IMPRESSION: 1. Fluoroscopy utilized during orthopedic procedure at the right forefoot. See procedure note for fur ther detail. Reviewed, dictated and finalized at location A. TE MIXER IMPRESSION: 1. Fluoroscopy utilized during orthopedic procedure at the right forefoot. See procedure note for further detail.
--- NOTE | ~2024-06-27 | XR_ITS ---
EXAMINATION: XR surgery orthopedic DATE: 06/27/2024 12:10 INDICATION: Hammertoe deformity left fourth toe TECHNIQUE: 2 fluoroscopic images of the left forefoot were obtained during procedure performed by Dr. Bonds. Radiologist was not present for the imaging or procedure. The amount of fluoroscopy time u sed during this procedure and the procedure at the contralateral right foot which has been dictated s eparately was a combined 0.4 minutes. COMPARISON: 06/11/2024 FINDINGS: Screw fixation across the base of the first proximal phalanx. Chronic arthrodeses at the second and t hird proximal interphalangeal joints the latter with fixation device. Joint space widening of the sec ond and third metatarsophalangeal joints with chronic osteolysis with corticated margins at both side s of the second and third proximal interphalangeal joints likely sequela of prior osteotomies. Severe joint space narrowing at the fourth metatarsophalangeal joint with chronic erosions at the head of t he fourth metatarsal. Fourth claw toe deformity. No fractures. IMPRESSION: 1. Fluoroscopy utilized during orthopedic procedure at the left forefoot. See procedure note for furt her detail. Reviewed, dictated and finalized at location A. MS ACCOUNT MANAGER IMPRESSION: 1. Fluoroscopy utilized during orthopedic procedure at the left forefoot. See p rocedure note for further detail.
[2024-06-27] MEDS: LACTATED RINGERS 1,000 ML 30 ML IV CONT ×2 (07:40→11:05)
[2024-06-27] MEDS: ACETAMINOPHEN 500 MG TABLET 1000 MG PO (07:45)
[2024-06-27] MEDS: KETOROLAC 15 MG/ML VIAL (*BKC) IV PUSH (07:45)
[2024-06-27 07:49] LABS: Glucose Point of Care 142 mg/dl (65-105)
--- NOTE | 2024-06-27 08:44 | WPDHPUPDATE1 ---
History and Physical Update Update Date/Time: 06/27/24 08:44 History and Physical has been reviewed, including an updated exam of the patient. There are NO changes in the patient's condition. Risks, benefits, and alternatives have been discussed and questions answered. Patient agrees to proceed with procedure.
--- NOTE | 2024-06-27 09:20 | WPDANESEPPF ---
Anes - Initial Pre Proc Eval Procedure: Operation Date: 06/27/24 09:30 Proposed Procedures p Flexor Tenotomy with Osteoclasis Right Foot Second through Fourth Toes, Left Foot Fourth Toe - Cassius Hein MD Date/Time: 06/27/24 09:20 Surgeon: Cassius Hein MD Pre Op Diagnosis: bilateral claw toe deformity Patient Data Age: 73 Gender: F Height: 1.63 m Weight: 73.2 kg Last Vital Signs Temp 97.1 F L 06/27/24 07:27 Pulse 77 06/27/24 07:27 Resp 16 06/27/24 07:27 BP 121/52 L 06/27/24 07:27 Pulse Ox 100 06/27/24 07:27 O2 Del Method Room Air 06/27/24 07:27 Allergies Allergy/AdvReac Type Severity Reaction Status Date / Time morphine AdvReac Nausea and Verified 06/27/24 07:29 Vomiting Home Medications ?Medication ?Instructions ?Recorded ?Confirmed ?Type diazepam 2 mg tablet 2 mg PO PRN PRN Dizziness 02/24/20 06/21/24 History magnesium 250 mg tablet 500 mg PO TID 02/24/20 06/21/24 History ondansetron HCl 8 mg tablet 8 mg PO Q12H PRN nausea and 02/24/20 06/21/24 History vomiting riboflavin (vitamin B2) 400 mg 400 mg PO TID 03/02/20 06/21/24 History tablet cholecalciferol (vitamin D3) 25 25 mcg PO DAILY 10/05/20 06/21/24 History mcg (1,000 unit) capsule (Vitamin D3) fluticasone propionate 50 2 spray intranasal DAILY PRN 11/10/21 06/21/24 History mcg/actuation nasal Allergic Symptoms spray,suspension (Flonase Allergy Relief) metoprolol succinate 50 mg 50 mg PO QAM 11/10/21 06/21/24 History tablet,extended release 24 hr blood sugar diagnostic 06/20/22 06/14/24 History aspirin 81 mg tablet 81 mg PO DAILY 07/26/22 06/21/24 History clobetasol 0.05 % topical ointment 1 applic topical QHS 12 weeks #60 08/14/23 06/21/24 Rx grams metformin 500 mg tablet,extended See Rx Instructions .Route 08/31/23 06/21/24 Rx release 24 hr .COMPLEX #120 tabs quetiapine 25 mg tablet 50 mg (2 x 25 mg) PO HS #180 tabs 10/26/23 06/21/24 Rx insulin syringe-needle U-100 1 mL #100 ea 11/06/23 06/14/24 Rx 31 gauge x 5/16 (BD Insulin Syringe Ultra-Fine) flash glucose scanning reader #1 ea 11/07/23 06/14/24 Rx (FreeStyle Desi 2 Gateway) flash glucose sensor (FreeStyle #4 ea 11/07/23 06/14/24 Rx Desi 2 Sensor kit) enalapril maleate 20 mg tablet 20 mg PO QAM #90 tabs 11/27/23 06/21/24 Rx empagliflozin 25 mg tablet 25 mg PO QAM #90 tabs 12/16/23 06/21/24 Rx (Jardiance) finerenone 10 mg tablet (Kerendia) 10 mg PO QAM #90 tabs 01/14/24 06/21/24 Rx atorvastatin 80 mg tablet 80 mg PO DAILY #90 tabs 01/23/24 06/21/24 Rx venlafaxine 150 mg 300 mg (2 x 150 mg) PO DAILY #180 01/24/24 06/21/24 Rx capsule,extended release 24 hr caps Betahistine 8 mg PO TID #90 caps 01/26/24 06/21/24 Rx levothyroxine 75 mcg tablet 75 mcg PO QAM #90 tabs 04/29/24 06/21/24 Rx insulin glargine 100 unit/mL 20 unit (0.2 mL) subcut DAILY #30 05/09/24 06/21/24 Rx subcutaneous solution (Lantus mL U-100 Insulin) tirzepatide 5 mg/0.5 mL 5 mg (0.5 mL) subcut WEEKLY #2 mL 05/09/24 06/21/24 Rx subcutaneous pen injector (Mounruiz) rifaximin 550 mg tablet (Xifaxan) 550 mg PO TID #42 tabs 06/14/24 06/21/24 Rx silver sulfadiazine 1 % topical 1 applic topical DAILY 06/21/24 06/21/24 History cream (Silvadene) Laboratory Tests 06/27/24 07:44 POC Capillary Glucose 142 H mg/dl (65-105) Patient hx anesthesia problems: none Family hx anesthesia problems: none Results Review: All pre-operative results and documents have been reviewed as part of the pre-operative evaluation. [facility] Past Medical History Medical History Claw toe Left foot pain Right foot ulcer Right foot pain Foot swelling Poor balance Neuropathy of both feet Metatarsalgia of both feet Ulcer of right foot due to type 2 diabetes mellitus Left knee DJD Right knee DJD Anemia Cerebrovascular accident Noted on brain CT, unknown to the patient. Abscess of left foot including toes (~07/2020) Requiring excisional debridement including bone due to osteomyelitis. 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 Thyroid nodule Bilateral benign follicular nodules on FNA in June 2018. Stricture of sigmoid colon (~02/2020) Secondary to diverticulitis, status post loop sigmoid colostomy. Obstructive sleep apnea Compliant with CPAP. Ductal carcinoma in situ of left breast 2015 Status post partial mastectomy and radiation. ER/IL and HER2 Mary Grace negative. Hypertension Irritable bowel syndrome with diarrhea Menieres disease With chronic tinnitus and left-sided hearing loss. Attention deficit hyperactivity disorder Acute osteomyelitis of left foot History of adenomatous polyp of colon Anxiety ADH disorder Diverticulitis large intestine Surgical History Surgical History History of open sigmoidectomy sigmoidectomy w/ closotomy closer 10/21 History of foot surgery Left foot surgery with hardware. History of left breast biopsy (~12/2017) With benign histology. History of partial mastectomy of left breast (~07/2016) For treatment of high-grade DCIS with sentinel lymph node sampling and bilateral reduction mammoplasty. History of tonsillectomy History of cholecystectomy History of cataract extraction History of dilation and curettage x3. Family History Family History Father Diabetes mellitus Cancer of pancreas Sibling Family history of type 1 diabetes mellitus Mother Hypertension Heart disease Alzheimer's dementia Depression Grandparent Diabetes mellitus Hypertension Heart disease Grandparent Diabetes mellitus Hypertension Social History Social History Social History: The patient lives in [place] with her . 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 Smoked 0.25 packs of cigarettes a day for about 15 years and quit about a year ago. Drinks perhaps 1 alcoholic beverage a month. No illicit substance use. She designates her , Josh, as her surrogate decision maker and she wishes to be a full code. Smoking packs per day: 0.20 Smoking cigarettes per day: 4.0 Years smoked: 3 Smoking pack-years: 0.60 Smoking status: Former smoker Tobacco type: cigarettes Second hand tobacco smoke exposure: No Smoking end date: 03/17/23 Additional smoking assessment comments: Summer social smoking Alcohol intake: current Alcohol use details: SOCIALLY, 6-7 DRINKS/MONTH Substance use: never Substance use type: does not use Do You Feel Safe in your Home?: Yes Lack of Transportation: No Lack of Food: Never True Current Housing: I Have Housing Concerned About Future Housing: No Difficulty Paying Gas/Electric Bills: No Difficulty Paying for Meds: No Currently Unemployed: No Education: Master's Degree or Higher Difficulty w/ Childcare or Family Care: No Living arrangements: with family Additional living arrangements comments: ANA MARIA Occupation/Education: retired Gender identity (if verbalized by the patient): Female Sexual Orientation (if Verbalized by the Patient): Straight or Heterosexual Spiritual care concerns: No Agree to blood products: Yes Anes - Eval Final PreProcedure Day of Procedure 06/27/24 09:20 Patient weight: obese Heart: regular rate and rhythm and murmur (2/6 sudeep at right sternal border. ) Lungs: clear to auscultation Airway: Mallampati scale class II Neurological: alert and oriented Last oral intake: >/= 8 hours ASA classification: IV Emergent: no Anesthetic plan: proceed Anesthesia type and monitoring: general LMA and standard monitoring Results Review: All pre-operative results and documents have been reviewed as part of the pre-operative evaluation. HTN, hyperlipidemia, JESUS noncompliant w CPAP, DM fsbs 142, ECHO 2020 w mild , nml LVEF. Pt can walk 1-2 fos, no cp or sob. Informed Consent: The patient's anesthetic plan and its attendant risks and benefits were discussed with the patient/family/POA. Questions were solicited and answers provided to the satisfaction of the patient/family/POA.
[2024-06-27] MEDS: ceFAZolin 2 GM/D5W 50 ML 2 GM/50 ML BAG IVPB (10:00)
[2024-06-27] MEDS: BUPIVACAINE/EPINEPHRINE 0.5% 30 ML VIAL INFILTRATE (10:27)
--- NOTE | 2024-06-27 10:57 | P.OP_ITS ---
Procedure Note - Detailed Date of Procedure 06/27/24 Pre-op Diagnosis bilateral claw toe deformity Post-op Diagnosis Same Procedure Performed Left foot 4th and 5th toe flexor tenotomy with osteoclasis, right foot 2nd, 3rd, 4th and 5th toe flexor tenotomy with osteoclasis Surgeon Cassius Hein MD Chief Talent Officer 1St porcelain buildup assistant Anesthesia General Indications 73-year-old woman with bilateral claw toe deformity which causes pressure, ulceration and callus formation as well as pain. She is pre infective state due to the skin breakdown. Presents for operative treatment. Description of Procedure Patient identified in the preoperative holding. Informed consent given. Operative extremity marked. Patient received intravenous antibiotics. Patient brought to the operating room where underwent general anesthetic by anesthesia team. Positioned supine on operating room table. Time-out performed confirming the patient, site of the surgery and the plan. left And right foot and ankle exsanguinated and calf tourniquet fashioned out of the Esmarch bandage. Left foot addressed 1st. 15 blade knife used to perform percutaneous flexor tenotomy on the plantar aspect of the 4th and 5th toes. Osteoclasis then performed to straight the 4th and 5th toe at the PIP joints. Wounds irrigated with saline and Skin repaired with 4 O nylon interrupted suture. image intensification brought in confirmed alignment. Pin fixation not indicated. Skin tourniquet released and good capillary refill noted in toe. Sterile dressing applied. Right foot then addressed. After Esmarch bandage applied at the ankle is tourniquet 15 blade knife used to percutaneously release the flexor tendon from the plantar 2nd 3rd 4th and 5th toes. Osteoclasis performed of the toes to straighten the PIP joints. Image intensification confirmed alignment. No pin fixation indicated. If saline irrigation of the wounds closure with 4-0 nylon interrupted suture. Tourniquet released in good capillary refill noted in the toes. Sterile dressing applied. Patient then awoke from anesthesia, extubated and taken to recovery room stable condition. All sponge needle and instrument counts correct at the end of the case. Implants None Estimated Blood Loss 5 Tourniquet Time Total Tourniquet Time: 15 each Drains No Packing No Pathology None sent Complications None Condition Stable Disposition PACU [facility] Billing Surgery - Charge Forward: Surgery Billing (61282 X 6 toes,)
[2024-06-27 11:10] LABS: Glucose Point of Care 108 mg/dl (65-105)
[2024-06-27 12:26] LABS: Glucose Point of Care 122 mg/dl (65-105)
== END 2024-06-27 12:40 | disposition home or self-care (01) ==
PROVIDERS: PCP Family Medicine Adolescent Medicine; Visit Provider Orthopaedic Surgery
PROC: (CPT 28011; principal; 2024-06-27 09:30)
DX: Q66.89 Other specified congenital deformities of feet (principal); D64.9 Anemia, unspecified; F41.9 Anxiety disorder, unspecified; F90.9 Attention-deficit hyperactivity disorder, unspecified type; I10 Essential (primary) hypertension; K58.0 Irritable bowel syndrome with diarrhea; M17.0 Bilateral primary osteoarthritis of knee; E11.9 Type 2 diabetes mellitus without complications; G47.33 Obstructive sleep apnea (adult) (pediatric); E66.9 Obesity, unspecified; Z68.27 Body mass index [BMI] 27.0-27.9, adult; Z79.82 Long term (current) use of aspirin; Z79.84 Long term (current) use of oral hypoglycemic drugs; Z79.4 Long term (current) use of insulin; Z79.85 Long-term (current) use of injectable non-insulin antidiabetic drugs; Z99.89 Dependence on other enabling machines and devices; Z98.890 Other specified postprocedural states; Z90.49 Acquired absence of other specified parts of digestive tract; Z87.891 Personal history of nicotine dependence; Z86.79 Personal history of other diseases of the circulatory system; Z87.19 Personal history of other diseases of the digestive system; Z86.0100 Personal history of colon polyps, unspecified; Z80.0 Family history of malignant neoplasm of digestive organs; Z82.49 Family history of ischemic heart disease and other diseases of the circulatory system
CPT/HCPCS: 28011 ×2; 82948; 99199; A9270; J0690; J1885; J2405; J2704; J3010; J7120

== ENCOUNTER 2024-08-29 15:48 | Emergency (ER) | payer MEDICARE, OTHER, SELFPAY ==
[2024-08-29] VITALS (10 sets, daily range): BP systolic 115–155; BP diastolic 51–67; PULSE 68; RESP 16; TEMP 36.3; O2SAT 98–100
--- NOTE | ~2024-08-29 | XR_ITS ---
CHEST RADIOGRAPH, PA AND LATERAL CLINICAL HISTORY: fall . COMPARISON: None available TECHNIQUE: PA and lateral views of the chest. FINDINGS The cardiomediastinal silhouette is unremarkable. The lungs are clear. IMPRESSION: No focal infiltrate or effusion. Reviewed, dictated and finalized at location A. CAL ADVISOR
--- NOTE | ~2024-08-29 | CT_ITS ---
History: Ground-level fall PROCEDURE: CT cervical spine without intravenous contrast. COMPARISON: 05/23/2020 TECHNIQUE: Multiple contiguous axial images of the cervical spine were performed without the administration of i ntravenous contrast. DLP: 242 mGy-cm FINDINGS: Preservation of the normal curvature of the cervical spine is identified. Significant degenerative disease is identified with osteophyte formation, disc space narrowing, endpl ate changes and severe facet arthropathy. No acute fractures are present. The bilateral lung apices are unremarkable. No soft tissue abnormality is present. The airway is patent. Impression: Significant degenerative disease, without acute fracture. Reviewed, dictated and finalized at location A. T SPECIALIST Impression: Significant degenerative disease, without acute fracture.
--- NOTE | ~2024-08-29 | CT_ITS ---
History: Ground-level fall PROCEDURE: CT lumbar spine without intravenous contrast. COMPARISON: None TECHNIQUE: Multiple contiguous axial images of the lumbar spine were performed without the administration of int ravenous contrast. DLP: 519 mGy-cm FINDINGS: Preservation of the normal lordotic curvature of the lumbar spine is identified. No acute compression fractures are present. No soft tissue abnormality is noted. Degenerative disease is identified with osteophyte formation and disc space narrowing. Impression: Degenerative disease, without acute fracture. Reviewed, dictated and finalized at location A. OLATE MAKER Impression: Degenerative disease, without acute fracture.
--- NOTE | ~2024-08-29 | XR_ITS ---
HISTORY: fall COMPARISON: None TECHNIQUE: 4 views of the left knee were performed FINDINGS: No acute or subacute fracture. Medial and lateral tibiofemoral joint space narrowing is identified. No suprapatellar joint effusion is identified. The infrapatellar joint space is clear. IMPRESSION: Degenerative disease without acute fracture or dislocation. Reviewed, dictated and finalized at location A. ING GRINDER
--- NOTE | ~2024-08-29 | CT_ITS ---
EXAMINATION: CTA chest PE protocol DATE: 08/29/2024 22:49 TEA LEAF READER INDICATION: Syncope with elevated d-dimer TECHNIQUE: Computed tomographic angiography (CTA) of the chest was performed with 100 mL Omnipaque-35 0 intravenous contrast. The dose-length product was 424.58 mGy-cm. Maximum intensity projection 3D-re constructions of the aorta and other arteries were constructed by the technologist on a separate work station. COMPARISON: None. FINDINGS/OBSERVATIONS: SOFT TISSUES: Heterogeneity within the thyroid gland, a nonspecific finding. PULMONARY ARTERIES: No filling defect is identified within the main or proximal pulmonary artery. The main pulmonary artery is enlarged, suggesting pulmonary hypertension. THORACIC AORTA: No aneurysmal dilatation or dissection is present. The great vessels are intact . LUNGS: Calcified granulomas within the superior segment of the right lower lobe. Scarring within the left lung base. The remainder of the lungs are clear. MEDIASTINUM: No morphologically suspicious or pathologically enlarged lymph nodes are identified with in the mediastinum or bilateral axilla. BONES OF THE CHEST: No acute fracture. No significant degenerative disease. No lytic or blastic lesions. There are bridging endplate osteophytes at multiple levels in the thoracic spine, consistent with dif fuse idiopathic skeletal hyperostosis (DISH). HEART: The heart is of normal size, without pericardial effusion. Within the upper abdomen: The gallbladder is surgically absent. Punctate calcifications identified within the splenic parenchyma, suggesting prior granulomatous dise ase. IMPRESSION: No pulmonary embolus. No thoracic aortic dissection. Findings suggesting pulmonary hypertension. Findings suggesting prior granulomatous disease. Reviewed, dictated and finalized at location A. LEAF READER
--- NOTE | ~2024-08-29 | CT_ITS ---
History: Ground-level fall PROCEDURE: CT head without contrast. COMPARISON: 05/23/2020 TECHNIQUE: Axial imaging of the head performed from the skull base to the vertex without IV contrast. Sagittal a nd coronal reformations obtained. DLP: 605 mGy-cm FINDINGS: The ventricles are normal in size, shape and position. There is no mass, mass effect or midline shift. There is no abnormal extra-axial fluid collection or intracranial hemorrhage. Dense opacification of the bilateral maxillary and ethmoid sinuses. Mucoperiosteal thickening within the sphenoid and frontal sinuses. The mastoid air cells are well aerated. No acute displaced fractures within the overlying cranium. Occipital scalp hematoma. Impression: No acute intracranial hemorrhage or suspicious mass effect. Inflammatory sinus disease. Reviewed, dictated and finalized at location A. OR INFORMATION SECURITY ARCHITECT Impression: No acute intracranial hemorrhage or suspicious mass effect. Inflammatory sinus disease.
--- OUTSIDE RECORDS SUMMARY | 2024-08-29 15:52 | XMS_ITS | Clinical Summary ---
Author Organization [facility] Address [address] [facility] [place] [address] Care Team Providers Care Wood Finisher Name Role Phone Wilfredo Pinto MD Primary Care Provider [phone] Allergies No known active allergies Medications QUEtiapine (SEROquel) 25 mg tablet Take 25 mg by mouth daily. 5 12/10/2017 Active atorvastatin (LIPITOR) 40 mg tablet TK 1 T PO QD 1 12/02/2017 Active INVOKANA 100 mg TK 1 T PO QD 4 12/10/2017 Active amphetamine-dex troamphetamine (ADDERALL XR) 30 mg Extended Release 24 hour capsule TK 2 CS PO EVERY MORNING 0 12/12/2017 Active enalapril (VASOTEC) 10 mg tablet TK ONE T PO QD 1 10/29/2017 Active LANTUS U-100 INSULIN 100 unit/mL vial ADM 40 UNITS SC QD UTD 2 12/06/2017 Active metFORMIN (GLUCOPHAGE XR) 500 mg Extended Release 24 hour tablet TK 1 T PO BID 5 12/08/2017 Active ondansetron (ZOFRAN ODT) 8 mg Tablet, Rapid Dissolve DIS ONE T PO QD PRN 2 12/14/2017 Active Insulin Syringe-Needle U-100 0.5 mL 31 gauge x 5/16 Syringe USE 1 SYRINGE QHS 5 11/15/2017 Active venlafaxine (EFFEXOR XR) 150 mg Extended Release 24 hour capsule TK ONE C PO QD 2 11/26/2017 Active diazePAM (VALIUM) 2 mg tablet TK 1 T PO Q 6 H PRF ANXIETY 2 04/06/2018 Active omeprazole (PriLOSEC) 20 mg Capsule, Delayed Release(E.C.) TK 1 C PO QD 30 MINUTES BEFORE 1ST MEAL OF DAY. 0 06/12/2018 Active Active Problems Problem Noted Date Diagnosed Date Fat necrosis of breast 01/03/2018 Ductal carcinoma in situ (DCIS) of left breast 0 12/20/2017 Estrogen receptor negative 12/20/2017 Microcalcification of left breast on mammography 12/20/2017 History of external beam radiation therapy 12/20 Lump of right breast 12/20/2017 Abnormal ultrasound of breast 12/20/2017 Family History Medical History Relation Name Comments Cancer Father pancreatic; dec eased at 63 Breast Cancer Maternal Grandmother deceas ed 93 Breast Cancer Paternal Aunt alive at age 57 Cancer Paternal Grandfather lung - metasized Cancer Paternal Grandmother uterine Cancer Paternal Uncle Relation Name Status Comments Father Maternal Grandmother Paternal Aunt Alive Paternal Grandfather Paternal Grandmother Paternal Uncle Social History Tobacco Use Types Packs/Day Years Used Date Smoking Tobacco: Former Cigarettes 0.3 12 2 2016 Smokeless Tobacco: Never Alcohol Use Standard Drinks/Week Comments Yes 0 (1 standard drink = 0.6 oz pur e alcohol) occasionally Comments No Sex and Gender Information Value Date Recorded Sex Assigned at Not on file Legal Sex Female 2:15 PM CDT Gender Identity Not on file Sexual Orientation Not on file Last Filed Vital Signs Vital Sign Reading Time Taken Comments Blood Pressure 144/94 02/22/2019 9:53 AM CDT Pulse 102 02/22/2019 9:53 AM CDT Temperature 37.2 C (98.9 F) 02/22/2019 9:53 AM CDT Respiratory Rate - - Oxygen Saturation 97% 02/22/2019 9:53 AM CDT Inhaled Oxygen Concentration - - Weight 88 kg (193 lb 14.4 oz) 02/22/2019 9:53 AM CDT Height 160 cm (5' 3 ) 02/22/2019 9:53 AM CDT Body Mass Index 34.35 02/22/2019 9:53 AM CDT Plan of Treatment Health Maintenance Due Date Last Done Comments DTAP/TDAP/TD VACCINES (1 - Tdap) 1968 COLORECTAL SCREENING 1994 Colorectal Cancer Screening 1994 FIT-DNA Q 3 years 1994 FIT/FOBT Q 1 year 1994 Flex Sig/CT Colonography Q 5 years 1994 PNEUMOCOCCAL VACCINE 65+ YEA RS (1 of 1 - PCV) 11/20/1999 ZOSTER VACCINE (1 of 2) 11/20/1999 RSV VACCINE (60+ or ) (1 - Risk 60-74 years 1-dose series) 2009 OSTEOPOROSIS SCREENING 2014 BREAST CANCER SCREENING 07/04/2019 07/04/20 18, 04/16/2018, 12/26/2017, Additional history exists INFLUENZA VACCINE (#1) 2024 04/13/2018 Procedures Procedure Name Priority Date/Time Associated Diagnosis Comments MAMMO SCREENING BILAT Routine 07/04/2018 from Last 3 Months or Most Recently Relevant to Health Maintenance Results * MAMMO SCREENING BILAT (07/04/2018) Anatomical Region Laterality Modality Breast Bilateral Other us Abstract Provider MAMMO ORDERABLES Final Result from Last 3 Months or Most Recently Relevant to Health Maintenance [place] [address] MEDICARE PART A AND B [facility] Care Teams Wood Finisher Relationship Specialty Start Date End Date Wilfredo Pinto MD [address] [facility] [address] [place] [address] PCP - General Family Practice 12/20/17
--- OUTSIDE RECORDS SUMMARY | 2024-08-29 15:52 | XMS_ITS | Referral Summary ---
Author Organization [facility] Address [address] [place] [address] Care Team Providers Care Comfort Station Attendant Name Role Phone Wilfredo Pinto MD Primary Care Prov ider Jesus Alberto Martinez MD Unavailable [phone] Encounters Date Type Department Care Team Description 08/19/2024 Telephone [facility] Cardiology [address] [place] [address] Monica Armstrong MD Dizziness; Blurred Vision from Last 3 Months Allergies Active Allergy Reactions Criticality Noted Date Comments Morphine Vomiting Low 02/11/2021 Medications venlafaxine XR (EFFEXOR-XR) 150 mg 24 hr capsule 2 capsules (300 mg total) daily 2 8 Active metFORMIN XR (GLUCOPHAGE XR) 500 mg 24 hr tablet Take by mouth 2 (two) times a day Take 1500 mg in the morning and 500 mg at night 5 8 Active LANTUS U-100 INSULIN 100 unit/mL injection Inject 50 Units under the skin nightly 2 8 Active QUEtiapine (SEROquel) 25 mg tablet Take 2 tablets (50 mg total) by mouth nightly 8 Active riboflavin (Vitamin B-2) 100 mg tabletIndications: Riboflavin Deficiency Take 1 tablet (100 mg total) by mouth 3 (three) times a day Active cholecalciferol (VITAMIN D-3) 25 mcg (1,000 unit) tabletIndications: Vitamin D Deficiency Take 1 tablet (1,000 Units total) by mouth daily Active fluticasone propionate (FLONASE ALLERGY RELIEF NASL)Indications:a llergy maintenance Administer 2 sprays into each nostril daily as needed Active magnesium oxide 400 mg magnesium capsuleIndications :hypomagnesemia Take 2 tablet/capsule by mouth daily. Indications: low amount of magnesium in the blood Active diazePAM (VALIUM) 2 mg tablet Take 1 tablet (2 mg total) by mouth every 8 (eight) hours as needed (dizziness) 30 tablet 3 1 Active ondansetron ODT (ZOFRAN-ODT) 8 mg disintegrating tablet Take 1 tablet (8 mg total) by mouth every 8 (eight) hours as needed for nausea or vomiting 20 tablet 1 3 Active betahistine Take 1 capsule (8 mg total) by mouth 3 (three) times a day 90 capsule 11 3 Active gabapentin (NEURONTIN) 100 mg capsule Take 1 capsule (100 mg total) by mouth 2 (two) times a day 3 Active Kerendia 10 mg tablet Take 1 tablet by mouth daily 3 Active Jardiance 25 mg tablet Take 1 tablet (25 mg total) by mouth daily 3 Active levothyroxine (SYNTHROID) 75 mcg tablet Take 1 tablet (75 mcg total) 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 before 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 3 Active aspirin 81 mg enteric coated tabletIndications: Coronary artery calcification seen on CAT scan,H/O: stroke Take 1 tablet (81 mg total) by mouth daily 30 tablet 11 3 Active Mounjaro 5 mg/0.5 mL pen injector Inject 5 mg under the skin once a week Take on Mondays 4 Active HumaLOG 200 unit/mL (3 mL) pen for injection Inject 0-0.05 mL (0-10 Units total) under the skin 3 (three) times a day after meals Only take if fsbs > 120 after meals 4 Active pen needle, diabetic (BD Soniya 2nd Gen Pen Needle) 32 gauge x 5/32 needle BD Soniya 2nd Gen Pen Needle 32 gauge x 5/32 Active pen needle, diabetic (BD Ultra-Fine Short Pen Needle) 31 gauge x 5/16 needle BD Ultra-Fine Short Pen Needle 31 gauge x 5/16 Active glimepiride (AMARYL) 2 mg tablet Take 1 tablet (2 mg total) by mouth every 12 hours Active BD Soniya 2nd Gen Pen Needle 32 gauge x 5/32 needle 4 Active BD Ultra-Fine Short Pen Needle 31 gauge x 5/16 needle 4 Active insulin syringe-needle U-100 1 mL 31 gauge x 5/16 syringe 4 Active atorvastatin (LIPITOR) 80 mg tablet Take 1 tablet (80 mg total) by mouth nightly 4 Active enalapril (VASOTEC) 20 mg tablet Take 1 tablet (20 mg total) by mouth daily 4 Active metoprolol XL (TOPROL-XL) 50 mg extended release tabletIndications: PVC's (premature ventricular contractions),Esse ntial hypertension TAKE 1 TABLET(50 MG) BY MOUTH DAILY 90 tablet 1 4 Active Active Problems Problem Noted Date Diagnosed Date LVH (left ventricular hypertrophy) 01/15/2024 Coronary artery calcification seen on CAT scan 1 07/18/2020 Atherosclerosis of aortic bi furcation and common iliac arteries 05/18/2021 Hyperlipidemia associated with type 2 diabetes m ellitus 05/18/2021 JESUS on CPAP 05/18/2021 H/O: stroke 01/15/2021 PAD (peripheral artery disease) 01/15/2021 ADHD 01/15/2021 PVC's (premature ventricular contractions) 01/13 Nonrheumatic aortic valve stenosis 01/13/2021 Essential hypertension 01/13/2021 Controlled type 2 diabetes with neuropathy 01/13 Meniere's disease of left ear 02/12/2018 Assessment & Plan (09/20/2019 4:07 PM RESEARCH INSTRUCTOR): Differential includes vestibular migraine Will trial head ache diet to see if dizzy symptoms improve She should follow-up with her eye doctor regarding contact lens adjustment RTC PRN Assessment & Plan (05/13/2019 2:42 PM CDT): Left intratympanic dexamethasone injection done today. Another consideration would be vestibular migraine given she has light sensitivity although she is older than the typical demographic for this presentation. Resolved Problems Problem Noted Date Diagnosed Date Resolved Date Asymmetrical sensorineural hearing loss 04/18/2022 12/28/2022 Mixed hyperlipidemia 05/18/2021 023 Colonic stricture (CMS/HCC) 03/04/2020 12/28/2022 Overview (03/05/2020): Added automatically from request for surgery [id number] Immunizations Name Administration Dates Next Due Pfizer SARS-CoV-2 Monovalent Vaccination (12+ Yrs) PURPLE 10/02/2020,09/11/2020 Pfizer Sars-Cov-2 Bivalent Vaccination (12+ YRS) 03/24/2022 Social History Tobacco Use Types Packs/Day Years Used Date Smoking Tobacco: Former Cigarettes Smokeless Tobacco: Never Tobacco Cessation:Counseling Given: Not Answered Alcohol Use Standard Drinks/Week Comments Yes 0 (1 standard drink = 0.6 oz pur e alcohol) occaisional AUDIT-C Answer Date Recorded Q1: How often do you have a drink containing alc ohol? 2-4 times a month 01/30/2024 Q2: How many drinks containi ng alcohol do you have on a typical day when you are drinking? 1 or 2 01/30/2024 Q3: How often do you have si x or more drinks on one occasion? Never 01/30/2024 Personal Safety Answer Date Recorded Have you ever been in or are you currently in a harmful physical or emotional relationship or is someone making you feel afraid or unsafe? Denies 01/30/2024 Comments No Sex and Gender Information Value Date Recorded Sex Assigned at Not on file Legal Sex Female 5:31 PM RESEARCH INSTRUCTOR Gender Identity Female 01/06/2021 6:49 AM CDT Sexual Orientation Straight 01/06/2021 6: 49 AM CDT Last Filed Vital Signs Vital Sign Reading Time Taken Comments Blood Pressure 121/58 01/30/2024 1:55 PM CDT Pulse 72 01/30/2024 1:55 PM CDT Temperature 36.4 C (97.6 F) 01/30/2024 9:32 AM CDT Respiratory Rate 18 01/30/2024 9:32 AM CDT Oxygen Saturation 97% 01/30/2024 1:55 PM CDT Inhaled Oxygen Concentration - - Weight 82.1 kg (181 lb) 01/30/2024 9:32 AM CDT Height 162.6 cm (5' 4 ) 01/30/2024 9:32 AM CDT Body Mass Index 31.07 01/30/2024 9:32 AM CDT Plan of Treatment Not on file Medical Devices Implanted Type Area Mix Maker Device Identifier Shelf Expiration Date Model / Serial / Lot X-BOLT Orthapaedics Device Closure Vascade Od5 Fr Femoral Artery [id number] - [id number] Implanted:Qty: 1 on 01/30/2024 by Monica Armstrong MD at [facility] [employer] 10/10/2025 [id number] / / [id number] Procedures Procedure Name Priority Date/Time Associated Diagnosis Comments BASIC METABOLIC PANEL Routine 01/19/2024 11:16 AM CDT Nonrheumatic aortic valve stenosis POCT LIPID PANEL Routine 01/15/2024 3:55 PM CDT Hyperlipidemia associated with type 2 diabetes mellitus (HCC) FLEXIBLE SIGMOIDOSCOPY 0 5:25 PM CDT HEMOGLOBIN A1C Timed 03/04/2020 5:20 PM CDT COLONOSCOPY 02/21/2019 8:33 AM CDT from Last 3 Months or Most Recently Relevant to Health Maintenance Results * (ABNORMAL) Basic metabolic panel (01/19/2024 11:16 AM CDT) Glucose 153(H) 70 - 99 mg/dL [facility] - 01 BUN 13 8 - 27 mg/dL [facility] - 01 Creatinine, Serum 0.65 0.57 - 1.00 mg/dL [facility] - 01 eGFR 92 >59 mL/min/1.7 3 [facility] - 01 BUN/creat ratio 20 12 - 28 [facility] - 01 Sodium 140 134 - 144 mmol/L [facility] - 01 Potassium, sr 4.7 3.5 - 5.2 mmol/L [facility] - 01 Chloride 102 96 - 106 mmol/L [facility] - 01 CO2 25 20 - 29 mmol/L [facility] - 01 Calcium 9.5 8.7 - 10.3 mg/dL [facility] - 01 Blood 01/19/2024 11:1 6 AM CDT 01/19/2024 Narrative [facility] - 01/20/2024 8:12 AM CDT Performed at: [facility] [id number] Faculty Dean: Hardeep Flores PhD, Phone: [phone] Monica Armstrong MD LAB BLOOD ORDERABLES Final Result [facility] - * POCT lipid panel (01/15/2024 3:55 PM CDT) Cholesterol, POC 104 mg/dL Comment:GLU = 101 HDL, POC 38 mg/dL Triglycerides, POC 174 mg/dL LDL Cholesterol POC 31 mg/dL Chol/HDL Ratio, POC 0.8 Non-HDL Cholesterol, POC 66 mg/dL Cholesterol Total, POC 104 mg/dL Capillary blood 01/15/2024 3 :55 PM CDT Monica Armstrong MD POINT OF CARE TEST O RDERABLES Final Result * FLEXIBLE SIGMOIDOSCOPY (03/06/2020 5:25 PM CDT) Anatomical Region Laterality Modality Other Narrative Procedure Note Layo Benson MD - 03/06/2020 5:25 PM CDT [facility] Patient Name: Aurea De La Rosa Procedure Date: 03/06/2020 5:25 PM Date of : 1950 Admit Type: Inpatient Age: 69 Gender: Female Attending MD: Layo Benson M.D. Room: [facility] ENDOSCOPY ROOM 2 Note Status: Finalized Procedure: Flexible Sigmoidoscopy Indications: Abnormal CT of the GI tract concern for diverticular stricture causing partial large bowel obstruction Referring MD: Oscar Gunn M.D. Providers: Layo Benson M.D. Medicines: General Anesthesia Complications: No immediate complications. Estimated Blood Loss: Estimated blood loss: none. Procedure: Pre-Anesthesia Assessment: - The risks and benefits of the procedure and the sedation options and risks were discussed with the patient. All questions were answered and informed consent was obtained. - Immediately prior to administration ofmedications, the patient was re-assessed for adequacy to receive sedatives. The benefits, risks, and alternatives to theprocedure and sedation were discussed and informed consent was obtained. The GIF 1T [id number] Endoscope wasintroduced through the anus and advanced to the the sigmoidcolon. The flexible sigmoidoscopy was accomplished without difficulty. The patient tolerated the procedurewell. Findings: A benign-appearing, intrinsic severe stenosis was found at the 30 cm (presumed region of splenic flexure) and was non-traversed. The bowelin this area was matted and tethered. There was a severe angulation inthis region. The lumen beyond the level of the stricture could not be identified. Attempts were made to probe this area with a extraction balloon and wire but were unsuccessful. A colonic stent could not be placed. Impression: - Stricture in the sigmoid colon. Could not be traversed with the endoscope or guidewire. The procedure was complicated given the tethered andmatted bowel in this area. Recommendation: - [facility]. - Continue NG tube to LIS. Attending Participation: I personally performed the entire procedure. Electronically signed by Layo Benson M.D. Layo Benson M.D. 03/06/2020 6:39:49 PM . Number of Addenda: 0 Note Initiated On: 03/06/2020 5:25 PM Recognized by the [employer] for promoting quality in endoscopy Layo Benson MD ENDOSCOPY PROCEDURES Final Result * (ABNORMAL) Hemoglobin A1c (03/04/2020 5:20 PM CDT) Hgb A1C 7.3(H) 4.0 - 5.6 % [facility] Estimated Average Glucose 163 mg/dL [facility] Comment: The ADA recommends reporting an estimated Average Glucose (eAG) with all Hemoglobin A1c results using the equation derived from a study of 507 normal and diabetic adults. Minority populations were underrepresented and children were not included. (Diabetes Care 31:1901-9315, 2008). The eAG is not equivalent to a fasting glucose. Blood specimen (specimen) 03/04/2020 5:20 PM CDT 03/04/2020 6:08 PM CDT Oscar Gunn MD LAB BLOOD ORDERABLES Final Res ult [facility] [place] [address] * COLONOSCOPY (02/21/2019 8:33 AM CDT) Anatomical Region Laterality Modality Other Narrative Procedure Note Hieu Joseph MD - 02/21/2019 8:33 AM CDT [facility] Patient Name: Aurea De La Rosa Procedure Date: 02/21/2019 8:33 AM Date of : 1950 Admit Type: Outpatient Age: 68 Gender: Female Attending MD: Hieu Joseph M.D. Room: [facility] ENDOSCOPY ROOM 9 Note Status: Finalized Procedure: Colonoscopy Indications: Positive Cologuard test, failed Colonoscopy x 2 Referring MD: Julio C Mcmullen M.D., Wilfredo Pinto M.D. Providers: Hieu Joseph M.D. Medicines: Monitored Anesthesia Care Complications: No immediate complications. Estimated Blood Loss: Estimated blood loss: none. Procedure: Pre-Anesthesia Assessment: - The anesthesia plan was to use monitoredanesthesia care (MAC). - Immediately prior to administration ofmedications, the patient was re-assessed for adequacy to receive sedatives. - The risks and benefits of the procedure and the sedation options and risks were discussed with the patient. All questions were answered and informed consent was obtained. The benefits, risks and alternatives of theprocedure and sedation were discussed and informed consent was obtained. All questions were answered. Please referto the signed informed consent document in the medical record. The scope was passed under direct vision.The GIF [id number] endoscope was introduced throughthe anus and advanced to the cecum, identified by appendiceal orifice and ileocecal valve. The colonoscopy was technically difficult and complexdue to multiple diverticula in the colon and bowel stenosis. Successful completion of the procedure was aided by using manual pressure, lavage, and by using the GIF scope. The bowel preparation used wasMoviPrep. Bowel prep was administered using a split dose. The quality of the bowel preparation was good. Findings: The perianal and digital rectal examinations were normal. Four sessile polyps were found in the transverse colon and ascending colon. The polyps were 3 to 6 mm in size. These polyps were removedwith a cold snare. Resection and retrieval were complete. Multiple small-mouthed diverticula were found in the sigmoid colon, descending colon, and in the transverse colon. A benign-appearing, intrinsic moderate stenosis was found in the proximal sigmoid colon and was traversed. This was likely due to diverticular disease. Traversed with aid of a gastroscope and water infusion colonoscopy. The retroflexed view of the distal rectum and anal verge was normaland showed no anal or rectal abnormalities. Impression: - Four 3 to 6 mm polyps in the transverse colon andin the ascending colon, removed with a cold snare. Resected and retrieved. - Diverticulosis in the sigmoid colon, descendingcolon and ascending colon. - Luminal narrowing in the proximal sigmoid colon likely due to diverticular disease. Recommendation: - Call my nurses in the GI office at [phone] ([phone]) for your final pathology results in 7 days. - Repeat colonoscopy in 3 years for surveillance. - In the unusual situation that you developabdominal pain, bleeding or other significant problems in the days following this procedure please call my officeat [phone] ([phone]) to speak to my nurses. After hours and evenings please call [phone] speak to the GI fellow communications equipment installer. Please tell themthat Dr. Joseph did your procedure and that your were instructed to have the fellow call me or thephysician covering for me to discuss the management of your condition. If you have an urgent problem, please goto the nearest emergency room and have the ER doctorcall my office during the day or the GI Fellow afterhours and weekends to arrange admission or transfer to our facility. Attending Participation: I was present and participated during the entire procedure, including non-bailey portions. Electronically signed by Hieu Joseph MD Hieu Joseph M.D. 02/21/2019 9:16:11 AM . Number of Addenda: 0 Note Initiated On: 02/21/2019 8:33 AM Recognized by the [employer] for promoting quality in endoscopy Hieu Joseph MD ENDOSCOPY PROCEDUR ES Final Result from Last 3 Months or Most Recently Relevant to Health Maintenance [place] [address] MEDICARE [facility] Address: [facility] [address] [place] [address] [facility] Member Subscriber Plan / Payer (Ef fective 2014-Present) Name:Aurea De La Rosa Relation to Subscriber:Self Name:Aurea De La Rosa Payer ID:[id number] Group ID:Not on file Type:[employer] Address: [address] [place], [place] [address] [address] MEDICARE [facility] MEDICARE [facility] [place] [address] MEDICARE [facility] [place] [id number] Advance Directives For more information, please contact: [phone] * Full Code (Latest Code Status on File) Date Activated Date Inactivated Comments 01/30/2024 12:18 PM 01/30/2024 6:21 PM * Full Code Date Activated Date Inactivated Comments 03/04/2020 4:29 PM 03/12/2020 9:31 PM * Full Code Date Activated Date Inactivated Comments 02/21/2019 8:06 AM 02/21/2019 2:55 PM Care Teams Comfort Station Attendant Relationship Specialty Start Date End Date Wilfredo Pinto MD [address] [place] [address] PCP - General Family Medicine 01/04/18 Jesus Alberto Martinez MD [phone] [place] [address] Surgeon Colon and Rectal Surgery 09/21/20
--- OUTSIDE RECORDS SUMMARY | 2024-08-29 15:52 | XMS_ITS | Encounter Summary ---
Author Organization [facility] Address [address] [place] [address] Care Team Providers Care Survey Field Technician Name Role Phone Wilfredo Pinto MD Primary Care Prov ider Jesus Alberto Martinez MD Unavailable [phone] Reason for Visit * Reason Onset Date Comments Dizziness 08/19/2024 Blurred Vision 08/19/2024 Encounter Details Date Type Department Care Team (Late st Contact Info) Description 08/19/2024 Telephone [facility] Cardiology [address] [place] [address] Monica Armstrong MD [address] [place] [id number] Dizziness; Blurred Vision Social History Tobacco Use Types Packs/Day Years Used Date Smoking Tobacco: Former Cigarettes Smokeless Tobacco: Never Alcohol Use Standard Drinks/Week [...] on file Legal Sex Female 5:31 PM 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 Pt said she also has Meniere's so she never knows what causes this. Pt said the school nurse did not check her BP but pt has a cuff at home. Pt is scheduled to see JF in a couple of weeks-advised her to start checking her BP on occasion about an hour or two after her morning meds and bring her readings to that appt. Pt said this has not been regularly happening but she will call us back if it starts occurring more regularly before her upcoming appt. Advised pt to stay hydrated and to take her time with changing positions going forward. CH SERVICES MANAGER * Telephone Encounter - Nichole Grossman - 08/19/2024 10:14 AM CST Patient states that she had an episode of dizziness, lightheadedness and blurry vision. States thatshe went to her schools nurse and she provided the following notes, murmur is prominent. HR is within normal range . Patient states that she did not take her BP. Requesting a call back. Please advise. Thank you. Contact [phone] CH SERVICES MANAGER documented in this encounter Plan of Treatment Not on file documented as of this encounter Visit Diagnoses Not on filedocumented in this encounter Care Teams Survey Field Technician Relationship Specialty Start Date End Date Wilfredo Pinto MD [address] [place] [address] PCP - General Family Medicine 01/04/18 Jesus Alberto Martinez MD [phone] [place] [address] Surgeon Colon and Rectal Surgery 09/21/20 documented as of this encounter
--- OUTSIDE RECORDS SUMMARY | 2024-08-29 15:52 | XMS_ITS | Clinical Summary ---
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): Differential includes vestibular migraine Will trial head [...] (03/05/2020): Added automatically from request for surgery [id number] Encounters Date Type Department Care Team Description 08/19/2024 Telephone [facility] Cardiology [address] [place] [address] Monica Armstrong MD Dizziness; Blurred Vision from Last 3 Months Immunizations Name Administration Dates Next Due Pfizer SARS-CoV-2 Monovalent Vaccination (12+ Yrs) PURPLE 10/02/2020,09/11/2020 Pfizer Sars-Cov-2 Bivalent Vaccination (12+ YRS) 03/24/2022 Surgical History Surgery Date Site/Laterality Comments BREAST SURGERY 07/17/2016 - 07/16/2017 Left Breast cancer s/p breast reduction/not quite mastectomy, w/p radiation GALLBLADDER SURGERY TONSILLECTOMY DILATION AND CURETTAGE, DIAGNOSTIC / THERAPEUTIC COLONOSCOPY WISDOM TOOTH EXTRACTION CHOLECYSTECTOMY MASTECTOMY 07/17/2016 - 07/16/2017 Left CATARACT EXTRACTION COLON SURGERY Colostomy / colostom y reversal HERNIA REPAIR Done with colostomy reversal SINUS SURGERY Medical History Medical History Date Comments Diabetes (HCC) ADHD (attention deficit hyperactivity disorder) Gastrointestinal problem Chronic diarrhea Sleep apnea Diverticulosis GERD (gastroesophageal reflu x disease) Dysphagia Hyperlipidemia Hypertension Type 2 diabetes mellitus (HCC) Thyroid nodule Cataract Miscarriage Breast cancer (HCC) 2016 left; surger y and radiation tx Anemia Stroke (HCC) August 2020 Mixed conductive and sensorineural hearing loss Meniere s Disease Infection Osteomyelitis / cellulitis Nonrheumatic aortic (valve) stenosis Motion sickness PVC (premature ventricular contraction) Family History Medical History Relation Name Comments Allergy (severe) Brother Ronn Oliva II Diabetes Brother Ronn Oliva II Hearing loss Brother Ronn Oliva II Cancer Father Ronn Oliva Diabetes Father Ronn Oliva Cancer Father's Brother 1 Harshal Oliva Cancer Father's Brother 2 Abhijit Oliva Heart attack Father's Brother 3 Kirit Oliva Cancer Father's Sister Mary Ballsey Aj Heart attack Maternal Grandfather Brant Barbafle Heart attack Maternal Grandmother Aurea Powell of multiple heart attacks. Hypertension Maternal Grandmother Aurea Powell Alzheimer's disease Mother So Powell Pj COPD Mother So Oliva Dementia Mother So Oliva Hearing loss Mother So Powell Pj Hypertension Mother So Ballsey Hypertension Paternal Grandfather Brant Powell Cancer Paternal Grandmother Ekta Oliva Diabetes Sister Noreen Gay Relation Name Status Comments Brother Ronn Oliva II Father Ronn Oliva Father's Brother 1 Harshal Laura Pj Father's Brother 2 Abhijit Blake Pj Father's Brother 3 Kirit Oliva Father's Sister Mary Oliva Cooper Maternal Grandfather Brant Powell Maternal Grandmother Aurea Powell Deceas ed Mother So Oliva Paternal Grandfather Brant Powell Paternal Grandmother Ekta Oliva Sister Noreen Gay Social History Tobacco Use Types Packs/Day Years [...] on file Legal Sex Female 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 Gender Identity Female 01/06/2021 6:49 AM CDT Sexual Orientation Straight 01/06/2021 6: 49 AM CDT Obstetrics History Last Filed Vital Signs Vital Sign Reading [...] 01/30/2024 9:32 AM CDT Plan of Treatment Health Maintenance Due Date Last Done Comments Albumin Creatinine Ratio, Urine 1950 Depression Screening 1950 Hepatitis C Screening 1950 Osteoporosis Screening-Bone Density Scan 1950 Dilated Eye Exam 1950 Foot Exam 1950 Pneumococcal vaccine 65+ (1 of 2 - PCV) 11/20/1955 Hepatitis B Screening 11/20/1967 Well Visit 65+ 2014 Zoster Vaccine (2 of 2) 01/17/2019 11/22/2018 Breast Cancer Screening-Mammogram 07/04/2019 018 Hemoglobin A1C 09/04/2020 03/04/2020 DTaP/Tdap/Td Vaccine (2 - Td or Tdap) 05/18/2023 05/18/2013 Covid-19 Vaccine (2023-2 5 season) 2024 03/24/2022, 10/23/2021, 03/20/2021, Additional history exists Influenza Vaccine (#1) 2024 03/24/2022 Lipid Panel 01/14/2025 01/15/2024, 03/18, 05/18/2021, Additional history exists eGFR 01/18/2025 01/19/2024 Fall Risk Assessment 01/29/2025 01/30/2024 Colon Cancer Screening-Colonoscopy 02/21/2029 02/21/2019 Colon Cancer Screening-CT Colonography Discontinued 03/06/2020, 02/21/2019 Colon Cancer Screening-DNA Stool Discontinued 03/06/20 20, 02/21/2019 Colon Cancer Screening-FIT Discontinued 03/06/2020, Colon Cancer Screening-Sigmoidoscopy Discontinued 03/06/2020, 02/21/2019 Medical Devices Implanted Type Area Set Up Inspector Device Identifier Shelf Expiration Date Model / Serial / Lot [employer] Device Closure Vascade Od5 Fr Femoral Artery [id number] - [id number] Implanted:Qty: 1 on 01/30/2024 by Monica Armstrong MD at [facility] [employer] 10/10/2025 [id number] / / [id number] Procedures Procedure Name Priority Date/Time Associated [...] Basic metabolic panel (01/19/2024 11:16 AM CDT) [facility] Glucose 153(H) 70 - 99 mg/dL [facility] [...] - 01/20/2024 8:12 AM CDT Performed at: 01 - [address] [id number] Insole Cementer: Hardeep Flores PhD, Phone: [phone] Monica Armstrong MD LAB BLOOD ORDERABLES Final Result [facility] - 01 * POCT lipid panel (01/15/2024 3:55 PM [...] Female Attending MD: Layo Benson M.D. Room: [facility] ENDOSCOPY ROOM 2 Note Status: Finalized Procedure: [...] informed consent was obtained. The GIF 1T [id number] Endoscope wasintroduced through the anus and advanced [...] On: 03/06/2020 5:25 PM Recognized by the [employer] for promoting quality in endoscopy us Layo Benson MD ENDOSCOPY PROCEDURES Final Result * (ABNORMAL) Hemoglobin A1c (03/04/2020 5:20 PM CDT) Hgb A1C 7.3(H) 4.0 - 5.6 % [facility] Estimated Average Glucose 163 mg/dL [facility] Comment: The ADA recommends reporting an estimated Average Glucose (eAG) with all Hemoglobin A1c results using the equation derived from a study of 507 normal and diabetic adults. Minority populations were underrepresented and children were not included. (Diabetes Care 31:0340-1237, 2008). The eAG is not equivalent to a fasting glucose. Blood specimen (specimen) 03/04/2020 5:20 PM CDT 03/04/2020 6:08 PM CDT us Oscar Gunn MD LAB BLOOD ORDERABLES Final Res ult [facility] Department [place] [address] * COLONOSCOPY (02/21/2019 8:33 AM CDT) Anatomical Region Laterality Modality Other Narrative Procedure Note Hieu Joseph MD - 02/21/2019 8:33 AM CDT [facility] Patient Name: Aurea De La Rosa Procedure Date: 02/21/2019 8:33 AM Date of : 1950 Admit Type: Outpatient Age: 68 Gender: Female Attending MD: Hieu Joseph M.D. Room: [facility] ENDOSCOPY ROOM 9 Note Status: Finalized Procedure: [...] was passed under direct vision.The GIF [id number] endoscope was introduced throughthe anus and advanced [...] my nurses in the GI office at [phone] ([phone]) for your final pathology results in 7 days. - Repeat colonoscopy in 3 years for surveillance. - In the unusual situation that you developabdominal pain, bleeding or other significant problems in the days following this procedure please call my officeat [phone] ([phone]) to speak to my nurses. After hours and evenings please call [phone] speak to the GI fellow nutrition intern. Please tell themthat Dr. Joseph did your [...] portions. Electronically signed by Hieu Joseph MD iHeu Joseph M.D. 02/21/2019 9:16:11 AM . Number of Addenda: 0 Note Initiated On: 02/21/2019 8:33 AM Recognized by the [employer] for promoting quality in endoscopy Hieu Joseph MD ENDOSCOPY PROCEDUR ES Final Result from Last 3 Months or Most Recently Relevant to Health [place] [address] MEDICARE [facility] MEDICARE [place] [address] MEDICARE [place] MEDICARE [employer] [facility] Advance Directives For more information, please contact: [phone] * Full Code (Latest Code Status on File) Date Activated Date Inactivated Comments 01/30/2024 12:18 PM 01/30/2024 6:21 PM * Full Code Date Activated Date Inactivated Comments 03/04/2020 4:29 PM 03/12/2020 9:31 PM * Full Code Date Activated Date Inactivated Comments 02/21/2019 8:06 AM 02/21/2019 2:55 PM Care Teams 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
--- OUTSIDE RECORDS SUMMARY | 2024-08-29 15:52 | XMS_ITS | Data Portability ---
Author Organization [facility] [employer], Main Office Address [address] [place] [address] Care Team Providers Care Admiralty Lawyer Name Role Phone JOSHAU DOSS Primary Care Provider JOSHUA DOSS Referring Provider Assessment No assessment recorded. Plan of Treatment Reminders Order Date Submit Date Provider Last Modified By Organization Details Last Modified Time Details Appointments None recorded. Lab HbA1c (hemoglobi n A1c), blood 2022 023 [facility] Miles, 2022 Idania Michelle, [address], [place], [address], 3 10:27:17 microalbum in/creatin ine, mass ratio, urine 2022 023 BLAS Miles, 2022 Idania Michelle, [address], [place], [address], 3 10:27:15 CMP, serum or plasma 2022 023 BLAS Miles, 2022 Idania Michelle, [address], [place], [address], 3 10:27:16 lipid panel, serum 2022 023 BL[facility] Miles, 2022 Idania Michelle, [address], [place], [address], 3 10:27:16 CMP, serum or plasma 2022 023 BLAS Miles, 2022 Idania Michelle, [address], [place], [address], 3 10:27:17 TSH + free T4, serum 2022 023 [facility], 2022 Id[address], [address], [place], [address], 3 10:27:17 T3, free, serum or plasma 2022 023 [facility], 2022 Idania [address], [address], [place], [address], 3 10:27:15 Referral None recorded. Procedures None recorded. Surgeries None recorded. Imaging None recorded. Medication Orders Kerendia 10 mg tablet [email or web address] [id number], [address] , [place], [place], [id number], 3 10:32:59 Patient TargetsNo targets recorded. Patient InstructionsNo instructions recorded. Reason for Referral None Reported. Results Created Date Observation Date Name Description Value Unit Range Abnormal Flag Note LastModifiedBy Organization Detail LastModifiedTime Result Notes None recorded. Problems Name Problem SNOMED Code Status Onset Date Resolution Date Notes Provider Name and Address Organization Details Recorded Time Acquired trigger finger 6423164 Active Not Available [facility] 3 07:35:55 Uncontrolled type 2 diabetes mellitus 519940658 Active 2022 Not Available [facility] 3 07:35:55 Pain in limb 48517079 Active Not Available [facility] 3 07:35:55 Well controlled type 2 diabetes mellitus 322387160 Active 2022 Not Available [facility] 3 07:35:55 Proteinuria 46780510 Active 2022 Not Available [facility] 3 07:35:55 Hypothyroidis m 46421117 Active 2022 Not Available [facility] 3 07:35:55 Dyslipidemia 260369594 Active 2022 Not Available [facility] 3 07:35:55 Problem Notes None recorded. 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 Procedure Notes None recorded. Medical Equipment None Reported. Allergies Allergen ID Allergen Name Allergen Category Reaction Reaction Severity Criticality Documentation Date Start Date Code Code System Note Provider Name and Address Organization Details Recorded Time 385 morphine medicatio n vomiting Not available Not available 09/14/2022 7052 RxNorm Not Available [facility] 00:51:22 Medications Name Sig Start Date Stop Date Status Note LastModified by Organization Details LastModified Time FreeStyle Desi 2 Sensor active Not Available Not Available Not Available quetiapine 25 mg tablet TAKE 1 TABLET BY MOUTH EVERY NIGHT AT BEDTIME 08/15 completed Not Available Not Available Not Available cyclobenzap rine 10 mg tablet TK 1 T PO Q 8 H PRN. CUT IN HALF IF TOO SEDATING 09/15 completed Not Available Not Available Not Available atorvastati n 40 mg tablet TAKE 1 TABLET BY MOUTH EVERY DAY 09/01 completed Not Available Not Available Not Available atorvastati n 80 mg tablet TAKE ONE TABLET BY MOUTH ONCE DAILY IN THE EVENING 08/15 completed Not Available Not Available Not Available doxycycline hyclate 100 mg capsule active Not Available Not Available N ot Available cefuroxime axetil 250 mg tablet TK 1 T PO BID 09/15 completed Not Available Not Available Not Available ketoconazol e 2 % shampoo 08/15 completed Not Available Not Available Not Available erythromyci n 500 mg tablet 09/15 completed Not Available Not Available Not Available clindamycin HCl 300 mg capsule TAKE 1 CAPSULE BY MOUTH THREE TIMES DAILY 09/15 completed Not Available Not Available Not Available ibuprofen 800 mg tablet 09/01 completed Not Available Not Available Not Available fluconazole 150 mg tablet 08/15 completed Not Available Not Available Not Available metoprolol succinate ER 50 mg tablet,exte nded release 24 hr ONE TABLET ONCE DAILY active Not Available Not Available No t Available enalapril maleate 20 mg tablet TAKE 1 TABLET BY MOUTH EVERY DAY active Not Available Not Available No t Available prednisone 5 mg tablet active Not Available Not Available Not Available Lantus U-100 Insulin 100 unit/mL subcutaneou s solution ADMINISTE R 63 UNITS UNDER THE SKIN DAILY active Not Available Not Available No t Available venlafaxine ER 150 mg capsule,ext ended release 24 hr TAKE 2 CAPSULES BY MOUTH EVERY DAY 08/15 completed Not Available Not Available Not Available metronidazo le 500 mg tablet TK 1 T PO TID 09/15 completed Not Available Not Available Not Available acetaminoph en 300 mg-codeine 30 mg tablet 11/24 completed Not Available Not Available Not Available ciprofloxac in 500 mg tablet TAKE 1 TABLET BY MOUTH TWICE DAILY 09/15 completed Not Available Not Available Not Available acetaminoph en 500 mg tablet TAKE 2 TABLETS PO EVERY 8 HOURS 11/24 completed Not Available Not Available Not Available glimepiride 2 mg tablet Take 2 tablets twice a day by oral route before meals for 90 days. 2022 active Not Available Not Available Not Avai lable Cholestyram ine Light 4 gram powder for susp in a packet ONCE EVERY NIGHT 08/15 completed Not Available Not Available Not Available ondansetron 8 mg disintegrat ing tablet 11/24 completed Not Available Not Available Not Available levothyroxi ne 75 mcg tablet active Not Available Not Available Not Available sodium chloride 0.9 % irrigation solution USE DAILY ON WOUND DRESSING CHANGES 08/15 completed Not Available Not Available Not Available amoxicillin 875 mg tablet TAKE 1 TABLET BY MOUTH TWICE DAILY UNTIL ALL TAKEN 11/24 completed Not Available Not Available Not Available DOK 100 mg capsule TAKE 1 CAPSULE PO BID WITH A GLASS OF WATER 09/15 completed Not Available Not Available Not Available dexamethaso ne 1 mg tablet take one tablet at 10 pm night before 8 am cortisol 08/15 completed Not Available Not Available Not Available diazepam 2 mg tablet TK 1 T PO Q 8 H PRF DIZZINESS 08/15 completed Not Available Not Available Not Available buspirone 10 mg tablet 09/01 completed Not Available Not Available Not Available insulin syringe U-100 with needle 1 mL 31 gauge x 11/29 USE WITH INSULIN EVERY DAY 08/15 completed Not Available Not Available Not Available metoprolol succinate ER 25 mg tablet,exte nded release 24 hr 09/01 completed Not Available Not Available Not Available cefuroxime axetil 500 mg tablet 09/15 completed Not Available Not Available Not Available methylpredn isolone 4 mg tablets in a dose pack 11/24 completed Not Available Not Available Not Available neomycin 500 mg tablet 09/15 completed Not Available Not Available Not Available dextroamphe tamine-amph etamine ER 30 mg 24hr capsule,ext end release TAKE 2 CAPSULES BY MOUTH EVERY MORNING active Not Available Not Available No t Available clobetasol 0.05 % scalp solution PRN 08/15 completed Not Available Not Available Not Available ondansetron 4 mg disintegrat ing tablet DISSOLVE 1 T PO Q 4 TO 6 H PRF NAUSEA 08/15 completed Not Available Not Available Not Available metformin ER 500 mg tablet,exte nded release 24 hr TK 2 TS PO BID active Not Available Not Available No t Available doxycycline hyclate 100 mg tablet 11/24 completed Not Available Not Available Not Available amoxicillin 875 mg-potassiu m clavulanate 125 mg tablet 11/24 completed Not Available Not Available Not Available oxycodone 5 mg tablet 09/15 completed Not Available Not Available Not Available enoxaparin 40 mg/0.4 mL subcutaneou s syringe active Not Available Not Available No t Available dextroamphe tamine-amph etamine ER 15 mg 24hr capsule,ext end release 09/01 completed Not Available Not Available Not Available cholestyram ine (with sugar) 4 gram powder for susp in a packet DISSOLVE THE CONTENTS OF 1 PACKET IN 2 OUNCES OF WATER AND TK PO QHS ON EMPTY STOMACH 09/15 completed Not Available Not Available Not Available chlorhexidi ne gluconate 0.12 % mouthwash 01/30 /2024 completed Not Available Not Available Not Available magnesium 08/15 completed Not Available Not Available Not Available riboflavin (vitamin B2) 08/15 completed Not Available Not Available Not Available Vitamin D3 08/15 completed Not Available Not Available Not Available BD Ultra-Fine Short Pen Needle 31 gauge x 5/16 08/15 completed Not Available Not Available Not Available OneTouch Verio test strips TEST QD 08/15 completed Not Available Not Available Not Available PreviDent 5000 Booster Plus 1.1 % dental paste U ONCE D OR UTD 09/15 completed Not Available Not Available Not Available Invokana 100 mg tablet TAKE 1 TABLET BY MOUTH EVERY DAY 08/15 completed Not Available Not Available Not Available Victoza 3-Dawson 0.6 mg/0.1 mL (18 mg/3 mL) subcutaneou s pen injector ADMINISTE R 1.2 MG UNDER THE SKIN EVERY DAY AT DINNER active Not Available Not Available No t Available Jardiance 10 mg tablet Take 1 tablet every day by oral route in the morning for 7 days. 11/24 completed Not Available Not Available Not Available Jardiance 25 mg tablet active Not Available Not Available Not Available pen needle, diabetic, safety 31 gauge x 5/16 active Not Available Not Available Not Available BD Soniya 2nd Gen Pen Needle 32 gauge x 5/32 USE EVERY DAY TO INJECT VICTOZA active Not Available Not Available No t Available FreeStyle Desi 2 Sensor kit USE DIRECTED AND CHANGE SENSOR EVERY 14 DAYS active Not Available Not Available No t Available Kerendia 10 mg tablet Take 1 tablet(s) every day by oral route in the morning for 90 days. active Not Available Not Available No t Available Vitals Date Recorded Body height Body mass index (BMI) Body weight Body temperature Heart rate Systolic blood pressure Diastolic blood pressure Provider Name and Address Organization Details Last Updated DateTime 3 162.56 cm 33 kg/m2 87330.7 4 g 97.8 [degF] 80 /min 160 mm[Hg] 82 mm[Hg] Mandy Diaz CMA [place] [facility] 3 10:09:14 Date Recorded Body mass index (BMI) Body mass index (BMI) Body height Body height Oxygen saturation Oxygen saturation in Arterial blood by Pulse oximetry Heart rate Heart rate Body temperature Body temperature Body weight Body weight Systolic blood pressure Diastolic blood pressure Systolic blood pressure Diastolic blood pressure Provider Name and Address Organization Details Last Updated DateTime 3 32.4 kg/m2 34.2 kg/m2 162.56 cm 162.56 cm 95 % 95 % 60 /min 95 /min 97.1 [degF] 97.7 [degF] 50428.9 6 g 47103.8 8 g 144 mm[Hg] 60 mm[Hg] 130 mm[Hg] 70 mm[Hg] Not Available [facility] 00:45:37 Social History Question Answer Notes LastModified by Organizat ion Details LastModified Time Tobacco Smoking Status Former Smoker quit age 68 Not Available [facility] 09/14/2022 00:41:50 Do You Have An Advance Directive? Yes MIGRATION.[id number] Information not available 09/14/2022 What Is Your Level Of Alcohol Consumption? Occasional MIGRATION.96859 44176 Information not available 09/14/2022 Are You Blind Or Do You Have Difficulty Seeing? No MIGRATION.07808 48231 Information not available 09/14/2022 What Is Your Level Of Caffeine Consumption? Moderate MIGRATION.29440 34294 Information not available 09/14/2022 How Much Tobacco Do You Chew? None MIGRATION.11037 65789 Information not available 09/14/2022 In The 14 Days Before Symptom Onset, Have You Had Close Contact With A Laboratory-confi rmed COVID-19 While That Case Was Ill? No MIGRATION.86465 41593 Information not available 09/14/2022 In The 14 Days Before Symptom Onset, Have You Had Close Contact With A Person Who Is Under Investigation For COVID-19 While That Person Was Ill? No MIGRATION.18355 12700 Information not available 09/14/2022 Are You Deaf Or Do You Have Serious Difficulty Hearing? 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 REGULAR MIGRATION.87876 19880 Information not available 09/14/2022 Which Illicit Or Recreational Drugs Have You Used? None MIGRATION.67027 49397 Information not available 09/14/2022 Do You Or Have You Ever Used E-cigarettes Or Vape? Never Used Electronic Cigarettes MIGRATION.59358 49126 Information not available 09/14/2022 What Is Your Occupation? Retired MIGRATION.50848 76931 Information not available 09/14/2022 Are There Any Guns Present In Your Home? Yes MIGRATION.84092 86748 Information not available 09/14/2022 Do You Have A Medical Power Of Server Software Engineer? Yes JOHN DE LA ROSA MIGRATION.62056 39619 Information not available 09/14/2022 What Was The Date Of Your Most Recent Tobacco Screening? 09/15/2020 MIGRATION.28960 71395 Information not available 09/14/2022 What Is Your Relationship Status? MIGRATION.13847 98723 Information not available 09/14/2022 At What Age Did You Start Smoking Tobacco? 49 MIGRATION.50819 89745 Information not available 09/14/2022 Do You Or Have You Ever Used Smokeless Tobacco? Never Used Smokeless Tobacco MIGRATION.69480 31206 Information not available 09/14/2022 How Much Tobacco Do You Smoke? 0.25 PPD MIGRATION.11249 37255 Information not available 09/14/2022 Do You Use Sunscreen Routinely? No MIGRATION.72821 24655 Information not available 09/14/2022 Do You Have Any Dietary Restrictions? No MIGRATION.09425 03907 Information not available 09/14/2022 Sex: Female Functional Status Question Answer Note LastModified by Organizat ion Details LastModified Time Do you have difficulty walking or climbing stairs? PT STATED SOMETIMES OF BALANCE MIGRATION.41018 08643 Information not available 09/14/2022 Do you have transportation difficulties? No MIGRATION.81925 20979 Information not available 09/14/2022 Are you able to walk? YESWOREST MIGRATION.33180 28133 Information not available 09/14/2022 Do you have difficulty doing errands alone? No MIGRATION.46988 37718 Information not available 09/14/2022 Are you able to care for yourself? Yes MIGRATION.35547 23858 Information not available 09/14/2022 Do you have difficulty dressing or bathing? Yes DUE TO bppv MIGRATION.81078 90960 Information not available 09/14/2022 What is your exercise level? None MIGRATION.17553 01532 Information not available 09/14/2022 Mental Status Question Answer Note LastModified by Organizat ion Details LastModified Time Do you have difficulty concentrating, remembering or making decisions? No MIGRATION.[id number] Information not available 09/14/2022 Family History Relationship Description Onset Age of this Age Resolved Age Notes LastModified by Organization Details LastModified Time Mother Alzheimer's disease [id number] Not available 09/14/2022 00:42:16 Mother Hypertensive disorder MIGRATION.969 [id number] Not available 09/14/2022 00:42:16 Mother Chronic obstructive pulmonary disease MIGRATION.168 [id number] Not available 09/14/2022 00:42:16 Father Malignant tumor of pancreas MIGRATION.006 [id number] Not available 09/14/2022 00:42:16 Maternal Grandfather Heart disease MIGRATION.924 [id number] Not available 09/14/2022 00:42:16 Unspecified Relation Family history of malignant neoplasm patern al side MIGRATION.[id number] Not available 09/14/2022 00:42:16 Sister Diabetes mellitus 49 MIGRATION.652 [id number] Not available 09/14/2022 00:42:16 Medical History Condition Response BLINDNESS N RHEUMATIC FEVER N BLADDER PROBLEMS N SLEEP APNEA Y OTHER # 1 Y INFECTIOUS DISEASE N HEART ARRHYTHMIA N INSOMNIA N RADIATION / CHEMOTHERAPY N COPD N HIGH CHOLESTEROL / HYPERLIPIDEMIA Y Other # 2 N HYPERTHYROIDISM N BLOOD DISEASES N NEUROLOGICAL PROBLEMS N SURGERY N EDEMA N HYPOTHYROIDISM N DEPRESSION (INCLUDING POST ) N HAVE YOU BEEN HOSPITALIZED OR SEEN IN [facility] IN THE PAST YEAR ? N STROKE/TIA N BENIGN PROSTATIC HYPERPLASIA N MEASLES N MYOCARDIAL INFARCTION N OBESITY N GERD/NAUSEA Y EXCESSIVE PERSPIRATION Y ANEURYSM N INPATIENT PSYCH CARE N USE OF BLOOD THINNERS N NO SIGNIFICANT PAST MEDICAL HISTORY N DIABETES, TYPE Y BLOOD CLOTS N ASTHMA N HEPATITIS / LIVER DISEASE N PULMONARY DISEASE N ALZHEIMER'S DISEASE N HERPES N HEADACHES/MIGRAINES Y SEIZURES/EPILEPSY N GI PROBLEMS N Low Testosterone N DIZZINESS Y HEART DISEASE/HEART PROBLEMS N AIDS/HIV N KIDNEY DISEASE N VISION/EYE PROBLEMS N LIVER DISEASE N HYPERTENSION Y CANCER: SPECIFY Y BLOOD TRANSFUSION N ANESTHESIA COMPLICATIONS N ANEMIA/BLOOD DISORDER Y ATRIAL FIBRILLATION N PULMONARY EMBOLISM N AUTOIMMUNE DISEASE N TUBERCULOSIS N GLAUCOMA N Gynecological HistoryNo gynecological history recorded. Obstetrics History GPAL:G 0 P 0 0 0 0 Immunizations Vaccine Type Date Status Note Provider Nam e and Address Organization Details Recorded Time COVID-19, mRNA, LNP-S, PF, 30 mcg/0.3 mL dose 09/11/2020 completed Not Available [facility] 3 07:35:55 Influenza, high-dose, quadrivalent, PF 05/04/2020 completed Not Available [facility] 3 07:35:55 Past Encounters Encounter ID Performer Location Encounter Start Date Encounter Closed Date Diagnosis/Indication Diagnosis SNOMED-CT Code Diagnosis ICD10 Code Diagnosis Note [id number] [facility] [address] [facility] [address] [place] [address] 09/15/2020 00:00:00 09/15/2020 17:24:56 [id number] [facility] [place] [address] [place] [address] 09/01/2022 00:00:00 09/01/2022 11:13:51 [id number] Claudia Glez MD [facility] [place] [address] [place] [address] 11/24/2022 09:53:46 11/24/2022 10:36:01 Well controlled type 2 diabetes mellitus 087029251 E11.9 a1c of 7.4%- in range 80% of time in past week- will uptitrate her lantus to 34 units in morning and 44 units at bedtime as fasting glucose not in ideal range- she is aware she can increase or decrease every 3-4 days to maintain fasting glucose 90-130 mg/dL Continue metformin and she is aware she can take one with breakfast and one with dinner due to GI intoleranc e to high dose. Continue victoza as she has no nausea or vomiting and continue glimepirid e scale with breakfast only (hold dinner to avoid hypoglycem ia due to increased activity). Proteinuria 00483253 R80 .9 Trial on kerendia 10 mg daily for proteinuri a- she is on high dose enalapril with no improvemen t- repeat CMP to test K levels 2 weeks after her kerendia. Hypothyroidism 67682870 E03.9 TSH and FT4 in ideal range- continue on LT4 75 mcg daily. Dyslipidemia 311617830 E 78.5 Continue statin therapy. Spent up to 28 minutes preparing to see the patient (eg, review of tests), obtaining and/or reviewing separately obtained history, performing a medically appropriat e examinatio n and evaluation , counseling and educating the patient, ordering medication s, tests, along with documentin g clinical informatio n in the electronic health record, independen tly interpreti ng results and communicat ing results to the patient. RTC in 4-6 months. Patient was provided a handwritte n lab order which contains our fax number. If she chooses to go outside of the [facility] system to obtain labwork she was advised to provide our fax number and my informatio n to the lab she will be obtaining labwork from in order to have her labs properly forwarded over for me to review so there is no loss of follow up due to use of outside network. She was also advised to contact our clinic informing us that she has completed her labwork so we are aware we will need to reach out to the appropriat e laboratory to request her results be forwarded to us so I might have the ability to review and make further medical decision making in her case. She voiced understand ing. Health Concerns Section Related Observation LastModified by Organization Detai ls LastModified Time None Recorded Concern Status LastModified by Organization Details LastModified Time None Recorded Advance Directives Directive Y: Payers Encounter Date Sequence Insurance Name Policy Number Policy Barr Covered Member ID Barr Member ID Guarantor Name 11/24/2022 1 [place] Aurea De La Rosa [id number] Aurea De La Rosa 11/24/2022 2 [facility] Aurea De La Rosa [id number] Aurea De La Rosa Notes Date Note Type Note Provider Name and Address Organization Details Recorded Time 11/24/2022 text/html 72 yo female com es in for follow up in management of better controlled type 2 DM (A1C of 7.4% down from ?), hypothyroidism, and dyslipidemia. last/initial visit in Aug at that time we transitioned off invokana to jardiance due to lower SE profile; added glimepiride scale, victoza and metformin for insulin sensitization. We split her to twice daily lantus 30 units in morning and 40 units at bedtime and patient advised to titrate up by 6 units every 4 days until fasting glucose is running 90-120 mg/dL consistently. Added freestyle desi sensor for glucose knowledge. She has to take her LT4 in morning and wait one hour to have other medications / food. She takes her all three metformin in morning She is taking lantus 30 units in morning and 40 units at bedtime. She is using glimepiride scale. Per her freestyle desi francesca she is 81% in range and 2% hypoglycemia and 11% out of range She has no hypoglycemia awareness labs from 11/17/22:TSH of 1.290 uIU/mlFT4 of 1.37 ng/dLa1c 7.4%cortisol 1.0 ug/dL so suppressed/normal1 30/169/44/54microa lbumin high at 338 ug/mgglucose 417 mg/dLCr normalLFT normal Claudia Glez MD [address] [facility], [facility] [address] [place], [address], [facility] 11/24/2022 10:37:14 OBGyn Episode No OBEpisode recorded.
--- OUTSIDE RECORDS SUMMARY | 2024-08-29 15:52 | XMS_ITS | Patient Health Summary ---
Author Organization [facility] [employer] Address [address] [place] [address] Care Team Providers Care Business Affairs Manager Name Role Phone Wilfredo Pinto MD Primary Care Provider + Note from [facility],non-owned Affiliates and Associated Physician Practices is amultiple site organization consisting of ambulatory clinics and hospital sitesin [place], [place], [place] and [place]. This disclosure is being madepursuant to the Care Everywhere program and may not contain all information available regarding this patient. 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 Area of segmental nonmass enhancement in lower outer quadrant reflects site of known malignancy. Abnormality extends 9 cm in anterior-posterior extent. If breast conservation is planned, bracketed wire localization could be performed using mammographic landmarks as described above. Alternatively, biopsy could be performed of the posterior focal asymmetry to confirm extent of disease (with second look ultrasound or stereotactic guidance). 2. No MR evidence of multicentric malignancy in left breast. 3. No left axillary or internal mammary adenopathy. Right breast: No MR evidence of malignancy in right breast. ASSESSMENT: BI-RADS category 6: Known biopsy-proven cancer. RECOMMENDATION: Patient is already under the care of Dr. Margareth Devries. This report was electronically signed by ALISSA PATEL M.D. on 07/14/2016 1:47 PM . Narrative 07/14/2016 1:47 PM NEEDLE MOLDER BILATERAL BREAST MRI HISTORY: 65-year-old female with newly diagnosed left breast DCIS following stereotactic core biopsy of calcifications detected on screening mammogram. MR requested to evaluate extent of disease. COMPARISON: Comparison was made to previous mammograms from [facility] on 05/04/2015, 05/31/2016, 06/08/2016, and 06/15/2016. TECHNIQUE: Multiplanar multisequence MR imaging of both breasts before and following the administration of 8.5 cc of Gadavist. Dynamic phase imaging was performed in the axial plane. Exam was processed by and interpreted on a [employer] soft boarder including 3-D volume rendering, subtraction image processing and contrast kinetic analysis. FINDINGS: Background tissue pattern: Scattered fibroglandular tissue. Degree of background parenchymal enhancement: Minimal, symmetric. LEFT BREAST: There is segmental nonmass enhancement in the lower outer quadrant of the left breast, corresponding to area of known biopsy-proven malignancy. Two biopsy clips are seen within the area of abnormal enhancement. Area of abnormality extends 9 cm in anterior-posterior extent (axial postcontrast images 99-115), 2 cm in transverse extent, and 2.8 cm in superior-inferior extent. Area demonstrates homogeneous enhancement with progressive kinetics. Area of abnormal enhancement corresponds to mammographically visible findings, including biopsied segmental calcifications and a developing focal asymmetry more posteriorly. The anterior biopsy clip adorno the anterior margin of abnormality; the mammographically visible developing focal asymmetry adorno the posterior margin of abnormality. No other suspicious mass or area of abnormal enhancement is seen in the other quadrants of the left breast. There is no involvement of the skin, nipple- areolar complex, or chest wall. There is no left axillary or internal mammary adenopathy. RIGHT BREAST: There is no suspicious mass or area of abnormal enhancement in the right breast. There is no abnormality of the right axilla, chest wall, or nipple areolar complex. Procedure Note Alissa Patel MD - 10/13/2017 BILATERAL BREAST MRI HISTORY: 65-year-old female with newly diagnosed left breast DCISfollowing stereotactic core biopsy of calcifications detected on screeningmammogram. MR requested to evaluate extent of disease. COMPARISON: Comparison was made to previous mammograms from [facility] on 05/04/2015, 05/31/2016, 06/08/2016, and 06/15/2016. TECHNIQUE: Multiplanar multisequence MR imaging of both breasts before andfollowing the administration of 8.5 cc of Gadavist. Dynamic phase imagingwas performed in the axial plane. Exam was processed by and interpreted harjeet [employer] soft boarder including 3-D volume rendering, subtraction image processing and contrast kineticanalysis. FINDINGS: Background tissue pattern: Scattered fibroglandular tissue. Degree of background parenchymal enhancement: Minimal, symmetric. LEFT BREAST: There is segmental nonmass enhancement in the lower outer quadrant of theleft breast, corresponding to area of known biopsy-proven malignancy. Twobiopsy clips are seen within the area of abnormal enhancement. Area ofabnormality extends 9 cm in anterior-posterior extent (axial postcontrast images 99-115), 2 cm intransverse extent, and 2.8 cm in superior-inferior extent. Areademonstrates homogeneous enhancement with progressive kinetics. Area ofabnormal enhancement corresponds to mammographically visible findings, including biopsied segmentalcalcifications and a developing focal asymmetry more posteriorly. Theanterior biopsy clip adorno the anterior margin of abnormality; themammographically visible developing focal asymmetry adorno the posterior margin of abnormality. No other suspicious mass or area of abnormal enhancement is seen in theother quadrants of the left breast. There is no involvement of the skin,nipple-areolar complex, or chest wall. There is no left axillary orinternal mammary adenopathy. RIGHT BREAST: There is no suspicious mass or area of abnormal enhancement in the rightbreast. There is no abnormality of the right axilla, chest wall, or nippleareolar complex. IMPRESSION IMPRESSION: Left breast: 1. Area of segmental nonmass enhancement in lower outer quadrant reflectssite of known malignancy. Abnormality extends 9 cm in anterior-posteriorextent. If breast conservation is planned, bracketed wire localizationcould be performed using mammographic landmarks as described above. Alternatively, biopsy could beperformed of the posterior focal asymmetry to confirm extent of disease(with second look ultrasound or stereotactic guidance). 2. No MR evidence of multicentric malignancy in left breast. 3. No left axillary or internal mammary adenopathy. Right breast: No MR evidence of malignancy in right breast. ASSESSMENT: BI-RADS category 6: Known biopsy-proven cancer. RECOMMENDATION: Patient is already under the care of Dr. Margareth Devries. This report was electronically signed by ALISSA PATEL M.D. on07/14/2016 1:47 PM . Historical Provider MR ORDERABLES * CREATININE BLOOD - POCT (IP) [facility] (07/14/2016) Creatinine POCT 0.77 0.3 - 1.3 mg/dL [facility] eGFR POCT 60 60 ml/min [facility] 07/14/2016 Yessi Braun MD LAB - POINT OF CA RE ORDERABLES [facility] Care Teams Business Affairs Manager Relationship Specialty Start Date End Date Wilfredo Pinto MD [address] [place] [id number] PCP - General 10/25/16
--- OUTSIDE RECORDS SUMMARY | 2024-08-29 15:52 | XMS_ITS | Referral Summary ---
Author Organization [facility] [employer] Address [address] [place] [address] Care Team Providers Care Director Of Testing Name Role Phone Wilfredo Pinto MD Primary Care Provider + Source Comments [facility] [employer],non-owned Affiliates and Associated Physician Practices is amultiple site organization consisting of ambulatory clinics and hospital sitesin [place], [place], [place] and [place]. This disclosure is being madepursuant to the Care Everywhere program and may not contain all information available regarding this patient. 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
--- OUTSIDE RECORDS SUMMARY | 2024-08-29 15:52 | XMS_ITS | Continuity of Care Document ---
Author Organization [facility] Address [id number] [place] [address] [address] [place] [address] Phone Care Team Providers Care Airport Skilled Maintenance Supervisor Name Role Phone Kike Boston MD, MD Unavailable Unavailable Medications Medication Instructions Dosage Effective Dates (start - stop) Status Comments Restasis 0.05 % eye drops in a dropperette instill 1 drop by ophthalmic route every 12 hours into affected eye(s) 1.00 drop - Active fill with 180 vials or 3 trays Lotemax 0.5 % eye gel drops 1 drop BID in operative eye starting After surgery and continuing for 4 weeks after - Active prolensa 0.07% OPHTHALMIC BOTTLE 1 drop in operative eye QD starting 3 days BEFORE surgery and continuing for 4 weeks AFTER surgery. - Active Procedures Procedure Date YAG PC AFTER CATARACT LASER SURGERY YAG PC AFTER CATARACT LASER SURGERY EYE EXAM & TREATMENT DILATED EXAM RIGHT EYE DILATED EXAM LEFT EYE CATARACT SURG W/IOL, 1 STAGE CATARACT SURG W/IOL, 1 STAGE OFFICE/OUTPATIENT VISIT, NEW OPHTHALMIC BIOMETRY OPHTHALMIC BIOMETRY DILATED EXAM RIGHT EYE DILATED EXAM LEFT EYE Advance Directives Directive Yes / No Effective Date File Name No Information Encounters Encounter Description Practice Location Reason(s) For Visit Diagnoses Date Provider Providers Copied on Encounter [facility], [id number] [place] [address] [address], [place], [place], [id number], tel:[phone] [facility] No Information 6 Ludy Stokes. [address], [place], [place], [id number] , [place]. tel:[phone] Referring Provider: Kike Richardson, [address], [place], [place], [id number]. tel:[phone] [facility], [address] [place] [address], [id number], [place] tel:[phone] [facility] No Information 6 Ludy Stokes. [address], [place], [place], [id number] , [place]. tel:[phone] Referring Provider: Kike Richardson, [address], [place], [place], [address]. tel:[phone] [facility], [address] [place] [address], [id number], [place] tel:[phone] [facility] No Information 5 Nitin Moore. [address], [address], [place], [place], [id number] , [place]. tel:[phone] [facility], [address] [place] [address], [id number], [place] tel:[phone] [facility] No Information 5 Ludy Stokes. [address], [place], [place], [address] , [place]. tel:[phone] Referring Provider: Kike Richardson, [address], [place], [place], [address]. tel:[phone] [facility], [address] [place] [address], [id number], [place] tel:[phone] [facility] No Information 5 Ludy Stokes. [address], [id number] , [place]. tel:[phone] Referring Provider: Kike Boston MD P, [address], [place], [place], [id number]. tel:[phone] [facility], [address] [place] [address], [id number], tel:[phone] [address] [place] [address] No Information 5 Ludy Stokes. [address], [place], [place], [address] , [place]. tel:[phone] Referring Provider: Kike Boston MD P, [address], [place], [place], [id number]. tel:[phone] OFFICE/OUTPA TIENT VISIT, [facility], [address] [place] [address], [id number], tel:[phone] [facility] No Information 5 Ludy Stokes. [address], [place], [place], [address] , [place]. tel:[phone] Referring Provider: Kike Boston MD P, [address], [place], [place], [address]. tel:[phone] Family History Family Member Type Diagnosis Age At Onset No Information Payers Payer name Insurance type Covered alliance party ID Authoriza tienrique(s) [employer] [facility] CI [id number] Social History Type Description Quantity Date Captured Comments Sex Female Smoking Status No Information Chief Complaint And Reason For Visit No Information Plan Of Treatment Date Type Action Status No Information History Of Present Illness Encounter Date Complaint History Of Prese nt Illness No Information Instructions Date Instruction Additional Infor mation No Information Assessments Type Assessment Date No Information
--- OUTSIDE RECORDS SUMMARY | 2024-08-29 15:52 | XMS_ITS | Clinical Summary ---
Author Organization [facility] [employer] Address [address] [place] [address] Care Team Providers Care Branding Specialist Name Role Phone Wilfredo Pinto MD Primary Care Provider + Source Comments [facility] [employer],non-owned Affiliates and Associated Physician Practices is amultiple site organization consisting of ambulatory clinics and hospital sitesin [place], [place], [place] and [place]. This disclosure is being madepursuant to the Care Everywhere program and may not contain all information available regarding this patient. 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 Height 162.6 cm (5' 4 ) 07/14/2016 6:17 AM STARS ANALYTICAL LEAD Body Mass Index 33.47 07/14/2016 6:17 AM STARS ANALYTICAL LEAD Plan of Treatment Health Maintenance Due Date Last Done Comments BONE DENSITY TESTING 1950 COLOGUARD (AGES 45-75) - COL ON CA SCREENING 1949 COLON MONITORING 1949 COLONOSCOPY - COLON CA SCREENING 1949 CT COLONOGRAPHY - COLON CA SCREENING 1950 Colorectal Cancer Screening 1949 FIT - COLON CA SCREENING 1949 FLEX SIG - COLON CA SCREENING 1949 LIPID TESTING 1950 MAMMOGRAM 1950 MEDICARE AWV 12 MONTHS 1949 HEPATITIS C SCREENING 11/15/1967 DTAP/TDAP/TD VACCINES (1 - Tdap) 1968 PNEUMOCOCCAL VACCINE 50+ (1 of 1 - PCV) 11/20/1999 ZOSTER VACCINE (1 of 2) 11/20/1999 COVID-19 VACCINE (1 - 2023-2 5 season) 2024 INFLUENZA VACCINE (#1) 2024 DEPRESSION SCREENING 07/17/2024 Respiratory Syncytial Virus (RSV) Vaccine Pt: or over 60 yrs (1 - 1-dose 75+ series) 2024 HEPATITIS B VACCINE Aged Out No longe r eligible based on patient's age to complete this topic HIB VACCINE Aged Out No longer eligi ble based on patient's age to complete this topic HPV VACCINE Aged Out No longer eligi ble based on patient's age to complete this topic MENINGOCOCCAL (Group B) VACCINE Aged Out No longer eligible based on patient's age to complete this topic MENINGOCOCCAL VACCINE Aged Out No nina teofilo eligible based on patient's age to complete this topic Care Teams Branding Specialist Relationship Specialty Start Date End Date Wilfredo Pinto MD [address] [address] PCP - General 10/25/16
--- OUTSIDE RECORDS SUMMARY | 2024-08-29 15:52 | XMS_ITS | Clinical Summary ---
Author Organization [facility] Address [address] [place] [id number] Care Team Providers Care Lode Miner Blasting Name Role Phone Unavailable Primary Care Provider Unavailabl e Social History Tobacco Use Types Packs/Day Years Used Date Smoking Tobacco: Never Assessed Comments Unknown Sex and Gender Information Value Date Recorded Sex Assigned at Not on file Legal Sex Female 3:35 AM NO EXPERIENCE Gender Identity Not on file Sexual Orientation Not on file Plan of Treatment Health Maintenance Due Date Last Done Comments DEXA Bone Density 1950 Hepatitis C Virus (HCV) Screening 1950 TdaP Immunization 1950 Colonoscopy 1994 Colorectal Cancer Screening 1994 Cologuard 11/20/1999 Immunochemical Fecal Occult Blood 11/20/1999 Mammogram 11/20/1999 Pneumococcal Immunization (5 0+ years) (1 of 1 - PCV) 11/20/1999 Zoster Immunization (1 of 2) 11/20/1999 Influenza Immunization (#1) 2024 SARS-COV-2 Immunization ( season) 2024 03/20/2021, 10/02/2020, 09/11/2020 Respiratory Syncytial Virus (RSV) Immunization (Adult) (1 - 1-dose 75+ series) 2024 Hepatitis B Immunization Aged Out No longer eligible based on patient's age to complete this topic Meningococcal Immunization (ACWY) Aged Out No longer eligible b ased on patient's age to complete this topic Rotavirus Immunization Aged Out No lo nger eligible based on patient's age to complete this topic
--- NOTE | 2024-08-29 17:19 | ED.GENADULT ---
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 She complains of having pain to the back of her head, left knee, and lower back . When she attempted to ambulate to triage she was off balance and she and her state that her gait has been off for the past three weeks intermittently. GENERAL: well-nourished, and in no acute distress. HEAD: Normocephalic, atraumatic. CHEST: Clear to auscultation. ?No respiratory distress. HEART: Regular rate and rhythm.? NEURO: ?Alert and oriented x3. Patient screened in triage and initial orders placed.? ?Additional care and disposition to be based upon?diagnostic testing and treatment. 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 She complains of having pain to the back of her head, left knee, and lower back . When she attempted to ambulate to triage she was off balance and she and her state that her gait has been off for the past three weeks intermittently. GENERAL: well-nourished, and in no acute distress. HEAD: Normocephalic, atraumatic. CHEST: Clear to auscultation. ?No respiratory distress. HEART: Regular rate and rhythm.? NEURO: ?Alert and oriented x3. Patient screened in triage and initial orders placed.? ?Additional care and disposition to be based upon?diagnostic testing and treatment. <Connie Jaquez PA-C - Last Filed: 08/30/24 03:13> Source: patient <Connie PietroOleksandr EMILY Jaquez - Last Filed: 08/30/24 03:13> Mode of arrival: ambulatory <Connie Jaquez PA-C - Last Filed: 08/30/24 03:13> Limitations: no limitations <Connie Jaquez PA-C - Last Filed: 08/30/24 03:13> History of Present Illness HPI narrative: Agree with above HPI. Patient states she suddenly felt like a cloud of lightheadedness come upon here before she fell backwards. She does not believe she fully lost consciousness. She states this has happened on 3 separate occasions over the last couple of weeks. Reports hx of severe aortic stenosis. Sees Dr. Armstrong. States he has discussed a TAVR in the past, but she was not symptomatic at that time. She is scheduled to see Dr. Armstrong this upcoming Monday. Patient denies any chest pain, palpitation, shortness of breath, focal weakness or numbness. <Connie Jaquez PA-C - Last Filed: 08/30/24 03:13> Related Data Home medications: Home Medications ?Medication ?Instructions ?Recorded ?Confirmed ?Last Taken ?Type diazepam 2 mg tablet 2 mg PO PRN PRN Dizziness 02/24/20 08/05/24 Unknown History magnesium 250 mg tablet 500 mg PO TID 02/24/20 08/05/24 04/24/23 History riboflavin (vitamin B2) 400 mg 400 mg PO TID 03/02/20 08/05/24 04/24/23 History tablet cholecalciferol (vitamin D3) 25 25 mcg PO DAILY 10/05/20 08/05/24 04/24/23 History mcg (1,000 unit) capsule (Vitamin D3) fluticasone propionate 50 2 spray intranasal DAILY PRN 11/10/21 08/05/24 04/18/23 History mcg/actuation nasal Allergic Symptoms spray,suspension (Flonase Allergy Relief) metoprolol succinate 50 mg 50 mg PO QAM 11/10/21 08/05/24 04/24/23 History tablet,extended release 24 hr blood sugar diagnostic 06/20/22 08/05/24 Unknown History aspirin 81 mg tablet 81 mg PO DAILY 07/26/22 08/05/24 04/20/23 History silver sulfadiazine 1 % topical 1 applic topical DAILY 06/21/24 08/05/24 Unknown History cream (Silvadene) <Starla Lma November, WAREHOUSE ANALYST - Last Filed: 08/29/24 19:38> Allergies/adverse reactions: Allergies Allergy/AdvReac Type Severity Reaction Status Date / Time morphine AdvReac Nausea and Verified 08/29/24 15:51 Vomiting <Starla Lam November, WAREHOUSE ANALYST - Last Filed: 08/29/24 19:38> Review of Systems Review of Systems: All systems reviewed & are unremarkable except as noted in HPI. <Connie Jaquez PA-C - Last Filed: 08/30/24 03:13> All systems reviewed & are unremarkable except as noted in HPI and below <Connie Jaquez PA-C - Last Filed: 08/30/24 03:13> FORMERLY [facility], [facility] Past Medical History Medical History: Medical History Encounter for postoperative care Claw toe Left foot pain Right foot ulcer Right foot pain Foot swelling Poor balance Neuropathy of both feet Metatarsalgia of both feet Ulcer of right foot due to type 2 diabetes mellitus Left knee DJD Right knee DJD Anemia Cerebrovascular accident Noted on brain CT, unknown to the patient. Abscess of left foot including toes (~07/2020) Requiring excisional debridement including bone due to osteomyelitis. 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 Thyroid nodule Bilateral benign follicular nodules on FNA in June 2018. Stricture of sigmoid colon (~02/2020) Secondary to diverticulitis, status post loop sigmoid colostomy. Obstructive sleep apnea Compliant with CPAP. 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 ER/[place] and HER2 Mary Garce negative. Hypertension Irritable bowel syndrome with diarrhea Menieres disease With chronic tinnitus and left-sided hearing loss. Attention deficit hyperactivity disorder Acute osteomyelitis of left foot History of adenomatous polyp of colon Anxiety ADH disorder Diverticulitis large intestine <Starla Wen, WAREHOUSE ANALYST - Last Filed: 08/29/24 19:38> Surgical History Surgical History: Surgical History History of open sigmoidectomy sigmoidectomy w/ closotomy closer 10/21 History of foot surgery Left foot surgery with hardware. 2020 Left foot surgery 07/09 History of left breast biopsy (~12/2017) With benign histology. History of partial mastectomy of left breast (~07/2016) For treatment of high-grade DCIS with sentinel lymph node sampling and bilateral reduction mammoplasty. History of tonsillectomy History of cholecystectomy History of cataract extraction History of dilation and curettage x3. <Starla Lam November, - Last Filed: 08/29/24 19:38> Family History Family History: Family History Father Diabetes mellitus Cancer of pancreas Sibling Family history of type 1 diabetes mellitus Mother Hypertension Heart disease Alzheimer's dementia Depression Grandparent Diabetes mellitus Hypertension Heart disease Grandparent Diabetes mellitus Hypertension <Starla Lam November, - Last Filed: 08/29/24 19:38> Social History Social History: Social History Social History: The patient lives in [place] with her . 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 Smoked 0.25 packs of cigarettes a day for about 15 years and quit about a year ago. Drinks perhaps 1 alcoholic beverage a month. No illicit substance use. She designates her , Josh, as her surrogate decision maker and she wishes to be a full code. Smoking packs per day: 0.20 Smoking cigarettes per day: 4.0 Years smoked: 3 Smoking pack-years: 0.60 Smoking status: Current some day smoker Tobacco type: cigarettes Second hand tobacco smoke exposure: No Smoking end date: 03/17/23 Additional smoking assessment comments: Summer social smoking Alcohol intake: current Alcohol use details: SOCIALLY, 6-7 DRINKS/MONTH Substance use: never Substance use type: does not use Do You Feel Safe in your Home?: Yes Lack of Transportation: No Lack of Food: Never True Current Housing: I Have Housing Concerned About Future Housing: No Difficulty Paying Gas/Electric Bills: No Difficulty Paying for Meds: No Currently Unemployed: No Education: Master's Degree or Higher Difficulty w/ Childcare or Family Care: No Living arrangements: with family Additional living arrangements comments: ANA MARIA Occupation/Education: retired Gender identity (if verbalized by the patient): Female Sexual Orientation (if Verbalized by the Patient): Straight or Heterosexual Spiritual care concerns: No Agree to blood products: Yes <Starla Wen APRN - Last Filed: 08/29/24 19:38> Exam Narrative: GENERAL: Elderly but well appearing, well-nourished, non-toxic, in no acute distress. HEAD: Normocephalic, atraumatic. EYES: PERRL/EOMI, conjunctiva clear NECK: Normal ROM, supple, no tenderness. RESPIRATORY: Airway patent, respirations nonlabored. Clear to auscultation bilaterally, no rales, rhonchi, wheezing. CARDIOVASCULAR: Regular rate and rhythm. +murmur. Peripheral pulses are intact. MUSCULOSKELETAL: Moves all extremities. No gross deformities. Mild tenderness to palpation diffusely throughout anterior knees bilaterally, worse in left knee. No significant tenderness throughout lumbar region. SKIN: Warm, dry, normal color. NEURO: A&O X3. Speech clear. Cranial nerves II-XII grossly intact. Steady gait. No ataxic movements. No focal deficits. PSYCHIATRIC: Appropriate mood and affect. Normal interaction. <Connie Jaquez PA-C - Last Filed: 08/30/24 03:13> Course Vital Signs Vital signs: Vital Signs Temperature 97.4 F L 08/29/24 16:12 Pulse Rate 68 08/29/24 16:12 Respiratory Rate 16 08/29/24 16:12 Blood Pressure 115/51 L 08/29/24 16:12 Pulse Oximetry 98 08/29/24 16:12 Oxygen Delivery Room Air 08/29/24 16:12 Temperature 97.4 F L 08/29/24 16:12 Pulse Rate 68 08/29/24 16:12 Respiratory Rate 16 08/29/24 16:12 Blood Pressure 155/64 H 08/29/24 21:16 Pulse Oximetry 100 08/29/24 21:16 Oxygen Delivery Room Air 08/29/24 16:12 <Starla J. May, WAREHOUSE ANALYST - Last Filed: 08/29/24 19:38> Vital Signs Temperature 97.4 F L 08/29/24 16:12 Pulse Rate 68 08/29/24 16:12 Respiratory Rate 16 08/29/24 16:12 Blood Pressure 115/51 L 08/29/24 16:12 Pulse Oximetry 98 08/29/24 16:12 Oxygen Delivery Room Air 08/29/24 16:12 Temperature 97.4 F L 08/29/24 16:12 Pulse Rate 68 08/29/24 16:12 Respiratory Rate 16 08/29/24 16:12 Blood Pressure 155/64 H 08/29/24 21:16 Pulse Oximetry 100 08/29/24 21:16 Oxygen Delivery Room Air 08/29/24 16:12 <Connie Jaquez PA-C - Last Filed: 08/30/24 03:13> Medical Decision Making MDM Narrative Medical decision making narrative: Patient presented to ED with falling episodes, possible syncopal episode. Has had similar episodes over the last few weeks. History of severe aortic stenosis, has had discussion of TAVR in the past. Vital signs are stable upon arrival. Patient is no acute distress. Neurologically intact. No focal deficits. EKG with sinus rhythm, first-degree AV block, bigeminy. Hx of frequent PVCs. Appears similar to previous records. Laboratory studies with leukocytosis of 16.6. Patient does appear to have a chronic mild similar leukocytosis per records. Stable H&H. CMP with potassium of 5.6. Otherwise stable electrolytes. Kidney function is normal and stable. Magnesium was low at 1.4. IV replacement given. Baseline troponin is undetectable. Urine is consistent with infection. Sent for culture. Given dose of Rocephin in the ED. D-dimer did result elevated at 11.94. CTA chest without evidence of PE or dissection. Does show pulmonary hypertension. CT brain, cervical spine, lumbar spine without acute traumatic findings. X-ray of knee also without evidence of fracture. Chest x-ray clear. Patient given 1 L of fluids in the ED. Repeat BMP shows normalization of hyperkalemia. Potentially this was a lab error initially. 3 hour troponin also within normal range. Patient remains asymptomatic at this time. Discussed case and recent episodes with Dr. Mcarthur, cardiology on-call for [facility] (pt sees Dr. Armstrong), advised will have the office call patient tomorrow to see patient in office tomorrow. Advised no indication for transfer, patient will likely need TAVR but not necessarily considered an emergent surgery. Typically outpatient surgery, not performed from inpatient side. Will notify Dr. Armstrong. Advised patient to rest and avoid any significant exertion/strenuous activity. Discussed these recommendations with patient. She is in agreement with plan. She does feel comfortable going home. Abx for UTI. Discussed very strict return precautions. Patient voiced understanding. She is in agreement with plan. Discharged in stable condition. Vital signs stable at time of D/C. <Connie Jaquez PA-C - Last Filed: 08/30/24 03:13> Medical Records Medical records reviewed: Yes I reviewed the external patient's medical records. <Connie Jaquez PA-C - Last Filed: 08/30/24 03:13> Vital Signs Vital Signs: Vital Signs Temperature 97.4 F L 08/29/24 16:12 Pulse Rate 68 08/29/24 16:12 Respiratory Rate 16 08/29/24 16:12 Blood Pressure 115/51 L 08/29/24 16:12 Pulse Oximetry 98 08/29/24 16:12 Oxygen Delivery Room Air 08/29/24 16:12 Temperature 97.4 F L 08/29/24 16:12 Pulse Rate 68 08/29/24 16:12 Respiratory Rate 16 08/29/24 16:12 Blood Pressure 155/64 H 08/29/24 21:16 Pulse Oximetry 100 08/29/24 21:16 Oxygen Delivery Room Air 08/29/24 16:12 <Starla Wen APRN - Last Filed: 08/29/24 19:38> Vital Signs Temperature 97.4 F L 08/29/24 16:12 Pulse Rate 68 08/29/24 16:12 Respiratory Rate 16 08/29/24 16:12 Blood Pressure 115/51 L 08/29/24 16:12 Pulse Oximetry 98 08/29/24 16:12 Oxygen Delivery Room Air 08/29/24 16:12 Temperature 97.4 F L 08/29/24 16:12 Pulse Rate 68 08/29/24 16:12 Respiratory Rate 16 08/29/24 16:12 Blood Pressure 155/64 H 08/29/24 21:16 Pulse Oximetry 100 08/29/24 21:16 Oxygen Delivery Room Air 08/29/24 16:12 <Connie Jaquez PA-C - Last Filed: 08/30/24 03:13> Lab Data Lab results reviewed: Yes I reviewed the patient's lab results. <Connie Jaquez PA-C - Last Filed: 08/30/24 03:13> Result diagrams: 08/29/24 20:59 08/30/24 00:04 <Starla Wen APRN - Last Filed: 08/29/24 19:38> Labs: Lab Results 08/29/24 08/30/24 Range/Units 20:59 00:04 WBC 16.6 H (4.5-10.0) K/mm3 RBC 3.33 L (4.2-5.4) M/mm3 Hgb 10.1 L (12.0-15.0) g/dL Hct 30.2 L (37.0-47.0) % MCV 90.7 (80-100) fl MCH 30.3 (26-34) pg MCHC 33.4 (32-36) g/dl RDW 12.5 (11.5-14.5) % Plt Count 276 (150-375) k/mm3 MPV 10.8 H (7.4-10.4) fl Immature Gran % (Auto) 0.7 H (0-0.5) % Neut % (Auto) 68.1 (45.5-73.1) % Lymph % (Auto) 21.8 (18.3-44.2) % [place] % (Auto) 7.1 (2.6-8.5) % Eos % (Auto) 1.9 (0-4.4) % Baso % (Auto) 0.4 (0.2-1.2) % Lymph # (Auto) 3.61 H (0.9-3.2) K/mm3 [place] # (Auto) 1.2 H (0.1-0.6) K/mm3 Eos # (Auto) 0.3 (0-0.3) K/mm3 Baso # (Auto) 0.1 (0.0-0.1) K/mm3 Abs Immat Gran (auto) 0.11 H (0.00-0.031) K/mm3 Absolute Neuts (auto) 11.3 H (1.3-6.7) K/mm3 Absolute Nucleated RBC 0.000 (0.0-0.012) K/mm3 Nucleated RBC % 0.0 (0.0-0.2) % PT 14.1 (11.1-14.7) Seconds INR 1.0 APTT 43.2 H (22.3-36.8) Seconds D-Dimer 11.94 H (<0.48) ug/mL Sodium 140 138 (137-145) mmol/L Potassium 5.6 H 4.3 (3.4-5.0) mmol/L Chloride 105 105 (98-107) mmol/L Carbon Dioxide 25 22 (22-30) mmol/L Anion Gap 10 11 (4-12) mmol/L BUN 22 H 19 H (7-17) mg/dL Creatinine 0.65 L 0.51 L (0.7-1.0) mg/dL Estim Creat Clear Calc 56 70 ml/min Estimated GFR > 60 > 60 (59 - ) Glucose 72 104 (65-110) mg/dL Calcium 9.3 8.4 (8.4-10.2) mg/dL Magnesium 1.4 L (1.6-2.3) mg/dL Total Bilirubin 0.7 (0.2-1.3) mg/dL AST 25 (14-36) U/L ALT 16 (6-35) U/L Alkaline Phosphatase 89 (38-126) U/L Troponin I < 0.012 0.016 D (0.000-0.034) ng/mL Total Protein 7.0 (6.3-8.2) g/dL Albumin 3.6 (3.5-5.1) g/dL Urine Color Dark yellow (Yellow) Urine Appearance Cloudy H (Clear) Urine pH 5.5 (5.0-9.0) Ur Specific [place] 1.013 (1.001-1.035) Urine Protein Negative (Negative) mg/dL Urine Glucose (UA) 3+ H (Negative) mg/dL Urine Ketones Negative (Negative) mg/dL Ur Blood (Man) Negative (Negative) Urine Nitrate Negative (Negative) Urine Bilirubin Negative (Negative) Urine Urobilinogen 0.2 (<2.0) mg/dL Add Ur Microanalysis Reviewed Leukocyte Esterase Rfl 2+ H (Negative) LUI/UL Urine RBC 0-2 (0-2) /hpf Urine WBC >100 H (0-3) /hpf Ur Squamous Epith Cells None seen (Few) /hpf Urine Bacteria None seen /hpf Urine Casts 0-2 Urine Yeast (Budding) Present H (None) /hpf <Starla Wen, WAREHOUSE ANALYST - Last Filed: 08/29/24 19:38> Lab Results 08/29/24 08/30/24 Range/Units 20:59 00:04 WBC 16.6 H (4.5-10.0) K/mm3 RBC 3.33 L (4.2-5.4) M/mm3 Hgb 10.1 L (12.0-15.0) g/dL Hct 30.2 L (37.0-47.0) % MCV 90.7 (80-100) fl MCH 30.3 (26-34) pg MCHC 33.4 (32-36) g/dl RDW 12.5 (11.5-14.5) % Plt Count 276 (150-375) k/mm3 MPV 10.8 H (7.4-10.4) fl Immature Gran % (Auto) 0.7 H (0-0.5) % Neut % (Auto) 68.1 (45.5-73.1) % Lymph % (Auto) 21.8 (18.3-44.2) % [place] % (Auto) 7.1 (2.6-8.5) % Eos % (Auto) 1.9 (0-4.4) % Baso % (Auto) 0.4 (0.2-1.2) % Lymph # (Auto) 3.61 H (0.9-3.2) K/mm3 [place] # (Auto) 1.2 H (0.1-0.6) K/mm3 Eos # (Auto) 0.3 (0-0.3) K/mm3 Baso # (Auto) 0.1 (0.0-0.1) K/mm3 Abs Immat Gran (auto) 0.11 H (0.00-0.031) K/mm3 Absolute Neuts (auto) 11.3 H (1.3-6.7) K/mm3 Absolute Nucleated RBC 0.000 (0.0-0.012) K/mm3 Nucleated RBC % 0.0 (0.0-0.2) % PT 14.1 (11.1-14.7) Seconds INR 1.0 APTT 43.2 H (22.3-36.8) Seconds D-Dimer 11.94 H (<0.48) ug/mL Sodium 140 138 (137-145) mmol/L Potassium 5.6 H 4.3 (3.4-5.0) mmol/L Chloride 105 105 (98-107) mmol/L Carbon Dioxide 25 22 (22-30) mmol/L Anion Gap 10 11 (4-12) mmol/L BUN 22 H 19 H (7-17) mg/dL Creatinine 0.65 L 0.51 L (0.7-1.0) mg/dL Estim Creat Clear Calc 56 70 ml/min Estimated GFR > 60 > 60 (59 - ) Glucose 72 104 (65-110) mg/dL Calcium 9.3 8.4 (8.4-10.2) mg/dL Magnesium 1.4 L (1.6-2.3) mg/dL Total Bilirubin 0.7 (0.2-1.3) mg/dL AST 25 (14-36) U/L ALT 16 (6-35) U/L Alkaline Phosphatase 89 (38-126) U/L Troponin I < 0.012 0.016 D (0.000-0.034) ng/mL Total Protein 7.0 (6.3-8.2) g/dL Albumin 3.6 (3.5-5.1) g/dL Urine Color Dark yellow (Yellow) Urine Appearance Cloudy H (Clear) Urine pH 5.5 (5.0-9.0) Ur Specific [place] 1.013 (1.001-1.035) Urine Protein Negative (Negative) mg/dL Urine Glucose (UA) 3+ H (Negative) mg/dL Urine Ketones Negative (Negative) mg/dL Ur Blood (Man) Negative (Negative) Urine Nitrate Negative (Negative) Urine Bilirubin Negative (Negative) Urine Urobilinogen 0.2 (<2.0) mg/dL Add Ur Microanalysis Reviewed Leukocyte Esterase Rfl 2+ H (Negative) LUI/UL Urine RBC 0-2 (0-2) /hpf Urine WBC >100 H (0-3) /hpf Ur Squamous Epith Cells None seen (Few) /hpf Urine Bacteria None seen /hpf Urine Casts 0-2 Urine Yeast (Budding) Present H (None) /hpf <Connie Jaquez PA-C - Last Filed: 08/30/24 03:13> Imaging Data Attestation: I personally reviewed and interpreted this imaging study as follows: <Connie Jaquez PA-C - Last Filed: 08/30/24 03:13> Radiologist's impression: ITS Impressions Chest X-Ray 08/29/24 18:19 IMPRESSION: No focal infiltrate or effusion. Knee X-Ray 08/29/24 18:20 IMPRESSION: Degenerative disease without acute fracture or dislocation. Head CT 08/29/24 19:02 Impression: No acute intracranial hemorrhage or suspicious mass effect. Inflammatory sinus disease. Cervical Spine CT 08/29/24 19:06 Impression: Significant degenerative disease, without acute fracture. Lumbar Spine CT 08/29/24 19:08 Impression: Degenerative disease, without acute fracture. Chest CTA 08/29/24 22:49 IMPRESSION: No pulmonary embolus. No thoracic aortic dissection. Findings suggesting pulmonary hypertension. Findings suggesting prior granulomatous disease. <EMILY Alves Last Filed: 08/30/24 03:13> ECG Data EKG #1: Attestation: I personally reviewed and interpreted this ECG as follows: <Connie Jaquez PA-C - Last Filed: 08/30/24 03:13> ECG completion date: 08/29/24 <EMILY Alves Last Filed: 08/30/24 03:13> ECG completion time: 21:01 <EMILY Alves Last Filed: 08/30/24 03:13> Prior ECG tracings: available for review (appears similar 06/2024) <EMILY Alves Last Filed: 08/30/24 03:13> EKG Interpretation: normal rate (76), sinus rhythm (first degree AV block), PVCs (bigeminy) and non-specific ST changes <GEORGE AlvesC - Last Filed: 08/30/24 03:13> Discharge Plan Discharge Clinical Impression: Syncope Qualifiers: Syncope type: unspecified Qualified Code(s): R55 - Syncope and collapse Aortic stenosis Qualifiers: Cardiac valve disease etiology: etiology unspecified Qualified Code(s): I35.0 - Nonrheumatic aortic (valve) stenosis UTI (urinary tract infection) Qualifiers: Urinary tract infection type: acute cystitis Hematuria presence: without hematuria Qualified Code(s): N30.00 - Acute cystitis without hematuria Lumbar strain Qualifiers: Encounter type: initial encounter Qualified Code(s): S39.012A - Strain of muscle, fascia and tendon of lower back, initial encounter Strain of left knee Qualifiers: Encounter type: initial encounter Qualified Code(s): S86.912A - Strain of unspecified muscle(s) and tendon(s) at lower leg level, left leg, initial encounter <Starla Lam November, WAREHOUSE ANALYST - Last Filed: 08/29/24 19:38> Patient Disposition: Home, Self-Care <Starla Lam November, WAREHOUSE ANALYST - Last Filed: 08/29/24 19:38> Condition: Stable <Starla Lam November,N - Last Filed: 08/29/24 19:38> Instructions: Antibiotic Form, Aortic Stenosis (ED), Urinary Tract Infection in Women (ED), Syncope (ED), Transcatheter Aortic Valve Replacement (DC) <Starla Lam November,N - Last Filed: 08/29/24 19:38> Additional Instructions: The cardiology office should be contacting you in the morning to make a follow-up appointment tomorrow. They are aware of your ED visit. Avoid any strenuous activity or heavy lifting. Take antibiotics as prescribed for urinary tract infection. Follow-up with your primary care doctor for urine culture results. Return to the ED if you experience recurrent symptoms, chest pain, difficulty breathing, palpitations, passing out, unable to keep down food or drink, pain or swelling in your legs, severe dizziness or lightheadedness, or any other symptoms of concern. <Satrla Lam November, WAREHOUSE ANALYST - Last Filed: 08/29/24 19:38> Patient Language: Divehi <Starla Lam November, WAREHOUSE ANALYST - Last Filed: 08/29/24 19:38> Prescriptions: New cephalexin 500 mg capsule 500 mg PO Q6H 7 Days Qty: 28 0RF No Action diazepam 2 mg tablet 2 mg PO PRN PRN (Reason: Dizziness) Rx Instructions: for dizziness and nausea (Meniere's disease) magnesium 250 mg tablet 500 mg PO TID metoprolol succinate 50 mg tablet extended release 24 hr 50 mg PO QAM fluticasone propionate [Flonase Allergy Relief] 50 mcg/actuation spray,suspension 2 spray intranasal DAILY PRN (Reason: Allergic Symptoms) Rx Instructions: administer into each nostril Mounjaro 5 mg/0.5 mL pen injector 5 mg subcut WEEKLY Qty: 2 5RF Patient Comments: MONDAYS quetiapine 25 mg tablet 50 mg PO HS Qty: 180 3RF insulin glargine [Lantus U-100 Insulin] 100 unit/mL solution 6 unit subcut DAILY Qty: 30 5RF Patient Comments: TAKES AT HS Xifaxan 550 mg tablet 550 mg PO TID Qty: 42 1RF cholecalciferol (vitamin D3) [Vitamin D3] 25 mcg (1,000 unit) Capsule 25 mcg PO DAILY aspirin 81 mg Tablet 81 mg PO DAILY Rx Instructions: TAKES AT HS riboflavin (vitamin B2) 400 mg Tablet 400 mg PO TID silver sulfadiazine [Silvadene] 1 % Cream 1 applic TOPICAL DAILY Patient Comments: APPLY 5TH TOE RT FOOT Rx Instructions: apply a 1.5 mm thickness hydrocodone-acetaminophen 5-325 mg tablet 1 tablet PO Q6H PRN (Reason: pain) Qty: 20 0RF (DME) blood sugar diagnostic Strip See Rx Instructions .Route Rx Instructions: As directed clobetasol 0.05 % ointment 1 applic topical QHS 84 Days Qty: 60 1RF Rx Instructions: PERINEUM metformin 500 mg tablet extended release 24 hr See Rx Instructions .ROUTE .COMPLEX Qty: 120 5RF Dose Instruction: TAKE 3 TABLETS BY MOUTH EVERY MORNING AND 1 TABLET BY MOUTH EVERY NIGHT AT BEDTIME Rx Instructions: TAKE 3 TABLETS BY MOUTH EVERY MORNING AND 1 TABLET BY MOUTH EVERY NIGHT AT BEDTIME (DME) insulin syringe-needle U-100 [BD Insulin Syringe Ultra-Fine] 1 mL 31 gauge x 5/16 syringe See Rx Instructions .Route Qty: 100 3RF Rx Instructions: use twice daily to inject insulin enalapril maleate 20 mg tablet 20 mg PO QAM Qty: 90 3RF atorvastatin 80 mg tablet 80 mg PO DAILY Qty: 90 2RF venlafaxine 150 mg capsule,extended release 24hr 300 mg PO DAILY Qty: 180 2RF Patient Comments: QAM Betahistine 8 mg PO TID Qty: 90 3RF Patient Comments: compound pharmacy levothyroxine 75 mcg tablet 75 mcg PO QAM Qty: 90 1RF pregabalin 75 mg capsule 75 mg PO BID Qty: 60 2RF Jardiance 25 mg tablet 25 mg PO QAM Qty: 90 1RF Kerendia 10 mg tablet 10 mg PO QAM Qty: 90 1RF (DME) FreeStyle Desi 2 [place] Misc See Rx Instructions .Route Qty: 1 0RF Rx Instructions: As directed (DME) FreeStyle Desi 2 Sensor Kit See Rx Instructions .Route Qty: 4 4RF Rx Instructions: As directed amoxicillin 875 mg tablet 875 mg PO Q12H Qty: 20 0RF <Starla Wen, WAREHOUSE ANALYST - Last Filed: 08/29/24 19:38> Follow-up/Referrals: Monica Armstrong MD [Physician] - (CARDIOLOGY) Wilfredo Pinto MD [Primary Care Provider] - <Starla Wen, WAREHOUSE ANALYST - Last Filed: 08/29/24 19:38> Time of Disposition: 01:01 <Starla Wen APRN - Last Filed: 08/29/24 19:38> 01:01 <Connie Jaquez PA-C - Last Filed: 08/30/24 03:13>
--- NOTE | 2024-08-29 17:32 | ECG_ITS ---
Test Date: 2024-08-29 21:01:57 Measurements Intervals Prole Rate: 76 P: 97 ND: 226 QRS: -18 QRSD: 127 T: 130 QT: 362 QTc: 409 Interpretive Statements SINUS RHYTHM WITH FIRST DEGREE AV BLOCK WITH FREQUENT VENTRICULAR PREMATURE COMPLEXES IN A BIGEMINAL PATTERN INTRAVENTRICULAR CONDUCTION DELAY LEFT VENTRICULAR HYPERTROPHY AND ST-T CHANGE CANNOT R/O SEPTAL INFARCT, AGE INDETERMINATE ABNORMAL ECG Compared to ECG 06/25/2024 09:07:22 First degree AV block now present Electronically Signed On 08-30-2024 06:51:20 BRICKLAYER by Kevin Black D.O.
--- OUTSIDE RECORDS SUMMARY | 2024-08-29 20:37 | XMS_ITS | Clinical Summary ---
Author Organization [facility] Address [address] [place] [address] Care Team Providers Care Graphics Production Specialist Name Role Phone Wilfredo Pinto MD Primary Care Provider [phone] Allergies No known active allergies Medications QUEtiapine [...] Most Recently Relevant to [place] [id number] MEDICARE PART A AND B [facility] Care Teams Graphics Production Specialist Relationship Specialty Start Date End Date Wilfredo Pinto MD [address] [facility] [address] [place] [address] PCP - General Family Practice 12/20/17
--- OUTSIDE RECORDS SUMMARY | 2024-08-29 20:37 | XMS_ITS | Referral Summary ---
Author Organization [facility] Address [address] [facility] [place] [address] Care Team Providers Care Cupola Worker Name Role Phone Wilfredo Pinto MD Primary Care Provider + Source Comments [facility],non-owned Affiliates and Associated Physician Practices is amultiple site organization consisting of ambulatory clinics and hospital sitesin [place], [place] and [place]. This disclosure is being madepursuant to the Care Everywhere program and may not contain all information available regarding this patient. 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
--- OUTSIDE RECORDS SUMMARY | 2024-08-29 20:37 | XMS_ITS | Patient Health Summary ---
Author Organization [facility] Address [address] [place] [address] Care Team Providers Care Endoscopy Tech Name Role Phone Wilfredo Pinto MD Primary Care Provider + Note from [facility],non-owned Affiliates and Associated Physician Practices is amultiple site organization consisting of ambulatory clinics and hospital sitesin [place], [place], [place] and [place]. This disclosure is being madepursuant to the Care Everywhere program and may not contain all information available regarding this patient. Last updated 18.[facility] Social History Tobacco Use Types Packs/Day Years [...] 88.5 kg (195 lb) 07/14/2016 6:17 AM SHEET PILE HAMMER OPERATOR Height 162.6 cm (5' 4 ) 07/14/2016 6:17 AM SHEET PILE HAMMER OPERATOR Body Mass Index 33.47 07/14/2016 6:17 AM SHEET PILE HAMMER OPERATOR Procedures * MRI BREAST BILAT WWO CONTRAST(Performed 07/14/2016) * CREATININE BLOOD - POCT (IP) [facility](Performed 07/14/2016) Results * MRI BREAST BILAT WWO CONTRAST (07/14/2016 7:00 AM SHEET PILE HAMMER OPERATOR) Anatomical Region Laterality Modality Breast Bilateral Other Impressions 07/14/2016 1:47 PM SHEET PILE HAMMER OPERATOR IMPRESSION: Left breast: 1. Area of segmental [...] 1:47 PM . Narrative 07/14/2016 1:47 PM SHEET PILE HAMMER OPERATOR BILATERAL BREAST MRI HISTORY: 65-year-old female with newly diagnosed left breast DCIS following stereotactic core biopsy of calcifications detected on screening mammogram. MR requested to evaluate extent of disease. COMPARISON: Comparison was made to previous mammograms from [facility] on 05/04/2015, 05/31/2016, 06/08/2016, and 06/15/2016. TECHNIQUE: Multiplanar multisequence MR imaging of both breasts before and following the administration of 8.5 cc of Gadavist. Dynamic phase imaging was performed in the axial plane. Exam was processed by and interpreted on a [employer] server software engineer including 3-D volume rendering, subtraction image processing [...] Comparison was made to previous mammograms from [facility] on 05/04/2015, 05/31/2016, 06/08/2016, and 06/15/2016. TECHNIQUE: Multiplanar multisequence MR imaging of both breasts before andfollowing the administration of 8.5 cc of Gadavist. Dynamic phase imagingwas performed in the axial plane. Exam was processed by and interpreted harjeet [employer] server software engineer including 3-D volume rendering, subtraction image processing [...] ORDERABLES * CREATININE BLOOD - POCT (IP) [facility] (07/14/2016) Creatinine POCT 0.77 0.3 - 1.3 mg/dL [facility] eGFR POCT 60 60 ml/min [facility], 1928–1983 07/14/2016 Yessi Braun MD LAB - POINT OF CA RE ORDERABLES [facility] Care Teams Endoscopy Tech Relationship Specialty Start Date End Date Wilfredo Pinto MD [address] [place] [address] PCP - General 10/25/16
--- OUTSIDE RECORDS SUMMARY | 2024-08-29 20:37 | XMS_ITS | Clinical Summary ---
Author Organization [facility] Address [address] [place] [address] Care Team Providers Care Heavy Equipment Rental Associate Name Role Phone Unavailable Primary Care Provider Unavailabl e Social History Tobacco Use Types Packs/Day Years Used Date Smoking Tobacco: Never Assessed Comments Unknown Sex and Gender Information Value Date Recorded Sex Assigned at Not on file Legal Sex Female 3:35 AM WELD LAY OUT WORKER Gender Identity Not on file Sexual Orientation [...]
--- OUTSIDE RECORDS SUMMARY | 2024-08-29 20:37 | XMS_ITS | Clinical Summary ---
Author Organization [facility] [facility] Address [address] [place] [address] Care Team Providers Care Motorized Squad Lieutenant Name Role Phone Wilfredo Pinto MD Primary Care Provider + Source Comments [facility]),non-owned Affiliates and Associated Physician Practices is amultiple site organization consisting of ambulatory clinics and hospital sitesin [place], [place], [place] and [place]. This disclosure is being madepursuant to the Care Everywhere program and may not contain all information available regarding this patient. Last updated 18.[facility] Social History Tobacco Use Types Packs/Day Years [...] 88.5 kg (195 lb) 07/14/2016 6:17 AM QUOTE CLERK Height 162.6 cm (5' 4 ) 07/14/2016 6:17 AM QUOTE CLERK Body Mass Index 33.47 07/14/2016 6:17 AM QUOTE CLERK Plan of Treatment Health Maintenance Due Date [...] age to complete this topic Care Teams Motorized Squad Lieutenant Relationship Specialty Start Date End Date Wilfredo Pinto MD [address] [address] PCP - General 10/25/16
--- OUTSIDE RECORDS SUMMARY | 2024-08-29 20:37 | XMS_ITS | Continuity of Care Document ---
Author Organization [facility] Address [address] [place] [address] [address] [place] [address] Phone Care Team Providers Care Purchasing Department Clerk Name Role Phone Kike Boston MD, MD [...] Provider Providers Copied on Encounter [facility], [address] [place] [address] [address], [place], [place], [id number], tel:[phone] [facility] No Information 6 Ludy Stokes. [address], [address], [place], [place], [id number] , [place]. tel:[phone] Referring Provider: Kike Richardson, [address], [place], [place], [id number]. tel:[phone] [facility], [address] [place] [address], [id number], [place] tel:[phone] [facility] No Information 6 Ludy Stokes. [address], [place], [place], [id number] , [place]. tel:[phone] Referring Provider: Kike Richardson, [address], [place], [place], [id number]. tel:[phone] [facility], [address] [place] [address], [id number], [place] tel:[phone] Oph Consult [facility] No Information 5 Nitin Moore. [address], [place], [place], [id number] , [place]. tel:[phone] [facility], [address] [place] [address], [id number], [place] tel:[phone] [facility] [address] [facility] No Information 5 Ludy Stokes. [address], [place], [place], [id number] , [place]. tel:[phone] Referring Provider: Kike Richardson, [address], [place], [place], [address]. tel:[phone] [facility], [address] [place] [address], [id number], [place] tel:[phone] OPH CONSULT [facility] No Information 5 Ludy Stokes. [address], [id number] , [place]. tel:[phone] Referring Provider: Kike Boston MD P, [address], [place], [place], [id number]. tel:[phone] [facility], [address] [place] [address], [id number], tel:[phone] [address] [place] [address] No Information 5 Ludy Stokes. [address], [place], [place], [address] , [place]. tel:[phone] Referring Provider: Kike Boston MD P, [address], [place], [place], [address]. tel:[phone] OFFICE/OUTPA TIENT VISIT, [facility], [address] [place] [address], [id number], tel:[phone] [facility] No Information 5 Ludy tSokes. [address], [place], [place], [id number] , [place]. tel:[phone] Referring Provider: Kike Boston MD P, [address], [place], [place], [address]. tel:[phone] Family History Family Member Type Diagnosis Age At Onset No Information Payers Payer name Insurance type Covered libertarian ID Authoriza tienrique(s) [employer] [facility] CI [id number] Social History Type Description Quantity Date Captured [...]
[2024-08-29 21:06] LABS: Basophils Absolute Auto 0.1 K/mm3 (0.0-0.1); Basophils Percent Auto 0.4 % (0.2-1.2); Eosinophils Absolute Auto 0.3 K/mm3 (0-0.3); Eosinophils Percent Auto 1.9 % (0-4.4); Hematocrit 30.2 % (37.0-47.0); Hemoglobin 10.1 g/dL (12.0-15.0); Immature Granulocyte Absolute 0.11 K/mm3 (0.00-0.031); Immature Granulocyte Percent A 0.7 % (0-0.5); Lymphocytes Absolute Auto 3.61 K/mm3 (0.9-3.2); Lymphocytes Percent Auto 21.8 % (18.3-44.2); Mean Corpuscular HGB Conc 33.4 g/dl (32-36); Mean Corpuscular Hemoglobin 30.3 pg (26-34); Mean Corpuscular Volume 90.7 fl (80-100); Mean Platelet Volume 10.8 fl (7.4-10.4); Monocytes Absolute Auto 1.2 K/mm3 (0.1-0.6); Monocytes Percent Auto 7.1 % (2.6-8.5); Neutrophils Absolute Auto 11.3 K/mm3 (1.3-6.7); Neutrophils Percent Auto 68.1 % (45.5-73.1); Platelet Count Result 276 k/mm3 (150-375); Red Blood Count 3.33 M/mm3 (4.2-5.4); Red Cell Distribution Width 12.5 % (11.5-14.5); White Blood Count 16.6 K/mm3 (4.5-10.0)
[2024-08-29 21:15] LABS: Alanine Aminotransferase 16 U/L (6-35); Albumin Level 3.6 g/dL (3.5-5.1); Alkaline Phosphatase 89 U/L (38-126); Anion Gap 10 mmol/L (4-12); Aspartate Amino Transferase 25 U/L (14-36); Bilirubin,Total 0.7 mg/dL (0.2-1.3); Blood Urea Nitrogen 22 mg/dL (7-17); Calcium 9.3 mg/dL (8.4-10.2); Carbon Dioxide 25 mmol/L (22-30); Chloride 105 mmol/L (98-107); Estimated CRCL calculation 56 ml/min; Estimated Glomerular Filt Rate > 60; Glucose 72 mg/dL (65-110); Magnesium 1.4 mg/dL (1.6-2.3); Potassium 5.6 mmol/L (3.4-5.0); Sodium 140 mmol/L (137-145)
[2024-08-29 21:17] LABS: Add Urine Microscopic? YES; Appearance Urine Cloudy (Clear); Bacteria Urine None Seen /hpf; Bilirubin Urine Negative (Negative); Blood Urine Negative (Negative); Budding Yeast Urine Present /hpf; Color Urine Dark Yellow (Yellow); Glucose Urine UA 3+ mg/dL (Negative); Ketones Urine Negative (Negative); Leukocyte Esterase Ur 2+ LEU/UL (Negative); Need Manual Microscopic Reviewed; Nitrate Urine Negative (Negative); Non Pathogenic Casts 0-2; Protein Urine Negative (Negative); RBC Urine 0-2 /hpf (0-2); Specific Grav Ur 1.013 (1.001-1.035); Squamous Epithelial Cell Urine None Seen /hpf (Few); Urobilinogen Urine 0.2 mg/dL (<2.0); WBC Urine >100 /hpf (0-3); pH Urine 5.5 (5.0-9.0)
[2024-08-29] MEDS: HYDROcodone/acetaminophen (*CRX) 5-325 MG TABLET 1 TAB PO (21:20)
[2024-08-29 21:27] LABS: Troponin I < 0.012 ng/mL (0.000-0.034)
[2024-08-29 21:52] LABS: Partial Thromboplastin Time 43.2 Seconds (22.3-36.8); Prothrombin Time 14.1 Seconds (11.1-14.7)
[2024-08-29 22:03] LABS: D Dimer 11.94 ug/mL (<0.48)
[2024-08-29] MEDS: SODIUM CHLORIDE 0.9% IV 1,000 ML 999 ML IV CONT (22:16)
[2024-08-29] MEDS: MAGNESIUM SULF 2 GM/WATER 50ML 2 GM/50 ML BAG IVPB (22:17)
[2024-08-30 00:24] LABS: Anion Gap 11 mmol/L (4-12); Blood Urea Nitrogen 19 mg/dL (7-17); Calcium 8.4 mg/dL (8.4-10.2); Carbon Dioxide 22 mmol/L (22-30); Chloride 105 mmol/L (98-107); Estimated CRCL calculation 70 ml/min; Estimated Glomerular Filt Rate > 60; Glucose 104 mg/dL (65-110); Potassium 4.3 mmol/L (3.4-5.0); Sodium 138 mmol/L (137-145)
[2024-08-30 00:54] LABS: Troponin I 0.016 ng/mL (0.000-0.034)
== END 2024-08-30 01:41 | disposition home or self-care (01) ==
PROVIDERS: Nurse Practitioner Family; Emergency Provider Physician Assistant; PCP Family Medicine Adolescent Medicine
DX: I35.0 Nonrheumatic aortic (valve) stenosis (principal); N30.00 Acute cystitis without hematuria; R55 Syncope and collapse; S86.912A Strain of unspecified muscle(s) and tendon(s) at lower leg level, left leg, initial encounter; S39.012A Strain of muscle, fascia and tendon of lower back, initial encounter; I10 Essential (primary) hypertension; E11.40 Type 2 diabetes mellitus with diabetic neuropathy, unspecified; M17.0 Bilateral primary osteoarthritis of knee; G47.33 Obstructive sleep apnea (adult) (pediatric); K58.0 Irritable bowel syndrome with diarrhea; H81.02 Meniere's disease, left ear; M32.9 Systemic lupus erythematosus, unspecified; Z85.3 Personal history of malignant neoplasm of breast; Z87.891 Personal history of nicotine dependence; Z98.49 Cataract extraction status, unspecified eye; Z90.12 Acquired absence of left breast and nipple; Z90.49 Acquired absence of other specified parts of digestive tract; J32.9 Chronic sinusitis, unspecified; Z79.85 Long-term (current) use of injectable non-insulin antidiabetic drugs; Z79.899 Other long term (current) drug therapy; Z79.4 Long term (current) use of insulin; Z79.84 Long term (current) use of oral hypoglycemic drugs; W18.39XA Other fall on same level, initial encounter
CPT/HCPCS: 36415; 70450; 71046; 71275; 72125; 72131; 73564; 80048; 80053; 81001; 83735; 84484; 85025; 85380; 85610; 85730; 87086; 93005; 96365; 96367; 99284; A9270; J0696; J3475; J7030; Q9967

== ENCOUNTER 2024-10-10 14:06 | Emergency (ER) | payer MEDICARE, OTHER, SELFPAY ==
--- NOTE | 2024-10-10 14:13 | ED_ITS ---
HPI - Extremity Problem General Chief complaint: Extremity Injury, Lower Stated complaint: Right shoulder/R RIB PAIN Time Seen by Provider: 10/10/24 14:08 Source: patient Mode of arrival: ambulatory Limitations: no limitations History of Present Illness HPI Narrative: Aurea is a 73-year-old female patient presenting to the clinic today with complaints syncopal episodes that started in August 29. Feels like her head gets foggy and she passes out-falling backwards and is out for approx 15 seconds. Had passed out twice on Monday and landed on her right shoulder, right scapula, and right lateral ribs. Is here to have her right shoulder, scapula, and right ribs to be evaluated today. Went on a mini vacation this week and just got back in the area today. Patient had TAVR on September 24 2024 for aortic sten osis. Patient taking Plavix. States Dr Mejia is her insole and outsole preparer per patient. Denies any chest pain or shortness of breath. History of Meniere's disease and BPPV. Related Data Home Medications ?Medication ?Instructions ?Recorded ?Confirmed ?Last Taken ?Type diazepam 2 mg tablet 2 mg PO PRN PRN Dizziness 02/24/20 10/10/24 Unknown History magnesium 250 mg tablet 500 mg PO TID 02/24/20 10/10/24 04/24/23 History riboflavin (vitamin B2) 400 mg 400 mg PO TID 03/02/20 10/10/24 04/24/23 History tablet cholecalciferol (vitamin D3) 25 25 mcg PO DAILY 10/05/20 10/10/24 04/24/23 History mcg (1,000 unit) capsule (Vitamin D3) fluticasone propionate 50 2 spray intranasal DAILY PRN 11/10/21 10/10/24 04/18/23 History mcg/actuation nasal Allergic Symptoms spray,suspension (Flonase Allergy Relief) metoprolol succinate 50 mg 50 mg PO QAM 11/10/21 10/10/24 04/24/23 History tablet,extended release 24 hr blood sugar diagnostic 06/20/22 09/30/24 Unknown History aspirin 81 mg tablet 81 mg PO DAILY 07/26/22 09/30/24 04/20/23 History silver sulfadiazine 1 % topical 1 applic topical DAILY 06/21/24 09/30/24 Unknown History cream (Silvadene) clopidogrel 75 mg tablet 75 mg PO DAILY 09/30/24 09/30/24 Unknown History Allergies Allergy/AdvReac Type Severity Reaction Status Date / Time morphine AdvReac Nausea and Verified 10/10/24 14:24 Vomiting Review of Systems Review of Systems: Pertinent positives per HPI. Patient denies any fever, chills, rash, headache, visual changes, dizziness, cough, runny nose, sore throat, shortness of breath, chest pain, palpitations, nausea, vomiting, diarrhea, constipation, abdominal pain, or any urinary issues. [facility] Past Medical History Medical History Aortic stenosis (~02/2020) History of transcatheter aortic valve replacement (TAVR) (09/2024) Effusion of knee joint Encounter for postoperative care Claw toe Left foot pain Right foot ulcer Right foot pain Foot swelling Poor balance Neuropathy of both feet Metatarsalgia of both feet Ulcer of right foot due to type 2 diabetes mellitus Left knee DJD Right knee DJD Anemia Cerebrovascular accident Noted on brain CT, unknown to the patient. Abscess of left foot including toes (~07/2020) Requiring excisional debridement including bone due to osteomyelitis. 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 Thyroid nodule Bilateral benign follicular nodules on FNA in June 2018. Stricture of sigmoid colon (~02/2020) Secondary to diverticulitis, status post loop sigmoid colostomy. Obstructive sleep apnea Compliant with CPAP. 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 ER/[place] and HER2 [place] negative. Hypertension Irritable bowel syndrome with diarrhea Menieres disease With chronic tinnitus and left-sided hearing loss. Attention deficit hyperactivity disorder Acute osteomyelitis of left foot History of adenomatous polyp of colon Anxiety ADH disorder Diverticulitis large intestine Surgical History Surgical History History of open sigmoidectomy sigmoidectomy w/ closotomy closer 10/21 History of foot surgery Left foot surgery with hardware. 2020 Left foot surgery 07/09 History of left breast biopsy (~12/2017) With benign histology. History of partial mastectomy of left breast (~07/2016) For treatment of high-grade DCIS with sentinel lymph node sampling and bilateral reduction mammoplasty. History of tonsillectomy History of cholecystectomy History of cataract extraction History of dilation and curettage x3. Family History Family History Father Diabetes mellitus Cancer of pancreas Sibling Family history of type 1 diabetes mellitus Mother Hypertension Heart disease Alzheimer's dementia Depression Grandparent Diabetes mellitus Hypertension Heart disease Grandparent Diabetes mellitus Hypertension Social History Social History Social History: The patient lives in [place] with her . 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 Smoked 0.25 packs of cigarettes a day for about 15 years and quit about a year ago. Drinks perhaps 1 alcoholic beverage a month. No illicit substance use. She designates her , Josh, as her surrogate decision maker and she wishes to be a full code. Smoking packs per day: 0.20 Smoking cigarettes per day: 4.0 Years smoked: 3 Smoking pack-years: 0.60 Smoking status: Current some day smoker Tobacco type: cigarettes Second hand tobacco smoke exposure: No Smoking end date: 03/17/23 Additional smoking assessment comments: Summer social smoking Alcohol intake: current Alcohol use details: SOCIALLY, 6-7 DRINKS/MONTH Substance use: never Substance use type: does not use Do You Feel Safe in your Home?: Yes Lack of Transportation: No Lack of Food: Never True Current Housing: I Have Housing Concerned About Future Housing: No Difficulty Paying Gas/Electric Bills: No Difficulty Paying for Meds: No Currently Unemployed: No Education: Master's Degree or Higher Difficulty w/ Childcare or Family Care: No Living arrangements: with family Additional living arrangements comments: [facility] Occupation/Education: retired Gender identity (if verbalized by the patient): Female Sexual Orientation (if Verbalized by the Patient): Straight or Heterosexual Spiritual care concerns: No Agree to blood products: Yes Comments At the time of my signature, I reviewed and agree with the nursing past medical, surgical, social, and family history. There is no relevant family history pertinent to the patient complaint. Exam Narrative: General: Well-developed, well nourished, in no apparent distress Head: Normocephalic, atraumatic. Cardio: Bradycardic rate and rhythm, s1 and s2 normal, no murmur appreciated. Radial pulse 34 Resp: Clear to auscultation bilaterally, no rhonchi, rales, wheezing or rubs. Musculoskeletal: No deformity,bruising noted to the lateral right shoulder, tender to palpation over the lateral shoulder and right lateral ribs, grossly normal range of motion, muscle strength strong and equal, peripheral pulse strong, no edema, no cyanosis, normal gait and station Course Course Emergency Course: Portions of this record may have been created with voice recognition software. Level of Care: Express Care Visit Vital Signs Vital signs: Vital Signs Temperature 36.6 C 10/10/24 14:23 Pulse Rate 72 10/10/24 14:23 Respiratory Rate 16 10/10/24 14:23 Blood Pressure 134/43 L 10/10/24 14:23 Pulse Oximetry 99 10/10/24 14:23 Temperature 36.6 C 10/10/24 14:23 Pulse Rate 72 10/10/24 14:23 Respiratory Rate 16 10/10/24 14:23 Blood Pressure 134/43 L 10/10/24 14:23 Pulse Oximetry 99 10/10/24 14:23 Vital signs reviewed MDM - Extremity (Nontraumatic) MDM Narrative Medical decision making narrative: At the time of visit patient is resting comfortably on the exam table. Patient appears to be nontoxic. EKG: EKG shows sinus rhythm with first-degree AV block with bigeminy PVCs. Heart rate 75 beats per minute. Age indeterminate septal myocardial infarction with a moderate T-wave abnormality Plan: Recommend transfer to the ER for syncopal episodes and bigeminy heart rhythm. Radial heart rate 34 beats per minute. Patient recently had TAVR procedure on September 24 2024. Has pass out since having the TAVR procedure. Patient agrees to go to [place] emergency room. Report was called to Dr. Miles and he accepts patient for transfer. Patient to be transferred via [facility]. Differential Diagnosis Differential diagnosis: Likely other (Syncopal episodes, dysrhythmia, IA, CVA, hypoglycemia, hypovolemia, orthostatic hypotension) ECG Data EKG #1: Attestation EKG: I personally reviewed and interpreted this ECG as follows: ECG completion date: 10/10/24 ECG completion time: 14:32 Prior ECG tracings: not available for review Interpretation: EKG shows sinus rhythm with a first-degree AV block with frequent PVCs in a bigeminal pattern. Age indeterminate septal myocardial infarction with a moderate T-wave abnormality. [place] interval 08/17/2028 milliseconds, QRS durations 130 milliseconds, QT-QTC is 404-432 milliseconds, P-R-T axis 84 -23 129 Discharge Plan Discharge Clinical Impression: Ventricular bigeminy Episode of syncope Qualifiers: Syncope type: unspecified Qualified Code(s): R55 - Syncope and collapse Patient Disposition: Acute Care Hospital Condition: Stable Patient Language: [place] Island[place] Prescriptions: No Action diazepam 2 mg tablet 2 mg PO PRN PRN (Reason: Dizziness) Rx Instructions: for dizziness and nausea (Meniere's disease) magnesium 250 mg tablet 500 mg PO TID metoprolol succinate 50 mg tablet extended release 24 hr 50 mg PO QAM fluticasone propionate [Flonase Allergy Relief] 50 mcg/actuation spray,suspens ion 2 spray intranasal DAILY PRN (Reason: Allergic Symptoms) Rx Instructions: administer into each nostril Mounjaro 5 mg/0.5 mL pen injector 5 mg subcut WEEKLY Qty: 2 5RF Patient Comments: MONDAYS clopidogrel 75 mg tablet 75 mg PO DAILY quetiapine 25 mg tablet 50 mg PO HS Qty: 180 3RF insulin glargine [Lantus U-100 Insulin] 100 unit/mL solution 6 unit subcut DAILY Qty: 30 5RF Patient Comments: TAKES AT HS Xifaxan 550 mg tablet 550 mg PO TID Qty: 42 1RF cholecalciferol (vitamin D3) [Vitamin D3] 25 mcg (1,000 unit) Capsule 25 mcg PO DAILY aspirin 81 mg Tablet 81 mg PO DAILY Rx Instructions: TAKES AT HS riboflavin (vitamin B2) 400 mg Tablet 400 mg PO TID silver sulfadiazine [Silvadene] 1 % Cream 1 applic TOPICAL DAILY Patient Comments: APPLY 5TH TOE RT FOOT Rx Instructions: apply a 1.5 mm thickness (DME) blood sugar diagnostic Strip See Rx Instructions .Route Rx Instructions: As directed clobetasol 0.05 % ointment 1 applic topical QHS 84 Days Qty: 60 1RF Rx Instructions: PERINEUM metformin 500 mg tablet extended release 24 hr See Rx Instructions .ROUTE .COMPLEX Qty: 120 5RF Dose Instruction: TAKE 3 TABLETS BY MOUTH EVERY MORNING AND 1 TABLET BY MOUTH EVERY NIGHT AT BEDTIME Rx Instructions: TAKE 3 TABLETS BY MOUTH EVERY MORNING AND 1 TABLET BY MOUTH EVERY NIGHT AT BEDTIME (DME) insulin syringe-needle U-100 [BD Insulin Syringe Ultra-Fine] 1 mL 31 gauge x 5/16 syringe See Rx Instructions .Route Qty: 100 3RF Rx Instructions: use twice daily to inject insulin enalapril maleate 20 mg tablet 20 mg PO QAM Qty: 90 3RF atorvastatin 80 mg tablet 80 mg PO DAILY Qty: 90 2RF venlafaxine 150 mg capsule,extended release 24hr 300 mg PO DAILY Qty: 180 2RF Patient Comments: QAM Betahistine 8 mg PO TID Qty: 90 3RF Patient Comments: compound pharmacy levothyroxine 75 mcg tablet 75 mcg PO QAM Qty: 90 1RF pregabalin 75 mg capsule 75 mg PO BID Qty: 60 2RF Jardiance 25 mg tablet 25 mg PO QAM Qty: 90 1RF Kerendia 10 mg tablet 10 mg PO QAM Qty: 90 1RF (DME) FreeStyle Desi 2 [place] Misc See Rx Instructions .Route Qty: 1 0RF Rx Instructions: As directed (DME) FreeStyle Desi 2 Plus Sensor Device See Rx Instructions .Route Qty: 4 4RF Rx Instructions: Change every 14 days doxycycline monohydrate 100 mg capsule 100 mg PO DAILY Qty: 20 0RF Follow-up/Referrals: Wilfredo Pinto MD [Primary Care Provider] - Time of Disposition: 14:55 Quality NIHSS Nursing Documentation ED NIHSS nursing documentation: reviewed/agree
[2024-10-10 14:23] VITALS: BP 134/43; PULSE 72; RESP 16; TEMP 36.6; O2SAT 99
--- NOTE | 2024-10-10 14:23 | ECG_ITS ---
Test Date: 2024-10-10 14:32:55 Measurements Intervals [place] Rate: 75 P: 84 [place]: 229 QRS: -23 QRSD: 130 T: 129 QT: 404 QTc: 451 Interpretive Statements SINUS RHYTHM WITH FIRST DEGREE AV BLOCK WITH FREQUENT VENTRICULAR PREMATURE COMPLEXES IN A BIGEMINAL PATTERN SEPTAL MYOCARDIAL INFARCTION [40+ ms Q WAVE IN V1/V2], OF INDETERMINATE AGE MODERATE T-WAVE ABNORMALITY, CONSIDER LATERAL ISCHEMIA [-0.1+ mV T WAVE IN I/aVL/V5/V6] Compared to ECG 08/29/2024 21:01:57 T-wave abnormality now present Possible ischemia now present Intraventricular conduction delay no longer present Left ventricular hypertrophy no longer present ST (T wave) deviation no longer present Myocardial infarct finding still present Electronically Signed On 10-10-2024 14:47:24 CDT by Bartolome Hurtado M.D.
== END 2024-10-10 14:54 | disposition short-term general hospital (02) ==
PROVIDERS: Emergency Provider Nurse Practitioner Family; PCP Family Medicine Adolescent Medicine
DX: R00.8 Other abnormalities of heart beat (principal); R55 Syncope and collapse; Z87.891 Personal history of nicotine dependence; I35.0 Nonrheumatic aortic (valve) stenosis; M17.0 Bilateral primary osteoarthritis of knee; Z86.73 Personal history of transient ischemic attack (TIA), and cerebral infarction without residual deficits; G47.33 Obstructive sleep apnea (adult) (pediatric); I10 Essential (primary) hypertension; Z79.82 Long term (current) use of aspirin; H81.09 Meniere's disease, unspecified ear; Z95.2 Presence of prosthetic heart valve; Z79.01 Long term (current) use of anticoagulants
CPT/HCPCS: 93005; 99215; G0463

== ENCOUNTER 2024-10-10 15:13 | Emergency (ER) | payer MEDICARE, OTHER, SELFPAY ==
--- NOTE | ~2024-10-10 | XR_ITS ---
XR chest 1V portable Ordering provider: Jamie Maier MD History: 73 years Female with . 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 Comparison: August 29, 2024 FINDINGS: MEDIASTINUM: The cardiac silhouette is not enlarged. valve prosthesis is noted. LUNGS: No infiltrates, effusions or pneumothorax. OTHER: No free air under the diaphragm. Degenerative spine with dextroscoliosis. IMPRESSION: No acute cardiopulmonary pathology. Reviewed, dictated and finalized at location A.
--- NOTE | ~2024-10-10 | CT_ITS ---
CT brain wo con Ordering provider: Jamie Maier MD History: 73 years Female with . Fall on plavix . Comparison: None. Technique: CT of the head without contrast. Radiation reduction technique utilized. The dose-length product was 605.33 mGy-cm. FINDINGS: BRAIN PARENCHYMA AND CSF SPACES: Mild leukoaraiosis and diffuse cortical atrophy. Mild atheromatous d isease. Right external capsule lacunar infarct versus choroidal fissure cyst is seen.. No midline amy ft, mass effect or hemorrhage. The brain parenchyma and CSF spaces are otherwise normal. VISUALIZED PARANASAL SINUSES: Right maxillary and ethmoid sinus disease. Otherwise, Well aerated. MASTOIDS: Well aerated. BONES: The bones appear intact. SOFT TISSUES: Visualized nasopharynx is normal. Superficial soft tissues are normal. IMPRESSION: No acute intracranial findings. Reviewed, dictated and finalized at location A.
--- NOTE | ~2024-10-10 | XR_ITS ---
XR shoulder RT min 2V Ordering provider: Jamie Maier MD History: . Fall . Comparison: None. FINDINGS: BONES: No acute fracture or dislocation. Degenerative changes in the area of the greater tuberosity. JOINT SPACES: The acromioclavicular joint shows moderate osteoarthritic changes. The glenohumeral chely nt shows moderate osteoarthritic changes. SOFT TISSUES: Normal. IMPRESSION: No acute osseous abnormality right shoulder. Moderate osteoarthritic changes of the acromioclavicular and glenohumeral joints. Reviewed, dictated and finalized at location A. IMPRESSION: No acute osseous abnormality right shoulder. Moderate osteoarthritic changes of the acromioclavicular and glenohumeral joint s.
--- NOTE | ~2024-10-10 | CT_ITS ---
CT diagnostic chest wo con Ordering provider: Jamie Maier MD History: 73 years Female with . Fall, R lateral rib pain . Comparison: None. Technique: CT chest without IV contrast. Radiation reduction technique utilized.The dose-length product was 199.25 mGy-cm. FINDINGS: VISUALIZED THORACIC INLET: Enlarged right lobe of the thyroid with extension in the superior mediasti num. MEDIASTINUM: Aorta/coronary arteries: Mild atheromatous disease. Heart/other: The heart is not enlarged. Right hip prosthesis is seen in the aortic valve Lymph nodes: No mediastinal or hilar adenopathy. Small precarinal lymph nodes are noted. LUNGS: Nodule is seen in the right lower lobe measuring 7 x 9 mm unchanged from previous examination. 3 months follow-up CT is advised. No pulmonary masses. No infiltrates or effusions. No pneumothorax. Subsegmental atelectasis seen in the left lung base. Pleural base nodule cannot be excluded measurin g 8 mm. Granuloma is seen in the right lower lobe. VISUALIZED UPPER ABDOMEN: Status post cholecystectomy. Otherwise, the visualized upper abdomen is nor mal. MUSCULOSKELETAL: Soft tissues: The superficial soft tissues are normal. Bones: Age appropriate degenerative changes of the spine. No definite rib fractures seen. IMPRESSION: 1. 9 mm Nodule in the right lower lobe unchanged from previous examination. 3 months follow-up advis ed. Possible nodule in the left lung base with adjacent subsegmental atelectasis. 2. No definite rib fractures. 3. No acute cardiopulmonary pathology. Reviewed, dictated and finalized at location A. IMPRESSION: 1. 9 mm Nodule in the right lower lobe unchanged from previous examination. 3 months follow-up advised. Possible nodule in the left lung base with adjacent s ubsegmental atelectasis. 2. No definite rib fractures. 3. No acute cardiopulmonary pathology.
[2024-10-10 15:19] VITALS: BP 151/47; PULSE 36; RESP 16; TEMP 36.8; O2SAT 98
--- NOTE | 2024-10-10 15:25 | ECG_ITS ---
Test Date: 2024-10-10 15:24:03 Measurements Intervals [place] Rate: 70 P: 64 [place]: 232 QRS: -19 QRSD: 132 T: 118 QT: 409 QTc: 441 Interpretive Statements SINUS RHYTHM WITH FIRST DEGREE AV BLOCK WITH FREQUENT VENTRICULAR PREMATURE COMPLEXES IN A BIGEMINAL PATTERN INTRAVENTRICULAR CONDUCTION DELAY [130+ ms QRS DURATION] SEPTAL MYOCARDIAL INFARCTION , OF INDETERMINATE AGE [40+ ms Q WAVE IN V1/V2] Compared to ECG 10/10/2024 14:32:55 NO SIGNIFICANT CHANGES Electronically Signed On 10-11-2024 10:38:00 CDT by Sandra Martin M.D.
--- OUTSIDE RECORDS SUMMARY | 2024-10-10 16:22 | XMS_ITS | Clinical Summary ---
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 Name Role Phone Wilfredo Pinto MD Primary Care Prov ider Jesus Alberto Martinez MD Unavailable [phone] Allergies Active Allergy Reactions Criticality Noted Date Comments Morphine Vomiting Low 02/11/2021 Medications venlafaxine XR (EFFEXOR-XR) 150 mg 24 hr capsule Take 2 capsules (300 mg total) by mouth every morning 2 11/27/19 18 Active metFORMIN XR (GLUCOPHAGE XR) 500 mg 24 hr tablet Take by mouth as directed Take 1500 mg in the morning and 500 mg at night 5 12/09/19 18 Active LANTUS U-100 INSULIN 100 unit/mL injection Inject 2 Units under the skin nightly 2 01/20/20 18 Active QUEtiapine (SEROquel) 25 mg tablet Take 2 tablets (50 mg total) by mouth nightly 02/07/20 18 Active riboflavin (Vitamin B-2) 100 mg tabletIndications: Riboflavin Deficiency Take 2 tablets (200 mg total) by mouth 2 (two) times a day Active cholecalciferol (VITAMIN D-3) 25 mcg (1,000 unit) tabletIndications: Vitamin D Deficiency Take 1 tablet (1,000 Units total) by mouth nightly Active fluticasone propionate (FLONASE ALLERGY RELIEF NASL)Indications:a llergy maintenance Administer 2 sprays into each nostril daily as needed Active magnesium oxide 400 mg magnesium capsuleIndications :hypomagnesemia Take 2 tablet/capsule by mouth nightly Active diazePAM (VALIUM) 2 mg tablet Take 1 tablet (2 mg total) by mouth every 8 (eight) hours as needed (dizziness) 30 tablet 3 02/04/20 21 Active ondansetron ODT (ZOFRAN-ODT) 8 mg disintegrating tablet Take 1 tablet (8 mg total) by mouth every 8 (eight) hours as needed for nausea or vomiting 20 tablet 1 10/29/19 23 Active betahistine Take 1 capsule (8 mg total) by mouth 3 (three) times a day 90 capsule 11 10/29/19 23 Active Kerendia 10 mg tablet Take 1 tablet by mouth every morning 12/06/19 23 Active Jardiance 25 mg tabletIndications: type 2 diabetes mellitus Take 1 tablet (25 mg total) by mouth every morning 12/04/19 23 Active levothyroxine (SYNTHROID) 75 mcg tablet Take 1 tablet (75 mcg total) 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 11/26/19 23 Active aspirin 81 mg enteric coated tabletIndications: Coronary artery calcification seen on CAT scan,H/O: stroke Take 1 tablet (81 mg total) by mouth daily 30 tablet 11 12/31/19 23 Active Additional Information Patient taking differently:81 mg oralNightly, Informant: Self, Reported on 09/24/2024 Kat 5 mg/0.5 mL pen injector Inject 0.5 mL (5 mg total) under the skin once a week Take on Mondays12/27/19 Active pen needle, diabetic (BD Soniya 2nd Gen Pen Needle) 32 gauge x 5/32 needle Active pen needle, diabetic (BD Ultra-Fine Short Pen Needle) 31 gauge x 5/16 needle Active insulin syringe-needle U-100 1 mL 31 gauge x 5/16 syringe 11/06/19 24 Active atorvastatin (LIPITOR) 80 mg tablet Take 1 tablet (80 mg total) by mouth nightly 01/09/20 24 Active enalapril (VASOTEC) 20 mg tablet Take 1 tablet (20 mg total) by mouth every morning 11/27/19 24 Active metoprolol XL (TOPROL-XL) 50 mg extended release tabletIndications: PVC's (premature ventricular contractions),Esse ntial hypertension TAKE 1 TABLET(50 MG) BY MOUTH DAILY 90 tablet 1 05/20/20 24 Active Additional Information Patient taking differently: 50 mg oral Every morning, Reported on 09/24/2024 pregabalin (LYRICA) 75 mg capsule Take 1 capsule (75 mg total) by mouth 2 (two) times a day 07/25/19 25 Active doxycycline (doxycycline hyclate) 100 mg capsule Take 1 tablet/capsule (100 mg total) by mouth daily Active clopidogreL (PLAVIX) 75 mg tablet Take 1 tablet (75 mg total) by mouth daily 30 tablet 6 09/27/19 25 026 Active Active Problems Problem Noted Date Diagnosed Date Syncope and collapse 09/02/2024 LVH (left ventricular hypertrophy) 01/15/2024 Hypothyroidism 11/24/2022 Coronary artery calcification seen on CAT scan 1 07/18/2020 Hyperlipidemia associated with type 2 diabetes m ellitus 05/18/2021 JESUS on CPAP 05/18/2021 H/O: stroke 01/15/2021 PAD (peripheral artery disease) 01/15/2021 ADHD 01/15/2021 PVC's (premature ventricular contractions) 01/13 Nonrheumatic aortic valve stenosis 01/13/2021 Essential hypertension 01/13/2021 Controlled type 2 diabetes with neuropathy 01/13 Meniere's disease of left ear 02/12/2018 Assessment & Plan (09/20/2019 4:07 PM CATH LAB NURSE): Differential includes vestibular migraine Will trial head ache diet to see if dizzy symptoms improve She should follow-up with her eye doctor regarding contact lens adjustment RTC PRN Assessment & Plan (05/13/2019 2:42 PM CDT): Left intratympanic dexamethasone injection done today. Another consideration would be vestibular migraine given she has light sensitivity although she is older than the typical demographic for this presentation. Lump of right breast 12/20/2017 Ductal carcinoma in situ (DCIS) of left breast 0 12/20/2017 Diverticulosis 01/23/2013 Resolved Problems Problem Noted Date Diagnosed Date Resolved Date Asymmetrical sensorineural hearing loss 04/18/2022 12/28/2022 Atherosclerosis of aortic bi furcation and common iliac arteries 05/18/2021 09/02/2024 Mixed hyperlipidemia 05/18/2021 023 Colonic stricture (CMS/HCC) 03/04/2020 12/28/2022 Overview (03/05/2020): Added automatically from request for surgery [id number] Encounters Date Type Department Care Team Description 10/08/2024 Telephone [facility] Cardiology [address] [place] [phone] Damon Armstrong MD 09/24/2024 9:00 AM CDT - 09/24/2024 11:00 AM CDT Surgery [facility] Cardiac Catheterization Lab [address] [place] [id number] Damon Armstrong MD LEFT HEART CATHETERIZATION WITH NO CORONARY ANGIOGRAPHY WITH AND WITHOUT LEFT VENTRICULOGRAM [id number] 09/24/2024 8:59 AM CDT Anesthesia Event [facility] Cardiac Catheterization Lab [address] [place] [id number] Aaron Srinivasan MD Barnhart, Lynlee Jo, NP 09/24/2024 6:32 AM CDT - 09/25/2024 2:15 PM CDT Hospital Encounter [address] [address] Damon Armstrong MD Nonrheumatic aortic valve stenosis Discharge Disposition: Discharge to home or self care 09/16/2024 9:41 AM CATH LAB NURSE - 09/16/2024 11:59 PM CATH LAB NURSE Hospital Encounter [facility] Diagnostic Imaging [address] [place] [id number] Discharge Disposition: Discharge to home or self care 09/16/2024 8:45 AM CATH LAB NURSE Pre-Admission Testing [facility] Pre Anesthesia Testing [address] [place] [id number] Pre-operative exam (Primary Dx); Nonrheumatic aortic valve stenosis; Type 2 diabetes, controlled, with neuropathy (HCC); Chronic anticoagulation 09/05/2024 2:30 PM CATH LAB NURSE Office Visit [facility] Surgery [address] [place] [phone] Dena Guido MD Nonrheumatic aortic valve stenosis (Primary Dx) 09/05/2024 11:47 AM CATH LAB NURSE - 09/05/2024 11:59 PM CATH LAB NURSE Hospital Encounter [facility] Imaging and Radiology [address] [place] [id number] Nonrheumatic aortic valve stenosis Discharge Disposition: Discharge to home or self care 09/05/2024 Orders Only [facility] Cardiac Catheterization Lab [address] [place] [id number] Damon Armstrong MD Nonrheumatic aortic valve stenosis (Primary Dx) 09/05/2024 Documentation Cardiothoracic Surgery Amita Wright, RN 09/02/2024 1:00 PM CATH LAB NURSE Office Visit [facility] Cardiology [address] [place] [address] Damon Armstrong MD Nonrheumatic aortic valve stenosis (Primary Dx); Hyperlipidemia associated with type 2 diabetes mellitus (HCC); PVC's (premature ventricular contractions); PAD (peripheral artery disease); LVH (left ventricular hypertrophy); Essential hypertension; Coronary artery calcification seen on CAT scan; H/O: stroke; JESUS on CPAP; Syncope and collapse 09/02/2024 Cardiology Conference [facility] Non-invasive Cardiac Diagnostic Testing [id number] [place] [id number] Gurvinder Maddox, IAIN 09/02/2024 Orders Only [facility] Non-invasive Cardiac Diagnostic Testing [address] [place] [id number] Damon Armstrong MD Nonrheumatic aortic valve stenosis (Primary Dx) 08/19/2024 Telephone [facility] Cardiology [address] [place] [address] Damon Armstrong MD Dizziness; Blurred Vision from Last 3 Months Immunizations Immunization Administration Dates Next Due COVID-19 mRNA (PFIZER) 0.3 m L (30 mcg) vaccine (12 years and up) 05/17/2024 Pfizer SARS-CoV-2 Monovalent Vaccination (12+ Yrs) PURPLE 10/02/2020,09/11/2020 Pfizer Sars-Cov-2 Bivalent Vaccination (12+ YRS) 03/24/2022 Surgical History Surgery Date Site/Laterality Comments BREAST SURGERY 07/17/2016 - 07/16/2017 Left Breast cancer s/p breast reduction/not quite mastectomy, w/p radiation GALLBLADDER SURGERY TONSILLECTOMY DILATION AND CURETTAGE, DIAGNOSTIC / THERAPEUTIC COLONOSCOPY WISDOM TOOTH EXTRACTION CHOLECYSTECTOMY MASTECTOMY 07/17/2016 - 07/16/2017 Left CATARACT EXTRACTION COLON SURGERY Colostomy / colostomy reversal HERNIA REPAIR Done with colostomy reversal SINUS SURGERY CARDIAC CATHETERIZATION 01/30/2024 COLOSTOMY 03/09/2020 within a year it was taken down. SIGMOIDOSCOPY 03/06/2020 CARDIAC CATHETERIZATION 09/24/2024 N/A Procedure: LEFT HEART CATHETERIZATION WITH NO CORONARY ANGIOGRAPHY WITH AND WITHOUT LEFT VENTRICULOGRAM [id number]; Surgeon: Damon Armstrong MD; Location: [facility]; Service: Cardiovascular; Laterality: N/A; Medical devices from this surgery are in the Medical Devices section. CARDIAC CATHETERIZATION 09/24/2024 N/A Procedure: AORTOGRAM THORACIC S&I [id number]; Surgeon: Damon Armstrong MD; Location: [facility]; Service: Cardiovascular; Laterality: N/A; Medical devices from this surgery are in the Medical Devices section. CARDIAC CATHETERIZATION 09/24/2024 N/A Procedure: PERIPHERAL ANGIOGRAPHY; Surgeon: Damon Armstrong MD; Location: [facility]; Service: Cardiovascular; Laterality: N/A; Medical devices from this surgery are in the Medical Devices section. Medical History Medical History Date Comments Diabetes [...] Meniere s Disease Infection Osteomyelitis / cellulitis 2020 - left toes Nonrheumatic aortic (valve) stenosis Motion sickness PVC (premature ventricular contraction) BPV (benign positional verti go), left Family History Medical History Relation Name Comments Allergy (severe) Brother Ronn Oliva II Diabetes Brother Ronn Oliva II Hearing loss Brother Ronn Oliva II Cancer Father Ronn Oliva Diabetes Father Ronn Oliva Cancer Father's Brother 1 Harshal Oliva Cancer Father's Brother 2 Abhijit Hayden Pj Heart attack Father's Brother 3 Kirit Ballsey Cancer Father's Sister Mary Oliva Oktibbeha Heart attack Maternal Grandfather Brant Powell Heart attack Maternal Grandmother Juan Pablo Powell of multiple heart attacks. Hypertension Maternal Grandmother Juan Pablo Powell Alzheimer's disease Mother So Oliva COPD Mother So Oliva Dementia Mother So Ballsey Hearing loss Mother So Powell Pj Hypertension Mother So Powell Pj Hypertension Paternal Grandfather Brant Powell Cancer Paternal Grandmother Ekta Devriesdawna mcrae Garfield Oliva Diabetes Sister Noreen Gay Relation Name Status Comments Brother Ronn Oliva II Father Ronn Oliva Father's Brother 1 Harshal Ballsey Father's Brother 2 Abhijit Hayden Oliva Father's Brother 3 Kirit Oliva Father's Sister Maryandrew Oliva Aj Maternal Grandfather Brant Pwoell Maternal Grandmother Juan Pablo Powell Deceas ed Mother So Oliva Paternal Grandfather Brant Powell Paternal Grandmother Ekta Marge Merrill Pj Sister Noreen Gay Social History Tobacco Use Types Packs/Day Years Used Date Smoking Tobacco: Former Cigarettes Smokeless Tobacco: Never Tobacco Cessation:Counseling Given: Not Answered Alcohol Use Standard Drinks/Week Comments Yes 0 (1 standard drink = 0.6 oz pur e alcohol) [facility] Util[facility] Answer Date Recorded In the past 12 months has [employer], [employer], oil, or water Dispatch threatened to shut off services in your home? No 09/25/2024 Social Connection and Isolat ion Panel [NHANES] Answer Date Recorded In a typical week, how many times do you talk on the phone with family, friends, or neighbors? More than three times a week 09/25/2024 How often do you get togethe r with friends or relatives? Once a week 09/25/2024 How often do you attend [facility] or druze services? More than 4 times per year 09/25/2024 Do you belong to any clubs o r organizations such as buddhism groups, unions, fraternal or athletic groups, or school groups? No 09/25/2024 How often do you attend meet ings of the clubs or organizations you belong to? Never 09/25/2024 Are you , , di vorced, , never , or living with a partner? 09/25/2024 AUDIT-C Answer Date Recorded Q1: How often do you have a drink containing alc ohol? Monthly or less 09/24/2024 Q2: How many drinks containi ng alcohol do you have on a typical day when you are drinking? 1 or 2 09/24/2024 Q3: How often do you have si x or more drinks on one occasion? Never 09/24/2024 Overall Financial Resource Strain (CARDIA) Answe r Date Recorded How hard is it for you to pa y for the very basics like food, housing, medical care, and heating? Not hard at all 09/25/2024 Hunger Vital Sign Answer Date Recorded Within the past 12 months, y ou worried that your food would run out before you got the money to buy more. Never true 09/26/19 25 Within the past 12 months, t he food you bought just didn't last and you didn't have money to get more. Never true 09/25/2024 PRAPARE - Transportation Answer Date Re corded In the past 12 months, has l ack of transportation kept you from medical appointments or from getting medications? No 09/14 In the past 12 months, has l ack of transportation kept you from meetings, work, or from getting things needed for daily living? No 09/25/2024 Housing Stability Vital Sign Answer Hema e Recorded In the last 12 months, was t here a time when you were not able to pay the mortgage or rent on time? No 09/25/2024 In the past 12 months, how m any times have you moved where you were living? 0 09/25/2024 At any time in the past 12 m [facility], were you homeless or living in a penitentiary (including now)? No 09/25/2024 Personal Safety Answer Date Recorded Have you ever been in or are you currently in a harmful physical or emotional relationship or is someone making you feel afraid or unsafe? Denies 09/24/2024 Comments No Sex and Gender Information Value Date Recorded Sex Assigned at Not on file Legal Sex Female 5:31 PM CATH LAB NURSE Gender Identity Female 01/06/2021 6:49 AM CDT Sexual Orientation Straight 01/06/2021 6: 49 AM CDT Obstetrics History Last Filed Vital Signs Vital Sign Reading Time Taken Comments Blood Pressure 154/58 09/25/2024 9:17 AM CDT Pulse 78 09/25/2024 12:00 PM CDT Temperature 36.7 C (98 F) 09/25/2024 9:17 AM CDT Respiratory Rate 18 09/25/2024 9:17 AM CDT Oxygen Saturation 97% 09/25/2024 9:17 AM CDT Inhaled Oxygen Concentration - - Weight 68.5 kg (151 lb) 09/24/2024 3:54 PM CDT Height 162.6 cm (5' 4.02 ) 09/24/2024 3:54 PM CD T Body Mass Index 25.91 09/24/2024 3:54 PM CDT Plan of Treatment Health Maintenance Due Date Last Done Comments Albumin Creatinine Ratio, Urine 1950 Depression Screening 1950 Hepatitis C Screening 1950 Osteoporosis Screening-Bone Density Scan 1950 Dilated Eye Exam 1950 Foot Exam 1950 Hepatitis B Screening 11/20/1967 Pneumococcal vaccine 65+ (1 of 2 - PCV) 1968 Well Visit 65+ 2014 Zoster Vaccine (2 of 2) 01/17/2019 11/22/2018 Breast Cancer Screening-Mammogram 07/04/2019 018 DTaP/Tdap/Td Vaccine (2 - Td or Tdap) 05/18/2023 05/18/2013 Influenza Vaccine (#1) 2024 03/24/2022 Covid-19 Vaccine (2023-2 5 season) 2024 05/17/2024, 03/24/2022, 10/23/2021, Additional history exists Hemoglobin A1C 03/19/2025 09/16/2024, 03/04/2020 Lipid Panel 09/02/2025 09/02/2024, 07/0 07/2023, 04/11/2022, Additional history exists eGFR 09/16/2025 09/16/2024, 01/19/2024 Fall Risk Assessment 09/25/2025 09/25/2024 Colon Cancer Screening-Colonoscopy 02/21/2029 02/21/2019 Colon Cancer Screening-CT Colonography Discontinued 03/06/2020, 02/21/2019 Colon Cancer Screening-DNA Stool Discontinued 03/06/20, 02/21/2019 Colon Cancer Screening-FIT Discontinued 03/06/2020, Colon Cancer Screening-Sigmoidoscopy Discontinued 03/06/2020, 02/21/2019 Medical Devices Implanted Type Area Pediatrician Device Identifier Shelf Expiration Date Model / Serial / Lot [employer] Device Closure Vascade Od5 Fr Femoral Artery [id number] - [id number] Implanted:Qty: 1 on 01/30/2024 by Damon Armstrong MD at [facility] [employer] 10/10/2025 [id number] / / [id number] [employer] System Closure Repair Femoral Artery Suture Mediated Perclose Prostyle 45167-66 - [id number] Implanted:Qty: 1 on 09/24/2024 by Damon Armstrong MD at [facility] [employer] 07/16/2026 1 [id number] / / [id number] [employer] System Closure Repair Femoral Artery Suture Mediated Perclose Prostyle 54877-54 - [id number] Implanted:Qty: 1 on 09/24/2024 by Damon Armstrong MD at [facility] [employer] 07/16/2026 1 2773-03 / / [id number] [employer] Valve Aortic Trnscath Joan 3 Ultra Resilia 23mm [id number] - [id number] - [id number] Implanted:Qty: 1 on 09/24/2024 by Damon Armstrong MD at [facility] [employer] 01/03/2027 [id number] / [id number] / [employer] System Closure Repair Femoral Artery Suture Mediated Perclose Prostyle 12723-93 - [id number] Implanted:Qty: 1 on 09/24/2024 by Damon Armstrong MD at [facility] [employer] 06/15/2026 1 [id number] / / [id number] [employer] Device Vascular Closure Femoral Artery Bioabsorbable Dual Method Vascade 6-7fr Collagen [id number] - [id number] Implanted:Qty: 1 on 09/24/2024 by Damon Armstrong MD at [facility] [employer] 03/07/2026 [id number] / / [id number] Procedures Procedure Name Priority Date/Time Associated Diagnosis Comments XR CHEST 1 VIEW Routine 09/25/2024 8:35 AM CDT ECG 12-LEAD Routine 09/25/2024 7:23 AM CDT TRANSTHORACIC ECHO (TTE) COMPLETE W DOPPLER/CF W CONTRAST Routine 09/25/2024 7:22 AM CDT DIFFERENTIAL AUTO Routine 09/25/2024 4:2 5 AM CDT APTT Routine 09/25/2024 4:25 AM CDT PROTIME-INR Routine 09/25/2024 4:25 AM CDT CBC WITH AUTO DIFFERENTIAL Routine 09/25/2024 4:25 AM CDT ECG 12-LEAD Routine 09/24/2024 6:56 PM CDT POCT GLUCOSE DEVICE Routine 09/24/2024 5 :47 PM CDT POCT GLUCOSE DEVICE Routine 09/24/2024 3 :22 PM CDT XR CHEST 1 VIEW Routine 09/24/2024 12:12 PM CDT POCT GLUCOSE DEVICE Routine 09/24/2024 11:29 AM CDT POCT GLUCOSE DEVICE Routine 09/24/2024 10:39 AM CDT TAVR Routine 09/24/2024 10:21 AM CDT Nonrheumatic aortic valve stenosis AORTOGRAM THORACIC S&I Routine 09/24/2024 10:21 AM CDT Nonrheumatic aortic valve stenosis LEFT HEART CATHETERIZATION (LHC) Routine 09/24/2024 10:21 AM CDT Nonrheumatic aortic valve stenosis POCT ACTIVATED CLOTTING TIME, HIGH RANGE Routine 09/24/2024 10:20 AM CDT POCT GLUCOSE DEVICE Routine 09/24/2024 10:01 AM CDT POCT ACTIVATED CLOTTING TIME, HIGH RANGE Routine 09/24/2024 9:57 AM CDT INSERTION TEMPORARY PACEMAKER 09/24/2024 8:59 AM CDT Nonrheumatic aortic valve stenosis POTASSIUM, WHOLE BLOOD STAT 09/24/2024 7:43 AM CDT B CHECK SAMPLE STAT 09/24/2024 7:43 AM CDT POCT GLUCOSE DEVICE Routine 09/24/2024 7 :24 AM CDT PROTIME-INR Routine 09/16/2024 10:44 AM CATH LAB NURSE Pre-operative exam Nonrheumatic aortic valve stenosis APTT Routine 09/16/2024 10:44 AM CATH LAB NURSE Pre-operative exam Nonrheumatic aortic valve stenosis Chronic anticoagulation EGFR Routine 09/16/2024 10:43 AM CATH LAB NURSE Pre-operative exam PRO B-TYPE NATRIURETIC PEPTIDE Routine 09/16/2024 10:43 AM CATH LAB NURSE Pre-operative exam COMPREHENSIVE METABOLIC PANEL Routine 09/16/2024 10:43 AM CATH LAB NURSE Pre-operative exam ECG 12-LEAD Routine 09/16/2024 10:20 AM CATH LAB NURSE Pre-operative exam DIFFERENTIAL AUTO Routine 09/16/2024 10:20 AM CATH LAB NURSE Pre-operative exam TYPE AND SCREEN Routine 09/16/2024 10:20 AM CATH LAB NURSE Pre-operative exam CBC WITH AUTO DIFFERENTIAL Routine 09/16/2024 10:20 AM CATH LAB NURSE Pre-operative exam HEMOGLOBIN A1C Routine 09/16/2024 10:20 AM CATH LAB NURSE Pre-operative exam Type 2 diabetes, controlled, with neuropathy (HCC) XR CHEST PA LATERAL 2 VIEWS Schedule Routine, Read Routine (OP Routine) 09/16/2024 10:01 AM CATH LAB NURSE Pre-operative exam CT TAVR Schedule Routine, Read Routine (OP Routine) 09/05/2024 12:27 PM CATH LAB NURSE Nonrheumatic aortic valve stenosis POCT CREATININE FOR CONTRAST EVALUATION Routine 09/05/2024 12:14 PM CATH LAB NURSE LIPID PANEL Routine 09/02/2024 1:01 PM CATH LAB NURSE FLEXIBLE SIGMOIDOSCOPY 03/06/2020 5:25 PM CDT COLONOSCOPY 02/21/2019 8:33 AM CDT from Last 3 Months or Most Recently Relevant to Health Maintenance Results * X-ray chest 1 view (Portable) (09/25/2024 8:35 AM CDT) Anatomical Region Laterality Modality Body, Chest N/A Computed Radiogr aphy 09/25/2024 12:4 8 PM CDT Impressions 09/25/2024 12:48 PM CDT No active disease. Electronically signed by: Dedra Uribe 09/25/2024 12:48 PM CDT EXAMINATION: XR CHEST 1 VIEW DATE: 09/25/2024 8:00 AM HISTORY: Venous obstruction, chest post aortic valve replacement - TAVR FINDINGS: Prosthetic aortic valve is present. There is no infiltrate, effusion or pneumothorax. Heart size and pulmonary vascularity are normal. Procedure Note Osbaldo Mcpherson MD - 09/25/2024 EXAMINATION: XR CHEST 1 VIEW DATE: 09/25/2024 8:00 AM HISTORY: Venous obstruction, chest post aortic valve replacement - TAVR FINDINGS: Prosthetic aortic valve is present. There is no infiltrate, effusion or pneumothorax. Heart size and pulmonary vascularity are normal. IMPRESSION: No active disease. Electronically signed by: Osbaldo Mcpherson M.D. Damon Armstrong MD IMG XR PROCEDURES Fi nal Result * ECG 12 lead (09/25/2024 7:23 AM CDT) 09/25/2024 7:23 AM CDT Narrative [facility] - 09/25/2024 11:25 PM CDT Vent Rate: 73 bpm RR Interval: 812 msec PA Interval: 221 msec QRS Duration: 125 msec QT Interval: 411 msec QTC Interval: 437 msec P-R-T [place]: 75 - -15 - 124 degrees IMPRESSION: SINUS RHYTHM WITH FIRST DEGREE AV BLOCK SEPTAL MYOCARDIAL INFARCTION , OF INDETERMINATE AGE [40+ ms Q WAVE IN V1/V2] MODERATE T-WAVE ABNORMALITY, CONSIDER LATERAL ISCHEMIA [-0.1+ mV T-WAVE IN I/aVL/V5/V6] ABNORMAL ECG Electronically Signed By: Dr. Damon Armstrong [facility] Damon Armstrong MD ECG ORDERABLES Dottie l Result [facility] [employer] [facility] * TRANSTHORACIC ECHO (TTE) COMPLETE W DOPPLER/CF W CONTRAST (09/25/2024 7:22 AM CDT) LV EF 65-70 % CONS SCIMAGE Anatomical Region Laterality Modality Ultrasound 09/25/2024 6:37 AM CDT Narrative 09/25/2024 11:20 [place] [address] Echocardiogram Report Patient Name: JUAN PABLO POOL CAROLYN : 1950 Study Date: 09/25/2024 6:37:53 AM Gender: F Tech: Location: [id number] Ref Provider: DAMON ARMSTRONG Height(Cm): 162 BSA: 1.76 Weight(Kg): 69 Heart Rate: 72 BP: 155 / 60 Quality: Good Order Provider: DAMON ARMSTRONG PROCEDURES: Echocardiographic Report: Transthoracic echocardiogram with complete 2D, M-Mode, color Doppler examination and contrast. INDICATIONS: S/P TAVR Parsons 26mm. MEASUREMENTS: 2D/MM Value Range Doppler Value Range EF Teich 2D 54.9 percent [ 54.0 - 74.0 ] DIAMANTE Vmax 2.54 cm2 Estimated EF 65-70 % AV Mean PG 6 mmHg LVIDd 2D 4.07 cm [ 3.80 - 5.20 ] AV Peak Meek 1.68 m/s [ 1.00 - 1.70 ] LVIDs 2D 2.93 cm [ 2.20 - 3.50 ] AV VTI 32.27 cm LVPWd 2D 1.17 cm [ 0.60 - 0.90 ] LVOT Diam 2.30 cm IVSd 2D 1.18 cm [ 0.60 - 0.90 ] LVOT Peak Meek 0.98 m/s [ 0.70 - 1.10 ] LA Dimension MM 4.05 cm [ 2.70 - 3.80 ] LVOT VTI 21.11 cm AoR Diam 2D 3.14 cm [ 2.70 - 3.70 ] SI LVOT 50.3 ml/m2 [ >= 35.0 ] AoR Diam MM 3.01 cm [ 2.70 - 3.70 ] MV E Peak Meek 1.32 m/s [ 0.60 - 1.30 ] LA Volume Index 46.78 cc/m2 [ 16.00 - 34.00 ] MV Mean PG 5 mmHg MV PHT 76 msec [ 20 - 100 ] MVA PHT 2.90 cm2 MV Decel Time 305 msec [ 104 - 258 ] MR PISA 606.87 PV Peak Meek 0.84 m/s [ 0.40 - 0.80 ] TR Peak Meek 2.12 m/s [ 1.00 - 2.80 ] TR Peak PG 18 mmHg E` 0.07 m/s E/E` 18.17 2D/MM Value Range Doppler Value Range - FINDINGS: Atrial Septum: Normal atrial septum. Left Ventricle: Normal left ventricular size. Optison contrast agent used to visually enhance endocardial wall motion and contractility. Severe concentric left ventricular hypertrophy. Normal global left ventricular systolic function. There is pseudonormal diastolic dysfunction Grade II. Ejection Fraction is visually estimated to be 65-70 %. Left Atrium: There is mild enlargement of left atrium. Right Ventricle: Normal right ventricular size. Normal right ventricular systolic function. Right Atrium: The right atrium is normal in size. Aortic Valve: No evidence of hemodynamically significant aortic stenosis by Doppler. No aortic regurgitation. Mean gradient of 6.0 mmHg. Valve area of 2.5 cm2. Normal appearing aortic valve prosthesis. Gradients normal for valve type and size. Mitral Valve: Moderate mitral annular calcification. There is no hemodynamically significant mitral stenosis by Doppler. Mild mitral valve regurgitation. Pulmonic Valve: Normal structure of the pulmonic valve. No evidence of pulmonic regurgitation. Tricuspid Valve: Normal structure of the tricuspid valve. Estimated peak RVSP is 23 mmHg. Mild tricuspid regurgitation. Pericardium: Normal pericardium with no significant pericardial effusion. Aorta: Sinus of Valsalva is normal. IVC: Normal size and normal respiratory collapse consistent with normal right atrial pressure (<5 mmHg). Pulmonary Artery: Normal pulmonary artery size. CONCLUSIONS: Normal left ventricular size. Optison contrast agent used to visually enhance endocardial wall motion and contractility. Severe concentric left ventricular hypertrophy. Normal global left ventricular systolic function. There is pseudonormal diastolic dysfunction Grade II. Ejection Fraction is visually estimated to be 65-70 %. There is mild enlargement of left atrium. Moderate mitral annular calcification. Mild mitral valve regurgitation. No evidence of hemodynamically significant aortic stenosis by Doppler. No aortic regurgitation. Mean gradient of 6.0 mmHg. Valve area of 2.5 cm2. Normal appearing aortic valve prosthesis. Gradients normal for valve type and size. Estimated peak RVSP is 23 mmHg. Mild tricuspid regurgitation. Electronically Signed By: Dr. Damon Armstrong [facility] 09/25/2024 11:20:15 AM CDT Procedure Note Damon Armstrong MD - 09/25/2024 [place] [address] Echocardiogram Report Patient Name: JUAN PABLO POOL CAROLYN : 1950 Study Date: 09/25/2024 6:37:53 AM Gender: F Tech: Location: [id number] Ref Provider: DAMON ARMSTRONG Height(Cm): 162 BSA: 1.76 Weight(Kg): 69 Heart Rate: 72 BP: 155 / 60 Quality: Good Order Provider: DAMON ARMSTRONG PROCEDURES: Echocardiographic Report: Transthoracic echocardiogram with complete 2D, M-Mode, color Dopplerexamination and contrast. INDICATIONS: S/P TAVR Parsons 26mm. MEASUREMENTS: 2D/MM Value Range DopplerValue Range EF Teich 2D 54.9 percent [ 54.0 - 74.0 ] DIAMANTE Vmax2.54 cm2 Estimated EF 65-70 % AV Mean PG 6mmHg LVIDd 2D 4.07 cm [ 3.80 - 5.20 ] AV Peak Vel1.68 m/s [ 1.00 - 1.70 ] LVIDs 2D 2.93 cm [ 2.20 - 3.50 ] AV VTI32.27 cm LVPWd 2D 1.17 cm [ 0.60 - 0.90 ] LVOT Diam2.30 cm IVSd 2D 1.18 cm [ 0.60 - 0.90 ] LVOT Peak Vel0.98 m/s [ 0.70 - 1.10 ] LA Dimension MM 4.05 cm [ 2.70 - 3.80 ] LVOT VTI21.11 cm AoR Diam 2D 3.14 cm [ 2.70 - 3.70 ] SI LVOT50.3 ml/m2 [ >= 35.0 ] AoR Diam MM 3.01 cm [ 2.70 - 3.70 ] MV E Peak Vel1.32 m/s [ 0.60 - 1.30 ] LA Volume Index 46.78 cc/m2 [ 16.00 - 34.00 ] MV Mean PG 5mmHg MV PHT 76 msec [ 20 - 100 ] MVA PHT 2.90 cm2 MV Decel Time 305 msec [ 104 - 258 ] MR PISA 606.87 PV Peak Meek 0.84 m/s [ 0.40 - 0.80 ] TR Peak Meek 2.12 m/s [ 1.00 - 2.80 ] TR Peak PG 18 mmHg E` 0.07 m/s E/E` 18.17 2D/MM Value Range DopplerValue Range - FINDINGS: Atrial Septum: Normal atrial septum. Left Ventricle: Normal left ventricular size. Optison contrast agent used to visuallyenhance endocardial wall motion and contractility. Severe concentric left ventricularhypertrophy. Normal global left ventricular systolic function. There is pseudonormal diastolicdysfunction Grade II. Ejection Fraction is visually estimated to be 65-70 %. Left Atrium: There is mild enlargement of left atrium. Right Ventricle: Normal right ventricular size. Normal right ventricular systolicfunction. Right Atrium: The right atrium is normal in size. Aortic Valve: No evidence of hemodynamically significant aortic stenosis by Doppler. Noaortic regurgitation. Mean gradient of 6.0 mmHg. Valve area of 2.5 cm2. Normalappearing aortic valve prosthesis. Gradients normal for valve type and size. Mitral Valve: Moderate mitral annular calcification. There is no hemodynamicallysignificant mitral stenosis by Doppler. Mild mitral valve regurgitation. Pulmonic Valve: Normal structure of the pulmonic valve. No evidence of pulmonicregurgitation. Tricuspid Valve: Normal structure of the tricuspid valve. Estimated peak RVSP is 23 mmHg.Mild tricuspid regurgitation. Pericardium: Normal pericardium with no significant pericardial effusion. Aorta: Sinus of Valsalva is normal. IVC: Normal size and normal respiratory collapse consistent with normal rightatrial pressure (<5 mmHg). Pulmonary Artery: Normal pulmonary artery size. CONCLUSIONS: Normal left ventricular size. Optison contrast agent used to visuallyenhance endocardial wall motion and contractility. Severe concentric left ventricularhypertrophy. Normal global left ventricular systolic function. There is pseudonormal diastolicdysfunction Grade II. Ejection Fraction is visually estimated to be 65-70 %. There is mild enlargement of left atrium. Moderate mitral annular calcification. Mild mitral valve regurgitation. No evidence of hemodynamically significant aortic stenosis by Doppler. Noaortic regurgitation. Mean gradient of 6.0 mmHg. Valve area of 2.5 cm2. Normalappearing aortic valve prosthesis. Gradients normal for valve type and size. Estimated peak RVSP is 23 mmHg. Mild tricuspid regurgitation. Electronically Signed By: Dr. Damon Armstrong [facility] 09/25/2024 11:20:15 AM CDT Damon Armstrong MD CV ECHO PROCEDURES F inal Result * Differential, auto (09/25/2024 4:25 AM CDT) Neutrophil abs 3.9 1.5 - 6.5 K/cumm Imm gran abs 0.0 0.0 - 0.1 K/cumm [facility] Lymphocyte abs 2.0 0.8 - 3.3 K/cumm [facility] Monocyte abs 0.5 0.2 - 0.8 K/cumm [facility] Eosinophil abs 0.0 0.0 - 0.5 K/cumm [facility] Basophil abs 0.0 0.0 - 0.1 K/cumm [facility] Neutrophil pct 60.0 % [facility] Comment: Interpretive Data Percent cell count reference ranges are not reported, since discordance with absolute values may lead to misinterpretation of CBC data. Current Interpretive Data was last revised on 2017. Imm gran pct 0.5 % [facility] Comment: Interpretive Data Percent cell count reference ranges are not reported, since discordance with absolute values may lead to misinterpretation of CBC data. Current Interpretive Data was last revised on 2017. Lymphocyte pct 31.3 % [facility] Comment: Interpretive Data Percent cell count reference ranges are not reported, since discordance with absolute values may lead to misinterpretation of CBC data. Current Interpretive Data was last revised on 2017. Monocyte pct 7.6 % [facility] Comment: Interpretive Data Percent cell count reference ranges are not reported, since discordance with absolute values may lead to misinterpretation of CBC data. Current Interpretive Data was last revised on 2017. Eosinophil pct 0.3 % [facility] Comment: Interpretive Data Percent cell count reference ranges are not reported, since discordance with absolute values may lead to misinterpretation of CBC data. Current Interpretive Data was last revised on 2017. Basophil pct 0.3 % [facility] Comment: Interpretive Data Percent cell count reference ranges are not reported, since discordance with absolute values may lead to misinterpretation of CBC data. Current Interpretive Data was last revised on 2017. Blood 09/25/2024 4:25 AM CDT 09/25/2024 5:44 AM CDT Damon Armstrong MD LAB BLOOD ORDERABLES Final Result [facility] [id number] Department of Laboratories [place], [place] [id number] * (ABNORMAL) CBC with auto differential (09/25/2024 4:25 AM CDT) WBC 6.5 3.8 - 9.9 K/cumm Hgb 10.5(L) 11.9 - 15.5 g/dL [facility] Hct 32.8(L) 35.6 - 45.5 % [facility] Plt 210 150 - 400 K/cumm [facility] MPV 11.1 9.1 - 12.3 fL [facility] RBC 3.48(L) 3.90 - 5.20 M/cumm [facility] MCV 94.3 81.3 - 96.4 fL [facility] MCH 30.2 27.1 - 33.3 pg [facility] MCHC 32.0(L) 32.3 - 35.7 g/dL [facility] RDW CV 13.6 11.1 - 14.9 % [facility] RDW SD 46.2 35.7 - 48.1 fL [facility] NRBC abs 0.00 0.00 - 0.01 K/cumm [facility] Blood 09/25/2024 4:25 AM CDT 09/25/2024 5:44 AM CDT Damon Armstrong MD LAB BLOOD ORDERABLES Final Result Performing Organization Address [facility] de Phone Number [facility] [address] [facility] [place] [address] * aPTT (09/25/2024 4:25 AM CDT) aPTT 33 28 - 38 sec Comment: Interpretive Data Heparin therapeutic range: 66.0 - 100.0 seconds. Range based on correlation with therapeutic heparin activity range of 0.3 - 0.7 Units/mL. Current interpretive data was last revised on 2023. Blood 09/25/2024 4:25 AM CDT 09/25/2024 5:45 AM CDT Damon Armstrong MD LAB BLOOD ORDERABLES Final Result Performing Organization Address [facility] de Phone Number [facility] [address] [facility] [place] [address] * Protime-INR (09/25/2024 4:25 AM CDT) PT 11.3 9.7 - 13.0 sec INR 1.05 0.90 - 1.20 [facility] Comment: Interpretive data Oral anticoagulant therapeutic ranges: Venous thromboembolism prophylaxis or treatment: 2.0-3.0 CARDIOLOGY Standard range: 2.0-3.0 High-intensity range: 2.5-3.5 Refer to indication-specific guidelines for appropriate target ranges for prosthetic heart valve replacement. Current interpretive data was last revised on 2019. Blood 09/25/2024 4:25 AM CDT 09/25/2024 5:45 AM CDT Damon Armstrong MD LAB BLOOD ORDERABLES Final Result Performing Organization Address City/[facility]/ZIP Co de Phone Number [facility] [address] [place] [address] * ECG 12 lead (09/24/2024 6:56 PM CDT) 09/24/2024 6:56 PM CDT Narrative [facility] - 09/25/2024 9:01 AM CDT Vent Rate: 72 bpm RR Interval: 829 msec PA Interval: 218 msec QRS Duration: 135 msec QT Interval: 410 msec QTC Interval: 434 msec P-R-T [place]: 89 - -13 - 145 degrees IMPRESSION: SINUS RHYTHM WITH FIRST DEGREE AV BLOCK WITH OCCASIONAL VENTRICULAR PREMATURE COMPLEXES INTRAVENTRICULAR CONDUCTION DELAY [130+ ms QRS DURATION] SEPTAL MYOCARDIAL INFARCTION , OF INDETERMINATE AGE [40+ ms Q WAVE IN V1/V2] ABNORMAL ECG Compared to prior EKG, PVCs are new Electronically Signed By: Rajan Saucedo MD Damon Armstrong MD ECG ORDERABLES Dottie l Result Performing Organization Address City/[facility]/ZIP Co de Phone Number [facility] [employer] [facility] * POCT glucose (09/24/2024 5:47 PM CDT) Glucose, POC 153 70 - 199 mg/dL Blood 09/24/2024 5:47 PM CDT 09/24/2024 5:47 PM CDT Damon Armstrong MD LAB POCT ORDERABLES - DEVICE Final Result [facility] [address] [place] [address] * POCT glucose (09/24/2024 3:22 PM CDT) Glucose, POC 133 70 - 199 mg/dL Blood 09/24/2024 3:22 PM CDT 09/24/2024 3:22 PM CDT Damon Armstrong MD LAB POCT ORDERABLES - DEVICE Final Result [facility] [address] Department [place] [address] * X-ray chest 1 view (Portable) (09/24/2024 12:12 PM CDT) Anatomical Region Laterality Modality Body, Chest N/A Computed Radiogr aphy 09/24/2024 1:04 PM CDT Impressions 09/24/2024 1:04 PM CDT No pneumothorax or pleural effusion. Mild pulmonary vascular congestion. Aortic valvuloplasty. No cardiomegaly. No acute osseous abnormality. Electronically signed by: Kirit Mayfield II, D.O. Narrative 09/24/2024 1:04 PM CDT EXAMINATION: XR CHEST 1 VIEW DATE: 09/24/2024 12:05 PM INDICATION: Venous obstruction. COMPARISON: 09/16/2024. Procedure Note Kirit Mayfield II, DO - 09/24/2024 EXAMINATION: XR CHEST 1 VIEW DATE: 09/24/2024 12:05 PM INDICATION: Venous obstruction. COMPARISON: 09/16/2024. IMPRESSION: No pneumothorax or pleural effusion. Mild pulmonary vascular congestion. Aortic valvuloplasty. No cardiomegaly. No acute osseous abnormality. Electronically signed by: Kirit Mayfield II, D.O. Damon Armstrong MD IMG XR PROCEDURES Fi nal Result * POCT glucose (09/24/2024 11:29 AM CDT) [facility] Signature Glucose, POC 112 70 - 199 mg/dL Blood 09/24/2024 11:2 9 AM CDT 09/24/2024 11:29 AM CDT us Damon Armstrong MD LAB POCT ORDERABLES - [place] [address] [address] [place] [address] * (ABNORMAL) POCT glucose (09/24/2024 10:39 AM CDT) Glucose, POC 69(L) 70 - 199 mg/dL Blood 09/24/2024 10:3 9 AM CDT 09/24/2024 10:39 AM CDT Damon Armstrong MD LAB POCT ORDERABLES - DEVICE Final Result Performing Organization Address [facility] Co de Phone Number [facility] [address] [place] [address] * LEFT HEART CATHETERIZATION (LHC), AORTOGRAM THORACIC S&I, PERIPHERAL ANGIOGRAPHY (09/24/2024 10:21 AM CDT) Anatomical Region Laterality Modality X-Ray Angiograph y Narrative 09/27/2024 7:37 AM CDT TRANSCATHETER AORTIC VALVE REPLACEMENT (TAVR) REPORT DATE OF PROCEDURE: 09/24/2024 INDICATION FOR PROCEDURE: Severe, symptomatic aortic stenosis BRIEF CLINICAL HISTORY: This 73-year-old female who was evaluated for severe aortic stenosis. Past history of hypertension. She has started lately having episodes of syncope and therefore we thought that this is related to the severe aortic stenosis. PROCEDURES PERFORMED: Successful transcatheter aortic valve replacement (TAVR) using 23+1.5mm Resilia Parsons pericardial tissue valve. Placement of temporary transvenous pacemaker Aortogram. Left heart catheterization with measurement of LVEDP and measurement of gradient across aortic valve. Distal abdominal aortogram with bilateral iliac runoff; selective right common femoral angiogram Deployment of two ProGlide suture mediated closure device at the right common femoral artery access site; deployment of 6 Guinean VASCADE closure device at left common femoral artery access site SEDATION: Deep sedation CO-OPERATORS: Edgardo Guido MD CT surgeon. ACCESS SITES: Right and left common femoral arteries; left common femoral vein PROCEDURE: After obtaining informed consent, patient was brought to the ballistics laboratory gunsmith and prepped and draped in the usual sterile manner. Sedation administered anesthesia care was provided by anesthesiologist team. Right common femoral artery access was taken with micropuncture needle followed by insertion of a 8 Guinean sheath over a 0.035 inch wire. Left common femoral artery access was taken with micropuncture needle followed by insertion of a 5 Guinean sheath over a 0.035 inch wire. Left common femoral venous access was taken followed by insertion of a6 sheath. A balloon tipped transvenous pacemaker was placed through the venous sheath under fluoroscopic guidance and was position in the right ventricle. Pacing thresholds were checked. Two ProGlide suture mediated vascular closure devices were placed right common femoral arterial access site. The 5-Guinean pigtail catheter was advanced into the aortic root through left common femoral sheath. The pigtail catheter was placed in the coronary cusp with some difficulty in getting advanced to the right coronary cusp. An aortogram was performed in the coplanar view. The 6-Guinean arterial sheath on the right femoral artery was removed and a 14 Guinean Parsons sheath was placed after serial dilations. The sheath was advanced into the abdominal aorta under fluoroscopic guidance. The aortic valve was then crossed using a 0.35 straight-tipped [place] wire with 5-Guinean Al1 catheter. The AL1 catheter was advanced in the LV cavity, and then it was exchanged with a pigtail catheter using a long 035 exchange length wire. The 035 wire taken out, and was exchanged with Safari small wire. Patient received heparin for procedural anticoagulation, ACT was kept between 250-300. ACT was monitored throughout the procedure. Following this, the 23 mm Parsons valve delivery system was advanced under fluoroscopic guidance and was carefully maneuvered through aortic arch. The valve delivery catheter was advanced across the aortic valve under fluoroscopic guidance. Fluoroscopy was performed to ensure appropriate placement with aortography. The device was deployed while rapid ventricular pacing at 180 beats per minute. Transthoracic echocardiogram showed low gradients without complications or significant perivalvular regurgitation. The delivery system was removed. Then after that we went with 5 Guinean pigtail catheter and retrieved the safari wire. Left heart catheterization then was done using this pigtail catheter with measurement of the LVEDP and measurement of gradient across aortic valve. Her LVEDP was 14 mm Hg. There was no gradient across aortic valve by the pigtail catheter measurement. The hemostasis was achieved by deployment of 2 ProGlide devices in the right femoral artery. Aortogram was performed which showed patent iliac arteries without any angiographically visible dissection. 5 Guinean Vascade vascular closure device was deployed at the left common and arterial access site. The temporary pacemaker was removed. Patient remained sinus rhythm after the procedure, and was hemodynamically stable. Patient tolerated procedure well without any immediate procedural complications. CONCLUSIONS: TAVR using 23+1.5 Resilia Parsons pericardial tissue valve. PLAN/RECOMMENDATIONS: Patient will be admitted to recovery room for monitoring. Continue aspirin and Plavix. Voice recognition software was used to complete this document, therefore, materials supervisor variances may occur. Damon Armstrong MD Damon Armstrong MD CV CARDIAC CATH PROC EDURES Final Result * (ABNORMAL) POC Activated Clotting Time, High Range (09/24/2024 10:20 AM CDT) ACT 85(L) 87 - 138 sec Blood 09/24/2024 10:2 0 AM CDT 09/24/2024 10:20 AM CDT Damon Armstrong MD LAB BLOOD ORDERABLES Final Result Performing Organization Address City/[facility]/ZIP Co de Phone Number [facility] [address] [place], [place] [id number] * POCT glucose (09/24/2024 10:01 AM CDT) [facility] Glucose, POC 75 70 - 199 mg/dL Blood 09/24/2024 10:0 1 AM CDT 09/24/2024 10:01 AM CDT Damon Armstrong MD LAB POCT ORDERABLES - DEVICE Final Result Performing Organization Address City/[facility]/ZIP Co de Phone Number [facility] [address] [place] [address] * (ABNORMAL) POC Activated Clotting Time, High Range (09/24/2024 9:57 AM CDT) ACT 241(H) 87 - 138 sec Blood 09/24/2024 9:57 AM CDT 09/24/2024 9:57 AM CDT Damon Armstrong MD LAB BLOOD ORDERABLES Final Result [facility] [address] [place] [address] * Potassium, whole blood (09/24/2024 7:43 AM CDT) Potassium, bld 3.7 3.3 - 4.9 mmol/L Comment: Interpretive Data This method is not able to assess for hemolysis, which may falsely increase potassium concentrations. If further testing is needed to evaluate this result, consider in-laboratory plasma potassium. Current Interpretive Data was last revised on 2022. Blood 09/24/2024 7:43 AM CDT 09/24/2024 7:52 AM CDT Damon Armstrong MD LAB BLOOD ORDERABLES Final Result Performing Organization Address City/[facility]/ZIP Co de Phone Number [facility] [address] [place] [address] * Check Sample (09/24/2024 7:43 AM CDT) Pathologist [facility] ABO Rh A Positive [facility] OTHER 09/24/2024 7:43 AM CDT 09/24/2024 7:48 AM CDT Damon Armstrong MD LAB BLOOD ORDERABLES Final Result Performing Organization Address City/[facility]/ZIP Co de Phone Number [facility] [address] [place] [address] CH * POCT glucose (09/24/2024 7:24 AM CDT) Pathologist [facility] Glucose, POC 91 70 - 199 mg/dL Blood 09/24/2024 7:24 AM CDT 09/24/2024 7:24 AM CDT Result Matteo Armstrong MD LAB POCT ORDERABLES - DEVICE Final Result Performing Organization Address [facility] de Phone Number [facility] [address] [address] [facility] [place] [address] * aPTT (09/16/2024 10:44 AM CATH LAB NURSE) aPTT 37 28 - 38 sec Comment: Interpretive Data Heparin therapeutic range: 66.0 - 100.0 seconds. Range based on correlation with therapeutic heparin activity range of 0.3 - 0.7 Units/mL. Current interpretive data was last revised on 2023. Blood 09/16/2024 10:4 4 AM CATH LAB NURSE 09/16/2024 10:44 AM CATH LAB NURSE us Damon Armstrong MD LAB BLOOD ORDERABLES Final Result Performing Organization Address [facility] de Phone Number [facility] [address] [facility] [place] [address] * Protime-INR (09/16/2024 10:44 AM CATH LAB NURSE) PT 11.0 9.7 - 13.0 sec INR 1.02 0.90 - 1.20 [facility] Comment: Interpretive data Oral anticoagulant therapeutic ranges: Venous thromboembolism prophylaxis or treatment: 2.0-3.0 CARDIOLOGY Standard range: 2.0-3.0 High-intensity range: 2.5-3.5 Refer to indication-specific guidelines for appropriate target ranges for prosthetic heart valve replacement. Current interpretive data was last revised on 2019. Blood 09/16/2024 10:4 4 AM CATH LAB NURSE 09/16/2024 10:44 AM CATH LAB NURSE Result Matteo Armstrong MD LAB BLOOD ORDERABLES Final Result Performing Organization Address [facility] Co de Phone Number [facility] [address] [facility] [place] [address] * eGFR (09/16/2024 10:43 AM CATH LAB NURSE) eGFR >90 >=60 mL/min/1. 73 m2 Comment: Interpretive Data Reference Interval Normal >/= 90 mL/min/1.73m2 Mildly decreased* 60 - 89 mL/min/1.73m2 Mildly to moderately decreased 45 - 59 mL/min/1.73m2 Moderately to severely decreased 30 - 44 mL/min/1.73m2 Severely decreased 15 - 29 mL/min/1.73m2 Kidney Failure < 15 mL/min/1.73m2 *Relative to young adult level Estimated glomerular filtration rate is determined by the 2020 CKD-EPI equation recommended by the National Kid[employer] (A Unifying Approach to GFR Estimation: Recommendations of the NKF-ASK Task Force on Reassessing the Inclusion of Race in Diagnosing Kidney Disease, JASN 2020). The CKD-EPI equation should not be used for patients with unstable renal function and has not been validated in children and those over 70. Current interpretive data was last reviewed 2021. Blood 09/16/2024 10:4 3 AM CATH LAB NURSE 09/16/2024 10:43 AM CATH LAB NURSE us Damon Armstrong MD LAB BLOOD ORDERABLES Final Result [facility] [address] Department [place] [address] * (ABNORMAL) Pro B-type natriuretic peptide (09/16/2024 10:43 AM CATH LAB NURSE) NT-proBNP 1,046(H) <=300 pg/mL Comment: Interpretive Comments: A. Dyspnea in Acute Care Setting All Ages: < 300 pg/ml, acute heart failure unlikely. < 50 yrs: 300 - 450 pg/ml, further investigation warranted. > 450 pg/ml, acute heart failure likely. 50 - 74 yrs: 300 - 900 pg/ml, further investigation warranted. > 900 pg/ml, acute heart failure likely . > or = 75 yrs: 450 - 1800 pg/ml, further investigation warranted. > 1800 pg/ml, acute heart failure likely. B. Non-acute Setting < 75 yrs < 125 pg/ml, rules out heart failure. > or = 125 pg/ml, further investigation warranted. > or = 75 yrs < 450 pg/ml, rules out heart failure. > or = 450 pg/ml, further investigation warranted. - Knowledge of each individual patient's NT-proBNP range may be more useful than using similar cut-points for every patient. Please note that marked elevations in NT-proBNP levels may be observed in state other than Left Ventricular Congestive Failure, including: acute coronary syndromes, right heart strain/failure (including pulmonary embolism and cor pulmonale), critical illness, renal failure, as well as advanced age. - References: 1. Celsa WEBSTER et.al. Eur Heart J. 2006:27:330-337. 2. Kishan RW, Bandar AM. J. AM Aria Cardiol: Cardiovasc Imag. 2009;2: 216- 225. Interpretive Data Last Revised Date: 2018. Blood 09/16/2024 10:4 3 AM CATH LAB NURSE 09/16/2024 10:43 AM CATH LAB NURSE Damon Armstrong MD LAB BLOOD ORDERABLES Final Result [facility] [address] Department of Laboratories [place] [phone] * (ABNORMAL) Comprehensive metabolic panel (09/16/2024 10:43 AM CATH LAB NURSE) Sodium 149(H) 135 - 145 mmol/L Potassium, pl 3.9 3.3 - 4.9 mmol/L [facility] Chloride 109 97 - 110 mmol/L [facility] CO2 26 22 - 32 mmol/L [facility] Anion gap 14 2 - 15 mmol/L [facility] BUN 11 6 - 25 mg/dL [facility] Creatinine 0.52(L) 0.60 - 1.10 mg/dL [facility] Glucose 160 70 - 199 mg/dL [facility] Comment: Interpretive Data Fasting glucose >/= 126 mg/dl is diagnostic for diabetes. Fasting is defined as no caloric intake for at least 8 hours. Fasting glucose between 100 mg/dl to 125 mg/dl is diagnostic of prediabetes. In a patient with classic symptoms of hyperglycemia or hyperglycemic crisis, a random glucose >/= 200 mg/dl is diagnostic for diabetes. In the absence of unequivocal hyperglycemia, results should be confirmed by repeat testing. The classification and Diagnosis of Diabetes Diabetes Care 202; 46: S19-S40. Current interpretive data was last revised 2022. Calcium 9.5 8.5 - 10.3 mg/dL [facility] Bilirubin, total 0.3 0.1 - 1.2 mg/dL [facility] Protein, pl 7.0 6.5 - 8.5 g/dL [facility] Albumin 3.8 3.5 - 5.0 g/dL [facility] Alk phos 97 40 - 130 Units/L [facility] ALT 9 7 - 45 Units/L [facility] AST 18 10 - 45 Units/L [facility] Blood 09/16/2024 10:4 3 AM CATH LAB NURSE 09/16/2024 10:43 AM CATH LAB NURSE Damon Armstrong MD LAB BLOOD ORDERABLES Final Result Performing Organization Address [facility] Co de Phone Number [facility] [address] Department [place] [address] * ECG 12 lead (09/16/2024 10:20 AM CATH LAB NURSE) 09/16/2024 10:2 0 AM CATH LAB NURSE Narrative [facility] - 09/16/2024 3:48 PM CATH LAB NURSE Vent Rate: 80 bpm RR Interval: 749 msec PA Interval: 174 msec QRS Duration: 114 msec QT Interval: 382 msec QTC Interval: 417 msec P-R-T [place]: -5 - -4 - 114 degrees IMPRESSION: SINUS RHYTHM SEPTAL MYOCARDIAL INFARCTION , PROBABLY OLD MODERATE T-WAVE ABNORMALITY, CONSIDER LATERAL ISCHEMIA ABNORMAL ECG Electronically Signed By: Rajan Saucedo MD Damon Armstrong MD ECG ORDERABLES Dottie l Result Performing Organization Address City/[facility]/ZIP Co de Phone Number [employer] [facility] * (ABNORMAL) Differential, auto (09/16/2024 10:20 AM CATH LAB NURSE) Neutrophil abs 6.7(H) 1.5 - 6.5 K/cumm Imm gran abs 0.0 0.0 - 0.1 K/cumm [facility] Lymphocyte abs 2.6 0.8 - 3.3 K/cumm [facility] Monocyte abs 0.6 0.2 - 0.8 K/cumm [facility] Eosinophil abs 0.5 0.0 - 0.5 K/cumm [facility] Basophil abs 0.1 0.0 - 0.1 K/cumm [facility] Neutrophil pct 64.4 % [facility] Comment: Interpretive Data Percent cell count reference ranges are not reported, since discordance with absolute values may lead to misinterpretation of CBC data. Current Interpretive Data was last revised on 2017. Imm gran pct 0.4 % [facility] Comment: Interpretive Data Percent cell count reference ranges are not reported, since discordance with absolute values may lead to misinterpretation of CBC data. Current Interpretive Data was last revised on 2017. Lymphocyte pct 24.6 % [facility] Comment: Interpretive Data Percent cell count reference ranges are not reported, since discordance with absolute values may lead to misinterpretation of CBC data. Current Interpretive Data was last revised on 2017. Monocyte pct 5.7 % [facility] Comment: Interpretive Data Percent cell count reference ranges are not reported, since discordance with absolute values may lead to misinterpretation of CBC data. Current Interpretive Data was last revised on 2017. Eosinophil pct 4.3 % [facility] Comment: Interpretive Data Percent cell count reference ranges are not reported, since discordance with absolute values may lead to misinterpretation of CBC data. Current Interpretive Data was last revised on 2017. Basophil pct 0.6 % [facility] Comment: Interpretive Data Percent cell count reference ranges are not reported, since discordance with absolute values may lead to misinterpretation of CBC data. Current Interpretive Data was last revised on 2017. Blood 09/16/2024 10:2 0 AM CATH LAB NURSE 09/16/2024 10:55 AM CATH LAB NURSE us Damon Armstrong MD LAB BLOOD ORDERABLES Final Result [facility] [address] Department [place] [address] * (ABNORMAL) CBC with auto differential (09/16/2024 10:20 AM CATH LAB NURSE) WBC 10.4(H) 3.8 - 9.9 K/cumm Hgb 10.7(L) 11.9 - 15.5 g/dL [facility] Hct 33.0(L) 35.6 - 45.5 % [facility] Plt 436(H) 150 - 400 K/cumm [facility] MPV 10.5 9.1 - 12.3 fL [facility] RBC 3.51(L) 3.90 - 5.20 M/cumm [facility] MCV 94.0 81.3 - 96.4 fL [facility] MCH 30.5 27.1 - 33.3 pg [facility] MCHC 32.4 32.3 - 35.7 g/dL [facility] RDW CV 14.8 11.1 - 14.9 % [facility] RDW SD 50.4(H) 35.7 - 48.1 fL [facility] NRBC abs 0.00 0.00 - 0.01 K/cumm [facility] Blood 09/16/2024 10:2 0 AM CATH LAB NURSE 09/16/2024 10:54 AM CATH LAB NURSE Damon Armstrong MD LAB BLOOD ORDERABLES Final Result Performing Organization Address City/State/[facility] Co de Phone Number [facility] [address] Department [place] [address] * Type and screen (09/16/2024 10:20 AM CATH LAB NURSE) Estela, indirect Negative ABO Rh A Positive [facility] Blood 09/16/2024 10:2 0 AM CATH LAB NURSE 09/16/2024 10:44 AM CATH LAB NURSE Narrative [facility] - 09/16/2024 11:26 AM CATH LAB NURSE Has the patient had Daratumumab or Isatuximab in the past 6 months?->Unknown Damon Armstrong MD LAB BLOOD BANK TEST ORDERABLES Final Result Performing Organization Address City/[facility] [place] [address] [address] Department [place] [address] * Hemoglobin A1c (09/16/2024 10:20 AM CATH LAB NURSE) Hgb A1C 5.2 4.0 - 5.6 % Estimated Average Glucose 103 mg/dL [facility] Comment: The ADA recommends reporting an estimated Average Glucose (eAG) with all Hemoglobin A1c results using the equation derived from a study of 507 normal and diabetic adults. Minority populations were underrepresented and children were not included. (Diabetes Care 31:7431-2138, 2008). The eAG is not equivalent to a fasting glucose. Blood 09/16/2024 10:2 0 AM CATH LAB NURSE 09/16/2024 10:54 AM CATH LAB NURSE Damon Armstrong MD LAB BLOOD ORDERABLES Final Result Performing Organization Address [facility] Phone Number [facility] [address] Department [place] [address] * X-ray chest 2 views (09/16/2024 10:01 AM CATH LAB NURSE) Anatomical Region Laterality Modality Body, Chest N/A Computed Radiogr aphy 09/16/2024 10:0 4 AM CATH LAB NURSE Impressions 09/16/2024 10:04 AM CATH LAB NURSE No left-sided failure. Electronically signed by: Siliva Zhang M.D. Narrative 09/16/2024 10:04 AM CATH LAB NURSE EXAMINATION: XR CHEST PA LATERAL 2 VIEWS HISTORY: The patient is a 73-year-old female who has aortic valve stenosis. TECHNIQUE: PA and lateral view of the chest. FINDINGS: Old granulomatous disease. Lungs clear otherwise. Cardiovascular structures unremarkable. No failure. Procedure Note Silvia Zhang MD - 09/16/2024 EXAMINATION: XR CHEST PA LATERAL 2 VIEWS HISTORY: The patient is a 73-year-old female who has aortic valve stenosis. TECHNIQUE: PA and lateral view of the chest. FINDINGS: Old granulomatous disease. Lungs clear otherwise. Cardiovascular structures unremarkable. No failure. IMPRESSION: No left-sided failure. Electronically signed by: Silvia Zhang M.D. us Damon Armstrong MD IMG XR PROCEDURES Fi nal Result * CT TAVR (09/05/2024 12:27 PM CATH LAB NURSE) Anatomical Region Laterality Modality Chest N/A Computed Tomogra phy 09/06/2024 8:05 AM CATH LAB NURSE Impressions 09/06/2024 9:19 AM CATH LAB NURSE 1. Severe aortic valvular stenosis. Aortic annulus, and abdominal aortic, common iliac, external iliac and femoral artery measurements in preparation for TAVR procedure as described above. 2. Aortic valve calcium score: Agatston 994, Volume 796mm3. Dictated by: Ynes Johnson M.D. The radiology attending physician has personally reviewed this study, and had reviewed and/or edited this written report and agrees with it. Electronically signed by: Santhosh Avelar M.D. Narrative 09/06/2024 9:19 AM CATH LAB NURSE EXAMINATION: Heart CT and CTA abdomen and pelvis with contrast. History: Severe aortic stenosis, pre-TAVR procedure. Technique: Heart CT and CT angiogram of the abdomen and pelvis performed during administration of 120 mL of Optiray 350, intravenously per TAVR Protocol. Images were transferred to an independent workstation for additional 3D post-processing. Comparison: CT 02/13/2024, CT 03/02/2020 FINDINGS: Annulus and Thoracic Aortic Measurements (in systole): Aortic valve annulus: Area 452 mm2: circumference 77 mm; 27 mm maximum diameter x 23 mm minimum diameter. Sinuses of Valsalva: 29 mm diameter sagittal x 27 mm diameter coronal. Sinotubular junction: 24 mm diameter sagittal x 23 mm diameter coronal. Maximum descending thoracic aorta: 29 x 29 mm Aortic valve calcium score: Agatston 994, Volume 796mm3. Coronary sinus heights: Right coronary sinus height: 19 mm Left coronary sinus height: 20 mm Non-coronary sinus height: 20 mm There is no left ventricular outflow tract calcification. There is moderate to severe mitral annular calcification. Distance to RCA ostium from aortic valve annulus: 14 mm Distance to left main ostium from annulus: 11 mm Deployment angle: 15 [place], 7 Caudal Coronary Arteries: Anomalous coronary artery course: No Left main atherosclerosis: None LAD atherosclerosis: Mild Circumflex atherosclerosis: Mild RCA atherosclerosis: Mild Abdominal Aortic and Pelvic Arterial Smallest Diameter Measurements (made from centerline curved MPRs): Infrarenal aorta: 13 mm x 12 mm Right common iliac artery: 9 mm x 9 mm. There is mild calcification. Left common iliac artery: 11 mm x 9 mm . There is mild calcification. There is Moderate tortuosity of the bilateral common iliac arteries. This is equal in distribution. Right external iliac artery: 6 mm x 6 mm. There is minimal calcification. Left external iliac artery: 7 mm x 6 mm. There is minimal calcification. There is Moderate tortuosity of the bilateral external iliac arteries. This is equal in distribution. Right common femoral artery: 7 mm. There is no calcification. Left common femoral artery: 7 mm. There is no calcification. There is mild tortuosity of the bilateral femoral arteries. This is equal in distribution. Other findings: Calcified granulomas are unchanged. Large 2.7 cm right thyroid nodule is unchanged. There is complete opacification of the maxillary sinuses. No thoracic lymphadenopathy. Thoracic aorta normal caliber with conventional three-vessel arch. Heart size is normal without pericardial effusion. No acute pulmonary embolism. Esophagus is decompressed. Calcifications in the left breast, likely fat necrosis with unchanged 5.7 cm fluid collection left breast (series 8, image 120).. No suspicious liver lesion. Cholecystectomy. The pancreas is mildly atrophic. Normal spleen. Normal adrenal glands. Left renal cyst. No mesenteric lymphadenopathy. Multiple mildly prominent retroperitoneal lymph nodes are unchanged. The urinary bladder is decompressed. There are findings of pelvic floor relaxation. The uterus is present. No pelvic lymphadenopathy or free fluid. Colonic diverticulosis. No bowel obstruction. Normal appendix. Small bowel is normal caliber. Stomach and duodenal sweep are unremarkable. No acute fracture or suspicious osseous lesion. Procedure Note Santhosh Avelar MD - 09/06/2024 EXAMINATION: Heart CT and CTA abdomen and pelvis with contrast. History: Severe aortic stenosis, pre-TAVR procedure. Technique: Heart CT and CT angiogram of the abdomen and pelvis performed during administration of 120 mL of Optiray 350, intravenously per TAVR Protocol. Images were transferred to an independent workstation for additional 3D post-processing. Comparison: CT 02/13/2024, CT 03/02/2020 FINDINGS: Annulus and Thoracic Aortic Measurements (in systole): Aortic valve annulus: Area 452 mm2: circumference 77 mm; 27 mm maximum diameter x 23 mm minimum diameter. Sinuses of Valsalva: 29 mm diameter sagittal x 27 mm diameter coronal. Sinotubular junction: 24 mm diameter sagittal x 23 mm diameter coronal. Maximum descending thoracic aorta: 29 x 29 mm Aortic valve calcium score: Agatston 994, Volume 796mm3. Coronary sinus heights: Right coronary sinus height: 19 mm Left coronary sinus height: 20 mm Non-coronary sinus height: 20 mm There is no left ventricular outflow tract calcification. There is moderate to severe mitral annular calcification. Distance to RCA ostium from aortic valve annulus: 14 mm Distance to left main ostium from annulus: 11 mm Deployment angle: 15 [place], 7 Caudal Coronary Arteries: Anomalous coronary artery course: No Left main atherosclerosis: None LAD atherosclerosis: Mild Circumflex atherosclerosis: Mild RCA atherosclerosis: Mild Abdominal Aortic and Pelvic Arterial Smallest Diameter Measurements (made from centerline curved MPRs): Infrarenal aorta: 13 mm x 12 mm Right common iliac artery: 9 mm x 9 mm. There is mild calcification. Left common iliac artery: 11 mm x 9 mm . There is mild calcification. There is Moderate tortuosity of the bilateral common iliac arteries. This is equal in distribution. Right external iliac artery: 6 mm x 6 mm. There is minimal calcification. Left external iliac artery: 7 mm x 6 mm. There is minimal calcification. There is Moderate tortuosity of the bilateral external iliac arteries. This is equal in distribution. Right common femoral artery: 7 mm. There is no calcification. Left common femoral artery: 7 mm. There is no calcification. There is mild tortuosity of the bilateral femoral arteries. This is equal in distribution. Other findings: Calcified granulomas are unchanged. Large 2.7 cm right thyroid nodule is unchanged. There is complete opacification of the maxillary sinuses. No thoracic lymphadenopathy. Thoracic aorta normal caliber with conventional three-vessel arch. Heart size is normal without pericardial effusion. No acute pulmonary embolism. Esophagus is decompressed. Calcifications in the left breast, likely fat necrosis with unchanged 5.7 cm fluid collection left breast (series 8, image 120).. No suspicious liver lesion. Cholecystectomy. The pancreas is mildly atrophic. Normal spleen. Normal adrenal glands. Left renal cyst. No mesenteric lymphadenopathy. Multiple mildly prominent retroperitoneal lymph nodes are unchanged. The urinary bladder is decompressed. There are findings of pelvic floor relaxation. The uterus is present. No pelvic lymphadenopathy or free fluid. Colonic diverticulosis. No bowel obstruction. Normal appendix. Small bowel is normal caliber. Stomach and duodenal sweep are unremarkable. No acute fracture or suspicious osseous lesion. IMPRESSION: 1. Severe aortic valvular stenosis. Aortic annulus, and abdominal aortic, common iliac, external iliac and femoral artery measurements in preparation for TAVR procedure as described above. 2. Aortic valve calcium score: Agatston 994, Volume 796mm3. Dictated by: Ynes Johnson M.D. The radiology attending physician has personally reviewed this study, and had reviewed and/or edited this written report and agrees with it. Electronically signed by: Santhosh Avelar M.D. Damon Armstrong MD IMG CT PROCEDURES Fi nal Result * POCT creatinine for contrast evaluation (09/05/2024 12:14 PM CATH LAB NURSE) Creatinine, POC 0.7 0.6 - 1.3 mg/dL Blood 09/05/2024 12:1 4 PM CATH LAB NURSE Damon Armstrong MD POINT OF CARE TEST O RDERABLES Final Result * Lipid panel (09/02/2024 1:01 PM CATH LAB NURSE) SCRIBED Cholesterol, Total 116 <100 EXTERNAL LAB SCRIBED HDL 34 >40 EXTERNAL LAB SCRIBED LDL 35 <100 EXTERNAL LAB SCRIBED Triglycerides 238 <150 EXTERNAL LAB Blood 09/02/2024 1:01 PM CATH LAB NURSE us Damon Armstrong MD LAB BLOOD ORDERABLES Final Result EXTERNAL LAB * FLEXIBLE SIGMOIDOSCOPY (03/06/2020 5:25 PM CDT) Anatomical Region Laterality Modality Other Narrative Procedure Note Layo Benson MD - 03/06/2020 5:25 PM CDT [facility] Patient Name: Juan Pablo Pool Procedure Date: 03/06/2020 5:25 PM Date of : 1950 Admit Type: Inpatient Age: 69 Gender: Female Attending MD: Layo Benson M.D. Room: [facility] ENDOSCOPY ROOM 2 Note Status: Finalized Procedure: [...] informed consent was obtained. The GIF 1T [id number] Endoscope wasintroduced through the anus and advanced [...] On: 03/06/2020 5:25 PM Recognized by the [employer] for promoting quality in endoscopy Layo Benson MD ENDOSCOPY PROCEDURES Final Result * COLONOSCOPY (02/21/2019 8:33 AM CDT) Anatomical Region Laterality Modality Other Narrative Procedure Note Hieu Joseph MD - 02/21/2019 8:33 AM CDT [facility] Patient Name: Juan Pablo Pool Procedure Date: 02/21/2019 8:33 AM Date of : 1950 Admit Type: Outpatient Age: 68 Gender: Female Attending MD: Hieu Joseph M.D. Room: [facility] ENDOSCOPY ROOM 9 Note Status: Finalized Procedure: [...] was passed under direct vision.The GIF [id number] endoscope was introduced throughthe anus and advanced [...] my nurses in the GI office at [phone] ([phone]) for your final pathology results in 7 days. - Repeat colonoscopy in 3 years for surveillance. - In the unusual situation that you developabdominal pain, bleeding or other significant problems in the days following this procedure please call my officeat [phone] ([phone]) to speak to my nurses. After hours and evenings please call [phone] speak to the GI fellow global expansion sales director. Please tell themthat Dr. Joseph did your [...] On: 02/21/2019 8:33 AM Recognized by the [employer] for promoting quality in endoscopy Hieu Joseph MD ENDOSCOPY PROCEDUR ES Final Result from Last 3 Months or Most Recently Relevant to Health Maintenance Insurance [facility]ICARE [facility] MEDICARE [facility]ICARE [facility] Advance Directives For more information, please contact: [phone] * Full Code (Latest Code Status on File) Date Activated Date Inactivated Comments 09/24/2024 11:36 AM 09/25/2024 6:21 PM * Full Code Date Activated Date Inactivated Comments 01/30/2024 12:18 PM 01/30/2024 6:21 PM * Full Code Date Activated Date Inactivated Comments 03/04/2020 4:29 PM 03/12/2020 9:31 PM * Full Code Date Activated Date Inactivated Comments 02/21/2019 8:06 AM 02/21/2019 2:55 PM Care Teams Chemical Etch Operator Relationship Specialty Start Date End Date Wilfredo Pinto MD [address] [place] [address] PCP - General Family Medicine 01/04/18 Jesus Alberto Martinez MD [id number] [place] [address] Surgeon Colon and Rectal Surgery 09/21/20
--- OUTSIDE RECORDS SUMMARY | 2024-10-10 16:22 | XMS_ITS ---
Author Organization [facility] Address [facility] [place] [address] Care Team Providers Care Food Safety Specialist Name Role Phone Wilfredo Pinto MD Primary Care Prov ider Jesus Alberto Martinez MD Unavailable [phone] Active Problems Problem Noted Date Diagnosed Date Syncope and collapse 09/02/2024 LVH (left ventricular hypertrophy) 01/15/2024 Hypothyroidism 11/24/2022 Coronary artery calcification seen on CAT scan 1 07/18/2020 Hyperlipidemia associated with type 2 diabetes myron wan 05/18/2021 JESUS on CPAP 05/18/2021 H/O: stroke 01/15/2021 PAD (peripheral artery disease) 01/15/2021 ADHD 01/15/2021 PVC's (premature ventricular contractions) 01/13 Nonrheumatic aortic valve stenosis 01/13/2021 Essential hypertension 01/13/2021 Controlled type 2 diabetes with neuropathy 01/13 Meniere's disease of left ear 02/12/2018 Assessment & Plan (09/20/2019 4:07 PM BLADE FILER): Differential includes vestibular migraine Will trial head [...] of left breast 0 12/20/2017 Diverticulosis 01/23/2013 Current Treatment and Therapy Plans No current plan information found. Past Treatment and Therapy Plans No past plan information found. Lifetime Dose Tracking * Chemical Lifetime Dose Automatic Entry Manual Entr y Fluoro Time 0.4 minutes 0.4 minutes 0 minutes Air kerma at the reference point (Ka,r) 290 mGy 1 mGy 289 mGy Resolved Problems Problem Noted Date Diagnosed Date Resolved Date Asymmetrical sensorineural hearing loss 04/18/2022 12/28/2022 Atherosclerosis of aortic bi furcation and common iliac arteries 05/18/2021 09/02/2024 Mixed hyperlipidemia 05/18/2021 023 Colonic stricture (CMS/HCC) 03/04/2020 12/28/2022 Overview (03/05/2020): Added automatically from request for surgery [id number]
--- OUTSIDE RECORDS SUMMARY | 2024-10-10 16:22 | XMS_ITS | Clinical Summary ---
Author Organization [facility] Address [address] [facility] [place] [address] Care Team Providers Care Ballast Inspector Name Role Phone Wilfredo Pinto MD Primary Care Provider [phone] Allergies No known active allergies Medications QUEtiapine [...] Colonography Q 5 years 1994 PNEUMOCOCCAL VACCINE 50+ YEA RS (1 of 1 - PCV) [...] (07/04/2018) Anatomical Region Laterality Modality Breast Bilateral Mammography us Abstract Provider MAMMO ORDERABLES Final Result from Last 3 Months or Most Recently Relevant to [place] [address] MEDICARE PART A AND B [facility] [place] [address] Care Teams Ballast Inspector Relationship Specialty Start Date End Date Wilfredo Pinto MD PCP - General Family Practice 12/20/17
--- OUTSIDE RECORDS SUMMARY | 2024-10-10 16:22 | XMS_ITS | Data Portability ---
Author Organization [place] [facility] [employer], Main Office Address [address] [place] [address] Care Team Providers Care Car Park Attendant Name Role Phone JOSHUA DOSS Primary Care Provider JOSHUA DOSS Referring Provider Assessment No assessment recorded. Plan of Treatment Reminders Order Date Submit Date Provider Last Modified By Organization Details Last Modified Time Details Appointments None recorded. Lab HbA1c (hemoglobi n A1c), blood 2022 023 BLAS Miles, 2022 Id[address], [address], [place], [address], 3 10:27:17 microalbum in/creatin ine, mass ratio, urine 2022 023 BLAS Miles, 2022 Idania Michelle, [address], [place], [address], 3 10:27:15 CMP, serum or plasma 2022 023 BLAS Miles, 2022 Idania [address], [address], [place], [address], 3 10:27:16 lipid panel, serum 2022 023 BLAS Miles, 2022 Idania Michelle, [address], [place], [address], 3 10:27:16 CMP, serum or plasma 2022 023 BLAS Miles, 2022 Idania Michelle, [address], [place], [address], 3 10:27:17 TSH + free T4, serum 2022 023 [facility], 2022 Idania Michelle, [address], [place], [address], 3 10:27:17 T3, free, serum or plasma 2022 023 [facility], 2022 [address], [address], [place], [address], 3 10:27:15 Referral None recorded. Procedures None recorded. Surgeries None recorded. Imaging None recorded. Medication Orders Kerendia 10 mg tablet 2022 023 [email or web address] [id number], [address] , [place], [place], [id number], 3 10:32:59 Patient TargetsNo targets recorded. Patient InstructionsNo instructions recorded. Reason for Referral None Reported. Results Created Date Observation Date Name Description Value Unit Range Abnormal Flag Note LastModifiedBy Organization Detail LastModifiedTime Result Notes None recorded. Problems Name Problem SNOMED Code Status Onset Date Resolution Date Notes Provider Name and Address Organization Details Recorded Time Acquired trigger finger 9967358 Active Not Available [facility] 3 07:35:55 Uncontrolled type 2 diabetes mellitus 013233374 Active 2022 Not Available [facility] 3 07:35:55 Pain in limb 31163822 Active Not Available [facility] 3 07:35:55 Well controlled type 2 diabetes mellitus 369994799 Active 2022 Not Available [facility] 3 07:35:55 Proteinuria 98720254 Active 2022 Not Available [facility] 3 07:35:55 Hypothyroidis m 34404464 Active 2022 Not Available [facility] 3 07:35:55 Dyslipidemia 325383616 Active 2022 Not Available [facility] 3 07:35:55 Problem Notes None recorded. 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 Procedure Notes None recorded. Medical Equipment None Reported. Allergies Allergen ID Allergen Name Allergen Category Reaction Reaction Severity Criticality Documentation Date Start Date Code Code System Note Provider Name and Address Organization Details Recorded Time 385 morphine medicatio n vomiting Not available Not available 09/14/2022 7052 RxNorm Not Available [facility] 00:51:22 Medications Name Sig Start Date Stop [...] Updated DateTime 3 162.56 cm 33 kg/m2 69229.7 4 g 97.8 [degF] 80 /min 160 mm[Hg] 82 mm[Hg] Mandy Diaz CMA [place] [facility] 3 10:09:14 Date Recorded Body mass index (BMI) Body height Heart rate Body temperature Body weight Systolic blood pressure Diastolic blood pressure Provider Name and Address Organization Details Last Updated DateTime 1 32.4 kg/m2 162.56 cm 60 /min 97.1 [degF] 24895.9 6 g 144 mm[Hg] 60 mm[Hg] Not Available [facility] 3 00:45:37 Date Recorded Body mass index (BMI) Body height Oxygen saturation Oxygen saturation in Arterial blood by Pulse oximetry Heart rate Body temperature Body weight Systolic blood pressure Diastolic blood pressure Provider Name and Address Organization Details Last Updated DateTime 3 34.2 kg/m2 162.56 cm 95 % 95 % 95 /min 97.7 [degF] 42924.8 8 g 130 mm[Hg] 70 mm[Hg] Not Available [facility] 3 00:45:37 Social History Question Answer Notes LastModified by Organizat ion Details LastModified Time Tobacco Smoking Status Former Smoker quit age 68 Not Available [facility] 09/14/2022 00:41:50 Do You Have An Advance Directive? Yes MIGRATION.24304 00263 Information not available 09/14/2022 What Is Your Level Of Alcohol Consumption? Occasional MIGRATION.84132 83506 Information not available 09/14/2022 Are You Blind Or Do You Have Difficulty Seeing? No MIGRATION.45285 38958 Information not available 09/14/2022 What Is Your Level Of Caffeine Consumption? Moderate MIGRATION.48586 14635 Information not available 09/14/2022 How Much Tobacco Do You Chew? None MIGRATION.82573 29241 Information not available 09/14/2022 In The 14 Days Before Symptom Onset, Have You Had Close Contact With A Laboratory-confi rmed COVID-19 While That Case Was Ill? No MIGRATION.89564 03996 Information not available 09/14/2022 In The 14 Days Before Symptom Onset, Have You Had Close Contact With A Person Who Is Under Investigation For COVID-19 While That Person Was Ill? No MIGRATION.47600 66847 Information not available 09/14/2022 Are You Deaf Or Do You Have Serious Difficulty Hearing? 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 REGULAR MIGRATION.56789 02760 Information not available 09/14/2022 Which Illicit Or Recreational Drugs Have You Used? None MIGRATION.12829 77555 Information not available 09/14/2022 Do You Or Have You Ever Used E-cigarettes Or Vape? Never Used Electronic Cigarettes MIGRATION.44732 19008 Information not available 09/14/2022 What Is Your Occupation? Retired MIGRATION.09547 21800 Information not available 09/14/2022 Are There Any Guns Present In Your Home? Yes MIGRATION.31428 36995 Information not available 09/14/2022 Do You Have A Medical Power Of Corporate Law Specialist? Yes JOHN DE LA ROSA MIGRATION.91145 65773 Information not available 09/14/2022 What Was The Date Of Your Most Recent Tobacco Screening? 09/15/2020 MIGRATION.89740 29601 Information not available 09/14/2022 What Is Your Relationship Status? MIGRATION.84237 68353 Information not available 09/14/2022 At What Age Did You Start Smoking Tobacco? 49 MIGRATION.90995 50464 Information not available 09/14/2022 Do You Or Have You Ever Used Smokeless Tobacco? Never Used Smokeless Tobacco MIGRATION.76490 73449 Information not available 09/14/2022 How Much Tobacco Do You Smoke? 0.25 PPD MIGRATION.02090 50478 Information not available 09/14/2022 Do You Use Sunscreen Routinely? No MIGRATION.76751 44383 Information not available 09/14/2022 Do You Have Any Dietary Restrictions? No MIGRATION.12893 36663 Information not available 09/14/2022 Sex: Female Functional Status Question Answer Note LastModified by Organizat ion Details LastModified Time Do you have difficulty walking or climbing stairs? PT STATED SOMETIMES OF BALANCE MIGRATION.74757 47971 Information not available 09/14/2022 Do you have transportation difficulties? No MIGRATION.32623 87594 Information not available 09/14/2022 Are you able to walk? YESWOREST MIGRATION.41660 31805 Information not available 09/14/2022 Do you have difficulty doing errands alone? No MIGRATION.05960 94488 Information not available 09/14/2022 Are you able to care for yourself? Yes MIGRATION.97589 57393 Information not available 09/14/2022 Do you have difficulty dressing or bathing? Yes DUE TO bppv MIGRATION.66726 51221 Information not available 09/14/2022 What is your exercise level? None MIGRATION.64005 50142 Information not available 09/14/2022 Mental Status Question Answer Note LastModified by Organizat ion Details LastModified Time Do you have difficulty concentrating, remembering or making decisions? No MIGRATION.572927550 6 Information not available 09/14/2022 Family History Relationship Description Onset Age of this Age Resolved Age Notes LastModified by Organization Details LastModified Time Mother Alzheimer's disease MIGRATION.144 [id number] Not available 09/14/2022 00:42:16 Mother Hypertensive disorder MIGRATION.972 [id number] Not available 09/14/2022 00:42:16 Mother Chronic obstructive pulmonary disease MIGRATION.707 3607169 Not available 09/14/2022 00:42:16 Father Malignant tumor of pancreas MIGRATION.510 2120057 Not available 09/14/2022 00:42:16 Maternal Grandfather Heart disease MIGRATION.331 [id number] Not available 09/14/2022 00:42:16 Unspecified Relation Family history of malignant neoplasm patern al side MIGRATION.623 [id number] Not available 09/14/2022 00:42:16 Sister Diabetes mellitus 49 MIGRATION.093 7638393 Not available 09/14/2022 00:42:16 Medical History Condition [...] HAVE YOU BEEN HOSPITALIZED OR SEEN IN [facility] IN THE PAST YEAR ? N STROKE/TIA N BENIGN PROSTATIC HYPERPLASIA N MEASLES N MYOCARDIAL INFARCTION N OBESITY N EXCESSIVE PERSPIRATION Y GERD/NAUSEA Y ANEURYSM N INPATIENT PSYCH CARE N USE OF BLOOD THINNERS N NO SIGNIFICANT PAST MEDICAL HISTORY N DIABETES, TYPE Y BLOOD CLOTS N HEPATITIS / LIVER DISEASE N ASTHMA N PULMONARY DISEASE N ALZHEIMER'S DISEASE N HERPES N SEIZURES/EPILEPSY N HEADACHES/MIGRAINES Y GI PROBLEMS N Low Testosterone N DIZZINESS Y KIDNEY DISEASE N HEART DISEASE/HEART PROBLEMS N AIDS/HIV N VISION/EYE PROBLEMS N LIVER DISEASE N HYPERTENSION Y CANCER: SPECIFY Y BLOOD TRANSFUSION N ANESTHESIA COMPLICATIONS N ANEMIA/BLOOD DISORDER Y ATRIAL FIBRILLATION N PULMONARY EMBOLISM N AUTOIMMUNE DISEASE N TUBERCULOSIS N GLAUCOMA N Gynecological HistoryNo gynecological history recorded. Obstetrics History GPAL:G 0 P 0 0 0 0 Immunizations Vaccine Type Date Status Note Provider Kris gramajo and Address Organization Details Recorded Time COVID-19, mRNA, LNP-S, PF, 30 mcg/0.3 mL dose 09/11/2020 completed Not Available [facility] 3 07:35:55 Influenza, high-dose, quadrivalent, PF 05/04/2020 completed Not Available [facility] 3 07:35:55 Past Encounters Encounter ID Performer Location Encounter Start Date Encounter Closed Date Diagnosis/Indication Diagnosis SNOMED-CT Code Diagnosis ICD10 Code Diagnosis Note [id number] [facility] [address] [facility], [address] [place] [address] 09/15/2020 00:00:00 09/15/2020 17:24:56 [id number] [facility] [place] [address] [place] [address] 09/01/2022 00:00:00 09/01/2022 11:13:51 [id number] Claudia Glez MD [facility] [place] [address] [place] [address] 11/24/2022 09:53:46 11/24/2022 10:36:01 Well controlled type 2 diabetes mellitus 474727720 E11.9 a1c of 7.4%- in range 80% [...] hypoglycem ia due to increased activity). Proteinuria 91762359 R80 .9 Trial on kerendia 10 mg daily for proteinuri a- she is on high dose enalapril with no improvemen t- repeat CMP to test K levels 2 weeks after her kerendia. Hypothyroidism 70224114 E03.9 TSH and FT4 in ideal range- continue on LT4 75 mcg daily. Dyslipidemia 747394850 E 78.5 Continue statin therapy. Spent up [...] she chooses to go outside of the [facility] to obtain labwork she was [...] Barr Member ID Guarantor Name 11/24/2022 1 [place] Aurea De La Rosa [id number] Aurea De La Rosa 11/24/2022 2 [facility] Aurea De La Rosa [id number] Aurea De La Rosa Notes Date Note [...] mg/dLCr normalLFT normal Claudia Glez MD [address], [facility] [address] [place], [address], [facility] [place] [employer] [facility] 11/24/2022 10:37:14 OBGyn Episode No OBEpisode recorded.
--- OUTSIDE RECORDS SUMMARY | 2024-10-10 16:22 | XMS_ITS | Clinical Summary ---
Author Organization [facility] Address [address] [place] [address] Care Team Providers Care Banker Mason Name Role Phone Unavailable Primary Care Provider Unavailabl e Social History Tobacco Use Types Packs/Day Years Used Date Smoking Tobacco: Never Assessed Comments Unknown Sex and Gender Information Value Date Recorded Sex Assigned at Not on file Legal Sex Female 3:35 AM [employer] EX[employer] Gender Identity Not on file Sexual Orientation Not on file Plan of Treatment Health Maintenance Due Date Last Done Comments Hepatitis C Virus (HCV) Screening 1950 TdaP Immunization 1950 Colonoscopy 1994 Colorectal Cancer Screening 1994 Cologuard 11/20/1999 Immunochemical Fecal Occult Blood 11/20/1999 Pneumococcal Immunization (5 0+ years) (1 [...]
--- OUTSIDE RECORDS SUMMARY | 2024-10-10 16:22 | XMS_ITS | Referral Summary ---
Author Organization [facility] Address [address] [place] [id number] Care Team Providers Care Mate First Name Role Phone Wilfredo Pinto MD Primary Care Prov ider Jesus Alberto Martinez MD Unavailable [phone] Encounters Date Type Department Care Team Description 10/08/[address] [facility] Medical Group Cardiology [address] [place] [address] Damon Armstrong MD 09/24/2024 6:32 AM CDT - 09/25/2024 2:15 PM CDT Hospital Encounter [address] [address] Damon Armstrong MD Nonrheumatic aortic valve stenosis Discharge Disposition: Discharge to home or self care 09/24/2024 9:00 AM CDT - 09/24/2024 11:00 AM CDT Surgery [facility] [address] [place] [address] Damon Armstrong MD LEFT HEART CATHETERIZATION WITH NO CORONARY ANGIOGRAPHY WITH AND WITHOUT LEFT VENTRICULOGRAM [id number] 09/24/2024 8:59 AM CDT Anesthesia Event [facility] [address] [place] [address] Aaron Srinivasan MD Barnhart, Lynlee Jo, NP 09/16/2024 9:41 AM BENEFIT AUTHORIZER - 09/16/2024 11:59 PM BENEFIT AUTHORIZER Hospital Encounter [facility] [address] [place] [address] Discharge Disposition: Discharge to home or self care 09/16/2024 8:45 AM BENEFIT AUTHORIZER Pre-Admission Testing [facility] Pre Anesthesia Testing [address] [place] [address] Pre-operative exam (Primary Dx); Nonrheumatic aortic valve stenosis; Type 2 diabetes, controlled, with neuropathy (HCC); Chronic anticoagulation 09/05/2024 Orders Only [facility] [address] [place] [address] Damon Armstrong MD Nonrheumatic aortic valve stenosis (Primary Dx) 09/05/2024 Documentation Cardiothoracic Surgery Amita Wright, RN 09/05/2024 2:30 PM BENEFIT AUTHORIZER Office Visit [facility] Surgery [address] [place] [phone] Dena Guido MD Nonrheumatic aortic valve stenosis (Primary Dx) 09/05/2024 11:47 AM BENEFIT AUTHORIZER - 09/05/2024 11:59 PM BENEFIT AUTHORIZER Hospital Encounter [facility] Rad[facility] [address] [place] [address] Nonrheumatic aortic valve stenosis Discharge Disposition: Discharge to home or self care 09/02/2024 Cardiology Conference [facility] Non-invasive Cardiac Diagnostic Testing [address] [place] [address] Gurvinder Maddox, IAIN 09/02/2024 Orders Only [facility] Non-invasive Cardiac Diagnostic Testing [address] [place] [address] Damon Armstrong MD Nonrheumatic aortic valve stenosis (Primary Dx) 09/02/2024 1:00 PM BENEFIT AUTHORIZER Office Visit [facility] Medical Group Cardiology [address] [place] [address] Damon Armstrong MD Nonrheumatic aortic valve stenosis (Primary Dx); Hyperlipidemia associated with type 2 diabetes mellitus (HCC); PVC's (premature ventricular contractions); PAD (peripheral artery disease); LVH (left ventricular hypertrophy); Essential hypertension; Coronary artery calcification seen on CAT scan; H/O: stroke; JESUS on CPAP; Syncope and collapse 08/19/[address] 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 11/26/19 23 Active aspirin 81 mg enteric coated tabletIndications: Coronary artery calcification seen on CAT scan,H/O: stroke Take 1 tablet (81 mg total) by mouth daily 30 tablet 11 12/31/19 23 Active Additional Information Patient taking differently:81 mg oralNightly, Informant: Self, Reported on 09/24/2024 Mounjaro 5 mg/0.5 mL pen injector Inject 0.5 mL (5 mg total) under the skin once a week Take on Mondays12/27/19 24 Active pen needle, diabetic (BD Soniya 2nd [...] 02/12/2018 Assessment & Plan (09/20/2019 4:07 PM BENEFIT AUTHORIZER): Differential includes vestibular migraine Will trial head [...] (03/05/2020): Added automatically from request for surgery [id number] Immunizations Immunization Administration Dates Next Due COVID-19 [...] drink = 0.6 oz pur e alcohol) [facility] Utilities Answer Date Recorded In the past 12 months has th e electric, gas, oil, or water company threatened to shut off services in your [...] week 09/25/2024 How often do you attend [facility] or hoahaoism services? More than 4 times per year 09/25/2024 Do you belong to any clubs o r organizations such as zoroastrianism groups, unions, fraternal or athletic groups, or [...] any time in the past 12 m [facility], were you homeless or living in a half-way (including now)? No 09/25/2024 Personal Safety Answer Date Recorded Have you ever been in or are you currently in a harmful physical or emotional relationship or is someone making you feel afraid or unsafe? Denies 09/24/2024 Comments No Sex and Gender Information Value Date Recorded Sex Assigned at Not on file Legal Sex Female 5:31 PM BENEFIT AUTHORIZER Gender Identity Female 01/06/2021 6:49 AM CDT [...] 09/24/2024 3:54 PM CDT Plan of Treatment Not on file Medical Devices Implanted Type Area Slab Stripper Device Identifier Shelf Expiration Date Model / Serial / Lot Plain Vanilla [facility] Device Closure Vascade Od5 Fr Femoral Artery [id number] - [id number] Implanted:Qty: 1 on 01/30/2024 by Damon Armstrong MD at [facility] [employer] [facility] 10/10/2025 [id number] / / [id number] [employer] System Closure Repair Femoral Artery Suture Mediated Perclose Prostyle 95476-00 - [id number] Implanted:Qty: 1 on 09/24/2024 by Damon Armstrong MD at [facility] [employer] 07/16/2026 1 2773-03 / / [id number] [employer] System Closure Repair Femoral Artery Suture Mediated Perclose Prostyle 47164-65 - [id number] Implanted:Qty: 1 on 09/24/2024 by Damon Armstrong MD at [facility] [employer] 07/16/2026 1 2773-03 / / [id number] [employer] Valve Aortic Trnscath Joan 3 Ultra Resilia 23mm [id number] - [id number] - [id number] Implanted:Qty: 1 on 09/24/2024 by Damon Armstrong MD at [facility] [employer] 01/03/2027 [id number] / [id number] / [employer] System Closure Repair Femoral Artery Suture Mediated Perclose Prostyle 48660-11 - [id number] Implanted:Qty: 1 on 09/24/2024 by Damon Armstrong MD at [facility] Vascular 06/15/2026 1 2773-03 / / [id number] [employer] Device Vascular Closure Femoral Artery Bioabsorbable Dual Method Vascade 6-7fr Collagen [id number] - [id number] Implanted:Qty: 1 on 09/24/2024 by Damon Armstrong MD at [facility] [employer] 03/07/2026 [id number] / / [id number] Procedures Procedure Name Priority Date/Time Associated [...] AM CDT PROTIME-INR Routine 09/16/2024 10:44 AM BENEFIT AUTHORIZER Pre-operative exam Nonrheumatic aortic valve stenosis APTT Routine 09/16/2024 10:44 AM BENEFIT AUTHORIZER Pre-operative exam Nonrheumatic aortic valve stenosis Chronic anticoagulation EGFR Routine 09/16/2024 10:43 AM BENEFIT AUTHORIZER Pre-operative exam PRO B-TYPE NATRIURETIC PEPTIDE Routine 09/16/2024 10:43 AM BENEFIT AUTHORIZER Pre-operative exam COMPREHENSIVE METABOLIC PANEL Routine 09/16/2024 10:43 AM BENEFIT AUTHORIZER Pre-operative exam ECG 12-LEAD Routine 09/16/2024 10:20 AM BENEFIT AUTHORIZER Pre-operative exam DIFFERENTIAL AUTO Routine 09/16/2024 10:20 AM BENEFIT AUTHORIZER Pre-operative exam TYPE AND SCREEN Routine 09/16/2024 10:20 AM BENEFIT AUTHORIZER Pre-operative exam CBC WITH AUTO DIFFERENTIAL Routine 09/16/2024 10:20 AM BENEFIT AUTHORIZER Pre-operative exam HEMOGLOBIN A1C Routine 09/16/2024 10:20 AM BENEFIT AUTHORIZER Pre-operative exam Type 2 diabetes, controlled, with neuropathy (HCC) XR CHEST PA LATERAL 2 VIEWS Schedule Routine, Read Routine (OP Routine) 09/16/2024 10:01 AM BENEFIT AUTHORIZER Pre-operative exam CT TAVR Schedule Routine, Read Routine (OP Routine) 09/05/2024 12:27 PM BENEFIT AUTHORIZER Nonrheumatic aortic valve stenosis POCT CREATININE FOR CONTRAST EVALUATION Routine 09/05/2024 12:14 PM BENEFIT AUTHORIZER LIPID PANEL Routine 09/02/2024 1:01 PM BENEFIT AUTHORIZER FLEXIBLE SIGMOIDOSCOPY 03/06/2020 5:25 PM CDT COLONOSCOPY 02/21/2019 8:33 AM CDT from Last 3 Months or Most Recently Relevant to Health Maintenance Results * X-ray chest 1 view (Portable) (09/25/2024 8:35 AM CDT) Anatomical Region Laterality Modality Body, Chest N/A Computed Radiogr aphy 09/25/2024 12:4 8 PM CDT Impressions 09/25/2024 12:48 PM CDT No active disease. Electronically signed by: Osbaldo Mcpherson M.D. Narrative 09/25/2024 12:48 PM CDT EXAMINATION: XR CHEST [...] disease. Electronically signed by: Osbaldo Mcpherson M.D. us Damon Armstrong MD IMG XR PROCEDURES Fi nal Result * ECG 12 lead (09/25/2024 7:23 AM CDT) 09/25/2024 7:23 AM CDT Narrative [facility] - 09/25/2024 11:25 PM CDT Vent Rate: 73 bpm RR Interval: 812 msec LA Interval: 221 msec QRS Duration: 125 msec QT Interval: 411 msec QTC Interval: 437 msec P-R-T Manson: 75 - -15 - 124 degrees IMPRESSION: SINUS RHYTHM WITH FIRST DEGREE AV BLOCK SEPTAL MYOCARDIAL INFARCTION , OF INDETERMINATE AGE [40+ ms Q WAVE IN V1/V2] MODERATE T-WAVE ABNORMALITY, CONSIDER LATERAL ISCHEMIA [-0.1+ mV T-WAVE IN I/aVL/V5/V6] ABNORMAL ECG Electronically Signed By: Dr. Damon Armstrong [facility] us Damon Armstrong MD ECG ORDERABLES Dottie singh Result [facility] [employer] [facility] * TRANSTHORACIC ECHO (TTE) COMPLETE W DOPPLER/CF W CONTRAST (09/25/2024 7:22 AM CDT) LV EF 65-70 % CONS SCIMAGE Anatomical Region Laterality Modality Ultrasound 09/25/2024 6:37 AM CDT Narrative 09/25/2024 11:20 [place] [address] Echocardiogram Report Patient Name: JUAN PABLO POOL CAROLYN : 1950 Study Date: 09/25/2024 6:37:53 AM Gender: F Tech: Location: [id number] Ref Provider: DAMON ARMSTRONG Height(Cm): 162 BSA: [...] regurgitation. Electronically Signed By: Dr. Damon Armstrong [facility] 09/25/2024 11:20:15 AM CDT Procedure Note Damon Armstrong MD - 09/25/2024 [place] [address] Echocardiogram Report Patient Name: JUAN PABLO POOL CAROLYN : 1950 Study Date: 09/25/2024 6:37:53 AM Gender: F Tech: Location: [id number] Ref Provider: DAMON ARMSTRONG Height(Cm): 162 BSA: [...] regurgitation. Electronically Signed By: Dr. Damon Armstrong [facility] 09/25/2024 11:20:15 AM CDT Damon Armstrong MD CV ECHO PROCEDURES F inal Result * Differential, auto (09/25/2024 4:25 AM CDT) Neutrophil abs 3.9 1.5 - 6.5 K/cumm Imm gran abs 0.0 0.0 - 0.1 K/cumm [facility] Lymphocyte abs 2.0 0.8 - 3.3 K/cumm [facility] Monocyte abs 0.5 0.2 - 0.8 K/cumm [facility] Eosinophil abs 0.0 0.0 - 0.5 K/cumm [facility] Basophil abs 0.0 0.0 - 0.1 K/cumm [facility] Neutrophil pct 60.0 % [facility] Comment: Interpretive Data Percent cell count reference ranges are not reported, since discordance with absolute values may lead to misinterpretation of CBC data. Current Interpretive Data was last revised on 2017. Imm gran pct 0.5 % [facility] Comment: Interpretive Data Percent cell count reference ranges are not reported, since discordance with absolute values may lead to misinterpretation of CBC data. Current Interpretive Data was last revised on 2017. Lymphocyte pct 31.3 % [facility] Comment: Interpretive Data Percent cell count reference ranges are not reported, since discordance with absolute values may lead to misinterpretation of CBC data. Current Interpretive Data was last revised on 2017. Monocyte pct 7.6 % [facility] Comment: Interpretive Data Percent cell count reference ranges are not reported, since discordance with absolute values may lead to misinterpretation of CBC data. Current Interpretive Data was last revised on 2017. Eosinophil pct 0.3 % [facility] Comment: Interpretive Data Percent cell count reference ranges are not reported, since discordance with absolute values may lead to misinterpretation of CBC data. Current Interpretive Data was last revised on 2017. Basophil pct 0.3 % [facility] Comment: Interpretive Data Percent cell count reference ranges are not reported, since discordance with absolute values may lead to misinterpretation of CBC data. Current Interpretive Data was last revised on 2017. Blood 09/25/2024 4:25 AM CDT 09/25/2024 5:44 AM CDT Damon Armstrong MD LAB BLOOD ORDERABLES Final Result Performing Organization Address City/[facility]/ZIP Co de Phone Number HIGINIO [address] [address] * (ABNORMAL) CBC with auto differential (09/25/2024 4:25 AM CDT) WBC 6.5 3.8 - 9.9 K/cumm Hgb 10.5(L) 11.9 - 15.5 g/dL [facility] Hct 32.8(L) 35.6 - 45.5 % [facility] Plt 210 150 - 400 K/cumm [facility] MPV 11.1 9.1 - 12.3 fL [facility] RBC 3.48(L) 3.90 - 5.20 M/cumm [facility] MCV 94.3 81.3 - 96.4 fL [facility] MCH 30.2 27.1 - 33.3 pg [facility] MCHC 32.0(L) 32.3 - 35.7 g/dL [facility] RDW CV 13.6 11.1 - 14.9 % [facility] RDW SD 46.2 35.7 - 48.1 fL [facility] CH NRBC abs 0.00 0.00 - 0.01 K/cumm [facility] Blood 09/25/2024 4:25 AM CDT 09/25/2024 5:44 AM CDT Damon Armstrong MD LAB BLOOD ORDERABLES Final Result HIGINIO [address] [place] [address] * aPTT (09/25/2024 4:25 AM CDT) aPTT [...] BLOOD ORDERABLES Final Result Performing Organization Address [facility] Co de Phone Number HIGINIO CORDERO [address] [address] [facility] [place] [employer] [place] [address] * Protime-INR (09/25/2024 4:25 AM CDT) PT 11.3 9.7 - 13.0 sec INR 1.05 0.90 - 1.20 HIGINIO CORDERO Comment: Interpretive data Oral anticoagulant therapeutic ranges: Venous thromboembolism prophylaxis or treatment: 2.0-3.0 CARDIOLOGY Standard range: 2.0-3.0 High-intensity range: 2.5-3.5 Refer to indication-specific guidelines for appropriate target ranges for prosthetic heart valve replacement. Current interpretive data was last revised on 2019. Blood 09/25/2024 4:25 AM CDT 09/25/2024 5:45 AM CDT Damon Armstrong MD LAB BLOOD ORDERABLES Final Result Performing Organization Address [facility] de Phone Number HIGINIO CORDERO [address] [address] [facility] [place] [place] [address] * ECG 12 lead (09/24/2024 6:56 PM CDT) 09/24/2024 6:[address] [facility] - 09/25/2024 9:01 AM CDT Vent Rate: 72 bpm RR Interval: 829 msec LA Interval: 218 msec QRS Duration: 135 msec QT Interval: 410 msec QTC Interval: 434 msec P-R-T Manson: 89 - -13 - 145 degrees IMPRESSION: [...] ORDERABLES Dottie l Result Performing Organization Address City/[facility]/ZIP Co de Phone Number [facility] * POCT glucose (09/24/2024 5:47 PM CDT) Glucose, POC 153 70 - 199 mg/dL Blood 09/24/2024 5:47 PM CDT 09/24/2024 5:47 PM CDT Damon Armstrong MD LAB POCT ORDERABLES - DEVICE Final Result Performing Organization Address [facility] [place] [address] [address] [place] [employer] [place] [address] * POCT glucose (09/24/2024 3:22 PM CDT) Glucose, POC 133 70 - 199 mg/dL Blood 09/24/2024 3:22 PM CDT 09/24/2024 3:22 PM CDT Damon Armstrong MD LAB POCT ORDERABLES - DEVICE Final Result Performing Organization Address [facility] [place] [address] [address] [place] [employer] [place] [address] * X-ray chest 1 view (Portable) (09/24/2024 [...] Electronically signed by: Kirit Mayfield II, D.O. us Damon Armstrong MD IMG XR PROCEDURES Fi nal Result * POCT glucose (09/24/2024 11:29 AM CDT) Glucose, POC 112 70 - 199 mg/dL Blood 09/24/2024 11:2 9 AM CDT 09/24/2024 11:29 AM CDT us Damon Armstrong MD LAB POCT ORDERABLES - DEVICE Final Result Performing Organization Address [facility] Co de Phone Number HIGINIO GIL [address] [place] [address] * (ABNORMAL) POCT glucose (09/24/2024 10:39 AM CDT) Glucose, POC 69(L) 70 - 199 mg/dL Blood 09/24/2024 10:3 9 AM CDT 09/24/2024 10:39 AM CDT us Damon Armstrong MD LAB POCT ORDERABLES - DEVICE Final Result Performing Organization Address [facility] [place] [address] [address] [place] [employer] [place] [address] * LEFT HEART CATHETERIZATION (LHC), AORTOGRAM THORACIC [...] femoral artery access site; deployment of 6 Bel[place]ian VASCADE closure device at left common femoral artery access site SEDATION: Deep sedation CO-OPERATORS: Edgardo Guido MD CT surgeon. ACCESS SITES: Right and left common femoral arteries; left common femoral vein PROCEDURE: After obtaining informed consent, patient was brought to the gold leaf laborer and prepped and draped in the usual sterile manner. Sedation administered anesthesia care was provided by anesthesiologist team. Right common femoral artery access was taken with micropuncture needle followed by insertion of a 8 Belarusian sheath over a 0.035 inch wire. Left common femoral artery access was taken with micropuncture needle followed by insertion of a 5 Belarusian sheath over a 0.035 inch wire. Left common femoral venous access was taken followed by insertion of a6 sheath. A balloon tipped transvenous pacemaker was placed through the venous sheath under fluoroscopic guidance and was position in the right ventricle. Pacing thresholds were checked. Two ProGlide suture mediated vascular closure devices were placed right common femoral arterial access site. The 5-Belarusian pigtail catheter was advanced into the aortic root through left common femoral sheath. The pigtail catheter was placed in the coronary cusp with some difficulty in getting advanced to the right coronary cusp. An aortogram was performed in the coplanar view. The 6-Belarusian arterial sheath on the right femoral artery was removed and a 14 Belarusian Parsons sheath was placed after serial dilations. The sheath was advanced into the abdominal aorta under fluoroscopic guidance. The aortic valve was then crossed using a 0.35 straight-tipped [place] wire with 5-Belarusian Al1 catheter. The AL1 catheter was advanced [...] Then after that we went with 5 Belarusian pigtail catheter and retrieved the safari wire. [...] arteries without any angiographically visible dissection. 5 [place]ian Vascade vascular closure device was deployed at [...] was used to complete this document, therefore, laser/electro optics technician variances may occur. Damon Armstrong MD us Damon Armstrong MD CV CARDIAC CATH PROC EDURES Final Result * (ABNORMAL) POC Activated Clotting Time, High Range (09/24/2024 10:20 AM CDT) ACT 85(L) 87 - 138 sec Blood 09/24/2024 10:2 0 AM CDT 09/24/2024 10:20 AM CDT us Damon Armstrong MD LAB BLOOD ORDERABLES Final Result Performing Organization Address [facility] Co de Phone Number HIGINIO CORDERO [address] [address] [facility] [place] [address] * POCT glucose (09/24/2024 10:01 AM CDT) Pathologist [facility] Glucose, POC 75 70 - 199 mg/dL Blood 09/24/2024 10:0 1 AM CDT 09/24/2024 10:01 AM CDT us Damon Armstrong MD LAB POCT ORDERABLES - DEVICE Final Result Performing Organization Address [facility] de Phone Number INOLALITA CORDERO [address] [address] [facility] [place] [place] [address] * (ABNORMAL) POC Activated Clotting Time, High Range (09/24/2024 9:57 AM CDT) [facility] ACT 241(H) 87 - 138 sec Blood 09/24/2024 9:57 AM CDT 09/24/2024 9:57 AM CDT us Damon Armstrong MD LAB BLOOD ORDERABLES Final Result Performing Organization Address [facility] Co de Phone Number HIGINIO CORDERO [address] [address] [facility] [place] [place] [address] * Potassium, whole blood (09/24/2024 7:43 AM CDT) [facility] Potassium, bld 3.7 3.3 - 4.9 mmol/L Comment: Interpretive Data This method is not able to assess for hemolysis, which may falsely increase potassium concentrations. If further testing is needed to evaluate this result, consider in-laboratory plasma potassium. Current Interpretive Data was last revised on 2022. Blood 09/24/2024 7:43 AM CDT 09/24/2024 7:52 AM CDT us Damon Armstrong MD LAB BLOOD ORDERABLES Final Result Performing Organization Address [facility] Co de Phone Number HIGINIO CORDERO [address] [address] [facility] [place] [address] * Check Sample (09/24/2024 7:43 AM CDT) ABO Rh A Positive [facility] OTHER 09/24/2024 7:43 AM CDT 09/24/2024 7:48 AM CDT us Damon Armstrong MD LAB BLOOD ORDERABLES Final Result Performing Organization Address [facility] Phone Number HIGINIO CORDERO [address] [address] [facility] [place] [place] [address] CH * POCT glucose (09/24/2024 7:24 AM CDT) Glucose, POC 91 70 - 199 mg/dL Blood 09/24/2024 7:24 AM CDT 09/24/2024 7:24 AM CDT Result Matteo Armstrong MD LAB POCT ORDERABLES - DEVICE Final Result Performing Organization Address [facility] Phone Number HIGINIO CORDERO [address] [address] [facility] [place] [place] [address] * aPTT (09/16/2024 10:44 AM BENEFIT AUTHORIZER) aPTT 37 28 - 38 sec Comment: Interpretive Data Heparin therapeutic range: 66.0 - 100.0 seconds. Range based on correlation with therapeutic heparin activity range of 0.3 - 0.7 Units/mL. Current interpretive data was last revised on 2023. Blood 09/16/2024 10:4 4 AM BENEFIT AUTHORIZER 09/16/2024 10:44 AM BENEFIT AUTHORIZER Damon Armstrong MD LAB BLOOD ORDERABLES Final Result Performing Organization Address [facility] Co de Phone Number HIGINIO CORDERO [address] [address] [facility] [place] [place] [address] * Protime-INR (09/16/2024 10:44 AM BENEFIT AUTHORIZER) PT 11.0 9.7 - 13.0 sec INR 1.02 0.90 - 1.20 HGIINIO CORDERO Comment: Interpretive data Oral anticoagulant therapeutic ranges: Venous thromboembolism prophylaxis or treatment: 2.0-3.0 CARDIOLOGY Standard range: 2.0-3.0 High-intensity range: 2.5-3.5 Refer to indication-specific guidelines for appropriate target ranges for prosthetic heart valve replacement. Current interpretive data was last revised on 2019. Blood 09/16/2024 10:4 4 AM BENEFIT AUTHORIZER 09/16/2024 10:44 AM BENEFIT AUTHORIZER Damon Armstrong MD LAB BLOOD ORDERABLES Final Result Performing Organization Address [facility] Co de Phone Number HIGINIO CORDERO [address] [address] [facility] [place] [place] [address] * eGFR (09/16/2024 10:43 AM BENEFIT AUTHORIZER) eGFR >90 >=60 mL/min/1. 73 m2 Comment: [...] reviewed 2021. Blood 09/16/2024 10:4 3 AM BENEFIT AUTHORIZER 09/16/2024 10:43 AM BENEFIT AUTHORIZER Damon Armstrong MD LAB BLOOD ORDERABLES Final Result Performing Organization Address City/State/ZIP Co al Phone Number HIGINIO CORDERO [address] [address] [place] [address] * (ABNORMAL) Pro B-type natriuretic peptide (09/16/2024 10:43 AM BENEFIT AUTHORIZER) NT-proBNP 1,046(H) <=300 pg/mL Comment: Interpretive Comments: [...] Date: 2018. Blood 09/16/2024 10:4 3 AM BENEFIT AUTHORIZER 09/16/2024 10:43 AM BENEFIT AUTHORIZER us Damon Armstrong MD LAB BLOOD ORDERABLES Final Result [facility] [address] [place] [address] * (ABNORMAL) Comprehensive metabolic panel (09/16/2024 10:43 AM BENEFIT AUTHORIZER) Sodium 149(H) 135 - 145 mmol/L Potassium, pl 3.9 3.3 - 4.9 mmol/L [facility] Chloride 109 97 - 110 mmol/L [facility] CH CO2 26 22 - 32 mmol/L [facility] CH Anion gap 14 2 - 15 mmol/L [facility] BUN 11 6 - 25 mg/dL [facility] Creatinine 0.52(L) 0.60 - 1.10 mg/dL [facility] Glucose 160 70 - 199 mg/dL [facility] Comment: Interpretive Data Fasting glucose >/= 126 [...] [facility] CH Blood 09/16/2024 10:4 3 AM BENEFIT AUTHORIZER 09/16/2024 10:43 AM BENEFIT AUTHORIZER Damon Armstrong MD LAB BLOOD ORDERABLES Final Result Performing Organization Address City/[facility] Co de Phone Number HIGINIO [address] Department [place] [address] * ECG 12 lead (09/16/2024 10:20 AM BENEFIT AUTHORIZER) 09/16/2024 10:2 0 AM BENEFIT AUTHORIZER Narrative [facility]MERLY [facility] - 09/16/2024 3:48 PM BENEFIT AUTHORIZER Vent Rate: 80 bpm RR Interval: 749 msec LA Interval: 174 msec QRS Duration: 114 msec QT Interval: 382 msec QTC Interval: 417 msec P-R-T Manson: -5 - -4 - 114 degrees IMPRESSION: SINUS RHYTHM SEPTAL MYOCARDIAL INFARCTION , PROBABLY OLD MODERATE T-WAVE ABNORMALITY, CONSIDER LATERAL ISCHEMIA ABNORMAL ECG Electronically Signed By: Rajan Saucedo MD Damon Armstrong MD ECG ORDERABLES Dottie l Result Performing Organization Address [facility] de Phone Number [facility] [employer] [facility] * (ABNORMAL) Differential, auto (09/16/2024 10:20 AM BENEFIT AUTHORIZER) Neutrophil abs 6.7(H) 1.5 - 6.5 K/cumm Imm gran abs 0.0 0.0 - 0.1 K/cumm [facility] CH Lymphocyte abs 2.6 0.8 - 3.3 K/cumm [facility] CH Monocyte abs 0.6 0.2 - 0.8 K/cumm [facility] CH Eosinophil abs 0.5 0.0 - 0.5 K/cumm [facility] Basophil abs 0.1 0.0 - 0.1 K/cumm [facility] Neutrophil pct 64.4 % [facility] Comment: Interpretive Data Percent cell count reference ranges are not reported, since discordance with absolute values may lead to misinterpretation of CBC data. Current Interpretive Data was last revised on 2017. Imm gran pct 0.4 % [facility] Comment: Interpretive Data Percent cell count reference ranges are not reported, since discordance with absolute values may lead to misinterpretation of CBC data. Current Interpretive Data was last revised on 2017. Lymphocyte pct 24.6 % [facility] Comment: Interpretive Data Percent cell count reference ranges are not reported, since discordance with absolute values may lead to misinterpretation of CBC data. Current Interpretive Data was last revised on 2017. Monocyte pct 5.7 % [facility] Comment: Interpretive Data Percent cell count reference ranges are not reported, since discordance with absolute values may lead to misinterpretation of CBC data. Current Interpretive Data was last revised on 2017. Eosinophil pct 4.3 % [facility] Comment: Interpretive Data Percent cell count reference ranges are not reported, since discordance with absolute values may lead to misinterpretation of CBC data. Current Interpretive Data was last revised on 2017. Basophil pct 0.6 % [facility] Comment: Interpretive Data Percent cell count reference ranges are not reported, since discordance with absolute values may lead to misinterpretation of CBC data. Current Interpretive Data was last revised on 2017. Blood 09/16/2024 10:2 0 AM BENEFIT AUTHORIZER 09/16/2024 10:55 AM BENEFIT AUTHORIZER us Damon Armstrong MD LAB BLOOD ORDERABLES Final Result [facility] [address] Department [place] [address] * (ABNORMAL) CBC with auto differential (09/16/2024 10:20 AM BENEFIT AUTHORIZER) WBC 10.4(H) 3.8 - 9.9 K/cumm Hgb 10.7(L) 11.9 - 15.5 g/dL [facility] Hct 33.0(L) 35.6 - 45.5 % [facility] Plt 436(H) 150 - 400 K/cumm [facility] MPV 10.5 9.1 - 12.3 fL [facility] RBC 3.51(L) 3.90 - 5.20 M/cumm [facility] MCV 94.0 81.3 - 96.4 fL [facility] MCH 30.5 27.1 - 33.3 pg [facility] MCHC 32.4 32.3 - 35.7 g/dL [facility] RDW CV 14.8 11.1 - 14.9 % [facility] RDW SD 50.4(H) 35.7 - 48.1 fL [facility] NRBC abs 0.00 0.00 - 0.01 K/cumm [facility] Blood 09/16/2024 10:2 0 AM BENEFIT AUTHORIZER 09/16/2024 10:54 AM BENEFIT AUTHORIZER Damon Armstrong MD LAB BLOOD ORDERABLES Final Result Performing Organization Address [facility] Co de Phone Number [facility] [address] [facility] [place] [address] * Type and screen (09/16/2024 10:20 AM BENEFIT AUTHORIZER) Estela, indirect Negative ABO Rh A Positive [facility] Blood 09/16/2024 10:2 0 AM BENEFIT AUTHORIZER 09/16/2024 10:44 AM BENEFIT AUTHORIZER Narrative [facility] - 09/16/2024 11:26 AM BENEFIT AUTHORIZER Has the patient had Daratumumab or Isatuximab in the past 6 months?->Unknown Damon Armstrong MD LAB BLOOD BANK TEST ORDERABLES Final Result Performing Organization Address [facility] Co de Phone Number [facility] [address] [facility] [place] [address] * Hemoglobin A1c (09/16/2024 10:20 AM BENEFIT AUTHORIZER) Hgb A1C 5.2 4.0 - 5.6 % Estimated Average Glucose 103 mg/dL [facility] Comment: The ADA recommends reporting an estimated Average Glucose (eAG) with all Hemoglobin A1c results using the equation derived from a study of 507 normal and diabetic adults. Minority populations were underrepresented and children were not included. (Diabetes Care 31:3323-5458, 2008). The eAG is not equivalent to a fasting glucose. Blood 09/16/2024 10:2 0 AM BENEFIT AUTHORIZER 09/16/2024 10:54 AM BENEFIT AUTHORIZER Damon Armstrong MD LAB BLOOD ORDERABLES Final Result [facility] [address] [address] [place] [address] * X-ray chest 2 views (09/16/2024 10:01 AM BENEFIT AUTHORIZER) Anatomical Region Laterality Modality Body, Chest N/A Computed Radiogr aphy 09/16/2024 10:0 4 AM BENEFIT AUTHORIZER Impressions 09/16/2024 10:04 AM BENEFIT AUTHORIZER No left-sided failure. Electronically signed by: Silvia Zhang M.D. Narrative 09/16/2024 10:04 AM BENEFIT AUTHORIZER EXAMINATION: XR CHEST PA LATERAL 2 VIEWS [...] failure. Electronically signed by: Silvia Zhang M.D. Damon Armstrong MD IMG XR PROCEDURES Fi nal Result * CT TAVR (09/05/2024 12:27 PM BENEFIT AUTHORIZER) Anatomical Region Laterality Modality Chest N/A Computed Tomogra phy 09/06/2024 8:05 AM BENEFIT AUTHORIZER Impressions 09/06/2024 9:19 AM BENEFIT AUTHORIZER 1. Severe aortic valvular stenosis. Aortic annulus, and abdominal aortic, common iliac, external iliac and femoral artery measurements in preparation for TAVR procedure as described above. 2. Aortic valve calcium score: Agatston 994, Volume 796mm3. Dictated by: Ynes Johnson, M.D. The radiology attending physician has personally reviewed this study, and had reviewed and/or edited this written report and agrees with it. Electronically signed by: Santhosh Avelar M.D. 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 Room: [facility] ENDOSCOPY ROOM 2 Note Status: [...] informed consent was obtained. The GIF 1T [id number] Endoscope wasintroduced through the anus and advanced [...] On: 03/06/2020 5:25 PM Recognized by the [employer] for promoting quality [...] Female Attending MD: Hieu Joseph M.D. Room: [facility] ENDOSCOPY ROOM 9 Note Status: [...] was passed under direct vision.The GIF [id number] endoscope was introduced throughthe anus and advanced [...] my nurses in the GI office at [phone] ([phone]) for your final pathology results in 7 days. - Repeat colonoscopy in 3 years for surveillance. - In the unusual situation that you developabdominal pain, bleeding or other significant problems in the days following this procedure please call my officeat [phone] ([phone]) to speak to my nurses. After hours and evenings please call [phone] speak to the GI fellow continuous improvement black belt. Please tell themthat Dr. Joseph did your [...] On: 02/21/2019 8:33 AM Recognized by the [employer] for promoting quality in endoscopy us Hieu Joseph MD ENDOSCOPY PROCEDUR ES Final Result from Last 3 Months or Most Recently Relevant to Health Maintenance Insurance MEDICARE [facility] [place] [address] [address] [facility] [address] [place] [id number] MED[address] [employer] [place] [address] [place] [id number] MEDICARE [place] [address] Advance Directives For more information, please contact: [phone] * Full Code (Latest Code Status on File) Date Activated Date Inactivated Comments 09/24/2024 11:36 AM 09/25/2024 6:21 PM * Full Code Date Activated Date Inactivated Comments 01/30/2024 12:18 PM 01/30/2024 6:21 PM * Full Code Date Activated Date Inactivated Comments 03/04/2020 4:29 PM 03/12/2020 9:31 PM * Full Code Date Activated Date Inactivated Comments 02/21/2019 8:06 AM 02/21/2019 2:55 PM Care Teams Mate First Relationship Specialty Start Date End Date Wilfredo Pinto MD [address] [place] [address] PCP - General Family Medicine 01/04/18 Jesus Alberto Martinez MD [id number] [place] [address] Surgeon Colon and Rectal Surgery 09/21/20
--- OUTSIDE RECORDS SUMMARY | 2024-10-10 16:22 | XMS_ITS | Continuity of Care Document ---
Author Organization [facility] Address [address] [place] [address] Phone Care Team Providers Care Interior Design Instructor Name Role Phone Kike Boston MD, MD [...] Provider Providers Copied on Encounter [facility], [address] [facility] [address], [place], [place], [id number], [place] tel:[phone] [facility] No Information 6 Ludy Stokes. [address], [address], [place], [place], [id number] , [place]. tel:[phone] Referring Provider: Kike Boston MD P, [address], [place], [address] . tel:[phone] [facility], [address] [place] [address], [id number], tel:[phone] [facility] No Information 6 Ludy Stokes. [address], [place], [place], [id number] , [place]. tel:[phone] Referring Provider: Kike Boston MD P, [address], [place], [address] . tel:[phone] [facility], [address] [place] [address], [id number], [place] tel:[phone] [facility] No Information 5 Nitin Moore. [address], [address], [place], [place], [id number] , [place]. tel:[phone] [facility], [address] [place] [address], [id number], [place] tel:[phone] [facility] No Information 5 Ludy Stokes. [address], [place], [place], [address] , [place]. tel:[phone] Referring Provider: Kike Boston MD P, [address], [place], [address] . tel:[phone] [facility], [address] [place] [address], [id number], [place] tel:[phone] [facility] No Information 5 Ludy Stokes. [address], [place], [place], [address] , [place]. tel:[phone] Referring Provider: Kike Boston MD P, [address], [place], [address] . tel:[phone] [facility], [address] [place] [address], [id number], tel:[phone] [facility] No Information 5 Ludy Stokes. [address], [address], [id number] , . tel:[phone] Referring Provider: Kike Boston MD P, [address], [place], [address] . tel:[phone] OFFICE/OUTPA TIENT VISIT, [facility], [address] [place] [address], [id number], tel:[phone] [facility] No Information 5 Ludy Stokes. [address], [place], [place], [address] , [place]. tel:[phone] Referring Provider: Kike Boston MD P, [address], [place], [address] . tel:[phone] Family History Family Member Type Diagnosis Age At Onset No Information Payers Payer name Insurance type Covered alliance party ID Authoriza tion(s) [employer] [facility] CI [id number] Social History Type Description Quantity Date Captured Comments Sex Female Smoking Status No Information Chief Complaint And Reason For Visit No Information Reason For Referral Reason For Referral No Information History Of Present Illness Encounter Date Complaint History Of Prese nt Illness No Information Functional Status Date Functional Assessmen t No Information Instructions Date Instruction Additional Infor mation No Information Assessments Type Assessment Date No Information Patient Care Teams Name Effective Dates (start - stop) Status Members No Information
--- OUTSIDE RECORDS SUMMARY | 2024-10-10 16:22 | XMS_ITS | Clinical Summary ---
Author Organization [facility] Address [address] [facility] [place] [address] Care Team Providers Care Income Tax Expert Name Role Phone Wilfredo Pinto MD Primary Care Provider + Source Comments [facility],non-owned Affiliates and Associated Physician Practices is amultiple site organization consisting of ambulatory clinics and hospital sitesin [place], [place], [place] and [place]. This disclosure is being madepursuant to the Care Everywhere program and may not contain all information available regarding this patient. Last updated 18.[facility] Social History Tobacco Use Types Packs/Day Years [...] 88.5 kg (195 lb) 07/14/2016 6:17 AM COATER Height 162.6 cm (5' 4 ) 07/14/2016 6:17 AM COATER Body Mass Index 33.47 07/14/2016 6:17 AM COATER Plan of Treatment Health Maintenance Due Date [...] to complete this topic MENINGOCOCCAL (Group B) VACC INE SHARED DECISION-MAKING Aged Out No longer eligibl e based on patient's age to complete this topic MENINGOCOCCAL GROUPS A/C/Y/W VACCINE Aged Out No longer eligible b ased on patient's age to complete this topic Care Teams Income Tax Expert Relationship Specialty Start Date End Date Wilfredo Pinto MD [address] [address] PCP - General 10/25/16
[2024-10-10 16:37] VITALS: BP 139/54; PULSE 73; RESP 17; O2SAT 98
[2024-10-10 16:59] VITALS: BP 136/60; PULSE 76; PULSE 82; RESP 16; O2SAT 98
[2024-10-10 17:16] LABS: Basophils Percent Auto 0.3 % (0.2-1.2); Eosinophils Absolute Auto 0.4 K/mm3 (0-0.3); Eosinophils Percent Auto 3.4 % (0-4.4); Hematocrit 31.1 % (37.0-47.0); Hemoglobin 10.2 g/dL (12.0-15.0); Immature Granulocyte Absolute 0.05 K/mm3 (0.00-0.031); Immature Granulocyte Percent A 0.4 % (0-0.5); Mean Corpuscular HGB Conc 32.8 g/dl (32-36); Mean Corpuscular Hemoglobin 30.1 pg (26-34); Mean Corpuscular Volume 91.7 fl (80-100); Mean Platelet Volume 11.8 fl (7.4-10.4); Monocytes Absolute Auto 0.8 K/mm3 (0.1-0.6); Monocytes Percent Auto 6.7 % (2.6-8.5); Neutrophils Absolute Auto 6.5 K/mm3 (1.3-6.7); Neutrophils Percent Auto 56.2 % (45.5-73.1); Platelet Count Result 205 k/mm3 (150-375); Red Blood Count 3.39 M/mm3 (4.2-5.4); Red Cell Distribution Width 13.4 % (11.5-14.5); White Blood Count 11.5 K/mm3 (4.5-10.0)
[2024-10-10 17:26] LABS: Alanine Aminotransferase 14 U/L (6-35); Albumin Level 3.7 g/dL (3.5-5.1); Alkaline Phosphatase 96 U/L (38-126); Anion Gap 8 mmol/L (4-12); Aspartate Amino Transferase 24 U/L (14-36); Bilirubin,Total 0.4 mg/dL (0.2-1.3); Blood Urea Nitrogen 21 mg/dL (7-17); Calcium 9.1 mg/dL (8.4-10.2); Carbon Dioxide 29 mmol/L (22-30); Chloride 104 mmol/L (98-107); Estimated CRCL calculation 54 ml/min; Estimated Glomerular Filt Rate > 60; Glucose 99 mg/dL (65-110); Lipase 77 U/L (23-300); Sodium 141 mmol/L (137-145)
[2024-10-10 17:27] LABS: Prothrombin Time 13.2 Seconds (11.1-14.7)
[2024-10-10 17:28] LABS: Partial Thromboplastin Time 38.1 Seconds (22.3-36.8)
[2024-10-10 17:30] VITALS: BP 141/64; PULSE 109; RESP 19; O2SAT 92
[2024-10-10 17:37] LABS: Troponin I < 0.012 ng/mL (0.000-0.034)
--- NOTE | 2024-10-10 18:40 | ED_ITS ---
HPI - General Adult General Chief complaint: Arrhythmia/Palpitations <Jamie Maier MD - Last Filed: 10/10/24 19:05> Stated complaint: bigeminy <Jamie Maier MD - Last Filed: 10/10/24 19:05> Time Seen by Provider: 10/10/24 15:18 <Jamie Maier MD - Last Filed: 10/10/24 19:05> History of Present Illness HPI narrative: This is a 73-year-old female with a history of critical aortic stenosis treated with TAVR on 09/[address] Ranjit Armstrong presenting with syncope and shoulder/rib pain. Patient was washing her face 4 days ago when she had a presyncopal episode and fell backwards against the door. She did hit her head against the door. She is on Plavix. She is not lose consciousness. She did not seek medical care at that time and actually went on vacation for the last several days. Over that time she developed worsening pain in her right shoulder and on her right ribcage. She has not been taking anything for pain control. She denies fevers productive cough, vomiting diarrhea or abdominal pain. Patient has follow-up with her vegetable inspector on the . <Jamie Maier MD - Last Filed: 10/10/24 19:05> Related Data Home medications: Home Medications ?Medication ?Instructions ?Recorded ?Confirmed ?Last Taken ?Type diazepam 2 mg tablet 2 mg PO PRN PRN Dizziness 02/24/20 10/10/24 Unknown History magnesium 250 mg tablet 500 mg PO TID 02/24/20 10/10/24 04/24/23 History riboflavin (vitamin B2) 400 mg 400 mg PO TID 03/02/20 10/10/24 04/24/23 History tablet cholecalciferol (vitamin D3) 25 25 mcg PO DAILY 10/05/20 10/10/24 04/24/23 History mcg (1,000 unit) capsule (Vitamin D3) fluticasone propionate 50 2 spray intranasal DAILY PRN 11/10/21 10/10/24 04/18/23 History mcg/actuation nasal Allergic Symptoms spray,suspension (Flonase Allergy Relief) metoprolol succinate 50 mg 50 mg PO QAM 11/10/21 10/10/24 04/24/23 History tablet,extended release 24 hr blood sugar diagnostic 06/20/22 09/30/24 Unknown History aspirin 81 mg tablet 81 mg PO DAILY 07/26/22 09/30/24 04/20/23 History silver sulfadiazine 1 % topical 1 applic topical DAILY 06/21/24 09/30/24 Unknown History cream (Silvadene) clopidogrel 75 mg tablet 75 mg PO DAILY 09/30/24 09/30/24 Unknown History <Jamie Maier MD - Last Filed: 10/10/24 19:05> Allergies/adverse reactions: Allergies Allergy/AdvReac Type Severity Reaction Status Date / Time morphine AdvReac Nausea and Verified 10/10/24 14:24 Vomiting <Jamie Maier MD - Last Filed: 10/10/24 19:05> [facility] Past Medical History Medical History: Medical History Aortic stenosis (~02/2020) History of transcatheter aortic valve replacement (TAVR) (09/2024) Effusion of knee joint Encounter for postoperative care Claw toe Left foot pain Right foot ulcer Right foot pain Foot swelling Poor balance Neuropathy of both feet Metatarsalgia of both feet Ulcer of right foot due to type 2 diabetes mellitus Left knee DJD Right knee DJD Anemia Cerebrovascular accident Noted on brain CT, unknown to the patient. Abscess of left foot including toes (~07/2020) Requiring excisional debridement including bone due to osteomyelitis. 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 Thyroid nodule Bilateral benign follicular nodules on FNA in June 2018. Stricture of sigmoid colon (~02/2020) Secondary to diverticulitis, status post loop sigmoid colostomy. Obstructive sleep apnea Compliant with CPAP. 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 ER/NV and HER2 Mary Grace negative. Hypertension Irritable bowel syndrome with diarrhea Menieres disease With chronic tinnitus and left-sided hearing loss. Attention deficit hyperactivity disorder Acute osteomyelitis of left foot History of adenomatous polyp of colon Anxiety ADH disorder Diverticulitis large intestine <Jamie Maier MD - Last Filed: 10/10/24 19:05> Surgical History Surgical History: Surgical History History of open sigmoidectomy sigmoidectomy w/ closotomy closer 10/21 History of foot surgery Left foot surgery with hardware. 2020 Left foot surgery 07/09 History of left breast biopsy (~12/2017) With benign histology. History of partial mastectomy of left breast (~07/2016) For treatment of high-grade DCIS with sentinel lymph node sampling and bilateral reduction mammoplasty. History of tonsillectomy History of cholecystectomy History of cataract extraction History of dilation and curettage x3. <Jamie Maier MD - Last Filed: 10/10/24 19:05> Family History Family History: Family History Father Diabetes mellitus Cancer of pancreas Sibling Family history of type 1 diabetes mellitus Mother Hypertension Heart disease Alzheimer's dementia Depression Grandparent Diabetes mellitus Hypertension Heart disease Grandparent Diabetes mellitus Hypertension <Jamie Maier MD - Last Filed: 10/10/24 19:05> Social History Social History: Social History Social History: The patient lives in [place] with her . 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 Smoked 0.25 packs of cigarettes a day for about 15 years and quit about a year ago. Drinks perhaps 1 alcoholic beverage a month. No illicit substance use. She designates her , Josh, as her surrogate decision maker and she wishes to be a full code. Smoking packs per day: 0.20 Smoking cigarettes per day: 4.0 Years smoked: 3 Smoking pack-years: 0.60 Smoking status: Current some day smoker Tobacco type: cigarettes Second hand tobacco smoke exposure: No Smoking end date: 03/17/23 Additional smoking assessment comments: Summer social smoking Alcohol intake: current Alcohol use details: SOCIALLY, 6-7 DRINKS/MONTH Substance use: never Substance use type: does not use Do You Feel Safe in your Home?: Yes Lack of Transportation: No Lack of Food: Never True Current Housing: I Have Housing Concerned About Future Housing: No Difficulty Paying Gas/Electric Bills: No Difficulty Paying for Meds: No Currently Unemployed: No Education: Master's Degree or Higher Difficulty w/ Childcare or Family Care: No Living arrangements: with family Additional living arrangements comments: ANA MARIA Occupation/Education: retired Gender identity (if verbalized by the patient): Female Sexual Orientation (if Verbalized by the Patient): Straight or Heterosexual Spiritual care concerns: No Agree to blood products: Yes <Jamie Maier MD - Last Filed: 10/10/24 19:05> Exam 2 Narrative: APPEARANCE: No apparent distress. Head: atraumatic. EYES: EOMI, NOSE: Atraumatic NECK: Trachea midline RESPIRATORY: No increased rate of breathing clear to auscultation CARDIOVASCULAR: RRR, no peripheral edema ABDOMINAL: Non-distended, soft nontender MUSCULOSKELETAl: Focal exam of the right shoulder revealed no obvious deformity or bruising. Pain on active and passive motion of the shoulder. Tenderness over the right lateral ribcage without crepitus. NEURO: Alert. Moving 4/4 extremities SKIN:: Warm, dry. Normal color PSYCHIATRIC: Normal affect <Jamie Maier MD - Last Filed: 10/10/24 19:05> Course Course Emergency Course: Patient signed out to me by ED attending pending the interpretation of her CT scan which is negative. Otherwise discharge had been prepared in anticipation of a negative scan. <Oma Regalado MD - Last Filed: 10/10/24 19:47> Vital Signs Vital signs: Vital Signs Temperature 98.2 F 10/10/24 15:19 Pulse Rate 36 L 10/10/24 15:19 Respiratory Rate 16 10/10/24 15:19 Blood Pressure 151/47 H 10/10/24 15:19 Pulse Oximetry 98 10/10/24 15:19 Temperature 97.8 F 10/10/24 19:39 Pulse Rate 74 10/10/24 19:39 Respiratory Rate 16 10/10/24 19:39 Blood Pressure 149/53 H 10/10/24 19:39 Pulse Oximetry 99 10/10/24 19:39 <Jamie Maier MD - Last Filed: 10/10/24 19:05> Vital Signs Temperature 98.2 F 10/10/24 15:19 Pulse Rate 36 L 10/10/24 15:19 Respiratory Rate 16 10/10/24 15:19 Blood Pressure 151/47 H 10/10/24 15:19 Pulse Oximetry 98 10/10/24 15:19 Temperature 97.8 F 10/10/24 19:39 Pulse Rate 74 10/10/24 19:39 Respiratory Rate 16 10/10/24 19:39 Blood Pressure 149/53 H 10/10/24 19:39 Pulse Oximetry 99 10/10/24 19:39 <Oma Regalado MD - Last Filed: 10/10/24 19:47> Medical Decision Making MDM Narrative Medical decision making narrative: -Course: 73-year-old female presenting 4 days after a fall. CT chest negative for rib fractures. Shoulder x-ray showed arthritis but no acute fracture. Patient's pain was treated with Tylenol and lidocaine. Patient's EKG shows a bigeminy pattern. Review of previous EKG shows that she has been in this rhythm for several months. Discussed admission versus discharge the patient and she is comfortable seeing her vegetable inspector appointment on the . Patient signed out to to the oncoming physician pending completion CT brain. If is negative for bleed she can be discharged follow-up with her vegetable inspector for further -DDX includes but is not limited to: Intracranial hemorrhage, cardiac syncope, vasovagal syncope, dehydration bony injury rib fracture <Jamie Maier MD - Last Filed: 10/10/24 19:05> Vital Signs Vital Signs: Vital Signs Temperature 98.2 F 10/10/24 15:19 Pulse Rate 36 L 10/10/24 15:19 Respiratory Rate 16 10/10/24 15:19 Blood Pressure 151/47 H 10/10/24 15:19 Pulse Oximetry 98 10/10/24 15:19 Temperature 97.8 F 10/10/24 19:39 Pulse Rate 74 10/10/24 19:39 Respiratory Rate 16 10/10/24 19:39 Blood Pressure 149/53 H 10/10/24 19:39 Pulse Oximetry 99 10/10/24 19:39 <Jamie Maier MD - Last Filed: 10/10/24 19:05> Vital Signs Temperature 98.2 F 10/10/24 15:19 Pulse Rate 36 L 10/10/24 15:19 Respiratory Rate 16 10/10/24 15:19 Blood Pressure 151/47 H 10/10/24 15:19 Pulse Oximetry 98 10/10/24 15:19 Temperature 97.8 F 10/10/24 19:39 Pulse Rate 74 10/10/24 19:39 Respiratory Rate 16 10/10/24 19:39 Blood Pressure 149/53 H 10/10/24 19:39 Pulse Oximetry 99 10/10/24 19:39 <Oma Regalado MD - Last Filed: 10/10/24 19:47> Lab Data Result diagrams: 10/10/24 17:07 10/10/24 17:07 <Jamie Maier MD - Last Filed: 10/10/24 19:05> Labs: Lab Results 10/10/24 Range/Units 17:07 WBC 11.5 H (4.5-10.0) K/mm3 RBC 3.39 L (4.2-5.4) M/mm3 Hgb 10.2 L (12.0-15.0) g/dL Hct 31.1 L (37.0-47.0) % MCV 91.7 (80-100) fl MCH 30.1 (26-34) pg MCHC 32.8 (32-36) g/dl RDW 13.4 (11.5-14.5) % Plt Count 205 (150-375) k/mm3 MPV 11.8 H (7.4-10.4) fl Immature Gran % (Auto) 0.4 (0-0.5) % Neut % (Auto) 56.2 (45.5-73.1) % Lymph % (Auto) 33.0 (18.3-44.2) % [place] % (Auto) 6.7 (2.6-8.5) % Eos % (Auto) 3.4 (0-4.4) % Baso % (Auto) 0.3 (0.2-1.2) % Lymph # (Auto) 3.80 H (0.9-3.2) K/mm3 [place] # (Auto) 0.8 H (0.1-0.6) K/mm3 Eos # (Auto) 0.4 H (0-0.3) K/mm3 Baso # (Auto) 0.0 (0.0-0.1) K/mm3 Abs Immat Gran (auto) 0.05 H (0.00-0.031) K/mm3 Absolute Neuts (auto) 6.5 (1.3-6.7) K/mm3 Absolute Nucleated RBC 0.000 (0.0-0.012) K/mm3 Nucleated RBC % 0.0 (0.0-0.2) % PT 13.2 (11.1-14.7) Seconds INR 1.0 APTT 38.1 H (22.3-36.8) Seconds Sodium 141 (137-145) mmol/L Potassium 4.0 (3.4-5.0) mmol/L Chloride 104 (98-107) mmol/L Carbon Dioxide 29 (22-30) mmol/L Anion Gap 8 (4-12) mmol/L BUN 21 H (7-17) mg/dL Creatinine 0.68 L (0.7-1.0) mg/dL Estim Creat Clear Calc 54 ml/min Estimated GFR > 60 (59 - ) Glucose 99 (65-110) mg/dL Calcium 9.1 (8.4-10.2) mg/dL Total Bilirubin 0.4 (0.2-1.3) mg/dL AST 24 (14-36) U/L ALT 14 (6-35) U/L Alkaline Phosphatase 96 (38-126) U/L Troponin I < 0.012 (0.000-0.034) ng/mL Total Protein 7.0 (6.3-8.2) g/dL Albumin 3.7 (3.5-5.1) g/dL Lipase 77 (23-300) U/L <Jamie Maier MD - Last Filed: 10/10/24 19:05> Lab Results 10/10/24 Range/Units 17:07 WBC 11.5 H (4.5-10.0) K/mm3 RBC 3.39 L (4.2-5.4) M/mm3 Hgb 10.2 L (12.0-15.0) g/dL Hct 31.1 L (37.0-47.0) % MCV 91.7 (80-100) fl MCH 30.1 (26-34) pg MCHC 32.8 (32-36) g/dl RDW 13.4 (11.5-14.5) % Plt Count 205 (150-375) k/mm3 MPV 11.8 H (7.4-10.4) fl Immature Gran % (Auto) 0.4 (0-0.5) % Neut % (Auto) 56.2 (45.5-73.1) % Lymph % (Auto) 33.0 (18.3-44.2) % [place] % (Auto) 6.7 (2.6-8.5) % Eos % (Auto) 3.4 (0-4.4) % Baso % (Auto) 0.3 (0.2-1.2) % Lymph # (Auto) 3.80 H (0.9-3.2) K/mm3 [place] # (Auto) 0.8 H (0.1-0.6) K/mm3 Eos # (Auto) 0.4 H (0-0.3) K/mm3 Baso # (Auto) 0.0 (0.0-0.1) K/mm3 Abs Immat Gran (auto) 0.05 H (0.00-0.031) K/mm3 Absolute Neuts (auto) 6.5 (1.3-6.7) K/mm3 Absolute Nucleated RBC 0.000 (0.0-0.012) K/mm3 Nucleated RBC % 0.0 (0.0-0.2) % PT 13.2 (11.1-14.7) Seconds INR 1.0 APTT 38.1 H (22.3-36.8) Seconds Sodium 141 (137-145) mmol/L Potassium 4.0 (3.4-5.0) mmol/L Chloride 104 (98-107) mmol/L Carbon Dioxide 29 (22-30) mmol/L Anion Gap 8 (4-12) mmol/L BUN 21 H (7-17) mg/dL Creatinine 0.68 L (0.7-1.0) mg/dL Estim Creat Clear Calc 54 ml/min Estimated GFR > 60 (59 - ) Glucose 99 (65-110) mg/dL Calcium 9.1 (8.4-10.2) mg/dL Total Bilirubin 0.4 (0.2-1.3) mg/dL AST 24 (14-36) U/L ALT 14 (6-35) U/L Alkaline Phosphatase 96 (38-126) U/L Troponin I < 0.012 (0.000-0.034) ng/mL Total Protein 7.0 (6.3-8.2) g/dL Albumin 3.7 (3.5-5.1) g/dL Lipase 77 (23-300) U/L <Oma Regalado MD - Last Filed: 10/10/24 19:47> Discharge Plan Discharge Clinical Impression: Acute shoulder pain, Bruised rib <Jamie Maier MD - Last Filed: 10/10/24 19:05> Patient Disposition: Home, Self-Care <Jamie Maier MD - Last Filed: 10/10/24 19:05> Condition: Stable <Jamie Maier MD - Last Filed: 10/10/24 19:05> Instructions: Antibiotic Form, Near Syncope (ED), Rib Contusion (ED) <Jamie Maier MD - Last Filed: 10/10/24 19:05> Additional Instructions: You were seen in the emergency department after a fall. Please use Tylenol and lidocaine patches for pain. Please use your incentive spirometer 10 times per hour while awake. If you develop fevers, chest pain, or shortness of breath Please follow-up with your vegetable inspector for further evaluation of your presyncopal events. <Jamie Maier MD - Last Filed: 10/10/24 19:05> Patient Language: Romansh <Jamie Maier MD - Last Filed: 10/10/24 19:05> Prescriptions: New acetaminophen 500 mg tablet 1,000 mg PO TID PRN (Reason: crystal) 7 Days Qty: 42 0RF lidocaine 5 % adhesive patch,medicated 1 patch topical DAILY Qty: 15 0RF Rx Instructions: leave on most painful area for up to 12 hrs No Action diazepam 2 mg tablet 2 mg PO PRN PRN (Reason: Dizziness) Rx Instructions: for dizziness and nausea (Meniere's disease) magnesium 250 mg tablet 500 mg PO TID metoprolol succinate 50 mg tablet extended release 24 hr 50 mg PO QAM fluticasone propionate [Flonase Allergy Relief] 50 mcg/actuation spray,suspension 2 spray intranasal DAILY PRN (Reason: Allergic Symptoms) Rx Instructions: administer into each nostril Mounjaro 5 mg/0.5 mL pen injector 5 mg subcut WEEKLY Qty: 2 5RF Patient Comments: MONDAYS clopidogrel 75 mg tablet 75 mg PO DAILY quetiapine 25 mg tablet 50 mg PO HS Qty: 180 3RF insulin glargine [Lantus U-100 Insulin] 100 unit/mL solution 6 unit subcut DAILY Qty: 30 5RF Patient Comments: TAKES AT HS Xifaxan 550 mg tablet 550 mg PO TID Qty: 42 1RF cholecalciferol (vitamin D3) [Vitamin D3] 25 mcg (1,000 unit) Capsule 25 mcg PO DAILY aspirin 81 mg Tablet 81 mg PO DAILY Rx Instructions: TAKES AT HS riboflavin (vitamin B2) 400 mg Tablet 400 mg PO TID silver sulfadiazine [Silvadene] 1 % Cream 1 applic TOPICAL DAILY Patient Comments: APPLY 5TH TOE RT FOOT Rx Instructions: apply a 1.5 mm thickness (DME) blood sugar diagnostic Strip See Rx Instructions .Route Rx Instructions: As directed clobetasol 0.05 % ointment 1 applic topical QHS 84 Days Qty: 60 1RF Rx Instructions: PERINEUM metformin 500 mg tablet extended release 24 hr See Rx Instructions .ROUTE .COMPLEX Qty: 120 5RF Dose Instruction: TAKE 3 TABLETS BY MOUTH EVERY MORNING AND 1 TABLET BY MOUTH EVERY NIGHT AT BEDTIME Rx Instructions: TAKE 3 TABLETS BY MOUTH EVERY MORNING AND 1 TABLET BY MOUTH EVERY NIGHT AT BEDTIME (DME) insulin syringe-needle U-100 [BD Insulin Syringe Ultra-Fine] 1 mL 31 gauge x 5/16 syringe See Rx Instructions .Route Qty: 100 3RF Rx Instructions: use twice daily to inject insulin enalapril maleate 20 mg tablet 20 mg PO QAM Qty: 90 3RF atorvastatin 80 mg tablet 80 mg PO DAILY Qty: 90 2RF venlafaxine 150 mg capsule,extended release 24hr 300 mg PO DAILY Qty: 180 2RF Patient Comments: QAM Betahistine 8 mg PO TID Qty: 90 3RF Patient Comments: compound pharmacy levothyroxine 75 mcg tablet 75 mcg PO QAM Qty: 90 1RF pregabalin 75 mg capsule 75 mg PO BID Qty: 60 2RF Jardiance 25 mg tablet 25 mg PO QAM Qty: 90 1RF Kerendia 10 mg tablet 10 mg PO QAM Qty: 90 1RF (DME) FreeStyle Desi 2 [place] Misc See Rx Instructions .Route Qty: 1 0RF Rx Instructions: As directed (DME) FreeStyle Desi 2 Plus Sensor Device See Rx Instructions .Route Qty: 4 4RF Rx Instructions: Change every 14 days doxycycline monohydrate 100 mg capsule 100 mg PO DAILY Qty: 20 0RF <Jamie Maier MD - Last Filed: 10/10/24 19:05> Follow-up/Referrals: Wilfredo Pinto MD [Primary Care Provider] - <Jamie Maier MD - Last Filed: 10/10/24 19:05> Time of Disposition: 19:29 <Jamie Maier MD - Last Filed: 10/10/24 19:05> 19:29 <Oma Regalado MD - Last Filed: 10/10/24 19:47>
[2024-10-10 18:41] VITALS: BP 130/102; PULSE 75; RESP 18; O2SAT 98
[2024-10-10 19:39] VITALS: BP 149/53; PULSE 74; RESP 16; TEMP 36.6; O2SAT 99
== END 2024-10-10 19:46 | disposition home or self-care (01) ==
PROVIDERS: Emergency Medicine; Emergency Provider Student in an Organized Health Care Education/Training Program; PCP Family Medicine Adolescent Medicine
DX: S20.221A Contusion of right back wall of thorax, initial encounter (principal); S49.91XA Unspecified injury of right shoulder and upper arm, initial encounter; I10 Essential (primary) hypertension; E11.40 Type 2 diabetes mellitus with diabetic neuropathy, unspecified; G47.33 Obstructive sleep apnea (adult) (pediatric); H81.02 Meniere's disease, left ear; M17.0 Bilateral primary osteoarthritis of knee; M19.011 Primary osteoarthritis, right shoulder; F90.9 Attention-deficit hyperactivity disorder, unspecified type; F41.9 Anxiety disorder, unspecified; Z95.2 Presence of prosthetic heart valve; Z85.3 Personal history of malignant neoplasm of breast; Z86.2 Personal history of diseases of the blood and blood-forming organs and certain disorders involving the immune mechanism; Z86.0101 Personal history of adenomatous and serrated colon polyps; Z87.891 Personal history of nicotine dependence; Z90.49 Acquired absence of other specified parts of digestive tract; Z90.12 Acquired absence of left breast and nipple; Z98.49 Cataract extraction status, unspecified eye; Z79.02 Long term (current) use of antithrombotics/antiplatelets; Z79.85 Long-term (current) use of injectable non-insulin antidiabetic drugs; Z79.4 Long term (current) use of insulin; Z79.82 Long term (current) use of aspirin; Z79.84 Long term (current) use of oral hypoglycemic drugs; Z79.899 Other long term (current) drug therapy; I44.0 Atrioventricular block, first degree; R00.8 Other abnormalities of heart beat; I45.9 Conduction disorder, unspecified; R94.31 Abnormal electrocardiogram [ECG] [EKG]; W18.39XA Other fall on same level, initial encounter
CPT/HCPCS: 36415; 70450; 71045; 71250; 73030; 80053; 83690; 84484; 85025; 85610; 85730; 93005; 99284

== ENCOUNTER 2025-01-24 08:04 | Outpatient (CLI) | payer MEDICARE, OTHER, SELFPAY ==
--- NOTE | ~2025-01-24 | DEXA_ITS ---
Bone Density Report Name: JUAN PABLO POOL Age: 74 Sex: Female Ethnicity: White Date of : 1950 Indication: osteopenia; inflammatory bowel disease; cancer; Referring Provider: CHASE PIPER Study: Bone densitometry was performed. Exam Date: January 24, 2025 Accession number: [id number] Bone Density: Region BMD T-score Z-score Classification AP Spine(L1-L4) 1.068 0.2 2.6 Normal Femoral Neck (Left) 0.516 -3.0 -0.9 Osteoporosis Total Hip (Left) 0.701 -2.0 -0.2 Osteopenia Femoral Neck (Right) 0.542 -2.8 -0.7 Osteoporosis Total Hip (Right) 0.737 -1.7 0.1 Osteopenia Total Hip Mean 0.719 -1.9 -0.1 Osteopenia World Health Organization criteria for BMD impression classify patients as: Normal (T-score at or above -1.0), Osteopenia (T-score between -1.0 and -2.5), or Osteoporosis (T-score at or below -2.5). 10-year Fracture Risk: FRAX not reported because: Some T-score for Spine Total or Hip Total or Femoral Neck at or below -2.5 Previous Exams: -- Region Exam Age BMD T-score BMD Change BMD Change Date g/cm2 vs Baseline vs Previous -- AP Spine (L1-L4) 01/24/2025 74 1.068 0.2 -0.1% -0.1% 01/30/2019 68 1.069 0.2 Total Hip(Left) 01/24/2025 74 0.701 -2.0 -11.0%* -11.0%* 01/30/2019 68 0.788 -1.3 Total Hip(Right) 01/24/2025 74 0.737 -1.7 -12.8%* -12.8%* 01/30/2019 68 0.845 -0.8 -- *Denotes significance at 95% confidence level, LSC for AP Spine = 0.022 g/cm2, LSC for Total Hip = 0.027 g/cm2 Clinical Information Provided by Patient: Has used the following medications: Vitamin D Has the following medical conditions: Cancer, Inflammatory bowel diseases Patient maximum height was 64 Menopause Age: 54 No regular weight bearing exercise Does not regularly consume dairy products Drinks caffeinated beverages Onset of menses at age 12 Number of children 2 Impression: The patient has osteoporosis, based on the Left Femoral Neck T-score. The BMD for the Total Hip(Left) decreased, changing by -11.0% since the last DXA exam. The BMD for the Total Hip(Right) decreased, changing by -12.8% since the last DXA exam. Discussion: INCREASED RISK OF FRACTURE. BONE DENSITY IS UNDESIRABLY LOW AT ONE OR MORE SKELETAL SITES, CONSISTENT WITH POSTMENOPAUSAL OSTEOPOROSIS. This patient's lowest T-score meets the World Health Organization's (WHO) criteria for osteoporosis at one or more sites (T-score -2.5 or below). In untreated patients, the risk of osteoporotic fracture increases approximately two-fold for each 1.0 SD decrease in T-score. Low bone density is not the only risk factor for fracture; also consider factors such as patient's age, frailty or poor health, risk of falling, risk of injury, previous osteoporotic fracture, family history of osteoporosis, cigarette smoking, low body weight, etc. Not everyone with low bone mineral density has osteoporosis; osteomalacia and other metabolic bone disorders should also be considered. Patients who have osteoporosis should be evaluated for specific diseases and conditions (secondary causes) that may cause or contribute to bone loss. The [place] [employer] (AACE) and National Osteoporosis Foundation (NOF) recommend pharmacologic intervention for all postmenopausal women whose T-score is in this range. The patient should follow a healthful lifestyle (good nutrition with adequate calcium and vitamin D, and appropriate weight-bearing exercise). Follow-Up: Consider a repeat BMD and Vertebral Fracture Assessment (VFA) exam in 2 years or sooner if medically necessary, to reassess this patient's status. Reported by: LAUREL on 01/24/2025 8:56:00 AM. Reviewed, dictated and finalized at location A.
--- NOTE | ~2025-01-24 | MMUS_ITS ---
EXAMINATION: MM diagnostic eduardo BI w lo, US breast LT limited HISTORY: Left breast lump TECHNIQUE: 3-D tomosynthesis images of the breasts were performed and synthetic 2-D images were gener ated. CAD analysis was submitted and interpreted. High resolution limited left breast ultrasound was performed. COMPARISON: 11/21/2023, 09/02/2022, 04/05/2021 BREAST PARENCHYMAL COMPOSITION:Not Dense. There are scattered areas of fibroglandular density. FINDINGS: MAMMOGRAPHIC FINDINGS: Parenchymal pattern of both breasts is unchanged from prior exam. There is stable postoperative disto rtion with coarse dystrophic calcifications at the upper, outer left breast. Extensive vascular other benign calcifications in the right breast are unchanged. No suspicious abnormality seen. ULTRASOUND: Sonographic imaging of the area of concern demonstrates a coarse area of shadowing which is probably related to the coarse calcifications present in this region. No definite suspicious mass or distortio n seen. IMPRESSION: No suspicious abnormality identified. Shadowing lesion at the area of concern sonographically is pro bably related to the coarse calcification/fat necrosis present in this region mammographically. BI-RADS Category 2: Benign finding(s). Reviewed, dictated and finalized at location . IMPRESSION: No suspicious abnormality identified. Shadowing lesion at the area of concern sonographically is probably related to the coarse calcification/fat necrosis pr esent in this region mammographically. BI-RADS Category 2: Benign finding(s).
== END 2025-01-24 08:05 | disposition home or self-care (01) ==
LOC: MICIMG 08:07
PROVIDERS: PCP Family Medicine Adolescent Medicine; Visit Provider Nurse Practitioner Family
DX: M81.0 Age-related osteoporosis without current pathological fracture (principal); N63.23 Unspecified lump in the left breast, lower outer quadrant; Z86.000 Personal history of in-situ neoplasm of breast
CPT/HCPCS: 76642; 77062; 77066; 77080; G0279

== ENCOUNTER 2025-02-11 11:12 | Outpatient (CLI) | payer MEDICARE, OTHER, SELFPAY ==
--- NOTE | ~2025-02-11 | MR_ITS ---
MRI of the lumbar spine Clinical History: Left foot drop Technique: Axial T2-weighted images, and sagittal T1-weighted, T2-weighted, and T2 fat-sat images wer e acquired. Findings: No fracture identified. There is 4 mm anterolisthesis of L4 over L5. No bone marrow signal abnormality seen. At L1-L2 and L2-L3, there is no disc bulge or herniation. There is mild facet joint hypertrophy. No s lang canal stenosis or neural foraminal narrowing at these levels. L3-L4, there is minimal disc bulge with advanced facet arthropathy. No central canal stenosis. There is minimal right neural foraminal narrowing. Left neural foramen preserved. At L4-L5, there is disc bulge/uncovering with severe facet arthropathy, which result in severe spinal canal stenosis/thecal sac compression. There is moderate bilateral neural foraminal narrowing. At L5-S1, there is disc bulge with severe facet arthropathy. No central canal stenosis. There is mild to moderate bilateral neural foraminal narrowing. Paravertebral soft tissues are unremarkable. Impression: Severe degenerative spondylosis at L4-L5, as detailed above, with associated 4 mm anterolisthesis of this level. Mild degenerative change at the remainder of the lumbar spine. Reviewed, dictated and finalized at [facility]. Impression: Severe degenerative spondylosis at L4-L5, as detailed above, with associated 4 mm anterolisthesis of this level. Mild degenerative change at the remainder of the lumbar spine.
== END 2025-02-11 11:13 | disposition home or self-care (01) ==
LOC: MICIMG 11:13
PROVIDERS: PCP Nurse Practitioner Family; Visit Provider Family Medicine Adolescent Medicine
DX: M21.372 Foot drop, left foot (principal); M47.896 Other spondylosis, lumbar region; M51.369 Other intervertebral disc degeneration, lumbar region without mention of lumbar back pain or lower extremity pain
CPT/HCPCS: 72148

== ENCOUNTER 2025-06-16 10:54 | Outpatient (CLI) | payer MEDICARE, OTHER, SELFPAY ==
--- NOTE | ~2025-06-16 | XR_ITS ---
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 Technique: 2 views obtained. Findings: The lungs are clear, no effusion. No pneumothorax. Heart is normal size. Mediastinal and hilar contours are within normal limits. Bony thorax no acute abnormality. Impression: No acute cardiopulmonary abnormality. Reviewed, dictated and finalized at location P. ACE INSTALLER Impression: No acute cardiopulmonary abnormality.
--- OUTSIDE RECORDS SUMMARY | 2025-06-16 08:00 | XMS_ITS | Encounter Summary ---
Author Organization [facility] Healthcare Address [address] [place] [address] Care Team Providers Care Control Clerk Food And Beverage Name Role Phone Wilfredo Pinto MD Primary Care Prov ider Jesus Alberto Martinez MD Unavailable [phone] Reason for Referral * Cardiology (Routine) - Closed Specialty Diagnoses / Procedures Referred By Fermín caro Referred To Contact Diagnoses Syncope and collapse Procedures [facility] Mobile Cardiac Telemetry Event Monitor Monica Armstrong MD [address] [place] [id number] Phone: tel: fax: [facility] Cardiology [address] [place] [phone] Phone: tel: fax: Referral ID Status Reason Start Date Expiration Date Visits Re quested Visits Authorized [id number] Closed 06/16/2025 07/16/2026 1 1 IALIST WOUND CARE Reason for Visit * Reason Comments Follow-up 6 mo f/u PVC's Pre-op Exam Drop foot surgery at on 07/02/25 Encounter Details Date Type Department Care Team (Latest Contact Info) Description 06/16/2025 8:00 AM SPECIALIST WOUND CARE Office Visit [facility] Cardiology [address] [facility] [address] [place] [address] Monica Armstrong MD [address] [facility] [address] [id number] S/p TAVR (transcatheter aortic valve replacement), bioprosthetic (Primary Dx); Hyperlipidemia associated with type 2 diabetes mellitus (HCC); Essential hypertension; PVC's (premature ventricular contractions); Coronary artery calcification seen on CAT scan; Syncope and collapse Social History Tobacco Use Types Packs/Day Years Used Date Smoking Tobacco: Former Cigarettes Smokeless Tobacco: Never Alcohol Use Standard Drinks/Week Comments Yes 0 (1 standard drink = 0.6 oz pur e alcohol) [facility] Util[facility] Answer Date Recorded In the past 12 months has e electric, gas, oil, or water [employer] ([employer]) threatened to shut off services in your home? No 09/25/2024 Social Connection and Isolation Panel Answer Date Recorded In a typical week, how many times do you talk on the phone with family, friends, or neighbors? More than three times a week 09/25/2024 How often do you get togethe r with friends or relatives? Once a week 09/25/2024 How often do you attend [facility] or spiritism services? More than 4 times per year 09/25/2024 Do you belong to any clubs o r organizations such as restorationism groups, unions, fraternal or athletic groups, or [...] any time in the past 12 m [facility], were you homeless or living in a [facility] (including now)? No 09/25/2024 Personal Safety Answer Date Recorded Have you ever been in or are you currently in a harmful physical or emotional relationship or is someone making you feel afraid or unsafe? Denies 09/24/2024 Comments No Sex and Gender Information Value Date Recorded Sex Assigned at Not on file Legal Sex Female 5:31 PM SPECIALIST WOUND CARE Gender Identity Female 01/06/2021 6:49 AM CDT Sexual Orientation Straight 01/06/2021 6: 49 AM CDT documented as of this encounter Last Filed Vital Signs Vital Sign Reading Time Taken Comments Blood Pressure 138/66 06/16/2025 8:01 AM SPECIALIST WOUND CARE Pulse 62 06/16/2025 8:01 AM SPECIALIST WOUND CARE Temperature - - Respiratory Rate - - Oxygen Saturation 99% 06/16/2025 8:01 AM SPECIALIST WOUND CARE Inhaled Oxygen Concentration - - Weight 66 kg (145 lb 9.6 oz) 06/16/2025 8:01 AM SPECIALIST WOUND CARE Height 162.6 cm (5' 4) 06/16/2025 8:01 AM SPECIALIST WOUND CARE Body Mass Index 24.99 06/16/2025 8:01 AM SPECIALIST WOUND CARE documented in this encounter Functional Status * BP Location Answer Date of Assessment Author Left arm 06/16/2025 8:01 AM Milagro Hagen MA * BP Location Answer Date of Assessment Author Left arm 06/16/2025 8:01 AM Milagro Hagen MA documented as of this encounter Progress Notes * ArmstrongMonica neal Armand Jj MD - 06/16/2025 8:00 AM CST [facility] Cardiology [facility] DATE OF VISIT: 06/16/2025 DATE: 1950 CHIEF COMPLAINT Chief Complaint Patient presents with Follow-up 6 mo f/u PVC's Pre-op Exam Drop foot surgery at on 07/02/25 HPI Aurea De La Rosa is a 74 y.o. female Miya is a patient with frequent PVCs, coronary artery calcification, mild aortic stenosis, atherosclerosis of the aortoiliac system by CT scanning, mild carotid plaquing, ADHD (Dr. Garcia). A CT at apparently showed an old stroke as an incidental finding, no sx. H/o DM (Dr. Glez) and HTN. 01/13/2021 Initial Office Consultation with Pedro: Consulted for extra heartbeats and a heart murmur. A CT at apparently showed an old stroke as an incidental finding, no sx. Recommended an echo, 24 hour Holter and eventual carotid ultrasound. 05/18/[address] Vasquez: I'm fine, I really miss my Adderal, I'm going in circles but I'll get used to it. Prescribing MD DR. Garcia felt there was no alternative that wouldn't affect HR. Pt very distractable. No chest pain, TOMPKINS, dizziness, palpitations, or edema. Not sleeping well as havign trouble tolerating CPAP, getting a new one. Will see Dr. Brown today. Lots of stressat home. 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 Pt unable to exercise much 2nd caring for him and healing stress fx of foot. Unahppy about 11# weight gain; eating convenience foods now. Increase metoprolol to 50 mg b. i.d. for hypertension and PVCs. 04/11/2022 OV with KENDRICK Ovalle: She returns overdue for routine follow-up. She expresses concern about being off Adderall stating ???my life is a mess?? and uses the analogy again of her thought process like ping-pong balls, difficulty focusing, forgetful. She wants to go back on Adderall. She hasstopped aspirin because she heard something in the news about side effects of aspirin. She denies palpitations. Consider restarting Adderall for patient's quality of life. Restart aspirin, check echo. 12/28/[address] Vasquez: Restarted Adderall in March 2022, Holter monitor andecho as below. Quit Adderall after Holter showed freq PVCs, Dr. Garcia thought she shouldn't take it unless I say itis OK. No palps, palpitations, CP. Dizzy if she stands quickly, has Menuire's dz. BP has been up and down. DM also erratic. Busy working in her [employer] garden. 01/15/2024-former patient of Dr. Vasquez. Past history of aortic stenosis, coronary calcification,ADHD, diabetes, hypertension, incidental finding of stroke on CT head imaging. Recently had an echocardiogram that shows severe aortic stenosis with valve area 0.8 cm2 and mean gradient 29. Denies chest pain, shortness of breath, syncope. Denies lower extremity edema, palpitations. She lost 12 lb compared to last visit by taking Mounjaro. 09/02/2024-returns for follow-up appointment. She reports an episode of syncope.. She stated that she was walking out of [employer] school and then she felt foggy and then found herself on thefloor and people on top of her. She hit the back of the head to the ground and she also somewhat injured her both knees. She stated that since that fall she has some swelling in both legs. She reports 3-4 episodes of feeling foggy in the last 1 month. She is on Mounjaro and has lost around 23 lb inthe last 6 months. Denies palpitations, shortness of breath, chest pain. 12/02/2024-returns for follow-up appointment. Had her TAVR done October 08, 2024. Last visit she saw our nurse practitioner sai ovalle and apparently patient was orthostatic and she was taken off enalapril. She continues to take Kerendia and metoprolol. She continues to feel dizzy on standing upfrom sitting position. She has attention deficit disorder and sometimes she forgets to take her time when she changes position. Denies lower extremity edema, palpitations, recent syncope. Lost 9 lb compared to last visit due to lack of appetite. 06/16/2025-Returns for follow-up appointment. She passed out beginning of April 2025. She stated that she stood up and walked for some time before suddenly felt a loud feeling and then passed out. Since then metoprolol was discontinued by the PCP due to low blood pressure and Kerendia was lowered by me to 5 mg daily from 10 mg daily. She did not have that cloud feeling since that time. However she reported that couple weeks ago she suddenly fell down in the kitchen. She stated that she did notpass out but she did not know how she fell. She does have Meniere's disease with vertigo as well. Denies lower extremity edema, chest pain, shortness of breath. States that blood pressure at home systolic runs 120s. Social: MEDICAL HISTORY Past Medical History: Diagnosis Date Abnormal ECG ADHD (attention deficit hyperactivity disorder) Anemia BPV (benign positional vertigo), left Breast cancer (HCC) 2017 left; surgery and radiation tx Cataract Chronic diarrhea Diabetes Diverticulosis Dysphagia Gastrointestinal problem GERD (gastroesophageal reflux disease) Hyperlipidemia Hypertension Infection Osteomyelitis / cellulitis 2020 - left toes Miscarriage Mixed conductive and sensorineural hearing loss Meniere???s Disease Motion sickness Nonrheumatic aortic (valve) stenosis PVC (premature ventricular contraction) Sleep apnea Stroke (HCC) August 2020 Thyroid nodule Type 2 diabetes mellitus Social History Tobacco Use Smoking status: Former Types: Cigarettes Smokeless tobacco: Never Substance and Sexual Activity Drug use: Yes Types: Alcohol Comment: socially Sexual activity: Never Alcohol Use: Not At Risk (09/24/2024) AUDIT-C Frequency of Alcohol Consumption: Monthly or less Average Number of Drinks: 1 or 2 Frequency of Binge Drinking: Never Family History Problem Relation Age of Onset Hypertension Mother Dementia Mother Alzheimer's disease Mother COPD Mother Hearing loss Mother Diabetes Father Cancer Father Diabetes Sister Hypertension Maternal Grandmother Heart attack Maternal Grandmother of multiple heart attacks. Hypertension Paternal Grandfather Cancer Paternal Grandfather Heart attack Maternal Grandfather Cancer Paternal Grandmother Allergy (severe) Brother Hearing loss Brother Diabetes Brother Cancer Father's Sister Cancer Father's Brother Cancer Father's Brother Heart attack Father's Brother Cancer Father's Brother Cancer Father's Brother Cancer Father's Sister Heart attack Father's Brother MEDICATIONS Current Outpatient Medications: amoxicillin (AMOXIL) 500 mg tablet/capsule, Take 4 caps (2000 mg) 1 hour prior to procedure., Disp:4 tablet/capsule, Rfl: 0 aspirin 81 mg enteric coated tablet, Take 1 tablet (81 mg total) by mouth daily, Disp: 30 tablet, Rfl: 11 atorvastatin (LIPITOR) 80 mg tablet, Take 1 tablet (80 mg total) by mouth nightly (Patient taking differently: Take 0.5 tablets (40 mg total) by mouth nightly), Disp: 90 tablet, Rfl: 3 betahistine, Take 1 capsule (8 mg total) by mouth 3 (three) times a day, Disp: 90 capsule, Rfl: 11 cholecalciferol (VITAMIN D-3) 25 mcg (1,000 unit) tablet, Take 1 tablet (1,000 Units total) by mouth nightly, Disp: , Rfl: diazePAM (VALIUM) 2 mg tablet, Take 1 tablet (2 mg total) by mouth every 8 (eight) hours as needed (dizziness), Disp: 30 tablet, Rfl: 3 doxycycline (doxycycline hyclate) 100 mg capsule, Take 1 tablet/capsule (100 mg total) by mouth daily, Disp: , Rfl: fluticasone propionate (FLONASE ALLERGY RELIEF NASL), Administer 2 sprays into each nostril daily as needed, Disp: , Rfl: insulin syringe-needle U-100 1 mL 31 gauge x 5/16 syringe, , Disp: , Rfl: Jardiance 25 mg tablet, Take 1 tablet (25 mg total) by mouth every morning, Disp: , Rfl: Kerendia 10 mg tablet, Take 1 tablet by mouth every morning, Disp: , Rfl: LANTUS U-100 INSULIN 100 unit/mL injection, Inject 2 Units under the skin nightly, Disp: , Rfl: 2 levothyroxine (SYNTHROID) 75 mcg tablet, Take 1 tablet (75 mcg total) by mouth early childhood educator aide beforebreakfast, Disp: , Rfl: magnesium oxide 400 mg magnesium capsule, Take 2 tablet/capsule by mouth nightly, Disp: , Rfl: metFORMIN XR (GLUCOPHAGE XR) 500 mg 24 hr tablet, Take by mouth as directed Take 1500 mg in the morning and 500 mg at night, Disp: , Rfl: 5 Mounjaro 5 mg/0.5 mL pen injector, Inject 0.5 mL (5 mg total) under the skin once a week Take on Mondays, Disp: , Rfl: ondansetron ODT (ZOFRAN-ODT) 8 mg disintegrating tablet, Take 1 tablet (8 mg total) by mouth every 8 (eight) hours as needed for nausea or vomiting, Disp: 20 tablet, Rfl: 1 pen needle, diabetic (BD Ultra-Fine Short Pen Needle) 31 gauge x 5/16 needle, , Disp: , Rfl: pregabalin (LYRICA) 75 mg capsule, Take 1 capsule (75 mg total) by mouth 2 (two) times a day, Disp:, Rfl: QUEtiapine (SEROquel) 25 mg tablet, Take 2 tablets (50 mg total) by mouth nightly, Disp: , Rfl: riboflavin (Vitamin B-2) 100 mg tablet, Take 2 tablets (200 mg total) by mouth 2 (two) times a day,Disp: , Rfl: venlafaxine XR (EFFEXOR-XR) 150 mg 24 hr capsule, Take 2 capsules (300 mg total) by mouth every morning, Disp: , Rfl: 2 metoprolol XL (TOPROL-XL) 50 mg extended release tablet, TAKE 1 TABLET(50 MG) BY MOUTH DAILY (Patient not taking: Reported on 06/16/2025), Disp: 90 tablet, Rfl: 3 ALLERGIES Allergies Allergen Reactions Morphine Vomiting REVIEW OF SYSTEMS Review of Systems Constitutional: Positive for decreased appetite, malaise/fatigue and weight loss. HENT: Negative for congestion. Eyes: Negative for visual disturbance. Cardiovascular: Positive for near-syncope and syncope. Negative for chest pain, dyspnea on exertionand leg swelling. Respiratory: Negative for shortness of breath. Hematologic/Lymphatic: Negative for bleeding problem. Musculoskeletal: Positive for joint pain. Gastrointestinal: Negative for abdominal pain and diarrhea (sensitive to some meds). Genitourinary: Negative for hematuria. Neurological: Positive for numbness (Peripheral neuropatthy) and paresthesias. Negative for dizziness. Psychiatric/Behavioral: Negative for depression. PHYSICAL EXAM Blood pressure 138/66, pulse 62, height 162.6 cm (5' 4), weight 66 kg (145 lb 9.6 oz), SpO2 99%. Body mass index is 24.99 kg/m??. Physical Exam Constitutional: Appearance: Normal appearance. She is well-developed. Comments: Brightly dressed, tanned and healthy appearing female, pleasant and smiling, NAd Neck: Thyroid: No thyromegaly. Vascular: No carotid bruit. Cardiovascular: Rate and Rhythm: Normal rate. Extrasystoles are present. Heart sounds: No murmur (3/6 harsh BOGDAN USB) heard. Comments: No murmur after TAVR Pulmonary: Effort: Pulmonary effort is normal. No respiratory distress. Breath sounds: Normal breath sounds. Abdominal: General: There is no distension. Palpations: Abdomen is soft. Musculoskeletal: General: No swelling. Skin: General: Skin is warm and dry. Neurological: Mental Status: She is alert and oriented to person, place, and time. Psychiatric: Mood and Affect: Mood normal. LABS AND OTHER DIAGNOSTIC TESTS Lab Results Component Value Date WBC 6.5 09/25/2024 HGB 10.5 (L) 09/25/2024 HCT 32.8 (L) 09/25/2024 MCV 94.3 09/25/2024 Chemistry Component Value Date/Time SODIUM 149 (H) 09/16/2024 1043 SODIUM 140 01/19/2024 1116 POTASSIUM 3.9 09/16/2024 1043 CHLORIDE 109 09/16/2024 1043 CHLORIDE 102 01/19/2024 1116 CO2 26 09/16/2024 1043 CO2 25 01/19/2024 1116 BUNSER 11 09/16/2024 1043 BUNSER 13 01/19/2024 1116 CREATININE 0.52 (L) 09/16/2024 1043 CREATININE 0.65 01/19/2024 1116 GLUCOSE 153 09/24/2024 1747 GLUCOSE 160 09/16/2024 1043 GLUCOSE 153 (H) 01/19/2024 1116 Component Value Date/Time CALCIUM 9.5 09/16/2024 1043 CALCIUM 9.5 01/19/2024 1116 ALKPHOS 97 09/16/2024 1043 AST 18 09/16/2024 1043 ALT 9 09/16/2024 1043 BILITOT 0.3 09/16/2024 1043 Lab Results Component Value Date CHOL 86 03/05/2020 Lab Results Component Value Date GLUCOSE 153 09/24/2024 CALCIUM 9.5 09/16/2024 SODIUM 149 (H) 09/16/2024 POTASSIUM 3.9 09/16/2024 CO2 26 09/16/2024 CHLORIDE 109 09/16/2024 BUNSER 11 09/16/2024 CREATININE 0.52 (L) 09/16/2024 Lab Results Component Value Date HDL 30 (L) 03/05/2020 No results found for: LDL] Lab Results Component Value Date LDLCALC 37 03/05/2020 Lab Results Component Value Date TRIG 94 03/05/2020 Lab Results Component Value Date CHOLHDL 3 03/05/2020 Lab Results Component Value Date INR 1.05 09/25/2024 INR 1.02 09/16/2024 INR 1.2 03/04/202009/2019 glucose 141, creatinine 0.6, cholesterol 124, TG 147, HDL 37, LDL 50, A1c 9.1 10/25/2020 hematocrit 30, creatinine 0.6, glucose 118 05/18/2021 Total chol 107, HDL 35, TRG 117, LDL 73 taking atorva 40n mg daily. Cardiac testin01/13/2021 Holter: Average heart rate 83 (range 79-112) 9% PVC burden, Taking 60 mg Adderall daily. 02/2021 Sandra: EF 62%, normal perfusion 11/04/2022 Holter: Average heart rate 89, 7.5% PVC burden, 1 triplet. Taking Adderall 30 mg daily.. Echo: 02/2020 Echo: EF 65-70%, diastolic dysfunction, mild , mean grad 14 mmHg, DIAMANTE 1.6 cm2, severely calcified mitral valve annulus 01/2021 echo: EF 68%, mild MR, mild , mean grad 20 mmHg, DIAMANTE 1.3 cm2 12/02/2022 Echo: EF 53%, strain -10%, mod LVH, diast dysfxn, mild MR, mod , peak topher 3 m/sec, meangrad 22 mmHg, DIAMANTE 1.0 cm2. Echo December 25, 2023 ejection fraction 55%, severe LVH, mild left atrial enlargement, moderate mitralannular calcification, mild mitral regurgitation, severe aortic stenosis with a mean gradient 29 and valve area 0.8 cm2. Severely calcified aortic valve leaflets. Other testin02/2020 CT of the abdomen: Coronary artery calcification, atherosclerotic changes of the aortoiliacsystem 04/2021 C. US: Mild disease IJEOMA, minimal plaque L ICA ASSESSMENT Diagnoses and all orders for this visit: S/p TAVR (transcatheter aortic valve replacement), bioprosthetic (Primary) Hyperlipidemia associated with type 2 diabetes mellitus (HCC) Essential hypertension PVC's (premature ventricular contractions) Coronary artery calcification seen on CAT scan Syncope and collapse - [facility] Mobile Cardiac Telemetry Event Monitor; Future PLAN/RECOMMENDATIONS PVCs: Asymptomatic PVCs but frequent, last monitor 2022 burden 7.5%. Today on exam I do not hear any extra beats.-metoprolol was discontinued by PCP due to low blood pressure. -In regards to syncope, arrange for 30 day event monitor to rule out AV blocks. 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 Coronary artery calcification: Cardiac catheterization done January 2024 did not show significant CAD. -- Continue atorvastatin 40 mg daily. This was lower down from 80 mg daily. . Continue aspirin. HTN: Enalapril and metoprolol were discontinued due to low blood pressure. Currently she is taking Kerendia at 5 mg daily. Blood pressure at home as she states 120s. Blood pressure today 138 over 66.We will allow higher blood pressure to avoid syncope. Continue current kerendia Aortic stenosis: Status post TAVR September 2024. Echo post TAVR showed normally functioning bioprosthetic aortic valve. Continue aspirin. In regards to LVH, on review of echocardiogram shows apical sparing pattern. Consider amyloidosis History of stroke: Apparently found as an incidental finding --continue atorvastatin. -- Continue aspirin.n. PAD: No claudication but did have decreased pulses and history of toe osteomyelitis. --aspirin, statin. Aortic atherosclerosis: No sx. Hyperlipidemia: Lipid panel done today J September 02, 2024 LDL 35, HDL 34 and triglycerides 138. Atorvastatin was reduced from 80-40 mg at that time. Continue atorvastatin 40 mg daily. ADHD: Patient finds Adderall very effective, but may be aggravating her arrhythmia, so has been discontinued. She has frequent PVCs, , atherosclerosis and some structural heart disease with aortic stenosis.. Reviewed the spectrum of risk. Although with normal left ventricular function her risk of amalignant and life-threatening arrhythmias is low, it is not 0 and is more than average. I recommend she avoid Adderall. Caffeine in moderation appears to be safe. JESUS DM currently on Mounjaro and lost 23 lb last visit and this visit lost additional 9 lb. Follow-up six months Monica Armstrong MD Portions of the record may have been created with voice recognition [employer] Software.Gastroenterology Teacher variances may occur. Despite proofreading, typographical errors may occur. Occasionalwrong-word or '[id number]' substitutions may have occurred due to the inherent limitations of voice recognition software. Read the chart carefully and recognize, using context, where substitutions have occurred. IALIST WOUND CARE IALIST WOUND CARE documented in this encounter Plan of Treatment Pending Results Name Type Priority Associated Diagnoses Date /Time [facility] Mobile Cardiac Telemetry Event Monitor Cardiac Services Routine Syncope and collapse 06/16/2025 8:27 AM SPECIALIST WOUND CARE Scheduled Orders Name Type Priority Associated Diagnoses Orde r Schedule [facility] Mobile Cardiac Telemetry Event Monitor Cardiac Services Routine Syncope and collapse Expected: 06/16/2025, Expires: 06/16/2026 documented as of this encounter Visit Diagnoses Diagnosis S/p TAVR (transcatheter aortic valve replacement), bioprosthetic- Primary Hyperlipidemia associated with type 2 diabetes mellitus (HCC) Essential hypertension Unspecified essential hypertension PVC's (premature ventricular contractions) Other premature beats Coronary artery calcification seen on CAT scan Syncope and collapse documented in this encounter Discontinued Medications Medication Sig Discontinue Reason Start Date End Da te clopidogreL (PLAVIX) 75 mg tablet Take 1 tablet (75 mg total) by mouth daily 04/29/2025 06/16/2025 documented as of this encounter Care Teams Control Clerk Food And Beverage Relationship Specialty Start Date End Date Wilfredo Pinto MD PCP - General Family Medicine 01/04/18 Jesus Alberto Martinez MD [address] [phone] [place] [id number] Surgeon Colon and Rectal Surgery 09/21/20 documented as of this encounter
--- OUTSIDE RECORDS SUMMARY | 2025-06-16 09:45 | XMS_ITS | Encounter Summary ---
Author Organization [facility] Healthcare Address [address] [place] [address] Care Team Providers Care Front Sight Attacher Name Role Phone Wilfredo Pinto MD Primary Care Prov ider Jesus Alberto Martinez MD Unavailable [phone] Reason for Visit * Cardiology (Routine) - Closed Specialty Diagnoses / Procedures Referred By Fermín t Referred To Contact Diagnoses Syncope and collapse Procedures [facility] Mobile Cardiac Telemetry Event Monitor Monica Armstrong MD [address] [address] Phone: tel: fax: [facility] Cardiology [address] [place] [phone] Phone: tel: fax: Referral ID Status Reason Start Date Expiration Date Visits Re quested Visits Authorized [id number] Closed 06/16/2025 07/16/2026 1 1 Encounter Details Date Type Department Care Team (Latest Contact Info) Description 06/16/2025 9:45 AM EARLY CHILDHOOD EDUCATION INSTRUCTOR Ancillary Procedure [facility] Cardiology [address] [place] [phone] Syncope and collapse Social History Tobacco Use Types Packs/Day Years Used Date Smoking Tobacco: Former Cigarettes Smokeless Tobacco: Never Alcohol Use Standard Drinks/Week Comments Yes 0 (1 standard drink = 0.6 oz pur e alcohol) occaisional [facility] Utilities Answer Date Recorded In the past [...] week 09/25/2024 How often do you attend [facility] or yazdanism services? More than 4 times per year 09/25/2024 Do you belong to any clubs o r organizations such as yazidi groups, unions, fraternal or athletic groups, or [...] any time in the past [address] [facility], were you homeless or living in a intermediate (including now)? No 09/25/2024 Personal Safety Answer Date Recorded Have you ever been in or are you currently in a harmful physical or emotional relationship or is someone making you feel afraid or unsafe? Denies 09/24/2024 Comments No Sex and Gender Information Value Date Recorded Sex Assigned at Not on file Legal Sex Female 5:31 PM EARLY CHILDHOOD EDUCATION INSTRUCTOR Gender Identity Female 01/06/2021 6:49 AM CDT Sexual Orientation Straight 01/06/2021 6: 49 AM CDT documented as of this encounter Functional Status * BP Location Answer Date of Assessment Author Left arm 06/16/2025 8:01 AM EARLY CHILDHOOD EDUCATION INSTRUCTOR Milagro Hernandez MA * BP Location Answer Date of Assessment Author Left arm 06/16/2025 8:01 AM EARLY CHILDHOOD EDUCATION INSTRUCTOR Milagro Hernandez MA documented as of this encounter Plan of Treatment Pending Results Name Type Priority Associated Diagnoses Date /Time [facility] Mobile Cardiac Telemetry Event Monitor Cardiac Services Routine Syncope and collapse 06/16/2025 8:27 AM EARLY CHILDHOOD EDUCATION INSTRUCTOR documented as of this encounter Visit Diagnoses Diagnosis Syncope and collapse documented in this encounter Care Teams Front Sight Attacher Relationship Specialty Start Date End Date Wilfredo Pinto MD PCP - General Family Medicine 01/04/18 Jesus Alberto Martinez MD [phone] [place] [address] Surgeon Colon and Rectal Surgery 09/21/20 documented as of this encounter
--- OUTSIDE RECORDS SUMMARY | 2025-06-16 12:33 | XMS_ITS | Clinical Summary ---
Author Organization [facility] Address [address] [place] [address] Care Team Providers Care Dairy Specialist Name Role Phone Wilfredo Pinto MD Primary Care Provider + Source Comments [facility],non-owned Affiliates and Associated Physician Practices is amultiple site organization consisting of ambulatory clinics and hospital sitesin [place], [place], [place] and [place]. This disclosure is being madepursuant to the Care Everywhere program and may not contain all information available regarding this patient. Last updated 18.[facility] Social History Tobacco Use Types Packs/Day Years Used Date Smoking Tobacco: Never Assessed Comments Unknown Sex and Gender Information Value Date Recorded Sex Assigned at Not on file Legal Sex Female 5:47 PM OFFICE MACHINE REPAIR SHOP SUPERVISOR Gender Identity Not on file Sexual Orientation Not on file Last Filed Vital Signs Vital Sign Reading Time Taken Comments Blood Pressure - - Pulse - - Temperature - - Respiratory Rate - - Oxygen Saturation - - Inhaled Oxygen Concentration - - Weight 88.5 kg (195 lb) 07/14/2016 6:17 AM OFFICE MACHINE REPAIR SHOP SUPERVISOR Height 162.6 cm (5' 4) 07/14/2016 6:17 AM OFFICE MACHINE REPAIR SHOP SUPERVISOR Body Mass Index 33.47 07/14/2016 6:17 AM OFFICE MACHINE REPAIR SHOP SUPERVISOR Plan of Treatment Health Maintenance Due Date Last Done Comments BONE DENSITY TESTING 1950 COLOGUARD (AGES 45-75) - COL ON CA SCREENING 1949 COLON MONITORING 1949 COLONOSCOPY - COLON CA SCREENING 1949 CT COLONOGRAPHY - COLON CA SCREENING 1950 Colorectal Cancer Screening 1950 FIT - COLON CA SCREENING 1949 FLEX SIG - COLON CA SCREENING 1949 LIPID TESTING 1949 MAMMOGRAM 1949 HEPATITIS C SCREENING 11/15/1967 DTAP/TDAP/TD VACCINES (1 - Tdap) 1968 PNEUMOCOCCAL VACCINE 50+ (1 of 1 - PCV) 11/20/1999 ZOSTER VACCINE (1 of 2) 11/20/1999 DEPRESSION SCREENING 07/17/2024 Respiratory Syncytial Virus (RSV) Vaccine Pt: or over 60 yrs (1 - 1-dose 75+ series) 2024 COVID-19 VACCINE (1 - 2024-2 6 season) 2025 INFLUENZA VACCINE (#1) 2025 HEPATITIS B VACCINE Aged Out No longe [...] on patient's age to complete [place] [id number] MEDICARE Care Teams Dairy Specialist Relationship Specialty Start Date End Date Wilfredo Pinto MD [address] [address] PCP - General 10/25/16
--- OUTSIDE RECORDS SUMMARY | 2025-06-16 12:33 | XMS_ITS | Clinical Summary ---
Author Organization [facility] Address [address] [place] [address] Care Team Providers Care Instructional Facilitator Name Role Phone Wilfredo Pinto MD Primary Care Provider [phone] Allergies No known active allergies Medications QUEtiapine [...] 9:53 AM CDT Height 160 cm (5' 3) 02/22/2019 9:53 AM CDT Body Mass Index 34.35 02/22/2019 9:53 AM CDT Plan of Treatment Health Maintenance Due Date Last Done Comments DTAP/TDAP/TD VACCINES (1 - Tdap) 1968 COLORECTAL SCREENING 1994 Colorectal Cancer Screening 1994 FIT-DNA Q 3 years 1994 FIT/FOBT Q 1 year 1994 Flex Sig/CT Colonography Q 5 years 1994 PNEUMOCOCCAL VACCINE 50+ YEARS (1 of 1 - PCV) 11/20/19 00 ZOSTER VACCINE (1 of 2) 11/20/1999 OSTEOPOROSIS SCREENING 2014 RSV VACCINE (60+ or ) (1 - 1-dose 75+ series) 2024 INFLUENZA VACCINE (#1) 2025 04/13/2018 Insurance MEDICARE PART A AND B [facility] Care Teams Instructional Facilitator Relationship Specialty Start Date End Date iWlfredo Pinto MD PCP - General Family Practice 12/20/17
--- OUTSIDE RECORDS SUMMARY | 2025-06-16 12:33 | XMS_ITS ---
Author Organization [facility] Address [facility] [place] [address] Care Team Providers Care Radio Interference Expert Name Role Phone Wilfredo Pinto MD Primary Care Prov ider Jesus Alberto Martinez MD Unavailable [phone] Active Problems Problem Noted Date Diagnosed Date S/p TAVR (transcatheter aort ic valve replacement), bioprosthetic 09/24/2024 Syncope and collapse 09/02/2024 Hypothyroidism 11/24/2022 Coronary artery calcification seen on CAT scan 1 07/18/2020 Hyperlipidemia associated with type 2 diabetes myron wan 05/18/2021 JESUS on CPAP 05/18/2021 H/O: stroke 01/15/2021 PAD (peripheral artery disease) 01/15/2021 ADHD 01/15/2021 PVC's (premature ventricular contractions) 01/13 Essential hypertension 01/13/2021 Controlled type 2 diabetes with neuropathy 01/13 Meniere's disease of left ear 02/12/2018 Assessment & Plan (09/20/2019 4:07 PM CLINICAL HAEMATOLOGIST): Differential includes vestibular migraine Will trial head [...] Automatic Entry Manual Entr y Fluoro Time 11.7 minutes 0.4 minutes 11.3 minutes Air kerma at the reference point (Ka,r) 290 mGy 1 mGy 289 mGy Resolved Problems Problem Noted Date Diagnosed Date Resolved Date LVH (left ventricular hypertrophy) 01/15/2024 12/02/2024 Asymmetrical sensorineural hearing loss 04/18/2022 12/28/2022 Atherosclerosis of aortic bi furcation and common iliac arteries 05/18/2021 09/02/2024 Mixed hyperlipidemia 05/18/2021 023 Nonrheumatic aortic valve stenosis 01/13/2021 12/02/2024 Colonic stricture (CMS/HCC) 03/04/2020 12/28/2022 Overview (03/05/2020): Added automatically from request for surgery [id number]
--- OUTSIDE RECORDS SUMMARY | 2025-06-16 12:33 | XMS_ITS | Encounter Summary ---
Author Organization [facility] Healthcare Address [address] [place] [address] Care Team Providers Care Signal Worker Helper Name Role Phone Wilfredo Pinto MD Primary Care Prov ider Jesus Alberto Martinez MD Unavailable [phone] Encounter Details Date Type Department Care Team (Late st Contact Info) Description 06/16/2025 Telephone [facility] Cardiology [address] [place] [address] Monica Armstrong MD [address] [place], [place] [id number] Social History Tobacco Use Types Packs/Day Years Used Date Smoking Tobacco: Former Cigarettes Smokeless Tobacco: Never Alcohol Use Standard Drinks/Week Comments Yes 0 (1 standard drink = 0.6 oz pur e alcohol) occaional [facility] Utilities Answer Date Recorded In the past 12 months has [employer], gas, oil, or water [employer] threatened to shut off services in your home? No 09/25/2024 Social Connection and Isolation Panel Answer Date Recorded In a typical week, how many times do you talk on the phone with family, friends, or neighbors? More than three times a week 09/25/2024 How often do you get togethe r with friends or relatives? Once a week 09/25/2024 How often do you attend [facility] or tenriism services? More than 4 times per year 09/25/2024 Do you belong to any clubs o r organizations such as restorationist groups, unions, fraternal or athletic groups, or [...] any time in the past 12 m [facility], were you homeless or living in a fci (including now)? No 09/25/2024 Personal Safety Answer Date Recorded Have you ever been in or are you currently in a harmful physical or emotional relationship or is someone making you feel afraid or unsafe? Denies 09/24/2024 Comments No Sex and Gender Information Value Date Recorded Sex Assigned at Not on file Legal Sex Female 5:31 PM DIESEL ENGINE MECHANIC APPRENTICE Gender Identity Female 01/06/2021 6:49 AM CDT Sexual Orientation Straight 01/06/2021 6: 49 AM CDT documented as of this encounter Functional Status * BP Location Answer Date of Assessment Author Left arm 06/16/2025 8:01 AM DIESEL ENGINE MECHANIC APPRENTICE Milagro Hernandez MA * BP Location Answer Date of Assessment Author Left arm 06/16/2025 8:01 AM DIESEL ENGINE MECHANIC APPRENTICE Milagro Hernandez MA documented as of this encounter Miscellaneous Notes * Telephone Encounter - Blaire Melendez - 06/16/2025 12:06 PM CST Janna FITCH at requesting most recent office visit note and cath report be faxed to their office. Thank you. Contact: EL ENGINE MECHANIC APPRENTICE documented in this encounter Plan of Treatment Not on file documented as of this encounter Visit Diagnoses Not on filedocumented in this encounter Care Teams Signal Worker Helper Relationship Specialty Start Date End Date Wilfredo Pinto MD PCP - General Family Medicine 01/04/18 Jesus Alberto Martinez MD [phone] [place] [address] Surgeon Colon and Rectal Surgery 09/21/20 documented as of this encounter
--- OUTSIDE RECORDS SUMMARY | 2025-06-16 12:33 | XMS_ITS | Clinical Summary ---
Author Organization [facility] Address [address] [place] [phone] Care Team Providers Care Brewer Helper Name Role Phone Unavailable Primary Care Provider Unavailabl e Social History Tobacco Use Types Packs/Day Years Used Date Smoking Tobacco: Never Assessed Comments Unknown Sex and Gender Information Value Date Recorded Sex Assigned at Not on file Legal Sex Female 3:35 AM TRAFFIC ENGINEER Gender Identity Not on file Sexual Orientation Not on file Plan of Treatment Health Maintenance Due Date Last Done Comments Hepatitis C Virus (HCV) Screening 1950 TdaP Immunization 1949 Cologuard 1994 Colonoscopy 1994 Colorectal Cancer Screening 1994 Immunochemical Fecal Occult Blood 1994 Pneumococcal Immunization (5 0+ years) (1 of 1 - PCV) 11/20/1999 Zoster Immunization (1 of 2) 11/20/1999 Respiratory Syncytial Virus (RSV) Immunization (Adult) (1 - 1-dose 75+ series) 2024 Influenza Immunization (#1) 2025 SARS-COV-2 Immunization ( season) 2025 03/20/2021, 10/02/2020, 09/11/2020 Hepatitis B Immunization Aged Out No longer eligible based on patient's age to complete this topic Human Papillomavirus (HPV) Immunization Aged Out No longer eligible b ased on patient's age to complete this topic Meningococcal Immunization (ACWY) Aged Out No longer eligible b ased on patient's age to complete this topic Rotavirus Immunization Aged Out No lo nger eligible based on patient's age to complete this topic
--- OUTSIDE RECORDS SUMMARY | 2025-06-16 12:33 | XMS_ITS | Clinical Summary ---
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 Name Role Phone Wilfredo Pinto MD Primary Care Prov ider Jesus Alberto Martinez MD Unavailable [phone] Allergies Active Allergy Reactions Criticality Noted Date Comments Morphine Vomiting Low 02/11/2021 Medications venlafaxine XR (EFFEXOR-XR) 150 mg 24 hr capsule Take 2 capsules (300 mg total) by mouth every morning 2 018 Active metFORMIN XR (GLUCOPHAGE XR) 500 mg 24 hr tablet Take by mouth as directed Take 1500 mg in the morning and 500 mg at night 5 018 Active LANTUS U-100 INSULIN 100 unit/mL injection Inject 2 Units under the skin nightly 2 018 Active QUEtiapine (SEROquel) 25 mg tablet Take 2 tablets (50 mg total) by mouth nightly 018 Active riboflavin (Vitamin B-2) 100 mg tabletIndications :Riboflavin Deficiency Take 2 tablets (200 mg total) by mouth 2 (two) times a day Active cholecalciferol (VITAMIN D-3) 25 mcg (1,000 unit) tabletIndications :Vitamin D Deficiency Take 1 tablet (1,000 Units total) by mouth nightly Active fluticasone propionate (FLONASE ALLERGY RELIEF NASL)Indications: allergy maintenance Administer 2 sprays into each nostril daily as needed Active magnesium oxide 400 mg magnesium capsuleIndication s:hypomagnesemia Take 2 tablet/capsule by mouth nightly Active diazePAM (VALIUM) 2 mg tablet Take 1 tablet (2 mg total) by mouth every 8 (eight) hours as needed (dizziness) 30 tablet 3 021 Active ondansetron ODT (ZOFRAN-ODT) 8 mg disintegrating tablet Take 1 tablet (8 mg total) by mouth every 8 (eight) hours as needed for nausea or vomiting 20 tablet 1 023 Active betahistine Take 1 capsule (8 mg total) by mouth 3 (three) times a day 90 capsule 11 023 Active Kerendia 10 mg tablet Take 1 tablet by mouth every morning 023 Active Jardiance 25 mg tabletIndications :type 2 diabetes mellitus Take 1 tablet (25 mg total) by mouth every morning 023 Active levothyroxine (SYNTHROID) 75 mcg tablet Take 1 tablet (75 mcg total) by mouth physicist solid earth before breakfast 023 Active aspirin 81 mg enteric coated tabletIndications :Coronary artery calcification seen on CAT scan,H/O: stroke Take 1 tablet (81 mg total) by mouth daily 30 tablet 11 023 Active Mounjaro 5 mg/0.5 mL pen injector Inject 0.5 mL (5 mg total) under the skin once a week Take on Mondays 024 Active pen needle, diabetic (BD Ultra-Fine Short Pen Needle) 31 gauge x 5/16 needle Active insulin syringe-needle U-100 1 mL 31 gauge x 5/16 syringe 024 Active pregabalin (LYRICA) 75 mg capsule Take 1 capsule (75 mg total) by mouth 2 (two) times a day 025 Active doxycycline (doxycycline hyclate) 100 mg capsule Take 1 tablet/capsule (100 mg total) by mouth daily Active metoprolol XL (TOPROL-XL) 50 mg extended release tabletIndications :PVC's (premature ventricular contractions),Ess ential hypertension TAKE 1 TABLET(50 MG) BY MOUTH DAILY 90 tablet 3 025 Active Additional Information Patient not taking.Reported on 06/16/2025 atorvastatin (LIPITOR) 80 mg tablet Take 1 tablet (80 mg total) by mouth nightly 90 tablet 3 025 Active Additional Information Patient taking differently: 40 mgoral Nightly, Reported on 06/16/2025 amoxicillin (AMOXIL) 500 mg tablet/capsule Take 4 caps (2000 mg) 1 hour prior to procedure. 4 tablet/caps ule 025 Active clopidogreL (PLAVIX) 75 mg tablet Take 1 tablet (75 mg total) by mouth daily 90 tablet 025 2024 Discontinued Active Problems Problem Noted Date Diagnosed Date [...] 02/12/2018 Assessment & Plan (09/20/2019 4:07 PM COLORMAN): Differential includes vestibular migraine Will trial head [...] (03/05/2020): Added automatically from request for surgery [id number] Encounters Date Type Department Care Team Description 06/16/2025 9:45 AM COLORMAN Ancillary Procedure [facility] [address] [place] [address] [place] [phone] Syncope and collapse 06/16/2025 8:00 AM COLORMAN Office Visit [facility] [address] [place] [address] [place] [phone] Monica Armstrong MD S/p TAVR (transcatheter aortic valve replacement), bioprosthetic (Primary Dx); Hyperlipidemia associated with type 2 diabetes mellitus (HCC); Essential hypertension; PVC's (premature ventricular contractions); Coronary artery calcification seen on CAT scan; Syncope and collapse 06/16/2025 Telephone [facility] [address] [place] [address] [address] [place] [phone] Monica Armstrong MD 04/23/2025 Telephone [facility] [address] [place] [address] [place] [phone] Monica Armstrong MD Loss of Consciousness 03/24/[address] [place] [phone] Monica Armstrong MD dental work/antibiotics from Last 3 Months Immunizations Immunization Administration Dates Next Due COVID-19 mRNA ([employer]) 0.3 m L (30 mcg) vaccine (12 [...] CORONARY ANGIOGRAPHY WITH AND WITHOUT LEFT VENTRICULOGRAM [id number]; Surgeon: Monica Armstrong MD; Location: CARDIAC FLUE CLEANER; Service: Cardiovascular; Laterality: N/A; Medical devices from this surgery are in the Medical Devices section. CARDIAC CATHETERIZATION 09/24/2024 N/A Procedure: AORTOGRAM THORACIC S&I [id number]; Surgeon: Monica Armstrong MD; Location: CARDIAC FLUE CLEANER; Service: Cardiovascular; Laterality: N/A; Medical devices from this surgery are in the Medical Devices section. CARDIAC CATHETERIZATION 09/24/2024 N/A Procedure: PERIPHERAL ANGIOGRAPHY; Surgeon: Monica Armstrong MD; Location: CARDIAC FLUE CLEANER; Service: Cardiovascular; Laterality: N/A; Medical devices from this surgery are in the Medical Devices section. Medical History Medical History Date Comments Diabetes ADHD (attention deficit hyperactivity disorder) Gastrointestinal problem Chronic diarrhea Sleep apnea Diverticulosis GERD (gastroesophageal reflu x disease) Dysphagia Hyperlipidemia Hypertension Type 2 diabetes mellitus Thyroid nodule Cataract Miscarriage Breast cancer (HCC) 2016 left; surger y and radiation tx Anemia Stroke ([facility]) August 2020 Mixed conductive and sensorineural hearing loss Meniere s Disease Infection Osteomyelitis / cellulitis 2020 - left toes Nonrheumatic aortic (valve) stenosis Motion sickness PVC (premature ventricular contraction) BPV (benign positional verti go), left Abnormal ECG Family History Medical History Relation Name Comments Allergy (severe) Brother Ronn Oliva II Diabetes Brother Ronn Oliva II Hearing loss Brother Ronn Oliva II Cancer Father Ronn [place] Diabetes Father Ronn Pj Cancer Father's Brother 1 Harshal Oliva Cancer Father's Brother 2 Abhijit Oliva Heart attack Father's Brother 3 Kirit Oliva Cancer Father's Brother 4 Harshal Oliva Cancer Father's Brother 5 Abhijit Oliva Heart attack Father's Brother 6 Kirit [place] Cancer Father's Sister 1 Mary Pj Aj Cancer Father's Sister 2 Mary Pj Aj Heart attack Maternal Grandfather Brant Powell Heart attack Maternal Grandmother Aurea Powell of multiple heart attacks. Hypertension Maternal Grandmother Aurea Powell Alzheimer's disease Mother So Powell Pj COPD Mother So Powell [place] Dementia Mother So Powell Pj Hearing loss Mother So Powell [place] Hypertension Mother So Powell Pj Cancer Paternal Grandfather Brant Powell Hypertension Paternal Grandfather Brant Powell Cancer Paternal Grandmother EktaRodríguez Oliva Diabetes Sister Noreen Pj Gay Relation Name Status Comments Brother Ronn Oliva II Father Ronn Oliva Father's Brother 1 Harshal Ballsey Father's Brother 2 Abhijit Ballsey Father's Brother 3 Kirit Ballsey Father's Brother 4 Harshal Oliva Alive Father's Brother 5 Abhijit Ballsey Alive Father's Brother 6 Kirit Pj Alive Father's Sister 1 Mary Pj Aj Father's Sister 2 Mary Pj Bath Alive Maternal Grandfather Brant Powell Alive Maternal Grandmother Aurea Powell Deceas ed Mother So Oliva Paternal Grandfather Brant Powell Paternal Grandmother EktaLauren Oliva Alive Sister Noreen Oliva Victor Hugo Social History Tobacco Use Types Packs/Day Years Used Date Smoking Tobacco: Former Cigarettes Smokeless Tobacco: Never Tobacco Cessation:Counseling Given: Not Answered Alcohol Use Standard Drinks/Week Comments Yes 0 (1 standard drink = 0.6 oz pur e alcohol) occaisional [facility] Utilities Answer Date Recorded In the past 12 months has [employer], gas, oil, or water [facility] threatened to shut off services in your home? No 09/25/2024 Social Connection and Isolation Panel Answer Date Recorded In a typical week, how many times do you talk on the phone with family, friends, or neighbors? More than three times a week 09/25/2024 How often do you get togethe r with friends or relatives? Once a week 09/25/2024 How often do you attend chur ch or yarsanism services? More than 4 times per year 09/25/2024 Do you belong to any clubs o r organizations such as pentecostalism groups, unions, fraternal or athletic groups, or [...] any time in the past 12 m [facility], were you homeless or living in a usp (including now)? No 09/25/2024 Personal Safety Answer Date Recorded Have you ever been in or are you currently in a harmful physical or emotional relationship or is someone making you feel afraid or unsafe? Denies 09/24/2024 Comments No Sex and Gender Information Value Date Recorded Sex Assigned at Not on file Legal Sex Female 5:31 PM COLORMAN Gender Identity Female 01/06/2021 6:49 AM CDT Sexual Orientation Straight 01/06/2021 6: 49 AM CDT Last Filed Vital Signs Vital Sign Reading Time Taken Comments Blood Pressure 138/66 06/16/2025 8:01 AM COLORMAN Pulse 62 06/16/2025 8:01 AM COLORMAN Temperature 36.7 C (98 F) 09/25/2024 9:17 AM CDT Respiratory Rate 18 09/25/2024 9:17 AM CDT Oxygen Saturation 99% 06/16/2025 8:01 AM COLORMAN Inhaled Oxygen Concentration - - Weight 66 kg (145 lb 9.6 oz) 06/16/2025 8:01 AM COLORMAN Height 162.6 cm (5' 4) 06/16/2025 8:01 AM COLORMAN Body Mass Index 24.99 06/16/2025 8:01 AM COLORMAN Plan of Treatment Health Maintenance Due Date Last Done Comments Albumin Creatinine Ratio, Urine 1950 Depression Screening 1950 Hepatitis C Screening 1950 Osteoporosis Screening-Bone Density Scan 1950 Dilated Eye Exam 1950 Foot Exam 1950 Hepatitis B Screening 11/20/1967 Pneumococcal vaccine 65+ (1 of 2 - PCV) 1968 Well Visit 65+ 2014 Zoster Vaccine (2 of 2) 01/17/2019 11/22/2018 DTaP/Tdap/Td Vaccine (2 - Td or Tdap) 05/18/2023 05/18/2013 Covid-19 Vaccine (2024-2 6 season) 2025 05/17/2024, 03/24/2022, 10/23/2021, Additional history exists Influenza Vaccine (#1) 2025 03/24/2022 Hemoglobin A1C 03/19/2025 09/16/2024, 03/04/2020 Lipid Panel 09/02/2025 09/02/2024, 07/0 07/2023, 04/11/2022, Additional history exists eGFR 09/16/2025 09/16/2024, 01/19/2024 Fall Risk Assessment 09/25/2025 09/25/2024 Colon Cancer Screening-Colonoscopy 02/21/2029 02/21/2019 Colon Cancer Screening-CT Colonography Discontinued 03/06/2020, 02/21/2019 Colon Cancer Screening-DNA Stool Discontinued 03/06/20, 02/21/2019 Colon Cancer Screening-FIT Discontinued 03/06/2020, Colon Cancer Screening-Sigmoidoscopy Discontinued 03/06/2020, 02/21/2019 Medical Devices Implanted Type Area Budget Counselor Device Identifier Shelf Expiration Date Model / Serial / Lot [employer] Device Closure Vascade Od5 Fr Femoral Artery [id number] - [id number] Implanted:Qty: 1 on 01/30/2024 by Monica Armstrong MD at [facility] [employer] 10/10/2025 [id number] / / [id number] [employer] System Closure Repair Femoral Artery Suture Mediated Perclose Prostyle 66412-18 - [id number] Implanted:Qty: 1 on 09/24/2024 by Monica Armstrong MD at [facility] [employer] 07/16/2026 1 2773-03 / / [id number] [employer] System Closure Repair Femoral Artery Suture Mediated Perclose Prostyle 55401-81 - [id number] Implanted:Qty: 1 on 09/24/2024 by Monica Armstrong MD at [facility] [employer] 07/16/2026 1 2773-03 / / [id number] [employer] Valve Aortic Trnscath Joan 3 Ultra Resilia 23mm [id number] - [id number] - [id number] Implanted:Qty: 1 on 09/24/2024 by Monica Armstrong MD at [facility] [employer] 01/03/2027 [id number] / [id number] / [employer] V[employer] System Closure Repair Femoral Artery Suture Mediated Perclose Prostyle 38704-06 - [id number] Implanted:Qty: 1 on 09/24/2024 by Monica Armstrong MD at [facility] [employer] 06/15/2026 1 2773-03 / / [id number] [employer] Device Vascular Closure Femoral Artery Bioabsorbable Dual Method Vascade 6-7fr Collagen [id number] - [id number] Implanted:Qty: 1 on 09/24/2024 by Monica Armstrong MD at [facility] [employer] 03/07/2026 [id number] / / [id number] Procedures Procedure Name Priority Date/Time Associated Diagnosis Comments EGFR Routine 09/16/2024 10:43 AM COLORMAN Pre-operative exam HEMOGLOBIN A1C Routine 09/16/2024 10:20 AM COLORMAN Pre-operative exam Type 2 diabetes, controlled, with neuropathy (HCC) LIPID PANEL Routine 09/02/2024 1:01 PM COLORMAN FLEXIBLE SIGMOIDOSCOPY 0 5:25 PM CDT COLONOSCOPY 02/21/2019 8:33 AM CDT from Last 3 Months or Most Recently Relevant to Health Maintenance Results * eGFR (09/16/2024 10:43 AM COLORMAN) eGFR >90 >=60 mL/min/1. 73 m2 Comment: [...] reviewed 2021. Blood 09/16/2024 10:4 3 AM COLORMAN 09/16/2024 10:43 AM COLORMAN Monica Armstrong MD LAB BLOOD ORDERABLES Final Result Performing Organization Address [facility] Phone Number [facility] [address] [address] [facility] [place] [address] * Hemoglobin A1c (09/16/2024 10:20 AM COLORMAN) Hgb A1C 5.2 4.0 - 5.6 % Estimated Average Glucose 103 mg/dL HIGINIO CORDERO Comment: The ADA recommends reporting an estimated Average Glucose (eAG) with all Hemoglobin A1c results using the equation derived from a study of 507 normal and diabetic adults. Minority populations were underrepresented and children were not included. (Diabetes Care 31:9250-0830, 2008). The eAG is not equivalent to a fasting glucose. Blood 09/16/2024 10:2 0 AM COLORMAN 09/16/2024 10:54 AM COLORMAN Result [facility] us Monica Armstrong MD LAB BLOOD ORDERABLES Final Result Performing Organization Address [facility] Phone Number HIGINIO [address] [address] [facility] [place] [address] * Lipid panel (09/02/2024 1:01 PM COLORMAN) SCRIBED Cholesterol, Total 116 <100 EXTERNAL LAB SCRIBED HDL 34 >40 EXTERNAL LAB SCRIBED LDL 35 <100 EXTERNAL LAB SCRIBED Triglycerides 238 <150 EXTERNAL LAB Blood 09/02/2024 1:01 PM COLORMAN us Monica Armstrong MD LAB BLOOD ORDERABLES Final Result Performing Organization Address [facility] Co de Phone Number EXTERNAL LAB * FLEXIBLE SIGMOIDOSCOPY (03/06/2020 5:25 PM CDT) Anatomical Region Laterality Modality Other Narrative Procedure Note Layo Benson MD - 03/06/2020 5:25 PM CDT [facility] Patient Name: Aurea De La Rosa Procedure Date: 03/06/2020 5:25 PM Date of : 1950 Admit Type: Inpatient Age: 69 Gender: Female Attending MD: Layo Benson M.D. Room: [facility] ENDOSCOPY ROOM 2 Note Status: Finalized Procedure: [...] informed consent was obtained. The GIF 1T [id number] Endoscope wasintroduced through the anus and advanced [...] On: 03/06/2020 5:25 PM Recognized by the [employer] for promoting quality [...] Female Attending MD: Hieu Joseph M.D. Room: [facility] ENDOSCOPY ROOM 9 Note Status: Finalized Procedure: [...] was passed under direct vision.The GIF [id number] endoscope was introduced throughthe anus and advanced [...] my nurses in the GI office at [phone] ([phone]) for your final pathology results in 7 days. - Repeat colonoscopy in 3 years for surveillance. - In the unusual situation that you developabdominal pain, bleeding or other significant problems in the days following this procedure please call my officeat [phone] ([phone]) to speak to my nurses. After hours and evenings please call [phone] speak to the GI fellow environmental health safety manager. Please tell themthat Dr. Joseph did your [...] On: 02/21/2019 8:33 AM Recognized by the [employer] for promoting quality in endoscopy Hieu Joseph MD ENDOSCOPY PROCEDUR ES Final Result from Last 3 Months or Most Recently Relevant to Health Maintenance Insurance MEDICARE [facility] [place] [id number] MEDICARE [employer] [place] [address] [address] [employer] [place] [address] MEDICARE [facility] Advance Directives For more information, please contact: [phone] * Full Code (Latest Code Status on File) Date Activated Date Inactivated Comments 09/24/2024 11:36 AM 09/25/2024 6:21 PM * Full Code Date Activated Date Inactivated Comments 01/30/2024 12:18 PM 01/30/2024 6:21 PM * Full Code Date Activated Date Inactivated Comments 03/04/2020 4:29 PM 03/12/2020 9:31 PM * Full Code Date Activated Date Inactivated Comments 02/21/2019 8:06 AM 02/21/2019 2:55 PM Care Teams Embossing Press Operator Relationship Specialty Start Date End Date Wilfredo Pinto MD PCP - General Family Medicine 01/04/18 Jesus Alberto Martinez MD [facility] [phone] [place] [address] Surgeon Colon and Rectal Surgery 09/21/20
[2025-06-16 12:38] LABS: Hematocrit 30.7 % (37.0-47.0); Hemoglobin 10.3 g/dL (12.0-15.0); Mean Corpuscular HGB Conc 33.6 g/dl (32-36); Mean Corpuscular Hemoglobin 30.5 pg (26-34); Mean Corpuscular Volume 90.8 fl (80-100); Platelet Count Result 262 k/mm3 (150-375); Red Blood Count 3.38 M/mm3 (4.2-5.4); White Blood Count 8.6 K/mm3 (4.5-10.0)
[2025-06-16 12:40] LABS: Add Urine Microscopic? YES; Appearance Urine Clear (Clear); Glucose Urine UA 3+ mg/dL (Negative); Leukocyte Esterase Ur Negative LEU/UL (Negative); Nitrate Urine Negative (Negative); Specific Grav Ur 1.032 (1.001-1.035)
[2025-06-16 12:54] LABS: INR 1.0; Prothrombin Time 13.0 Seconds (11.1-14.7)
[2025-06-16 12:55] LABS: Partial Thromboplastin Time 37.8 Seconds (22.3-36.8)
[2025-06-16 12:57] LABS: Anion Gap 5 mmol/L (4-12); Blood Urea Nitrogen 28 mg/dL (7-17); Calcium 9.2 mg/dL (8.4-10.2); Carbon Dioxide 28 mmol/L (22-30); Chloride 104 mmol/L (98-107); Estimated Glomerular Filt Rate > 60; Glucose 174 mg/dL (65-110); Potassium 3.9 mmol/L (3.4-5.0); Sodium 137 mmol/L (137-145)
[2025-06-16 13:16] LABS: Hemoglobin A1C 5.3 % (<5.7)
== END 2025-06-16 10:55 | disposition home or self-care (01) ==
LOC: ANHSURGERY 10:58
PROVIDERS: PCP Family Medicine; Visit Provider Neurological Surgery
DX: G57.32 Lesion of lateral popliteal nerve, left lower limb (principal); Z01.818 Encounter for other preprocedural examination
CPT/HCPCS: 36415; 71046; 80048; 81001; 83036; 85027; 85610; 85730